=== PATIENT | female | born 1990 | race Caucasian/White ===

== ENCOUNTER → 2016-06-11 | Outpatient (CLI) | payer MEDICAID ==
[~2016-06-11] MED LIST: ALBU8.5H2; ALBU8.5H2 IH; AZIT-21 PO; CEFD300C PO; CEPH500C PO; DCS100C PO; DOCU-143 PO; FERR-74 PO; HC1O30 TP; HYDR-3729 PO; IBUP-1773 PO; NAPR-243 PO; ONDA-43 PO; PRD20T PO; PREN-98 PO; PRM5C60 TOP; RT-ALBUINH IH; SULF1TAB38 PO; TRAM50TA2 PO
--- NOTE | 2016-06-11 13:16 | Diagnostic Imaging Report ---
OB ultrasound. INDICATION: Incomplete survey. FINDINGS: The heart rate is 121 beats per minute. The placenta is anterior. No placenta previa. Study from 05/12/2016 demonstrated poor visualization of the four-chamber view, spine and cord insertion. On this exam, the four-chamber view, the spine and cord insertion are somewhat better seen compared to the previous study with no definite abnormality. Some limitation to this exam due to large body habitus is present. The growth parameters are all around 23 weeks and 1 day which is normal for gestational age of 23 weeks and 6 days based on first trimester ultrasound. The biparietal and head circumference measurements, however, are at the 3rd percentile, at the lower limits of normal. IMPRESSION: survey completed with no definite abnormality. The head circumference and biparietal diameter are at the lower limits of normal for gestational age. Dictated by: Dictated on workstation # [id number]
== END ==
LOC: RAD 10:57
PROVIDERS: ATTEND Family Medicine
DX: Z34.92 Encounter for supervision of normal pregnancy, unspecified, second trimester (principal); Z36 Encounter for antenatal screening of mother; Z3A.23 23 weeks gestation of pregnancy
CPT/HCPCS: 76816

== ENCOUNTER → 2016-07-24 | Outpatient (CLI) | payer MEDICAID ==
--- NOTE | 2016-07-24 16:04 | Diagnostic Imaging Report ---
EXAMINATION: OB ultrasound. INDICATION: Followup exam. FINDINGS: This study was technically difficult due to the patient's body habitus. The previous OB ultrasound exam of 06/11/2016 noted a single live fetus in cephalic presentation. There were no abnormalities identified. However, the BPD and head circumference measurements were in the 3 percentile. On this exam, the fetus is again identified. The fetus is in breech presentation. heart motion was noted with a rate of 121 BPM recorded. There were no abnormalities identified. The growth parameters are now fairly uniform. In particular, the BPD and head circumference measurements are now in the 21st and 25th percentile respectively. The growth parameters average 29 weeks 6 days which would be consistent with the initial exam of 02/25/2016. On the prior study, the amniotic fluid volume appeared to be within normal limits, although the volume was not measured. On this exam, the ADITI is now 7.9 (8-22 cm). The reason for the borderline oligohydramnios is not certain. The placenta is anterior, and there is no previa. IMPRESSION: 1. There is a single live fetus of approximately 30 weeks gestation, +/-1 week. The EDC remains October 02, 2016. 2. There were no abnormalities identified. 3. The growth parameters are now fairly uniform and have progressed as expected since the initial exam. 4. The amniotic fluid index is just below normal. The reason for the borderline oligohydramnios is not certain. A short-term (2-4 week) followup ultrasound exam would be recommended for further study. 5. These results were discussed with Dr. Richie Carlos. Dictated by: Dictated on workstation # [id number]
== END ==
LOC: RAD 13:28
PROVIDERS: ATTEND Family Medicine
DX: Z36 Encounter for antenatal screening of mother (principal)
CPT/HCPCS: 76816

== ENCOUNTER 2016-08-08 18:21 | Outpatient (CLI) | payer MEDICAID ==
[~2016-08-08] VITALS: Ht 167.6 cm; Wt 108.9 kg
[~2016-08-08 18:21] MED LIST changes: -DOCU-143 PO; -FERR-74 PO; -HYDR-3729 PO; -IBUP-1773 PO; -PREN-98 PO; -RT-ALBUINH IH
[2016-08-08] MEDS ORDERED: PREN-98 PO (19:23)
--- NOTE | 2016-08-11 10:24 | Physician Query-Final Dx ---
ARMANDO SHARPE 08/11/16 1024: Clinic Account Progress/Dx Physician Query: Please give diagnosis Date of Service Aug 08, 2016 at 18:21 CARMEN KO MD 08/13/16 0729: Clinic Account Progress/Dx DIAGNOSIS: Diagnosis 1. IUP at 31 weeks gestation 2. Anxiety ARMANDO SHARPE Aug 11, 2016 10:24 CARMEN KO MD Aug 13, 2016 07:29
== END 2016-08-08 19:01 | disposition home or self-care (01) ==
LOC: WSo 18:21 → LDRP 18:25 → WSo 19:01
PROVIDERS: ATTEND Family Medicine
DX: O99.343 Other mental disorders complicating pregnancy, third trimester (principal); F41.9 Anxiety disorder, unspecified; Z3A.31 31 weeks gestation of pregnancy
CPT/HCPCS: 99212

== ENCOUNTER 2016-08-08 18:57 | Emergency (ER) | payer MEDICAID ==
[~2016-08-08] VITALS: Ht 167.6 cm; Wt 117.9 kg
[2016-08-08] MEDS ORDERED: PREN-98 PO (19:23)
--- NOTE | 2016-08-08 19:35 | ED Cardiac General ---
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 Source: patient Exam Limitations: no limitations History of Present Illness Time seen by provider: 19:33 Initial Comments To ER with palpitations, chest pain, and dyspnea that began earlier this evening. She's had a history of these intermittently over the past several years. Today she is 32 weeks gestation. She stopped smoking 2 weeks ago. 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: No ASA po RAMP FLIGHT ATTENDANT: No Associated Systoms: Chest PainNo Cough, No Diaphoresis, No Fever/Chills Allergies and Home Medications Allergies Coded Allergies: Penicillins (Verified Allergy, Unknown, 02/15/12) Home Medications Vit37/Iron/Folic Acid 1 Each Tab.chew 1 EACH PO (Reported) Review of Systems Constitutional: see HPI EENTM: No Symptoms Reported Respiratory: No Symptoms Reported Cardiovascular: See HPI Chest Pain Gastrointestinal: No Symptoms Reported Genitourinary: No Symptoms Reported Musculoskeletal: no symptoms reported Skin: no symptoms reported Psychiatric/Neurological: No Symptoms Reported Emotional Problems Endocrine: No Symptoms Reported Hematologic/Lymphatic: No Symptoms Reported Past Ldekckg-Lggqbz-Capkni Hx Patient Social History Alcohol Use: Denies Use Recreational Drug Use: No Smoking Status: Current Everyday Smoker Recent Foreign Travel: No Contact w/Someone Who Travel: No Recent Infectious Disease Expo: No Surgeries HX Surgeries: No Respiratory Hx Respiratory Disorders: Yes Respiratory Disorders: Asthma Cardiovascular Hx Cardiac Disorders: No Neurological Hx Neurological Disorders: No Reproductive System Hx Reproductive Disorders: No Sexually Transmitted Disease: No HIV/AIDS: No Genitourinary Hx Genitourinary Disorders: No Gastrointestinal Hx Gastrointestinal Disorders: No Musculoskeletal Hx Musculoskeletal Disorders: No Endocrine Hx Endocrine Disorders: No HEENT HX ENT Disorders: No Cancer Hx Cancer: No Psychosocial Hx Psychiatric Problems: No Integumentary HX Skin/Integumentary Disorder: No Blood Transfusions Hx Blood Disorders: No Adverse Reaction to a Blood Tr: No Physical Exam Vital Signs Vital Sign - Last 12Hours 08/08/16 19:20 Temp 98.2 Pulse 119 Resp 18 B/P 122/78 Pulse Ox 97 O2 Delivery Room Air Capillary Refill : Less Than 3 Seconds General Appearance: No Apparent Distress WD/WN HEENT: PERRL/EOMI TMs Normal Neck: Full Range of Motion Normal Inspection Respiratory: Normal Breath Sounds No Accessory Muscle Use No Respiratory Distress Cardiovascular: No Edema Normal Peripheral Pulses Tachycardia Other (sternum is tender to palpation) Gastrointestinal: Non Tender Soft Extremity: Normal Capillary Refill Normal Inspection No Pedal Edema Neurologic/Psychiatric: Alert Oriented x3 No Motor/Sensory Deficits Skin: Normal Color Warm/Dry Progress/Results/Core Measures Results/Orders Lab Results Laboratory Tests Test 08/08/16 19:50 Range/Units Basophils # (Auto) 0.0 0.0-0.1 10^3/uL Basophils (%) (Auto) 0 0-10 % D-Dimer 0.49 0.00-0.49 UG/ML Eosinophils # (Auto) 0.0 0.0-0.3 10^3/uL Eosinophils (%) (Auto) 0 0-10 % Hematocrit 35 35-52 % Hemoglobin 11.9 11.5-16.0 G/DL Lymphocytes # (Auto) 1.8 1.0-4.0 X 10^3 Lymphocytes (%) (Auto) 20 12-44 % Mean Corpuscular Hemoglobin 28 25-34 PG Mean Corpuscular Hemoglobin Concent 34 32-36 G/DL Mean Corpuscular Volume 81 80-99 FL Mean Platelet Volume 9.6 7.4-10.4 FL Monocytes # (Auto) 0.5 0.0-1.0 X 10^3 Monocytes (%) (Auto) 5 0-12 % Neutrophils # (Auto) 7.0 1.8-7.8 X 10^3 Neutrophils (%) (Auto) 75 42-75 % Platelet Count 260 130-400 10^3/uL Red Blood Count 4.31 L 4.35-5.85 10^6/uL Red Cell Distribution Width 12.7 10.0-14.5 % White Blood Count 9.3 4.3-11.0 10^3/uL My Orders Orders-ARLENE SOLITARIO APRN Cbc With Automated Diff (08/08/16 19:23) Fibrin Degradation Products (08/08/16 19:23) Ekg Tracing (08/08/16 19:23) Chest Pa/Lat (2 View) (08/08/16 19:23) BNP (08/08/16 20:00) Vital Signs/I&O Vital Sign - Last 12Hours 08/08/16 19:20 Temp 98.2 Pulse 119 Resp 18 B/P 122/78 Pulse Ox 97 O2 Delivery Room Air Blood Pressure Mean: 93 Departure Communication Progress Notes Patient is less than 50 without active cancer, no history of DVT or PE, no recent surgery or trauma, no hemoptysis, no exogenous estrogen, no unilateral leg swelling, oxygen saturation 97-99 percent on room air, heart rate 110-115 but this is not a new finding and fact she has been tachycardic on 3 of her previous 4 visits. 2023-I discussed the case with Dr. Ko who is her OB doc and primary care doctor. He agrees with plan of care he will see her in the office. Patient states that she was anxious at the onset of the symptoms. At this time she is without chest pain or shortness of breath. She remains tachycardic at about 104 sinus, oxygen 97 and 99 percent on room air. Impression Impression: Primary Impression: Chest pain Qualified Code: R07.1 - Chest pain on breathing Disposition: HOME, SELF-CARE Condition: Stable Departure-Patient Inst. Decision time for Depature: 20:25 Referrals: CARMEN KO MD (PCP/Family) Primary Care Physician Patient Instructions: Chest Pain That Is Not Caused by the Heart (DC) Add. Discharge Instructions: 1. Return to the emergency room for any worsening shortness of breath, passing out, chest pain or other concerns 2. Follow-up with Dr. Ko next week 3. All discharge instructions reviewed with patient and/or family. Voiced understanding. Copy Copies To 1: CARMEN KO MD, PETER J APRN Aug 08, 2016 19:34
[2016-08-08 19:58] LABS: BASOPHILS % (AUTO) 0 % (0-10); EOSINOPHILS % (AUTO) 0 % (0-10); LYMPHOCYTES # (AUTO) 1.8 X 10^3 (1.0-4.0); LYMPHOCYTES % (AUTO) 20 % (12-44); MEAN CORPUSCULAR HEMOGLOBIN 28 PG (25-34); MEAN CORPUSCULAR HGB CONC 34 G/DL (32-36); MEAN CORPUSCULAR VOLUME 81 FL (80-99); MEAN PLATELET VOLUME 9.6 FL (7.4-10.4); MONOCYTES # (AUTO) 0.5 X 10^3 (0.0-1.0); MONOCYTES % (AUTO) 5 % (0-12); NEUTROPHILS % (AUTO) 75 % (42-75); PLATELET COUNT 260 10^3/uL (130-400); RED BLOOD COUNT 4.31 10^6/uL (4.35-5.85); RED CELL DISTRIBUTION WIDTH 12.7 % (10.0-14.5); WHITE BLOOD COUNT 9.3 10^3/uL (4.3-11.0)
--- NOTE | 2016-08-08 20:32 | Diagnostic Imaging Report ---
EXAM: Chest PA/LAT (2 view). INDICATION: Chest pain. Shortness of air. COMPARISON: Chest radiograph from 07/13/2013. FINDINGS: Normal heart size and pulmonary vascularity. Stable nodule in the left midlung should be benign as it has been stable for two years. No new focal pulmonary opacity, pleural effusion or pneumothorax. No acute osseous findings. IMPRESSION: No acute cardiopulmonary findings. Dictated by: Dictated on workstation # [id number]
[2016-08-08 20:33] VITALS: BP 122/78
== END 2016-08-08 20:33 | disposition home or self-care (01) ==
LOC: EDUNIT# 18:57 → ER 18:59
DX: R07.9 Chest pain, unspecified (principal); O99.333 Smoking (tobacco) complicating pregnancy, third trimester; R06.02 Shortness of breath; R00.2 Palpitations; F17.210 Nicotine dependence, cigarettes, uncomplicated; Z3A.32 32 weeks gestation of pregnancy
CPT/HCPCS: 36415; 71020; 83880; 85025; 85379; 93005

== ENCOUNTER → 2016-08-08 | Outpatient (CLI) | payer MEDICAID ==
--- NOTE | 2016-08-08 19:48 | Diagnostic Imaging Report ---
INDICATION: Oligohydramnios. EXAMINATION: OB ultrasound. FINDINGS: The previous OB ultrasound exam performed on 07/24/16 note a single live fetus approximately 30 weeks gestation +/-1 week. There are no abnormalities identified. However, the amniotic fluid index was only 7.9 (normal 8-22 cm). On this study, the fetus is again identified. The fetus is cephalic in presentation. heart motion was noted and a rate of 130 bpm was recorded. In the interval since the previous exam, the amniotic fluid volume has decreased and is now estimated to be 6.7. The placenta is anterior and there is no previa. There is no obvious abnormality identified. The growth parameters were not obtained for this exam. IMPRESSION: 1. There is a single live fetus in cephalic presentation. 2. The amniotic fluid index has decreased since the prior exam and is now estimated to be 6.7 cm. 3. These results were called to Dr. Carlos. Dictated by: Dictated on workstation # [id number]
== END ==
LOC: RAD 09:50
PROVIDERS: ATTEND Family Medicine
DX: O41.03X0 Oligohydramnios, third trimester, not applicable or unspecified (principal); Z3A.30 30 weeks gestation of pregnancy
CPT/HCPCS: 76816

== ENCOUNTER 2016-08-21 15:11 | Outpatient (RCR) | payer MEDICAID ==
[~2016-08-21 15:11] MED LIST changes: +PREN-98 PO
[2016-08-21 15:22] VITALS: BP 117/70
[2016-08-28 14:44] VITALS: BP 122/58
[2016-09-04 14:26] VITALS: BP 109/66
[2016-09-11 14:06] VITALS: BP 133/60
[2016-09-16] MEDS ORDERED: RT-ALBUINH IH (23:35)
[2016-09-17] MEDS ORDERED: HYDR-3729 PO (19:09)
[2016-09-17] MEDS ORDERED: DOCU-143 PO (19:09)
[2016-09-17] MEDS ORDERED: IBUP-1773 PO (19:09)
[2016-09-19] MEDS ORDERED: FERR-74 PO (08:46)
[2016-10-20] MEDS ORDERED: CETI10CA PO (20:20)
[2016-10-20] MEDS ORDERED: LORA0.5T PO (21:12)
== END 2016-11-19 | disposition home or self-care (01) ==
LOC: WSo 15:11
PROVIDERS: ATTEND Family Medicine
DX: O41.03X0 Oligohydramnios, third trimester, not applicable or unspecified (principal); Z3A.34 34 weeks gestation of pregnancy
CPT/HCPCS: 59025

== ENCOUNTER 2016-09-16 19:45 | Inpatient (IN) | payer MEDICAID ==
[~2016-09-16] VITALS: Ht 167.6 cm; Wt 124.3 kg
[2016-09-16 20:00] VITALS: BP 121/77
[2016-09-16] MEDS ORDERED: DINOPROSTONE 10 MG (CERVIDIL) INSERT PV ONE (20:20)
[2016-09-16] MEDS ORDERED: MINERAL OIL CONCENTRATE 99.9% 15 ML UDC TOP PRN (20:30)
[2016-09-16] MEDS ORDERED: ZOLPIDEM 5 MG (AMBIEN) TAB PO PRN (20:30)
[2016-09-16] MEDS: D5 LR IV SOLUTION 1,000 ML IV SCH (21:10)
[2016-09-16 21:30] VITALS: BP 127/63
[2016-09-16 21:57] LABS: BASOPHILS % (AUTO) 0 % (0-10); EOSINOPHILS % (AUTO) 0 % (0-10); LYMPHOCYTES % (AUTO) 17 % (12-44); MEAN CORPUSCULAR HEMOGLOBIN 27 PG (25-34); MEAN CORPUSCULAR HGB CONC 34 G/DL (32-36); MEAN CORPUSCULAR VOLUME 79 FL (80-99); MEAN PLATELET VOLUME 9.9 FL (7.4-10.4); MONOCYTES # (AUTO) 0.4 X 10^3 (0.0-1.0); MONOCYTES % (AUTO) 3 % (0-12); NEUTROPHILS # (AUTO) 9.1 X 10^3 (1.8-7.8); NEUTROPHILS % (AUTO) 79 % (42-75); PLATELET COUNT 277 10^3/uL (130-400); RED BLOOD COUNT 4.53 10^6/uL (4.35-5.85); WHITE BLOOD COUNT 11.5 10^3/uL (4.3-11.0)
[2016-09-16 22:00] VITALS: BP 123/60
[2016-09-16] MEDS ORDERED: CATHETER FLUSH 10 ML SYR IV SCH (22:00)
[2016-09-16 22:30] VITALS: BP 139/87
[2016-09-16 23:00] VITALS: BP 133/71
[2016-09-16 23:30] VITALS: BP 136/90
[2016-09-16] MEDS ORDERED: RT-ALBUINH IH (23:35)
[2016-09-17] VITALS (41 sets, daily range): BP systolic 103–147; BP diastolic 56–85
[2016-09-17] MEDS: D5 LR IV SOLUTION 1,000 ML IV SCH ×2 (04:52→13:10)
--- NOTE | 2016-09-17 07:08 | History & Physical-OB ---
OB - Chief Complaint & HPI Date Date of Admission: Date of Admission: Sep 16, 2016 at 19:45 Chief Complaint/History OB-Reason for Admission/Chief: Induction of Labor Hx : 1 Hx Para: 0 Expected Date of Delivery: October 02, 2016 Gestational Age in Weeks: 38 Indication for induction: other (Oligo) Admission Nurse Assessment Rev: Yes History of Labs GBS negative Allergies and Home Medications Allergies Coded Allergies: Penicillins (Verified Allergy, Unknown, 02/15/12) Home Medications Albuterol Sulfate 1 Puff Puff, 2 PUFF IH Q4H PRN for AIR HUNGER, (Reported) 1 PUFF = 90 MCG Vit37/Iron/Folic Acid 1 Each Tab.chew, 1 EACH PO, (Reported) OB - History Hx of Present Care: Yes Ultrasounds: Abnormal US findings (of oligo) Obstetrical Complications: None Medical Complications: None Other Concerns: Twice weekly NST's and weekly BPP since 6 weeks ago when oligo noted. BPP noted to be 8/8 on previous testing as well as this 09/15/2016. ADITI this last Thursday was [address] Brandon's office. Recommendations were for delivery this week. Delivery History Hx Blood Disorders: No Adverse Rxn to Tranfusion: No Patient Past Medical History No chronic medical problems Social History/Family History HIV/AIDS: No Recent Infectious Disease Expo: No Sexually Transmitted Disease: Yes (HPV 2014) OB - Admission Exam Physical Exam Vitals: Vital Signs 09/17/16 06:22 Temp 97.6 Pulse 81 Resp 20 B/P (MAP) 122/61 O2 Delivery Room Air HEENT: Moist Membranes Heart: Rhythm Normal Lungs: Clear Abdomen: Gravid Cervical Dilatation: Fingertip (/closed) Effacement: 75% Station: Ballotable Membranes: Intact Heart Rate: 140's Accelerations: Accelerations Present Short Term Variability: Present Intensity: Mild Tang Scoring Tool (Modified) Dilation (cm): 0/Closed (0) Effacement (%): 51-79% (2) Descent/Station: -3 (0) Cervix Consistency: Soft (2) Cervix Position: Posterior (0) Subtract 1 point for: Nulliparity (-1) Tang Score: 3 Labs Laboratory Tests Test 09/16/16 21:52 Range/Units White Blood Count 11.5 H 4.3-11.0 10^3/uL Red Blood Count 4.53 4.35-5.85 10^6/uL Hemoglobin 12.0 11.5-16.0 G/DL Hematocrit 36 35-52 % Mean Corpuscular Volume 79 L 80-99 FL Mean Corpuscular Hemoglobin 27 25-34 PG Mean Corpuscular Hemoglobin Concent 34 32-36 G/DL Red Cell Distribution Width 13.0 10.0-14.5 % Platelet Count 277 130-400 10^3/uL Mean Platelet Volume 9.9 7.4-10.4 FL Neutrophils (%) (Auto) 79 H 42-75 % Lymphocytes (%) (Auto) 17 12-44 % Monocytes (%) (Auto) 3 0-12 % Eosinophils (%) (Auto) 0 0-10 % Basophils (%) (Auto) 0 0-10 % Neutrophils # (Auto) 9.1 H 1.8-7.8 X 10^3 Lymphocytes # (Auto) 2.0 1.0-4.0 X 10^3 Monocytes # (Auto) 0.4 0.0-1.0 X 10^3 Eosinophils # (Auto) 0.0 0.0-0.3 10^3/uL Basophils # (Auto) 0.0 0.0-0.1 10^3/uL OB - Assessment/Plan/Diagnosis Assessment Assessment: induction of labor (at 38 weeks due to oligohydraminos) Plan Plan: Induction (with cervidil and pitocin ) Induction Method: per Pitocin Protocol CARMEN KO MD Sep 17, 2016 07:08
[2016-09-17] MEDS ORDERED: OXYTOCIN/NORMAL SALINE 500 ML IV SCH ×2 (07:19→23:18)
[2016-09-17] MEDS ORDERED: BUTORPHANOL INJ 2 MG/ML (STADOL) VIAL IV PRN (07:30)
[2016-09-17] MEDS ORDERED: MISOPROSTOL 100 MCG (CYTOTEC) TAB PV SCH (16:00)
[2016-09-17] MEDS ORDERED: CITRIC ACID/SOB CIT (BICITRA) 30 ML UDC PO ONE (18:00)
[2016-09-17] MEDS ORDERED: FAMOTIDINE 20MG/2ML IV (PEPCID) IV ONE (18:00)
[2016-09-17] MEDS ORDERED: METOCLOPRAMIDE INJ 10 MG/2 ML (REGLAN) IV ONE (18:00)
[2016-09-17] MEDS: LACTATED RINGERS 1,000 ML IV PRN ×2 (18:49→19:30)
[2016-09-17] MEDS ORDERED: ceFAZolin 2 GM/50 ML NS 50 ML IV ONE (19:00)
--- NOTE | 2016-09-17 19:01 | History & Physical-OB ---
OB - Chief Complaint & HPI Date Date of Admission: Date of Admission: Sep 16, 2016 at 19:45 Chief Complaint/History OB-Reason for Admission/Chief: Induction of Labor Hx : 1 Hx Para: 0 Expected Date of Delivery: October 02, 2016 Gestational Age in Weeks: 38 Indication for induction: other (Oligo) Other reason for admission: Pauly is a 26 y/o G1 @ 38w0d here for IOL for persistent oligohydramnios. Has been managed by Dr. Carlos and seen in consultation by Dr. Brandon for persistent oligohydramnios since early third trimester. IOL undertaken since 24 hours ago with cervidil, then 6 hours of pitocin and a dose of cytotec. Cervix remains closed, thick and high. No LOF VB. Patient understands Dr. Carlos has recommended section and consulted me for this, and is ready to proceed. Admission Nurse Assessment Rev: Yes Allergies and Home Medications Allergies Coded Allergies: Penicillins (Verified Allergy, Unknown, 02/15/12) Home Medications Albuterol Sulfate 1 Puff Puff, 2 PUFF IH Q4H PRN for AIR HUNGER, (Reported) 1 PUFF = 90 MCG Vit37/Iron/Folic Acid 1 Each Tab.chew, 1 EACH PO, (Reported) OB - History Hx of Present Care: Yes Ultrasounds: Abnormal US findings (of oligo) Obstetrical Complications: None Medical Complications: None Obstetrical History Hx : 1 Hx Para: 0 Delivery History Hx Blood Disorders: No Adverse Rxn to Tranfusion: No Patient Past Medical History Class III obesity (BMI 44) Social History/Family History HIV/AIDS: No Recent Infectious Disease Expo: No Sexually Transmitted Disease: Yes (HPV 2014) Immunizations GBS Status: Negative OB - Admission Exam Physical Exam Vitals: Vital Signs 09/17/16 09/17/16 16:45 17:15 Temp 97.2 Pulse 61 Resp 18 B/P (MAP) 110/58 Pulse Ox 99 O2 Delivery Room Air HEENT: Moist Membranes Heart: Rhythm Normal Abdomen: Gravid Cervical Dilatation: Fingertip (/closed) Effacement: 75% Station: Ballotable Membranes: Intact Heart Rate: 140's Accelerations: Accelerations Present Decelerations: No Decelerations Short Term Variability: Present Jail Variability: Average (6-25) Contractions on Admission: None Intensity: Mild Tang Scoring Tool (Modified) Tang Score: 3 Labs Laboratory Tests Test 09/16/16 21:52 Range/Units White Blood Count 11.5 H 4.3-11.0 10^3/uL Red Blood Count 4.53 4.35-5.85 10^6/uL Hemoglobin 12.0 11.5-16.0 G/DL Hematocrit 36 35-52 % Mean Corpuscular Volume 79 L 80-99 FL Mean Corpuscular Hemoglobin 27 25-34 PG Mean Corpuscular Hemoglobin Concent 34 32-36 G/DL Red Cell Distribution Width 13.0 10.0-14.5 % Platelet Count 277 130-400 10^3/uL Mean Platelet Volume 9.9 7.4-10.4 FL Neutrophils (%) (Auto) 79 H 42-75 % Lymphocytes (%) (Auto) 17 12-44 % Monocytes (%) (Auto) 3 0-12 % Eosinophils (%) (Auto) 0 0-10 % Basophils (%) (Auto) 0 0-10 % Neutrophils # (Auto) 9.1 H 1.8-7.8 X 10^3 Lymphocytes # (Auto) 2.0 1.0-4.0 X 10^3 Monocytes # (Auto) 0.4 0.0-1.0 X 10^3 Eosinophils # (Auto) 0.0 0.0-0.3 10^3/uL Basophils # (Auto) 0.0 0.0-0.1 10^3/uL OB - Assessment/Plan/Diagnosis Assessment Assessment: induction of labor (at 38 weeks due to oligohydraminos) Plan Other Plan 26 y/o G1 @ 38w0d with IOL for persistent oligohydramnios - now failed, GBS neg. Class III obesity (BMI 44) I discussed with the patient that given > 24 hours of cervical ripening/IOL attempts with no change in the cervical exam, it is reasonable to proceed with CD. We discussed risks, benefits and alternatives. Specific risks include bleeding , infection, damage to surrounding structures, mother or infant. Will plan spinal anesthesia, ancef rupesh-op for ppx (PCN allergy but not anaphylaxis) Lovenox post-op for significant VTE risk along with SCDs To OR when crew is available ANKIT CALLES MD Sep 17, 2016 19:01
[2016-09-17] MEDS ORDERED: IBUP-1773 PO (19:09)
[2016-09-17] MEDS ORDERED: HYDR-3729 PO (19:09)
[2016-09-17] MEDS ORDERED: DOCU-143 PO (19:09)
--- NOTE | 2016-09-17 19:11 | Discharge Inst-Women's Service ---
Discharge Inst-Women's Serv Depart Medication/Instructions New, Converted or Re-Newed RX: RX on Chart Final Diagnosis Failed IOL, TIUP, oligohydramnios, primary CD Consults/Follow Up Additional Follow Up: Yes Orders/Referrals 7-[address] Serna [address] Carlos Activity Driving Instructions: No Driving for 1 Week (or while taking narcotic pain medications) NO SMOKING: NO SMOKING Nothing Inside Vagina: No Douching, No [place], No Tampons Other Activity No lifting > 10lb No strenuous activity Until cleared by Dr. Serna/Dr. Carlos Diet Discharge Diet: No Restrictions Symptoms to Report to DrJd: Bleeding Excessive, Pain Increased, Fever Over 101 Degrees F, Pain/Pressure in Chest, Vaginal Bleeding Increase, Dizziness/Fainting , Nausea/Vomiting, Shortness of Breath For Any Problems or Questions: Contact Your Physician, Go to Emergency Room Skin/Wound Care Infection Signs and Symptoms: Increased Redness, Foul Odor of Wound, Increased Drainage Operative Area Clean and Dry: Keep Incision Clean/Dry Stitches/[place]/Dermabond: Dermabond, Care of Stitches Bathing Instructions: ANKIT Chaidez MD Sep 17, 2016 19:11
--- NOTE | 2016-09-17 19:15 | Cesarean Section Operative ---
Procedure Procedure Note Date of Procedure: 09/17/16 Pre-operative Diagnosis: Pauly Boateng is a 26 y/o G1 @ 38w0d with failed IOL for oligohydramnios, class III obesity Post-operative Diagnosis: same plus malpresentation (transverse, back down) Procedure: Primary low transverse section Physician: Leann Serna MD Carpet Binder: Richie Carlos MD Second Bog Cutter: Mercedes Montana APRN who was medically necessary for retraction of vital structures given the patient's morbid obesity and difficulty with delivery with malpresentation of the fetus Estimated blood loss: 900 mL Disposition: Recovery room stable Specimens: Cord blood and cord blood gas to lab, placenta to pathology Findings: Viable female , Apgars 5/8, weight 2455g, intact placenta, 3vc, normal appearing uterus, tubes, and ovaries. Indications:Pauly Boateng is a 26 y/o G1 @ 38w0d who was admitted last evening for IOL by Dr. Carlos. Various methods of cervical ripening/induction were undertaken including misoprostol, cervidil, and pitocin. Her cervix remained closed per various exams by Dr. Carlos. I was consulted for delivery. Procedure Details: The patient was seen and the procedure was discussed with the patient in full, including the risks, benefits, and alternatives. All questions were answered. The patient was taken to the operating room and a time out was performed, verifying patient and procedure. Brianna-operative ancef was administered ( penicillin allergy was noted but no anaphylaxis). After spinal anesthesia was placed by our anesthesia colleagues, the patient was placed in the dorsal supine with leftward tilt for uterine displacement. Her abdomen was then prepped and draped in the typical sterile fashion. A Pfannenstiel skin incision was made using a scalpel and carried down through the underlying fascia. The fascia was incised in the midline and tented up using Ena clamps. On both the inferior and superior fascia side the rectus muscle was dissected off bluntly and sharply using Tran scissors. The peritoneum was identified and entered bluntly in the midline. This was then stretched laterally using manual strength. After entering the abdominal cavity and confirming lack of intraperitoneal adhesions, an extra-large Guero retractor was placed and the lower uterine segment was visualized. A bladder flap was created with the use of Metzenbaum scissors. A scalpel was utilized to make a low transverse uterine incision. Amniotomy was performed with return of clear fluid. The infant's arm was noted to delivery through the incision at this point. It was determined that the infant was in transverse presentation, back down. I did attempt to manually rotate the infant to deliver vertex, however this was not possible and I then brought the feet to the incision and performed a breech extraction from the hysterotomy. Bilateral legs were delivered, and the was gently delivered to the level of the shoulder blades. The right arm was flexed and delivered through the hysterotomy, followed by the left arm. The infant's head was then delivered. Mouth and nares were suctioned with bulb suction. After the umbilical cord was clamped and cut, the was brought to the warmer and resuscitation was performed by Dr. Carlos. A sample of cord blood and cord blood gas (pH 7.37) was then obtained. The placenta was delivered intact via uterine massage. The uterus was cleared of all clots and debris. The uterine incision was closed using 0 Vicryl in a running locked fashion. A second imbricated layer was placed using 0 Vicryl in a running fashion as well. The hysterotomy site was examined and hemostasis was observed. The bilateral tubes and ovaries appeared normal. The abdominal gutters were cleared of all clots and debris. A final check of the uterine incision showed it to be hemostatic. Intercede was placed on the hysterotomy. The peritoneum was closed using 3-0 Vicryl in a running fashion. The fascia was closed with 0 Vicryl in a running fashion. The subcutaneous space was hemostatic , and irrigated. The subcutaneous space was closed in two layers due to its depth with 3-0 Vicryl in several single interrupted stitches. The skin was then closed using 4-0 Monocryl in a running subcuticular fashion. The skin edges were reapproximated together and were hemostatic. A pressure dressing was applied. All sponge, lap and needle counts were correct at the end of the procedure per nursing. Vitals - Labs Vital Signs - I&O Vital Signs Date Time Temp Pulse Resp B/P (MAP) Pulse Ox O2 Delivery O2 Flow Rate FiO2 09/17/16 17:15 61 18 110/58 99 Room Air 09/17/16 16:45 97.2 70 18 116/58 99 Room Air 09/17/16 16:15 65 18 112/67 98 Room Air 09/17/16 15:45 79 18 125/67 99 Room Air 09/17/16 15:15 80 18 111/75 98 Room Air 09/17/16 14:45 70 18 110/66 99 Room Air 09/17/16 14:15 77 18 116/56 98 Room Air 09/17/16 14:00 67 18 132/85 99 Room Air 09/17/16 13:45 80 18 141/77 98 Room Air 09/17/16 13:30 83 18 110/65 98 Room Air 09/17/16 13:15 18 Room Air 09/17/16 13:00 18 Room Air 09/17/16 12:45 79 18 111/72 Room Air 09/17/16 12:30 81 18 119/73 Room Air 09/17/16 12:15 70 18 115/65 Room Air 09/17/16 12:00 86 20 124/60 Room Air 09/17/16 11:45 86 20 130/72 Room Air 09/17/16 11:30 81 20 121/60 Room Air 09/17/16 11:15 81 20 121/60 Room Air 09/17/16 11:00 98.4 86 20 122/64 Room Air 09/17/16 10:45 20 Room Air 09/17/16 10:30 78 20 129/58 Room Air 09/17/16 10:15 90 20 120/77 Room Air 09/17/16 10:00 79 20 121/62 Room Air 09/17/16 09:45 72 20 126/59 Room Air 09/17/16 09:30 83 20 118/66 Room Air 09/17/16 09:15 83 20 118/66 Room Air 09/17/16 09:00 83 20 118/66 Room Air 09/17/16 08:45 74 20 118/66 Room Air 09/17/16 08:30 83 20 118/66 Room Air 09/17/16 08:15 83 20 126/59 Room Air 09/17/16 08:00 98.3 93 18 103/65 Room Air 09/17/16 07:45 92 20 106/62 Room Air 09/17/16 07:08 81 20 122/66 Room Air 09/17/16 06:22 97.6 81 20 122/61 Room Air 09/17/16 05:00 91 20 119/76 Room Air 09/17/16 04:30 Room Air 09/17/16 04:00 82 18 112/72 Room Air 09/17/16 03:00 101 20 119/70 Room Air 09/17/16 02:30 Room Air 09/17/16 02:00 98.7 93 20 107/70 Room Air 09/17/16 01:30 Room Air 09/17/16 01:00 147/74 09/17/16 00:30 98.7 90 20 120/73 Room Air 09/16/16 23:30 111 18 136/90 Room Air 09/16/16 23:00 96 20 133/71 Room Air 09/16/16 23:00 97.3 96 18 133/71 Room Air 09/16/16 22:30 139/87 09/16/16 22:00 105 20 123/60 09/16/16 21:30 96 20 127/63 Room Air 09/16/16 21:00 Room Air 09/16/16 20:30 99.1 115 22 Room Air 09/16/16 20:00 99.1 115 22 121/77 Room Air I & O 09/17/16 07:00 Intake Total 1800 ml Balance 1800 ml Labs Laboratory Tests 09/16/16 21:52: White Blood Count 11.5H, Red Blood Count 4.53, Hemoglobin 12.0, Hematocrit 36, Mean Corpuscular Volume 79L, Mean Corpuscular Hemoglobin 27, Mean Corpuscular Hemoglobin Concent 34, Red Cell Distribution Width 13.0, Platelet Count 277, Mean Platelet Volume 9.9, Neutrophils (%) (Auto) 79H, Lymphocytes (%) (Auto) 17 , Monocytes (%) (Auto) 3, Eosinophils (%) (Auto) 0, Basophils (%) (Auto) 0, Neutrophils # (Auto) 9.1H, Lymphocytes # (Auto) 2.0, Monocytes # (Auto) 0.4, Eosinophils # (Auto) 0.0, Basophils # (Auto) 0.0 LEANN SERNA MD Sep 17, 2016 19:15
[2016-09-17] MEDS ORDERED: diphenhydrAMINE 50 MG/ML INJ (BENADRYL) IV PRN ×2 (21:00)
[2016-09-17] MEDS ORDERED: ONDANSETRON 4 MG/2 ML (SDV) Z0FRAN IV PRN ×2 (21:00)
[2016-09-17] MEDS ORDERED: NALOXONE 0.4 MG/ML 1 ML (NARCAN) VIAL IV PRN ×2 (21:00)
[2016-09-17] MEDS ORDERED: morphine INJ 4 MG/ML 1 ML (VIAL/SYRINGE) IVP PRN (23:30)
[2016-09-17] MEDS ORDERED: HYDROcodone/APAP 5 MG/325 MG (LORTAB) TAB PO PRN (23:30)
[2016-09-17] MEDS ORDERED: TETANUS,DIPTH,PERTUSS P/F (BOOSTRIX) 0.5 ML VIAL IM SCH (23:30)
[2016-09-17] MEDS ORDERED: MEASLES,MUMPS,RUBELLA 1 EA INJ SC SCH (23:30)
[2016-09-17] MEDS: KETOROLAC 30 MG/ML VIAL IVP SCH (23:30)
[2016-09-18] VITALS: BP 105/68
[2016-09-18] MEDS ORDERED: oxyCODONE/APAP 5/325MG (PERCOCET 5) TABLET ONE (03:07)
[2016-09-18 04:00] VITALS: BP 108/77
[2016-09-18] MEDS: hydrOXYzine (VISTARIL) 25 MG CAP PO PRN ×2 (04:16→18:48)
[2016-09-18 06:26] LABS: BASOPHILS % (AUTO) 0 % (0-10); EOSINOPHILS % (AUTO) 0 % (0-10); LYMPHOCYTES # (AUTO) 1.6 X 10^3 (1.0-4.0); LYMPHOCYTES % (AUTO) 16 % (12-44); MEAN CORPUSCULAR HEMOGLOBIN 26 PG (25-34); MEAN CORPUSCULAR HGB CONC 32 G/DL (32-36); MEAN CORPUSCULAR VOLUME 81 FL (80-99); MEAN PLATELET VOLUME 10.7 FL (7.4-10.4); MONOCYTES # (AUTO) 0.7 X 10^3 (0.0-1.0); MONOCYTES % (AUTO) 7 % (0-12); NEUTROPHILS # (AUTO) 7.4 X 10^3 (1.8-7.8); NEUTROPHILS % (AUTO) 77 % (42-75); PLATELET COUNT 235 10^3/uL (130-400); RED BLOOD COUNT 3.82 10^6/uL (4.35-5.85); WHITE BLOOD COUNT 9.7 10^3/uL (4.3-11.0)
[2016-09-18] MEDS: ENOXAPARIN 40 MG/0.4 ML (LOVENOX) SYR SC SCH (06:45)
[2016-09-18] MEDS: CATHETER FLUSH 10 ML SYR IV SCH ×3 (06:46→22:00)
[2016-09-18] MEDS: KETOROLAC 30 MG/ML VIAL IVP SCH ×3 (06:46→20:53)
[2016-09-18] MEDS: FERROUS SULF 325 MG (IRON) TAB PO SCH (06:47)
[2016-09-18 08:00] VITALS: BP 100/70
[2016-09-18] MEDS: DOCUSATE SODIUM 100 MG (COLACE) CAP PO SCH ×2 (08:22→20:54)
--- NOTE | 2016-09-18 09:37 | Anesthesia-Regional Post-Op ---
Regional Patient Condition Mental Status: Alert, Oriented x3 Circulation: Same as Pre-Op Headache: Absent Sensation: Full Recovery Motor Block: Absent Post Op Complications Complications None Follow Up Care/Instructions Patient Instructions None needed. Anesthesia/Patient Condition Patient is doing well, no complaints, stable vital signs, no apparent adverse anesthesia problems. No complications reported per nursing. TIM DOE CRNA Sep 18, 2016 09:37
--- NOTE | 2016-09-18 10:02 | Progress Note-Standard ---
Standard Progress Note Progress Notes/Assess & Plan Progress/Assessment & Plan Patient doing well POD 1 from PLTCS for malpresentation. Reports no concerns this morning. Pain well controlled. Ambulating and voiding free. Vital Sign - Last 24 Hours 09/17/16 09/17/16 09/17/16 09/17/16 10:15 10:30 10:45 11:00 Temp 98.4 Pulse 90 78 86 Resp 20 20 20 20 B/P (MAP) 120/77 129/58 122/64 O2 Delivery Room Air Room Air Room Air Room Air 09/17/16 09/17/16 09/17/16 09/17/16 11:15 11:30 11:45 12:00 Pulse 81 81 86 86 Resp 20 20 20 20 B/P (MAP) 121/60 121/60 130/72 124/60 O2 Delivery Room Air Room Air Room Air Room Air 09/17/16 09/17/16 09/17/16 09/17/16 12:15 12:30 12:45 13:00 Pulse 70 81 79 Resp 18 18 18 18 B/P (MAP) 115/65 119/73 111/72 O2 Delivery Room Air Room Air Room Air Room Air 09/17/16 09/17/16 09/17/16 09/17/16 13:15 13:30 13:45 14:00 Pulse 83 80 67 Resp 18 18 18 18 B/P (MAP) 110/65 141/77 132/85 Pulse Ox 98 98 99 O2 Delivery Room Air Room Air Room Air Room Air 09/17/16 09/17/16 09/17/16 09/17/16 14:15 14:45 15:15 15:45 Pulse 77 70 80 79 Resp 18 18 18 18 B/P (MAP) 116/56 110/66 111/75 125/67 Pulse Ox 98 99 98 99 O2 Delivery Room Air Room Air Room Air Room Air 09/17/16 09/17/16 09/17/16 09/17/16 16:15 16:45 17:15 17:45 Temp 97.2 Pulse 65 70 61 86 Resp 18 18 18 18 B/P (MAP) 112/67 116/58 110/58 124/72 Pulse Ox 98 99 99 98 O2 Delivery Room Air Room Air Room Air Room Air 09/17/16 09/17/16 09/17/16 09/17/16 18:15 18:45 19:15 20:00 Temp 97.2 Pulse 83 100 121 Resp 18 18 18 22 B/P (MAP) 112/79 121/69 Pulse Ox 98 O2 Delivery Room Air Room Air Room Air Room Air 09/18/16 09/18/16 09/18/16 09/18/16 00:00 00:51 04:00 08:00 Temp 98.5 97.9 97.8 Pulse 85 89 85 Resp 16 18 16 B/P (MAP) 105/68 108/77 100/70 Pulse Ox 98 98 98 99 O2 Delivery Room Air Room Air Room Air Intake and Output 09/17/16 09/17/16 09/18/16 15:00 23:00 07:00 Intake Total 1000 ml 1050 ml 3000 ml Output Total 1300 ml 4300 ml Balance 1000 ml -250 ml -1300 ml Laboratory Tests Test 09/18/16 05:35 Range/Units White Blood Count 9.7 4.3-11.0 10^3/uL Red Blood Count 3.82 L 4.35-5.85 10^6/uL Hemoglobin 9.9 L 11.5-16.0 G/DL Hematocrit 31 L 35-52 % Mean Corpuscular Volume 81 80-99 FL Mean Corpuscular Hemoglobin 26 25-34 PG Mean Corpuscular Hemoglobin Concent 32 32-36 G/DL Red Cell Distribution Width 13.0 10.0-14.5 % Platelet Count 235 130-400 10^3/uL Mean Platelet Volume 10.7 H 7.4-10.4 FL Neutrophils (%) (Auto) 77 H 42-75 % Lymphocytes (%) (Auto) 16 12-44 % Monocytes (%) (Auto) 7 0-12 % Eosinophils (%) (Auto) 0 0-10 % Basophils (%) (Auto) 0 0-10 % Neutrophils # (Auto) 7.4 1.8-7.8 X 10^3 Lymphocytes # (Auto) 1.6 1.0-4.0 X 10^3 Monocytes # (Auto) 0.7 0.0-1.0 X 10^3 Eosinophils # (Auto) 0.0 0.0-0.3 10^3/uL Basophils # (Auto) 0.0 0.0-0.1 10^3/uL Incision: c/d/i Diagnosis: POD 1 PLTCS Acute blood loss anemia Malpresentation BMI 44.2 P: Continue PO care Replace iron Encourage ambulation, Plan for dc tomorrow. BOBO BRASHER DO Sep 18, 2016 10:02 am
[2016-09-18 12:00] VITALS: BP 124/81
[2016-09-18 16:00] VITALS: BP 107/72
[2016-09-18 20:00] VITALS: BP 139/78
[2016-09-18] MEDS ORDERED: KETOROLAC 30 MG/ML VIAL ONE (20:45)
[2016-09-19 00:08] VITALS: BP 127/82
[2016-09-19] MEDS: IBUPROFEN 800 MG (MOTRIN) TAB PO SCH ×3 (04:21→12:15)
[2016-09-19 06:00] VITALS: BP 101/66
[2016-09-19] MEDS: FERROUS SULF 325 MG (IRON) TAB PO SCH (08:16)
[2016-09-19] MEDS: ENOXAPARIN 40 MG/0.4 ML (LOVENOX) SYR SC SCH (08:16)
[2016-09-19] MEDS: CATHETER FLUSH 10 ML SYR IV SCH ×2 (08:17→12:15)
[2016-09-19] MEDS: DOCUSATE SODIUM 100 MG (COLACE) CAP PO SCH (08:17)
--- NOTE | 2016-09-19 08:43 | Postpartum Progress Note ---
Post Op Post-operative Day #2 Subjective: Patient is without complaints. Anxiety much better this AM. Was on atarax prn during but didn't take much. Ambulating, voiding after ruby removed. Tolerating a regular diet without nausea or vomiting. Normal lochia. Pain is well controlled with oral pain medications. Passing flatus. Objective: VS - Last 72 Hours, by Label 09/16/16 09/16/16 09/16/16 09/16/16 20:00 20:30 21:00 21:30 Temp 99.1 99.1 Pulse 115 115 96 Resp 22 22 20 B/P (MAP) 121/77 127/63 O2 Delivery Room Air Room Air Room Air Room Air 09/16/16 09/16/16 09/16/16 09/16/16 22:00 22:30 23:00 23:00 Temp 97.3 Pulse 105 96 96 Resp 20 18 20 B/P (MAP) 123/60 139/87 133/71 133/71 O2 Delivery Room Air Room Air 09/16/16 09/17/16 09/17/16 09/17/16 23:30 00:30 01:00 01:30 Temp 98.7 Pulse 111 90 Resp 18 20 B/P (MAP) 136/90 120/73 147/74 O2 Delivery Room Air Room Air Room Air 09/17/16 09/17/16 09/17/16 09/17/16 02:00 02:30 03:00 04:00 Temp 98.7 Pulse 93 101 82 Resp 20 20 18 B/P (MAP) 107/70 119/70 112/72 O2 Delivery Room Air Room Air Room Air Room Air 09/17/16 09/17/16 09/17/16 09/17/16 04:30 05:00 06:22 07:08 Temp 97.6 Pulse 91 81 81 Resp 20 20 20 B/P (MAP) 119/76 122/61 122/66 O2 Delivery Room Air Room Air Room Air Room Air 09/17/16 09/17/16 09/17/16 09/17/16 07:45 08:00 08:15 08:30 Temp 98.3 Pulse 92 93 83 83 Resp 20 18 20 20 B/P (MAP) 106/62 103/65 126/59 118/66 O2 Delivery Room Air Room Air Room Air Room Air 09/17/16 09/17/16 09/17/16 09/17/16 08:45 09:00 09:15 09:30 Pulse 74 83 83 83 Resp 20 20 20 20 B/P (MAP) 118/66 118/66 118/66 118/66 O2 Delivery Room Air Room Air Room Air Room Air 09/17/16 09/17/16 09/17/16 09/17/16 09:45 10:00 10:15 10:30 Pulse 72 79 90 78 Resp 20 20 20 20 B/P (MAP) 126/59 121/62 120/77 129/58 O2 Delivery Room Air Room Air Room Air Room Air 09/17/16 09/17/16 09/17/16 09/17/16 10:45 11:00 11:15 11:30 Temp 98.4 Pulse 86 81 81 Resp 20 20 20 20 B/P (MAP) 122/64 121/60 121/60 O2 Delivery Room Air Room Air Room Air Room Air 09/17/16 09/17/16 09/17/16 09/17/16 11:45 12:00 12:15 12:30 Pulse 86 86 70 81 Resp 20 20 18 18 B/P (MAP) 130/72 124/60 115/65 119/73 O2 Delivery Room Air Room Air Room Air Room Air 09/17/16 09/17/16 09/17/16 09/17/16 12:45 13:00 13:15 13:30 Pulse 79 83 Resp 18 18 18 18 B/P (MAP) 111/72 110/65 Pulse Ox 98 O2 Delivery Room Air Room Air Room Air Room Air 09/17/16 09/17/16 09/17/16 09/17/16 13:45 14:00 14:15 14:45 Pulse 80 67 77 70 Resp 18 18 18 18 B/P (MAP) 141/77 132/85 116/56 110/66 Pulse Ox 98 99 98 99 O2 Delivery Room Air Room Air Room Air Room Air 09/17/16 09/17/16 09/17/16 09/17/16 15:15 15:45 16:15 16:45 Temp 97.2 Pulse 80 79 65 70 Resp 18 18 18 18 B/P (MAP) 111/75 125/67 112/67 116/58 Pulse Ox 98 99 98 99 O2 Delivery Room Air Room Air Room Air Room Air 09/17/16 09/17/16 09/17/16 09/17/16 17:15 17:45 18:15 18:45 Pulse 61 86 83 Resp 18 18 18 18 B/P (MAP) 110/58 124/72 112/79 Pulse Ox 99 98 O2 Delivery Room Air Room Air Room Air Room Air 09/17/16 09/17/16 09/18/16 09/18/16 19:15 20:00 00:00 00:51 Temp 97.2 98.5 Pulse 100 121 85 Resp 16 B/P (MAP) 121/69 105/68 Pulse Ox 98 98 98 O2 Delivery Room Air Room Air Room Air 09/18/16 09/18/16 09/18/16 09/18/16 04:00 08:00 12:00 16:00 Temp 97.9 97.8 98.2 98.6 Pulse 89 85 88 88 Resp 16 18 20 B/P (MAP) 108/77 100/70 124/81 107/72 Pulse Ox 98 99 99 98 O2 Delivery Room Air Room Air Room Air Room Air 09/18/16 09/19/16 09/19/16 20:00 00:08 06:00 Temp 97.1 98.0 97.8 Pulse 114 110 78 Resp 18 B/P (MAP) 139/78 127/82 101/66 Pulse Ox 98 98 98 O2 Delivery Room Air Room Air Room Air Physical Exam: General - Alert and oriented, no apparent distress Abdomen - Soft, appropriately tender to palpation, non-distended, fundus firm at umbilicus Incision - clean, dry and intact; no erythema or induration, no drainage Extremities - no edema, negative Emiliano's bilaterally no new labs Assessment: 26 y/o post-operative day # 1, status post primary CD for failed IOL/ malpresentation. Recovering well, hemodynamically stable Acute blood loss anemia Rh+ Class III obesity BMI 44 Anxiety Plan: Routine post-operative care. Encourage breast feeding. Encourage ambulation. VTE prophylaxis: SCDs. Continue lovenox while inpt. Discussed importance of ambulation Discussed wound care Ferrous sulfate supplementation. Plan for discharge today, f/u with me in 7-10 days and [address] Carlos Vitals - Labs Vital Signs - I&O Vital Signs Date Time Temp Pulse Resp B/P (MAP) Pulse Ox O2 Delivery O2 Flow Rate FiO2 09/19/16 06:00 97.8 78 18 101/66 98 Room Air 09/19/16 00:08 98.0 110 22 127/82 98 Room Air 09/18/16 20:00 97.1 114 18 139/78 98 Room Air 09/18/16 16:00 98.6 88 20 107/72 98 Room Air 09/18/16 12:00 98.2 88 18 124/81 99 Room Air I & O 09/19/16 07:00 Intake Total 2600 ml Output Total 950 ml Balance 1650 ml Labs Microbiology 09/17/16 MRSA Screen - Final, Complete MRSA not isolated ANKIT CALLES MD Sep 19, 2016 08:43
[2016-09-19] MEDS ORDERED: FERR-74 PO (08:46)
--- NOTE | 2016-09-30 17:09 | Discharge Summary ---
Diagnosis/Chief Complaint Date of Admission Sep 16, 2016 at 19:45 Date of Discharge Sep 19, 2016 at 14:30 Discharge Date: Sep 19, 2016 Discharge Diagnosis malpresentation, primary CD Reason Hospital Visit Pauly is a 26 y/o G1 @ 38w0d here for IOL for persistent oligohydramnios. Has been managed by Dr. Carlos and seen in consultation by Dr. Brandon for persistent oligohydramnios since early third trimester. IOL undertaken since 24 hours ago with cervidil, then 6 hours of pitocin and a dose of cytotec. Cervix remains closed, thick and high. No LOF VB. Patient understands Dr. Carlos has recommended section and consulted me for this, and is ready to proceed. Discharge Summary Procedures: Primary delivery Discharge Physical Examination Allergies: Coded Allergies: Penicillins (Verified Allergy, Unknown, 02/15/12) General Appearance: Alert, Oriented X3 Abdominal: Soft, No Tenderness Hospital Course Pauly is a 26 y/o G1 @ 38w0d who was induced for oligohydramnios by Dr. Carlos Induction was unsuccessful despite multiple attempts at cervical ripening and the cervix never changed from closed/thick/high after 24 hours She was counseled on abdominal delivery. I was consulted at that point. At time of delivery, the fetus was noted to be in transverse, spine down presentation. Post-op course was unremarkable She was discharged home in stable condition on POD#2 Discharge Instructions to patient/family Please see electonic discharge instructions given to patient. Discharge Medications Reviewed and agree with Discharge Medication list on patient's Discharge Instruction sheet Clinical Quality Measures DVT/VTE Risk/Contraindication: Risk Factor Score Per Nursin RFS Level Per Nursing on Admit: 2=Moderate ANKIT CALELS MD September 30, 2016 17:09
== END 2016-09-19 14:30 | disposition home or self-care (01) | DRG 765 ==
LOC: LDRP 19:45
PROVIDERS: ADMIT Family Medicine; ATTEND Family Medicine
PROC: 3E0P7GC Introduction of Other Therapeutic Substance into Female Reproductive, Via Natural or Artificial Opening (ICD-10-PCS; 2016-09-16)
PROC: 10D00Z1 Extraction of Products of Conception, Low, Open Approach (ICD-10-PCS; principal; 2016-09-17 19:30)
DX: O41.03X0 Oligohydramnios, third trimester, not applicable or unspecified (principal); O64.0XX0 Obstructed labor due to incomplete rotation of fetal head, not applicable or unspecified; O99.214 Obesity complicating childbirth; E66.9 Obesity, unspecified; Z68.41 Body mass index [BMI] 40.0-44.9, adult; O90.81 Anemia of the puerperium; D62 Acute posthemorrhagic anemia; O66.40 Failed trial of labor, unspecified; Z37.0 Single live birth; Z3A.38 38 weeks gestation of pregnancy
CPT/HCPCS: 36415; 85025; 86850; 86900; 86901; 87081; 93005; 94664; 94760

== ENCOUNTER 2016-10-20 19:57 | Emergency (ER) | payer MEDICAID ==
[~2016-10-20] VITALS: Ht 167.6 cm; Wt 113.4 kg
[~2016-10-20 19:57] MED LIST changes: +DOCU-143 PO; +FERR-74 PO; +HYDR-3729 PO; +IBUP-1773 PO; +RT-ALBUINH IH
[2016-10-20] MEDS ORDERED: CETI10CA PO (20:20)
--- NOTE | 2016-10-20 20:20 | ED Chest Pain ---
General Chief Complaint: Chest Pain Stated Complaint: TIGHTNESS AND HEAVINESS IN CHEST Nursing Triage Note: pt states she is having constant medial chest pain. pt is having anxiety from having this pain. no n/v stated. pt is also having diarrhea. Nursing Sepsis Screen: No Definite Risk Source: patient Exam Limitations: no limitations History of Present Illness Time seen by provider: 20:19 Initial Comments To ER with reports of constant chest pain in the center of her chest for about the past week to week and a half. This is causing her to have some anxiety that she does have some pre-existing anxiety and panic disorder. She just had a baby a month ago. She states that as soon as she wakes up she feels the tightness in her chest. Drinking sips of cold water help. She saw the [facility] last week for this and they suggested anxiety as well but wanted her to be worked up for asthma. She denies any shortness of breath or cough. She also states she is having diarrhea. She is not breast-feeding. She denies any unilateral leg swelling or palpitations. She becomes tearful when describing her symptoms. Timing/Duration: 1 week Severity/Quality: moderate Location: central Radiation: no radiation Activities at Onset: none ASA po CASE HARDENER: No NTG SL CASE HARDENER: No Allergies and Home Medications Allergies Coded Allergies: Penicillins (Verified Allergy, Unknown, 02/15/12) Home Medications Albuterol Sulfate 1 Puff Puff, 2 PUFF IH Q4H PRN for AIR HUNGER, (Reported) 1 PUFF = 90 MCG Cetirizine HCl 10 Mg Capsule, 10 MG PO, (Reported) Ferrous Sulfate 325 Mg Tablet, 325 MG PO DAILY@0800, #30 Prescribed by: ANKIT CALLES on 09/19/16 0846 Ibuprofen 600 Mg Tablet, 600 MG PO Q6H, #30 Ref 0 Prescribed by: ANKIT CALLES on 09/17/16 1909 Review of Systems Constitutional: see HPI EENTM: No Symptoms Reported Respiratory: No Symptoms Reported, Denies Cough, Denies Orthopnea, Denies Shortness of Air, Denies SOA With Exertion, Denies SOA at Rest Cardiovascular: See HPI, Chest Pain, Denies Edema, Denies Irregular Heart Rate , Denies Lightheadedness, Denies Palpitations, Denies Syncope Gastrointestinal: No Symptoms Reported Genitourinary: No Symptoms Reported Musculoskeletal: no symptoms reported Skin: no symptoms reported Psychiatric/Neurological: No Symptoms Reported Endocrine: No Symptoms Reported Past Jimwrgb-Xdavvy-Syfrku Hx Patient Social History Type Used: Cigarettes Recent Foreign Travel: No Contact w/Someone Who Travel: No Recent Infectious Disease Expo: No Recent Hopitalizations: Yes (NST) Seasonal Allergies Seasonal Allergies: No Surgeries HX Surgeries: No Respiratory Hx Respiratory Disorders: Yes Respiratory Disorders: Asthma Cardiovascular Hx Cardiac Disorders: No Neurological Hx Neurological Disorders: No Reproductive System Hx Reproductive Disorders: No Sexually Transmitted Disease: Yes (HPV 2014) HIV/AIDS: No Genitourinary Hx Genitourinary Disorders: No Gastrointestinal Hx Gastrointestinal Disorders: No Musculoskeletal Hx Musculoskeletal Disorders: No Endocrine Hx Endocrine Disorders: No HEENT HX ENT Disorders: No Loss of Vision: Denies Hearing Impairment: Denies Cancer Hx Cancer: No Psychosocial Hx Psychiatric Problems: No Behavioral Health Disorders: Anxiety Integumentary HX Skin/Integumentary Disorder: No Blood Transfusions Hx Blood Disorders: No Adverse Reaction to a Blood Tr: No Family Medical History Family Medial History: Arthritis Maternal grandmother Colon cancer Diabetes mellitus G8 SISTER Maternal grandmother Hypertension Physical Exam Vital Signs Vital Sign - Last 12Hours 10/20/16 20:12 Temp 98.0 Pulse 107 Resp 20 B/P (MAP) 154/93 Pulse Ox 99 O2 Delivery Room Air Capillary Refill : Less Than 3 Seconds General Appearance: No Apparent Distress, WD/WN HEENT: PERRL/EOMI, TMs Normal, Normal ENT Inspection Neck: Full Range of Motion, Normal Inspection Respiratory: Normal Breath Sounds, No Accessory Muscle Use, No Respiratory Distress Cardiovascular: Regular Rate, Rhythm, Normal Peripheral Pulses Gastrointestinal: Non Tender, Soft Extremity: Normal Capillary Refill, Normal Inspection Neurologic/Psychiatric: Alert, Oriented x3 Skin: Normal Color, Warm/Dry Progress/Results/Core Measures Results/Orders Lab Results Laboratory Tests Test 10/20/16 20:28 10/20/16 20:43 Range/Units White Blood Count 9.9 4.3-11.0 10^3/uL Red Blood Count 4.91 4.35-5.85 10^6/uL Hemoglobin 12.2 11.5-16.0 G/DL Hematocrit 39 35-52 % Mean Corpuscular Volume 79 L 80-99 FL Mean Corpuscular Hemoglobin 25 25-34 PG Mean Corpuscular Hemoglobin Concent 31 L 32-36 G/DL Red Cell Distribution Width 13.1 10.0-14.5 % Platelet Count 290 130-400 10^3/uL Mean Platelet Volume 10.1 7.4-10.4 FL Neutrophils (%) (Auto) 67 42-75 % Lymphocytes (%) (Auto) 26 12-44 % Monocytes (%) (Auto) 6 0-12 % Eosinophils (%) (Auto) 1 0-10 % Basophils (%) (Auto) 0 0-10 % Neutrophils # (Auto) 6.6 1.8-7.8 X 10^3 Lymphocytes # (Auto) 2.6 1.0-4.0 X 10^3 Monocytes # (Auto) 0.6 0.0-1.0 X 10^3 Eosinophils # (Auto) 0.1 0.0-0.3 10^3/uL Basophils # (Auto) 0.0 0.0-0.1 10^3/uL D-Dimer 0.30 0.00-0.49 UG/ML Sodium Level 139 135-145 MMOL/L Potassium Level 3.6 3.6-5.0 MMOL/L Chloride Level 105 98-107 MMOL/L Carbon Dioxide Level 23 21-32 MMOL/L Anion Gap 11 5-14 MMOL/L Blood Urea Nitrogen 11 7-18 MG/DL Creatinine 0.80 0.60-1.30 MG/DL Estimat Glomerular Filtration Rate > 60 BUN/Creatinine Ratio 14 Glucose Level 79 70-105 MG/DL Calcium Level 9.1 8.5-10.1 MG/DL Total Bilirubin 0.4 0.1-1.0 MG/DL Aspartate Amino Transf (AST/SGOT) 12 5-34 U/L Alanine Aminotransferase (ALT/SGPT) 10 0-55 U/L Alkaline Phosphatase 89 40-136 U/L Total Protein 6.8 6.4-8.2 G/DL Albumin 3.9 3.2-4.5 G/DL Urine Color YELLOW Urine Clarity CLEAR Urine pH 6.5 5-9 Urine Specific [place] 1.010 L 1.016-1.022 Urine Protein NEGATIVE NEGATIVE Urine Glucose (UA) NEGATIVE NEGATIVE Urine Ketones NEGATIVE NEGATIVE Urine Nitrite NEGATIVE NEGATIVE Urine Bilirubin NEGATIVE NEGATIVE Urine Urobilinogen NORMAL NORMAL MG/DL Urine Leukocyte Esterase NEGATIVE NEGATIVE Urine RBC (Auto) NEGATIVE NEGATIVE Urine RBC NONE /HPF Urine WBC RARE /HPF Urine Squamous Epithelial Cells 0-2 /HPF Urine Crystals NONE /LPF Urine Bacteria FEW H /HPF Urine Casts NONE /LPF Urine Mucus NEGATIVE /LPF Urine Culture Indicated NO My Orders Orders - ARLENE SOLITARIO APRN Cbc With Automated Diff (10/20/16 20:16) Comprehensive Metabolic Panel (10/20/16 20:16) Fibrin Degradation Products (10/20/16 20:16) Ua Culture If Indicated (10/20/16 20:16) Saline Lock/Iv-Start (10/20/16 20:16) Lidocaine 2% Viscous 15 Ml (Xylocaine Vi (10/20/16 20:30) Alprazolam Tablet (Xanax Tablet) (10/20/16 20:30) Ekg Tracing (10/20/16 20:18) Antacid Suspension (Mylanta Suspension (10/20/16 20:24) Medications Given in ED Current Medications Medications Dose Ordered Sig/Jodie Route Start Time Stop Time Status Last Admin Dose Admin Al Hydrox/Mg Hydrox/Simethicone 30 ml STK-MED ONCE .ROUTE 10/20/16 20:24 10/20/16 20:29 DC 10/20/16 20:33 30 ML Lidocaine HCl 15 ml ONCE ONCE PO 10/20/16 20:30 10/20/16 20:32 DC 10/20/16 20:32 15 ML Vital Signs/I&O Vital Sign - Last 12Hours 10/20/16 20:12 Temp 98.0 Pulse 107 Resp 20 B/P (MAP) 154/93 Pulse Ox 99 O2 Delivery Room Air Blood Pressure Mean: 113 Departure Impression Impression: Primary Impression: Anxiety Disposition: 01 HOME, SELF-CARE Condition: Stable Departure-Patient Inst. Decision time for Depature: 21:11 Referrals: CARMEN KO MD (PCP/Family) Primary Care Physician Patient Instructions: Chest Pain (DC), Chest Pain That Is Not Caused by the Heart (DC) Add. Discharge Instructions: All discharge instructions reviewed with patient and/or family. Voiced understanding. Scripts Lorazepam (Lorazepam) 0.5 Mg Tablet 0.5 MG PO BID Y for ANXIETY, #10 TAB Prov: ARLENE SOLITARIO APRN 10/20/16 ARLENE SOLITARIO APRN October 20, 2016 20:20
[2016-10-20] MEDS ORDERED: ANTACID SUSP 30 ML UDC (MYLANTA) ONE (20:24)
[2016-10-20] MEDS ORDERED: ALPRAZolam 0.5 MG (XANAX) TAB PO SCH (20:30)
[2016-10-20] MEDS ORDERED: LIDOCAINE 2% VISCOUS 15 ML UDC PO ONE (20:30)
[2016-10-20 20:34] LABS: BASOPHILS % (AUTO) 0 % (0-10); EOSINOPHILS # (AUTO) 0.1 10^3/uL (0.0-0.3); EOSINOPHILS % (AUTO) 1 % (0-10); LYMPHOCYTES # (AUTO) 2.6 X 10^3 (1.0-4.0); LYMPHOCYTES % (AUTO) 26 % (12-44); MEAN CORPUSCULAR HEMOGLOBIN 25 PG (25-34); MEAN CORPUSCULAR HGB CONC 31 G/DL (32-36); MEAN CORPUSCULAR VOLUME 79 FL (80-99); MEAN PLATELET VOLUME 10.1 FL (7.4-10.4); MONOCYTES # (AUTO) 0.6 X 10^3 (0.0-1.0); MONOCYTES % (AUTO) 6 % (0-12); NEUTROPHILS # (AUTO) 6.6 X 10^3 (1.8-7.8); NEUTROPHILS % (AUTO) 67 % (42-75); PLATELET COUNT 290 10^3/uL (130-400); RED BLOOD COUNT 4.91 10^6/uL (4.35-5.85); RED CELL DISTRIBUTION WIDTH 13.1 % (10.0-14.5); WHITE BLOOD COUNT 9.9 10^3/uL (4.3-11.0)
[2016-10-20 20:52] LABS: BILIRUBIN,URINE NEGATIVE (NEGATIVE); KETONES,URINE NEGATIVE (NEGATIVE); LEUKOCYTE ESTERASE ,URINE NEGATIVE (NEGATIVE); NITRITE,URINE NEGATIVE (NEGATIVE); PH,URINE 6.5 (5-9); PROTEIN,URINE NEGATIVE (NEGATIVE); UROBILINOGEN,URINE NORMAL (NORMAL)
[2016-10-20 20:59] LABS: ALANINE AMINOTRANSFERASE 10 U/L (0-55); ALBUMIN 3.9 G/DL (3.2-4.5); ANION GAP 11 MMOL/L (5-14); ASPARTATE AMINO TRANSFERASE 12 U/L (5-34); BILIRUBIN,TOTAL 0.4 MG/DL (0.1-1.0); BLOOD UREA NITROGEN 11 MG/DL (7-18); BUN/CREATININE RATIO 14; CALCIUM 9.1 MG/DL (8.5-10.1); CARBON DIOXIDE 23 MMOL/L (21-32); CHLORIDE 105 MMOL/L (98-107); GFR ESTIMATED > 60; GLUCOSE 79 MG/DL (70-105); POTASSIUM 3.6 MMOL/L (3.6-5.0); SODIUM 139 MMOL/L (135-145); TOTAL PROTEIN 6.8 G/DL (6.4-8.2)
[2016-10-20 21:07] LABS: WBC,URINE RARE /HPF
[2016-10-20 21:08] LABS: SQUAMOUS EPITHELIAL CELL,UR 0-2 /HPF
[2016-10-20] MEDS ORDERED: LORA0.5T PO (21:12)
[2016-10-20 21:22] VITALS: BP 126/75
== END 2016-10-20 21:22 | disposition home or self-care (01) ==
LOC: EDUNIT# 19:57 → ER 19:59
DX: F41.9 Anxiety disorder, unspecified (principal)
CPT/HCPCS: 36415; 80053; 81000; 85025; 85379; 93005

== ENCOUNTER 2017-06-08 19:45 | Emergency (ER) | payer SELFPAY ==
[~2017-06-08] VITALS: Ht 167.6 cm; Wt 127.0 kg
[~2017-06-08 19:45] MED LIST changes: +CETI10CA PO; -FERR-74 PO; +FERR325T18 PO; +LORA0.5T PO
--- NOTE | 2017-06-08 20:19 | ED Headache ---
General Chief Complaint: Head/Cervical Problems Stated Complaint: HEAD INJ Source: patient Exam Limitations: no limitations History of Present Illness Time seen by provider: 20:18 Initial Comments She slipped and fell in the shower striking the left side of her head on the floor. No loss of consciousness. She now has a right-sided headache and has been vomiting. Timing/Duration: 1 hour Severity/Quality: mild Location: temporal Associated Symptoms: No confusion, nausea/vomiting Allergies and Home Medications Allergies Coded Allergies: Penicillins (Verified Allergy, Unknown, 02/15/12) Home Medications Albuterol Sulfate 1 Puff Puff, 2 PUFF IH Q4H PRN for AIR HUNGER, (Reported) 1 PUFF = 90 MCG Cetirizine HCl 10 Mg Capsule, 10 MG PO, (Reported) Ferrous Sulfate 325 Mg Tablet, 325 MG PO DAILY@0800, #30 Prescribed by: ANKIT CALLES on 09/19/16 0846 Ibuprofen 600 Mg Tablet, 600 MG PO Q6H, #30 Ref 0 Prescribed by: ANKIT CLALES on 09/17/16 1909 Lorazepam 0.5 Mg Tablet, 0.5 MG PO BID PRN for ANXIETY, #10 Prescribed by: ARLENE SOLITARIO on 10/20/16 2112 Constitutional: see HPI Eyes: No Symptoms Reported Ears, Nose, Mouth, Throat: no symptoms reported Respiratory: no symptoms reported Cardiovascular: no symptoms reported Genitourinary: no symptoms reported Musculoskeletal: no symptoms reported Skin: no symptoms reported Psychiatric/Neurological: See HPI, Headache Past Wmwzooi-Dvlktj-Izzonk Hx Patient Social History Type Used: Cigarettes Former Smoker, Quit: Jul 30, 2016 2nd Hand Smoke Exposure: No Recent Foreign Travel: No Contact w/Someone Who Travel: No Recent Hopitalizations: No Immunizations Up To Date Tetanus Booster (TDap): Unknown Seasonal Allergies Seasonal Allergies: No Surgeries History of Surgeries: Yes Surgeries: Section Respiratory History of Respiratory Disorde: Yes Respiratory Disorders: Asthma Currently Using CPAP: No Currently Using BIPAP: No Cardiovascular History of Cardiac Disorders: No (States she feels "skipped beats" occasionally ) Neurological History of Neurological Disord: No Reproductive System Hx Reproductive Disorders: No Sexually Transmitted Disease: Yes (HPV 2014) HIV/AIDS: No Genitourinary History of Genitourinary Disor: No Gastrointestinal History of Gastrointestinal Di: No Musculoskeletal History of Musculoskeletal Dis: No Endocrine History of Endocrine Disorders: No HEENT History of HEENT Disorders: No Loss of Vision: Denies Hearing Impairment: Denies Cancer History of Cancer: No Psychosocial History of Psychiatric Problem: Yes Behavioral Health Disorders: Anxiety Integumentary History of Skin or Integumenta: Yes (hx dermatitis) Blood Transfusions History of Blood Disorders: No Adverse Reaction to a Blood Tr: No Family Medical History Family Medial History: Arthritis Maternal grandmother Colon cancer Diabetes mellitus G8 SISTER Maternal grandmother Hypertension Physical Exam Vital Signs Vital Sign - Last 12Hours 06/08/17 20:16 Temp 98.3 Pulse 112 Resp 20 B/P (MAP) 125/95 (105) Pulse Ox 100 Capillary Refill : General Appearance: WD/WN, no apparent distress HEENT: PERRL/EOMI, normal ENT inspection Neck: non-tender, full range of motion Respiratory: normal breath sounds, no respiratory distress, no accessory muscle use Gastrointestinal: normal bowel sounds, non tender Psychiatric: alert, oriented x 3 Crainal Nerves: normal hearing, normal speech, PERRL Skin: normal color, warm/dry Progress/Results/Core Measures Results/Orders My Orders Orders - ARLENE SOLITARIO APRN Ct Head Wo (06/08/17 20:17) Acetaminophen Tablet (Tylenol Tablet) (06/08/17 21:00) Ondansetron Oral Dissolve Tab (Zofran (06/08/17 21:00) Vital Signs/I&O Vital Sign - Last 12Hours 06/08/17 20:16 Temp 98.3 Pulse 112 Resp 20 B/P (MAP) 125/95 (105) Pulse Ox 100 Departure Impression Impression: Primary Impression: Concussion without loss of consciousness Disposition: 01 HOME, SELF-CARE Condition: Stable Departure-Patient Inst. Decision time for Depature: 20:51 Referrals: [facility] (PCP/Family) Primary Care Physician Patient Instructions: Concussion, Adult (DC) Add. Discharge Instructions: 1. Tylenol and Motrin for headaches. Take the nausea medication as directed. All discharge instructions reviewed with patient and/or family. Voiced understanding. Work/School Note: Work Release Form Date Seen in the Emergency Department: Jun 08, 2017 Return to Work: Jun 10, 2017 ARLENE SOLITARIO APRN Jun 08, 2017 20:19
--- NOTE | 2017-06-08 20:49 | Diagnostic Imaging Report ---
PROCEDURE: CT head without contrast. TECHNIQUE: Multiple contiguous axial images were obtained through the brain without the use of intravenous contrast. INDICATION: Fall. Head injury. Comparison is made to prior study from 07/26/2009. FINDINGS: There is no CT demonstration of intracranial hemorrhage. There is no abnormal extra-axial fluid collection. There is no mass effect or shift. There is no hydrocephalus. Monreal-white differentiations are preserved. The basilar cisterns patent. Posterior fossa unremarkable. The mastoids appear clear. There is no fluid within the paranasal sinuses. Orbital contents unremarkable where visualized. There is no calvarial fracture. IMPRESSION: 1. No CT evidence of an acute intracranial abnormality. Dictated by: Dictated on workstation # [id number]
[2017-06-08] MEDS ORDERED: RX-ONDANSETRON 4 MG ODT (ZOFRAN) PPK #4 PO STA (20:52)
[2017-06-08] MEDS ORDERED: ONDANSETRON 4 MG (ZOFRAN) ORAL DISSOLVE TAB PO ONE (21:00)
[2017-06-08] MEDS ORDERED: ACETAMINOPHEN 500 MG TAB (TYLENOL) PO ONE (21:00)
[2017-06-08] MEDS ORDERED: PROMETHAZINE INJ 25 MG/ML (PHENERGAN) AMP IM ONE (21:15)
[2017-06-08 21:20] VITALS: BP 123/89
== END 2017-06-08 21:20 | disposition home or self-care (01) ==
LOC: EDUNIT# 19:45 → ER 19:47
DX: S06.0X0A Concussion without loss of consciousness, initial encounter (principal); F41.9 Anxiety disorder, unspecified; Z87.891 Personal history of nicotine dependence; Z80.0 Family history of malignant neoplasm of digestive organs; Z87.59 Personal history of other complications of pregnancy, childbirth and the puerperium; Z86.19 Personal history of other infectious and parasitic diseases; W01.10XA Fall on same level from slipping, tripping and stumbling with subsequent striking against unspecified object, initial encounter; Y92.002 Bathroom of unspecified non-institutional (private) residence as the place of occurrence of the external cause
CPT/HCPCS: 70450; 99283

== ENCOUNTER 2017-06-28 08:23 | Emergency (ER) | payer SELFPAY ==
[~2017-06-28] VITALS: Ht 167.6 cm; Wt 127.0 kg
--- NOTE | 2017-06-28 08:57 | ED Cough/URI ---
General Chief Complaint: Cough/Cold/Flu Symptoms Stated Complaint: FLU Nursing Triage Note: pt presents to ed with complaints of soa, cough, congestion x 2 days. pt reports she has not takne her temperature or taken tylenol/motrin but has felt like the has had a fever on and off. Source: patient Exam Limitations: no limitations History of Present Illness Date Seen by Provider: Jun 28, 2017 Time Seen by Provider: 08:54 Initial Comments The patient reports that she developed a cough 2 days ago. She has felt flushed , chills, and is not if she might be running a fever. She does not have a thermometer so has not checked this. There is some scratchiness to the throat. She has been coughing up mucus. Her chest feels tight. Severity/Quality: productive cough, sputum Allergies and Home Medications Allergies Coded Allergies: Penicillins (Verified Allergy, Unknown, 02/15/12) Home Medications Albuterol Sulfate 1 Puff Puff, 2 PUFF IH Q4H PRN for AIR HUNGER, (Reported) 1 PUFF = 90 MCG Cetirizine HCl 10 Mg Capsule, 10 MG PO, (Reported) Ferrous Sulfate 325 Mg Tablet, 325 MG PO DAILY@0800, #30 Prescribed by: ANKIT CALLES on 09/19/16 0846 Ibuprofen 600 Mg Tablet, 600 MG PO Q6H, #30 Ref 0 Prescribed by: ANKIT CALLES on 09/17/16 1909 Lorazepam 0.5 Mg Tablet, 0.5 MG PO BID PRN for ANXIETY, #10 Prescribed by: ARLENE SOLITARIO on 10/20/162 Constitutional: see HPI EENTM: no symptoms reported Respiratory: no symptoms reported Cardiovascular: no symptoms reported Gastrointestinal: no symptoms reported Genitourinary: no symptoms reported Musculoskeletal: no symptoms reported Skin: no symptoms reported Psychiatric/Neurological: No Symptoms Reported Hematologic/Lymphatic: No Symptoms Reported Immunological/Allergic: no symptoms reported Past Jgfbwoo-Dpgqox-Tvmwei Hx Patient Social History Alcohol Use: Denies Use Recreational Drug Use: No Type Used: Cigarettes Former Smoker, Quit: Jul 30, 2016 2nd Hand Smoke Exposure: No Recent Foreign Travel: No Contact w/Someone Who Travel: No Recent Infectious Disease Expo: No Recent Hopitalizations: No Physical Abuse: No Sexual Abuse: No Mistreated: No Fear: No Immunizations Up To Date Tetanus Booster (TDap): Unknown Seasonal Allergies Seasonal Allergies: No Surgeries History of Surgeries: Yes Surgeries: Section Respiratory History of Respiratory Disorde: Yes Respiratory Disorders: Asthma Currently Using CPAP: No Currently Using BIPAP: No Cardiovascular History of Cardiac Disorders: No (States she feels "skipped beats" occasionally ) Neurological History of Neurological Disord: No Reproductive System Hx Reproductive Disorders: No Sexually Transmitted Disease: Yes (HPV 2015) HIV/AIDS: No Genitourinary History of Genitourinary Disor: No Gastrointestinal History of Gastrointestinal Di: No Musculoskeletal History of Musculoskeletal Dis: No Endocrine History of Endocrine Disorders: No HEENT History of HEENT Disorders: No Loss of Vision: Denies Hearing Impairment: Denies Cancer History of Cancer: No Psychosocial History of Psychiatric Problem: Yes Behavioral Health Disorders: Anxiety Suicide Risk Score: 0 Integumentary History of Skin or Integumenta: Yes (hx dermatitis) Blood Transfusions History of Blood Disorders: No Adverse Reaction to a Blood Tr: No Family Medical History Family Medial History: Arthritis Maternal grandmother Colon cancer Diabetes mellitus G8 SISTER Maternal grandmother Hypertension Physical Exam Vital Signs Vital Sign - Last 12Hours 06/28/17 08:31 Temp 97.8 Pulse 107 Resp 18 B/P (MAP) 129/82 (98) Pulse Ox 98 O2 Delivery Room Air Capillary Refill : Less Than 3 Seconds General Appearance: mild distress Eyes: Bilateral Eye Normal Inspection HEENT: pharyngeal erythema Neck: full range of motion Respiratory: chest non-tender, lungs clear, normal breath sounds, no respiratory distress, no accessory muscle use, respiratory distress Cardiovascular: normal peripheral pulses, regular rate, rhythm, no edema, no gallop, no JVD, no murmur Gastrointestinal: normal bowel sounds, non tender, soft, no organomegaly, no pulsatile mass Extremities: normal range of motion, non-tender, normal inspection, no pedal edema, no calf tenderness, normal capillary refill, pelvis stable Neurologic/Psychiatric: slag expander II-XII nml as tested, no motor/sensory deficits, alert, normal mood/affect, oriented x 3 Skin: normal color, warm/dry, cyanosis, cool, diaphoresis, damp Progress/Results/Core Measures Suspected Sepsis Recent Fever Within 48 Hours: No Infection Criteria Present: None New/Unexplained Altered Menta: No Sepsis Screen: No Definite Risk Sepsis Diagnosis: SIRS Temperature:97.8 Pulse: 107 Respiratory Rate: 18 Blood Pressure 129 /82 Mean: 98 Results/Orders Vital Signs/I&O Vital Sign - Last 12Hours 06/28/17 06/28/17 08:31 08:31 Temp 97.8 Pulse 107 Resp 18 B/P (MAP) 129/82 (98) Pulse Ox 98 O2 Delivery Room Air Capillary Refill : Less Than 3 Seconds Blood Pressure Mean: 98 Departure Impression Impression: Primary Impression: flulike illness Disposition: HOME, SELF-CARE Condition: Stable/Unchanged Departure-Patient Inst. Decision time for Depature: 08:56 Referrals: [facility] (PCP/Family) Primary Care Physician Patient Instructions: Flu, Adult (DC) Add. Discharge Instructions: All discharge instructions reviewed with patient and/or family. Voiced understanding. Lots of liquids. Tylenol 1 g or ibuprofen 600 mg every 6 hours for fever and body aches. May use Robitussin-DM if helpful KIRT JUAN MD Jun 28, 2017 08:57
[2017-06-28 09:10] VITALS: BP 124/86
--- OUTSIDE RECORDS SUMMARY | 2017-06-28 11:46 | XMS REPORT ---
Author Author SEAN GUZMÁN [facility] Address [address] [place] [address] Care Team Providers Care C D Still Operator Name Role Phone SEAN GUZMÁN Unavailable PROBLEMS Type Condition ICD9-CM Code GHZ32-OR Code Onset Dates Condition Status SNOMED Code Problem Family history of diabetes mellitus Z83.3 Active 570984973 Problem Abdominal pain, left upper quadrant R10.12 Active 171387336 Problem Abnormal weight gain R63.5 Active 734363360 Problem Anxiety, generalized F41.1 Active 12566005 Problem Mild intermittent asthma without complication J45.20 Active 524406037 Problem Atopic dermatitis L20.9 Active 05114953 Problem Absence of menstruation N91.2 Active 74151585 Problem Globus sensation F45.8 Active 63740186 Problem Pruritic disorder L29.9 Active 652643102 ALLERGIES No Information SOCIAL HISTORY Never Assessed PLAN OF CARE VITAL SIGNS MEDICATIONS No Known Medications RESULTS No Results PROCEDURES No Known procedures IMMUNIZATIONS No Known Immunizations MEDICAL (GENERAL) HISTORY Type Description Date Medical History asthma Medical History HPV 2012 Surgical History 09/17/16 Hospitalization History RSV/ pneumonia as infant Hospitalization History child
--- OUTSIDE RECORDS SUMMARY | 2017-06-28 11:46 | XMS REPORT ---
Author Author SEAN GUZMÁN Organization [facility] Address [address] [place] [address] Care Team Providers Care Automobile Service Station Manager Name Role Phone RAMIREZZULEYKASEAN Unavailable PROBLEMS Type Condition ICD9-CM Code [id number] Code Onset Dates Condition Status SNOMED Code Problem Family history of diabetes mellitus Z83.3 Active 277997291 Problem Abdominal pain, left upper quadrant R10.12 Active 182564804 Problem Abnormal weight gain R63.5 Active 480959657 Problem Anxiety, generalized F41.1 Active 74995707 Problem Mild intermittent asthma without complication J45.20 Active 112826990 Problem Atopic dermatitis L20.9 Active 46947753 Problem Absence of menstruation N91.2 Active 11893742 Problem Globus sensation F45.8 Active 60856895 Problem Pruritic disorder L29.9 Active 626850549 ALLERGIES No Information SOCIAL HISTORY Never Assessed PLAN OF CARE VITAL SIGNS MEDICATIONS No Known Medications RESULTS No Results PROCEDURES Procedure Date Ordered Result Body Site PULMONARY FUNCTION TEST (IN-HOUSE) 2016-10-21 Normal PULMONARY EDUCATION (IN-HOUSE) 2016-10-21 N/A NEB/MDI DEMO October 21, 2016 RESPIRATORY FLOW VOLUME LOOP October 21, 2016 SPIROMETRY October 21, 2016 IMMUNIZATIONS No Known Immunizations MEDICAL (GENERAL) HISTORY Type Description Date Medical History asthma Medical History HPV 2013 Surgical History 09/17/16 Hospitalization History RSV/ pneumonia as infant Hospitalization History child
--- OUTSIDE RECORDS SUMMARY | 2017-06-28 11:46 | XMS REPORT ---
Author Author JUDY GUEVARA [facility] Address [address] [place] [address] Care Team Providers Care Sheet Metal Erector Name Role Phone JUDY GUEVARA Unavailable PROBLEMS Type Condition ICD9-CM Code MXN52-WH Code Onset Dates Condition Status SNOMED Code Problem Family history of diabetes mellitus Z83.3 Active 028292634 Problem Abdominal pain, left upper quadrant R10.12 Active 536865251 Problem Abnormal weight gain R63.5 Active 098606585 Problem Anxiety, generalized F41.1 Active 81126677 Problem Mild intermittent asthma without complication J45.20 Active 174856492 Problem Atopic dermatitis L20.9 Active 59209789 Problem Absence of menstruation N91.2 Active 80924757 Problem Globus sensation F45.8 Active 24083778 Problem Pruritic disorder L29.9 Active 013458292 ALLERGIES No Information SOCIAL HISTORY Never Assessed PLAN OF CARE Activity Details Follow Up Next Available Reason: Follow-up VITAL SIGNS MEDICATIONS No Known Medications RESULTS No Results PROCEDURES Procedure Date Ordered Result Body Site Psychotherapy, patient &/family, 30 minutes, established patient October 23, 2016 IMMUNIZATIONS No Known Immunizations MEDICAL (GENERAL) HISTORY Type Description Date Medical History asthma Medical History HPV 2012 Surgical History 09/17/16 Hospitalization History RSV/ pneumonia as Hospitalization History child
--- OUTSIDE RECORDS SUMMARY | 2017-06-28 11:47 | XMS REPORT | Continuity of Care Document ---
Author Author [facility] Organization [facility] Address Unknown Phone Unavailable Allergies Active Description Code Type Severity Reaction Onset Reported/Identified Relationship to Patient Clinical Status Yes Augmentin Drug Allergy 10/07/2011 Yes Augmentin Drug Allergy N/A N/A 10/07/2011 Yes Penicillins [id number] Drug Allergy Unknown N/A 02/15/2012 Medications There is no data. Problems Date Dx Coded Attending Type Code Diagnosis Diagnosed By 06/13/2008 RICH ARRIAGA APRN 461.9 SINUSITIS ACUTE 06/13/2008 RICH ARRIAGA APRN 493.90 ASTHMA UNSPECIFIED 06/13/2008 461.9 SINUSITIS ACUTE 06/13/2008 493.90 ASTHMA UNSPECIFIED 06/13/2008 NIKKO BELLA APRN 461.9 SINUSITIS ACUTE 06/13/2008 NIKKO BELLA APRN 493.90 ASTHMA UNSPECIFIED 06/22/2008 RICH ARRIAGA APRN 381.81 EUSTACHIAN TUBE DYSFUNCTION 06/22/2008 RICH ARRIAGA APRN 462 PHARYNGITIS 06/22/2008 381.81 EUSTACHIAN TUBE DYSFUNCTION 06/22/2008 462 PHARYNGITIS 06/22/2008 NIKKO BELLA APRN 381.81 EUSTACHIAN TUBE DYSFUNCTION 06/22/2008 NIKKO BELLA APRN 462 PHARYNGITIS 01/23/2011 Ot 565.0 ANAL FISSURE 01/23/2011 Ot 569.3 RECTAL ANAL HEMORRHAGE 03/11/2011 RICH ARRIAGA APRN 692.9 CONTACT DERMATITIS AND OTHER ECZEMA UNSPECIFIED CAUSE 03/11/2011 692.9 CONTACT DERMATITIS AND OTHER ECZEMA UNSPECIFIED CAUSE 03/11/2011 NIKKO BELLA APRN 692.9 CONTACT DERMATITIS AND OTHER ECZEMA UNSPECIFIED CAUSE 03/11/2011 Ot 782.1 NONSPECIF SKIN ERUPT NEC 04/10/2011 RICH ARRIAGA APRN S 133.0 SCABIES 04/10/2011 133.0 SCABIES 04/10/2011 NIKKO BELLA APRN R 133.0 SCABIES 05/15/2011 RICH ARRIAGA APRN S 682.9 CELLULITIS AND ABSCESS OF UNSPECIFIED SITES 05/15/2011 682.9 CELLULITIS AND ABSCESS OF UNSPECIFIED SITES 05/15/2011 NIKKO BELLA APRN R 682.9 CELLULITIS AND ABSCESS OF UNSPECIFIED SITES 05/15/2011 Ot 133.0 SCABIES 05/15/2011 Ot 682.4 CELLULITIS OF HAND 05/15/2011 Ot 782.1 NONSPECIF SKIN ERUPT NEC 05/15/2011 Ot V15.81 HX OF PAST NONCOMPLIANCE 05/15/2011 Ot 133.0 SCABIES 05/15/2011 Ot 300.00 ANXIETY STATE NOS 05/15/2011 Ot 682.4 CELLULITIS OF HAND 07/09/2011 RICH ARRIAGA APRN S V72.41 TEST NEGATIVE RESULT 07/09/2011 V72.41 TEST NEGATIVE RESULT 07/09/2011 NIKKO BELLA APRN R V72.41 TEST NEGATIVE RESULT 07/15/2011 RICH ARRIAGA APRN S 626.0 ABSENCE OF MENSTRUATION 07/15/2011 RICH ARRIAGA APRN S 709.9 UNSPECIFIED DISORDER OF SKIN AND SUBCUTANEOUS TISSUE 07/15/2011 RICH ARRIAGA APRN S 789.02 ABDOMINAL PAIN LEFT UPPER QUADRANT 07/15/2011 626.0 ABSENCE OF MENSTRUATION 07/15/2011 709.9 UNSPECIFIED DISORDER OF SKIN AND SUBCUTANEOUS TISSUE 07/15/2011 789.02 ABDOMINAL PAIN LEFT UPPER QUADRANT 07/15/2011 NIKKO BELLA APRN R 626.0 ABSENCE OF MENSTRUATION 07/15/2011 NIKKO BELLA APRN R 709.9 UNSPECIFIED DISORDER OF SKIN AND SUBCUTANEOUS TISSUE 07/15/2011 NIKKO BELLA APRN R 789.02 ABDOMINAL PAIN LEFT UPPER QUADRANT 07/17/2011 Ot 682.4 CELLULITIS OF HAND 07/17/2011 Ot 705.81 DYSHIDROSIS 07/17/2011 Ot 782.1 NONSPECIF SKIN ERUPT NEC 08/04/2011 RICH ARRIAGA APRN S 691.8 ECZEMA 08/04/2011 RICH ARRIAGA APRN S 704.8 FOLLICULITIS 08/04/2011 691.8 ECZEMA 08/04/2011 704.8 FOLLICULITIS 08/04/2011 NIKKO BELLA APRN R 691.8 ECZEMA 08/04/2011 NIKKO BELLA APRN R 704.8 FOLLICULITIS 09/02/2011 RICH ARRIAGA APRN 911.0 ABRASION OR FRICTION BURN OF TRUNK WITHOUT INFECTION 09/02/2011 911.0 ABRASION OR FRICTION BURN OF TRUNK WITHOUT INFECTION 09/02/2011 NIKKO BELLA APRN R 911.0 ABRASION OR FRICTION BURN OF TRUNK WITHOUT INFECTION 10/25/2011 RICH ARRIAGA APRN 698.9 UNSPECIFIED PRURITIC DISORDER 10/25/2011 RICH ARRIAGA APRN 782.1 RASH AND OTHER NONSPECIFIC SKIN ERUPTION 10/25/2011 698.9 UNSPECIFIED PRURITIC DISORDER 10/25/2011 782.1 RASH AND OTHER NONSPECIFIC SKIN ERUPTION 10/25/2011 NIKKO BELLA APRN 698.9 UNSPECIFIED PRURITIC DISORDER 10/25/2011 NIKKO BELLA APRN R 782.1 RASH AND OTHER NONSPECIFIC SKIN ERUPTION 02/16/2012 Ot 708.9 URTICARIA NOS 02/16/2012 Ot 782.1 NONSPECIF SKIN ERUPT NEC 09/06/2012 RICH ARRIAGA APRN 783.1 WEIGHT GAIN ABNORMAL 09/06/2012 RICH ARRIAGA APRN V18.0 FAMILY HISTORY OF DIABETES MELLITUS 09/06/2012 RICH ARRIAGA APRN V70.0 EXAM - ROUTINE H&P 09/06/2012 783.1 WEIGHT GAIN ABNORMAL 09/06/2012 V18.0 FAMILY HISTORY OF DIABETES MELLITUS 09/06/2012 V70.0 EXAM - ROUTINE H&P 09/06/2012 NIKKO BELLA APRN 783.1 WEIGHT GAIN ABNORMAL 09/06/2012 NIKKO BELLA APRN R V18.0 FAMILY HISTORY OF DIABETES MELLITUS 09/06/2012 NIKKO BELLA APRN V70.0 EXAM - ROUTINE H&P 01/21/2013 V74.5 STD SCREEN 01/21/2013 V76.10 BREAST CANCER SCREENING 01/21/2013 V76.2 CERVICAL CANCER SCREENING (PAP SMEAR) 01/21/2013 NIKKO BELLA APRN R V74.5 STD SCREEN 01/21/2013 NIKKO BELLA APRN R V76.10 BREAST CANCER SCREENING 01/21/2013 JENA REYNOSO, NIKKO R V76.2 CERVICAL CANCER SCREENING (PAP SMEAR) 04/14/2013 NIKKO BELLA APRN R 789.05 ABDOMINAL PAIN PERIUMBILIC 07/13/2013 SUDHA LORENZO MD Ot 465.9 ACUTE URI NOS 07/13/2013 SUDHA LORENZO MD Ot 786.59 CHEST PAIN NEC 08/07/2013 SELENE MILLER Ot 034.0 STREP SORE THROAT 08/07/2013 SELENE MILLER Ot 462 ACUTE PHARYNGITIS 02/26/2016 CARMEN KO MD, Ot Z34.91 ENCNTR FOR SUPRVSN OF NORMAL PREG, UNSP, 03/07/2016 CARMEN KO MD, Ot Z34.91 ENCNTR FOR SUPRVSN OF NORMAL PREG, UNSP, 05/12/2016 CARMEN KO MD, Ot Z34.91 ENCNTR FOR SUPRVSN OF NORMAL PREG, UNSP, 05/13/2016 CARMEN KO MD, Ot Z34.92 ENCNTR FOR SUPRVSN OF NORMAL PREG, UNSP, 05/13/2016 CARMEN KO MD Ot Z36 ENCOUNTER FOR SCREENING OF MOT 05/13/2016 CARMEN KO MD, Ot Z3A.19 19 WEEKS GESTATION OF 05/29/2016 CARMEN KO MD, Ot Z34.92 ENCNTR FOR SUPRVSN OF NORMAL PREG, UNSP, 05/29/2016 CARMEN KO MD Ot Z36 ENCOUNTER FOR SCREENING OF MOT 05/29/2016 CARMEN KO MD, Ot Z3A.19 19 WEEKS GESTATION OF 06/12/2016 CARMEN KO MD, Ot Z34.92 ENCNTR FOR SUPRVSN OF NORMAL PREG, UNSP, 06/12/2016 CARMEN KO MD Ot Z36 ENCOUNTER FOR SCREENING OF MOT 06/12/2016 CARMEN KO MD, Ot Z3A.23 23 WEEKS GESTATION OF 06/12/2016 CARMEN KO MD, Ot Z34.92 ENCNTR FOR SUPRVSN OF NORMAL PREG, UNSP, 06/12/2016 CARMEN KO MD, Ot Z36 ENCOUNTER FOR SCREENING OF MOT 06/12/2016 CARMEN KO MD, Ot Z3A.23 23 WEEKS GESTATION OF 06/12/2016 CARMEN KO MD, Ot Z34.92 ENCNTR FOR SUPRVSN OF NORMAL PREG, UNSP, 06/12/2016 CARMEN KO MD, Ot Z36 ENCOUNTER FOR SCREENING OF MOT 06/12/2016 CARMEN KO MD, Ot Z3A.23 23 WEEKS GESTATION OF 06/23/2016 CARMEN KO MD, Ot Z34.92 ENCNTR FOR SUPRVSN OF NORMAL PREG, UNSP, 06/23/2016 CARMEN KO MD, Ot Z36 ENCOUNTER FOR SCREENING OF MOT 06/23/2016 CARMEN KO MD, Ot Z3A.23 23 WEEKS GESTATION OF 07/24/2016 CARMEN KO MD, Ot Z36 ENCOUNTER FOR SCREENING OF MOT 07/29/2016 CARMEN KO MD, Ot Z36 ENCOUNTER FOR SCREENING OF MOT 08/06/2016 CARMEN KO MD, Ot Z36 ENCOUNTER FOR SCREENING OF MOT 08/08/2016 CARMEN KO MD, Ot F41.9 ANXIETY DISORDER, UNSPECIFIED 08/08/2016 CARMEN KO MD, Ot O99.343 OTH MENTAL DISORDERS COMPLICATING PREGNA 08/08/2016 CARMEN KO MD, Ot Z3A.31 31 WEEKS GESTATION OF 08/08/2016 ARLENE SOLITARIO APRN Ot F17.210 NICOTINE DEPENDENCE, CIGARETTES, UNCOMPL 08/08/2016 ARLENE SOLITARIO APRN Ot O99.333 SMOKING (TOBACCO) COMPLICATING 08/08/2016 ARLENE SOLITARIO APRN Ot R00.2 PALPITATIONS 08/08/2016 ARLENE SOLITARIO APRN Ot R06.02 SHORTNESS OF BREATH 08/08/2016 ARLENE SOLITARIO APRN Ot R07.9 CHEST PAIN, UNSPECIFIED 08/08/2016 ARLENE SOLITARIO APRN Ot Z3A.32 32 WEEKS GESTATION OF 08/10/2016 ARLENE SOLITARIO APRN Ot F17.210 NICOTINE DEPENDENCE, CIGARETTES, UNCOMPL 08/10/2016 ARLENE SOLITARIO OTHER SALES SUPPORT WORKER Ot O99.333 SMOKING (TOBACCO) COMPLICATING 08/10/2016 ARLENE SOLITARIO OTHER SALES SUPPORT WORKER Ot R00.2 PALPITATIONS 08/10/2016 ARLENE SOLITARIO OTHER SALES SUPPORT WORKER Ot R06.02 SHORTNESS OF BREATH 08/10/2016 ARLENE SOLITARIO OTHER SALES SUPPORT WORKER Ot R07.9 CHEST PAIN, UNSPECIFIED 08/10/2016 ARLENE SOLITARIO OTHER SALES SUPPORT WORKER Ot Z3A.32 32 WEEKS GESTATION OF 08/10/2016 ARLENE SOLITARIO APRN Ot F17.210 NICOTINE DEPENDENCE, CIGARETTES, UNCOMPL 08/10/2016 ARLENE SOLITARIO OTHER SALES SUPPORT WORKER Ot O99.333 SMOKING (TOBACCO) COMPLICATING 08/10/2016 ARLENE SOLITARIO OTHER SALES SUPPORT WORKER Ot R00.2 PALPITATIONS 08/10/2016 ARLENE SOLITARIO APRN Ot R06.02 SHORTNESS OF BREATH 08/10/2016 ARLENE SOLITARIO APRN Ot R07.9 CHEST PAIN, UNSPECIFIED 08/10/2016 ARLENE SOLITARIO APRN Ot Z3A.32 32 WEEKS GESTATION OF 08/12/2016 CARMEN KO MD, Ot O41.03X0 OLIGOHYDRAMNIOS, THIRD TRIMESTER, NOT AP 08/12/2016 CARMEN KO MD, Ot Z3A.30 30 WEEKS GESTATION OF 08/16/2016 CARMEN KO MD, Ot F41.9 ANXIETY DISORDER, UNSPECIFIED 08/16/2016 CARMEN KO MD Ot O99.343 OTH MENTAL DISORDERS COMPLICATING PREGNA 08/16/2016 CARMEN KO MD, Ot Z3A.31 31 WEEKS GESTATION OF 08/19/2016 CARMEN KO MD, Ot O41.03X0 OLIGOHYDRAMNIOS, THIRD TRIMESTER, NOT AP 08/19/2016 CARMEN KO MD, Ot Z3A.30 30 WEEKS GESTATION OF 08/22/2016 CARMEN KO MD, Ot O41.03X0 OLIGOHYDRAMNIOS, THIRD TRIMESTER, NOT AP 08/22/2016 CARMEN KO MD, Ot Z3A.34 34 WEEKS GESTATION OF 09/11/2016 CARMEN KO MD, Ot O41.03X0 OLIGOHYDRAMNIOS, THIRD TRIMESTER, NOT AP 09/11/2016 CARMEN KO MD, Ot Z3A.34 34 WEEKS GESTATION OF 09/19/2016 CARMEN KO MD, Ot D62 ACUTE POSTHEMORRHAGIC ANEMIA 09/19/2016 CARMEN KO MD, Ot E66.9 OBESITY, UNSPECIFIED 09/19/2016 CARMEN KO MD, Ot O41.03X0 OLIGOHYDRAMNIOS, THIRD TRIMESTER, NOT AP 09/19/2016 CARMEN KO MD, Ot O64.0XX0 OBSTRUCTED LABOR DUE TO INCMPL ROTATION 09/19/2016 CARMEN KO MD, Ot O66.40 FAILED TRIAL OF LABOR, UNSPECIFIED 09/19/2016 CARMEN KO MD, Ot O90.81 ANEMIA OF THE PUERPERIUM 09/19/2016 CARMEN KO MD, Ot O99.214 OBESITY COMPLICATING CHILDBIRTH 09/19/2016 CARMEN KO MD, Ot Z37.0 SINGLE LIVE 09/19/2016 CARMEN KO MD, Ot Z3A.38 38 WEEKS GESTATION OF 09/19/2016 CARMEN KO MD, Ot Z68.41 BODY MASS INDEX (BMI) 40.0-44.9, ADULT 10/20/2016 ARLENE SOLITARIO APRN Ot F41.9 ANXIETY DISORDER, UNSPECIFIED 10/20/2016 ARLENE SOLITARIO APRN Ot R07.89 OTHER CHEST PAIN 11/19/2016 CARMEN KO MD, Ot O41.03X0 OLIGOHYDRAMNIOS, THIRD TRIMESTER, NOT AP 11/19/2016 CARMEN KO MD, Ot Z3A.34 34 WEEKS GESTATION OF Procedures Code Description [place] [address] CULTURE THROAT 09/08/2012 10358 GC/CHLAM PROBE (STATE) 01/21/2013 Q0091 PAP SMEAR OBTAIN SMEAR 01/21/2013 82140 TRICHOMONAS (IN-HOUSE) 01/21/2013 77120 PAP SMEAR 01/26/2013 12171 CULTURE WOUND (AEROBIC) 04/17/2013 [id number] INTRODUCE OF OTH THERAP SUBST INTO FEM R 09/16/2016 [id number] EXTRACTION OF POC, LOW CERVICAL, OPEN AP 09/17/2016 Results Test Result Range Complete blood count (CBC) with automated white blood cell (WBC) differential - 08/08/16 19:50 Blood leukocytes automated count (number/volume) 9.3 10*3/uL 4.3-11.0 Blood erythrocytes automated count (number/volume) 4.31 10*6/uL 4.35-5.85 Venous blood hemoglobin measurement (mass/volume) 11.9 g/dL 11.5-16.0 Blood hematocrit (volume fraction) 35 % 35-52 Automated erythrocyte mean corpuscular volume 81 [foz_us] 80-99 Automated erythrocyte mean corpuscular hemoglobin (mass per erythrocyte) 28 pg 25-34 Automated erythrocyte mean corpuscular hemoglobin concentration measurement ( mass/volume) 34 g/dL 32-36 Automated erythrocyte distribution width ratio 12.7 % 10.0-14.5 Automated blood platelet count (count/volume) 260 10*3/uL 130-400 Automated blood platelet mean volume measurement 9.6 [foz_us] 7.4-10.4 Automated blood neutrophils/100 leukocytes 75 % 42-75 Automated blood lymphocytes/100 leukocytes 20 % 12-44 Blood monocytes/100 leukocytes 5 % 0-12 Automated blood eosinophils/100 leukocytes 0 % 0-10 Automated blood basophils/100 leukocytes 0 % 0-10 Blood neutrophils automated count (number/volume) 7.0 10*3 1.8-7.8 Blood lymphocytes automated count (number/volume) 1.8 10*3 1.0-4.0 Blood monocytes automated count (number/volume) 0.5 10*3 0.0-1.0 Automated eosinophil count 0.0 10*3/uL 0.0-0.3 Automated blood basophil count (count/volume) 0.0 10*3/uL 0.0-0.1 Fibrin D-dimer FEU measurement in platelet poor plasma (mass/volume) - 19:50 Fibrin D-dimer FEU measurement in platelet poor plasma (mass/volume) 0.49 ug/mL 0.00-0.49 Serum or plasma lithium measurement (moles/volume) - 08/08/16 19:50 BNP level 10.0 pg/mL <100.0 Complete blood count (CBC) with automated white blood cell (WBC) differential - 09/16/16 21:52 Blood leukocytes automated count (number/volume) 11.5 10*3/uL 4.3-11.0 Blood erythrocytes automated count (number/volume) 4.53 10*6/uL 4.35-5.85 Venous blood hemoglobin measurement (mass/volume) 12.0 g/dL 11.5-16.0 Blood hematocrit (volume fraction) 36 % 35-52 Automated erythrocyte mean corpuscular volume 79 [foz_us] 80-99 Automated erythrocyte mean corpuscular hemoglobin (mass per erythrocyte) 27 pg 25-34 Automated erythrocyte mean corpuscular hemoglobin concentration measurement ( mass/volume) 34 g/dL 32-36 Automated erythrocyte distribution width ratio 13.0 % 10.0-14.5 Automated blood platelet count (count/volume) 277 10*3/uL 130-400 Automated blood platelet mean volume measurement 9.9 [foz_us] 7.4-10.4 Automated blood neutrophils/100 leukocytes 79 % 42-75 Automated blood lymphocytes/100 leukocytes 17 % 12-44 Blood monocytes/100 leukocytes 3 % 0-12 Automated blood eosinophils/100 leukocytes 0 % 0-10 Automated blood basophils/100 leukocytes 0 % 0-10 Blood neutrophils automated count (number/volume) 9.1 10*3 1.8-7.8 Blood lymphocytes automated count (number/volume) 2.0 10*3 1.0-4.0 Blood monocytes automated count (number/volume) 0.4 10*3 0.0-1.0 Automated eosinophil count 0.0 10*3/uL 0.0-0.3 Automated blood basophil count (count/volume) 0.0 10*3/uL 0.0-0.1 Blood type T Indirect antibody screen panel - 09/16/16 21:52 ABO+Rh group BP NRG Transfusion band number [id number] Blood group antibody screen NEGATIVE NR Methicillin resistant Staphylococcus aureus (MRSA) screening culture - 18:31 Methicillin resistant Staphylococcus aureus (MRSA) screening culture NEG NRG Complete blood count (CBC) with automated white blood cell (WBC) differential - 09/18/16 05:35 Blood leukocytes automated count (number/volume) 9.7 10*3/uL 4.3-11.0 Blood erythrocytes automated count (number/volume) 3.82 10*6/uL 4.35-5.85 Venous blood hemoglobin measurement (mass/volume) 9.9 g/dL 11.5-16.0 Blood hematocrit (volume fraction) 31 % 35-52 Automated erythrocyte mean corpuscular volume 81 [foz_us] 80-99 Automated erythrocyte mean corpuscular hemoglobin (mass per erythrocyte) 26 pg 25-34 Automated erythrocyte mean corpuscular hemoglobin concentration measurement ( mass/volume) 32 g/dL 32-36 Automated erythrocyte distribution width ratio 13.0 % 10.0-14.5 Automated blood platelet count (count/volume) 235 10*3/uL 130-400 Automated blood platelet mean volume measurement 10.7 [foz_us] 7.4-10.4 Automated blood neutrophils/100 leukocytes 77 % 42-75 Automated blood lymphocytes/100 leukocytes 16 % 12-44 Blood monocytes/100 leukocytes 7 % 0-12 Automated blood eosinophils/100 leukocytes 0 % 0-10 Automated blood basophils/100 leukocytes 0 % 0-10 Blood neutrophils automated count (number/volume) 7.4 10*3 1.8-7.8 Blood lymphocytes automated count (number/volume) 1.6 10*3 1.0-4.0 Blood monocytes automated count (number/volume) 0.7 10*3 0.0-1.0 Automated eosinophil count 0.0 10*3/uL 0.0-0.3 Automated blood basophil count (count/volume) 0.0 10*3/uL 0.0-0.1 Complete blood count (CBC) with automated white blood cell (WBC) differential - 10/20/16 20:28 Blood leukocytes automated count (number/volume) 9.9 10*3/uL 4.3-11.0 Blood erythrocytes automated count (number/volume) 4.91 10*6/uL 4.35-5.85 Venous blood hemoglobin measurement (mass/volume) 12.2 g/dL 11.5-16.0 Blood hematocrit (volume fraction) 39 % 35-52 Automated erythrocyte mean corpuscular volume 79 [foz_us] 80-99 Automated erythrocyte mean corpuscular hemoglobin (mass per erythrocyte) 25 pg 25-34 Automated erythrocyte mean corpuscular hemoglobin concentration measurement ( mass/volume) 31 g/dL 32-36 Automated erythrocyte distribution width ratio 13.1 % 10.0-14.5 Automated blood platelet count (count/volume) 290 10*3/uL 130-400 Automated blood platelet mean volume measurement 10.1 [foz_us] 7.4-10.4 Automated blood neutrophils/100 leukocytes 67 % 42-75 Automated blood lymphocytes/100 leukocytes 26 % 12-44 Blood monocytes/100 leukocytes 6 % 0-12 Automated blood eosinophils/100 leukocytes 1 % 0-10 Automated blood basophils/100 leukocytes 0 % 0-10 Blood neutrophils automated count (number/volume) 6.6 10*3 1.8-7.8 Blood lymphocytes automated count (number/volume) 2.6 10*3 1.0-4.0 Blood monocytes automated count (number/volume) 0.6 10*3 0.0-1.0 Automated eosinophil count 0.1 10*3/uL 0.0-0.3 Automated blood basophil count (count/volume) 0.0 10*3/uL 0.0-0.1 Fibrin D-dimer FEU measurement in platelet poor plasma (mass/volume) - 20:28 Fibrin D-dimer FEU measurement in platelet poor plasma (mass/volume) 0.30 ug/mL 0.00-0.49 Comprehensive metabolic panel - 10/20/16 20:28 Serum or plasma sodium measurement (moles/volume) 139 mmol/L 135-145 Serum or plasma potassium measurement (moles/volume) 3.6 mmol/L 3.6-5.0 Serum or plasma chloride measurement (moles/volume) 105 mmol/L 98-107 Carbon dioxide 23 mmol/L 21-32 Serum or plasma anion gap determination (moles/volume) 11 mmol/L 5-14 Serum or plasma urea nitrogen measurement (mass/volume) 11 mg/dL 7-18 Serum or plasma creatinine measurement (mass/volume) 0.80 mg/dL 0.60-1.30 Serum or plasma urea nitrogen/creatinine mass ratio 14 NRG Serum or plasma creatinine measurement with calculation of estimated glomerular filtration rate > NRG Serum or plasma glucose measurement (mass/volume) 79 mg/dL 70-105 Serum or plasma calcium measurement (mass/volume) 9.1 mg/dL 8.5-10.1 Serum or plasma total bilirubin measurement (mass/volume) 0.4 mg/dL 0.1-1.0 Serum or plasma alkaline phosphatase measurement (enzymatic activity/volume) 89 U/L 40-136 Serum or plasma aspartate aminotransferase measurement (enzymatic activity/ volume) 12 U/L 5-34 Serum or plasma alanine aminotransferase measurement (enzymatic activity/volume ) 10 U/L 0-55 Serum or plasma protein measurement (mass/volume) 6.8 g/dL 6.4-8.2 Serum or plasma albumin measurement (mass/volume) 3.9 g/dL 3.2-4.5 Complete urinalysis with reflex to culture - 10/20/16 20:43 Urine color determination YELLOW NRG Urine clarity determination CLEAR NRG Urine pH measurement by test strip 6.5 5-9 Specific gravity of urine by test strip 1.010 1.016- 1.022 Urine protein assay by test strip, semi-quantitative NEGATIVE NEGATIVE Urine glucose detection by automated test strip NEGATIVE NEGATIVE Erythrocytes detection in urine sediment by light microscopy NEGATIVE NEGATIVE Urine ketones detection by automated test strip NEGATIVE NEGATIVE Urine nitrite detection by test strip NEGATIVE NEGATIVE Urine total bilirubin detection by test strip NEGATIVE NEGATIVE Urine urobilinogen measurement by automated test strip (mass/volume) NORMAL NORMAL Urine leukocyte esterase detection by dipstick NEGATIVE NEGATIVE Automated urine sediment erythrocyte count by microscopy (number/high power field) NONE NRG Automated urine sediment leukocyte count by microscopy (number/high power field ) RARE NRG Bacteria detection in urine sediment by light microscopy FEW NRG Squamous epithelial cells detection in urine sediment by light microscopy 0-2 NRG Crystals detection in urine sediment by light microscopy NONE NRG Casts detection in urine sediment by light microscopy NONE NRG Mucus detection in urine sediment by light microscopy NEGATIVE NRG Complete urinalysis with reflex to culture NO NRG Encounters ACCT No. Visit Date/Time Discharge Status Pt. Type Provider Facility Loc./Unit Complaint [id number] 06/08/2017 19:47:00 06/08/2017 21:20:00 DIS Emergency ARLENE SOLITARIO OTHER SALES SUPPORT WORKER [facility] ER HEAD INJ [id number] 11/28/2016 09:05:00 11/28/2016 23:59:59 CLS Preadmit ANGELIC MADERA OTHER SALES SUPPORT WORKER [facility] RAD R10.11 RUQ ABD PAIN [id number] 11/20/2016 00:13:00 11/20/2016 23:59:59 CLS Preadmit MAIKEL MD, CARMEN J [facility] WSo OLIGOHYDRAMNIOS [id number] 08/21/2016 15:11:00 11/19/2016 00:01:00 DIS Outpatient CARMEN KO MD [facility] WSo OLIGOHYDRAMNIOS [id number] 10/20/2016 19:59:00 10/20/2016 21:22:00 DIS Emergency ARLENE SOLITARIO OTHER SALES SUPPORT WORKER [facility] ER TIGHTNESS AND HEAVINESS IN CHEST [id number] 09/16/2016 19:45:00 09/19/2016 14:30:00 DIS Inpatient CARMEN KO MD [facility] LDRP INDUCTION [id number] 08/08/2016 09:50:00 08/08/2016 23:59:59 CLS Outpatient CARMEN KO MD [facility] RAD OLIGOHYDRAMNIOS [id number] 08/08/2016 18:59:00 08/08/2016 20:33:00 DIS Emergency ARLENE SOLITARIO OTHER SALES SUPPORT WORKER [facility] ER SOB, CP [id number] 08/08/2016 18:21:00 08/08/2016 19:01:00 DIS Outpatient CARMEN KO MD [facility] WSo SOB, ABD PAIN [id number] 07/24/2016 13:28:00 07/24/2016 23:59:59 CLS Outpatient CARMEN KO MD [facility] RAD CHECK ADITI AND HEAD CIRCUMFRENCE [id number] 06/11/2016 10:57:00 06/11/2016 23:59:59 CLS Outpatient CARMEN KO MD [facility] RAD SURVEY [id number] 05/12/2016 11:05:00 05/12/2016 23:59:59 CLS Outpatient CARMEN KO MD [facility] RAD SURVEY [id number] 02/25/2016 12:43:00 02/25/2016 23:59:59 CLS Outpatient CARMEN KO MD [facility] RAD DATES [id number] 08/07/2013 20:32:00 08/07/2013 22:13:00 DIS Emergency SELENE MILLER [facility] ER SORE THROAT [id number] 07/13/2013 18:23:00 07/13/2013 20:45:00 DIS Emergency SUDHA LORENZO MD [facility] ER CHEST PAIN, SOA, SORE THROAT, HIGH BP [id number] 01/19/2013 17:57:00 01/19/2013 23:59:59 CLS Outpatient [id number] 02/15/2012 23:39:00 Document Registration [id number] 07/17/2011 02:41:00 Document Registration [id number] 05/15/2011 22:51:00 Document Registration [id number] 05/14/2011 23:08:00 Document Registration [id number] 03/11/2011 21:59:00 Document Registration [id number] 01/23/2011 22:55:00 Document Registration [id number] 04/14/2013 13:28:00 04/14/2013 23:59:59 CLS Outpatient NIKKO BELLA APRN [id number] 09/06/2012 11:00:00 09/06/2012 23:59:59 CLS Outpatient RICH ARRIAGA APRN [id number] 01/21/2013 10:26:00 Document Registration
== END 2017-06-28 09:10 | disposition home or self-care (01) ==
LOC: EDUNIT# 08:23 → ER 08:24
DX: J11.1 Influenza due to unidentified influenza virus with other respiratory manifestations (principal); J45.909 Unspecified asthma, uncomplicated; F41.9 Anxiety disorder, unspecified; Z80.0 Family history of malignant neoplasm of digestive organs; Z86.19 Personal history of other infectious and parasitic diseases; Z87.891 Personal history of nicotine dependence; Z87.59 Personal history of other complications of pregnancy, childbirth and the puerperium
CPT/HCPCS: 99282

== ENCOUNTER → 2018-01-11 | Outpatient (CLI) | payer SELFPAY | LOC: CARD 10:47 | PROVIDERS: ATTEND Nurse Practitioner Family | DX: R07.9 Chest pain, unspecified (principal); R00.2 Palpitations; R06.02 Shortness of breath | CPT/HCPCS: 93225; 93226 ==

== ENCOUNTER → 2018-02-16 | Outpatient (CLI) | payer OTHER | LOC: CARD 08:52 | PROVIDERS: ATTEND Nurse Practitioner Family | DX: R00.2 Palpitations (principal); R07.9 Chest pain, unspecified; R06.02 Shortness of breath; I27.20 Pulmonary hypertension, unspecified | CPT/HCPCS: 93306; 93351 ==

== ENCOUNTER 2018-03-17 21:28 | Outpatient (CLI) | payer MEDICAID, OTHER ==
[~2018-03-17 21:28] MED LIST changes: -RT-ALBUTEROL SULF 2.5 MG/3 ML PRE-MIX VIAL INH ONE
== END 2018-03-18 06:13 | disposition home or self-care (01) ==
LOC: SLEEP 21:28
PROVIDERS: ATTEND Nurse Practitioner Family
DX: G47.50 Parasomnia, unspecified (principal); G47.10 Hypersomnia, unspecified; R06.83 Snoring
CPT/HCPCS: 95810

== ENCOUNTER → 2018-03-17 | Outpatient (CLI) | payer MEDICAID, OTHER ==
[~2018-03-17] MED LIST changes: +RT-ALBUTEROL SULF 2.5 MG/3 ML PRE-MIX VIAL INH ONE
== END ==
LOC: RT 08:19
PROVIDERS: ATTEND Nurse Practitioner Family
DX: J45.909 Unspecified asthma, uncomplicated (principal)
CPT/HCPCS: 94060; 94640; 94726; 94729

== ENCOUNTER 2018-04-09 07:02 | Emergency (ER) | payer SELFPAY ==
[~2018-04-09] VITALS: Ht 167.6 cm; Wt 127.0 kg
--- OUTSIDE RECORDS SUMMARY | 2018-04-09 08:01 | XMS REPORT ---
Author Author GLORIA BERNAL [facility] Address [address] [place] [address] Care Team Providers Care Furniture Duster Name Role Phone GLORIA BERNAL Unavailable PROBLEMS Type Condition ICD9-CM Code [id number] Code Onset Dates Condition Status SNOMED Code Problem Abnormal weight gain R63.5 Active 341741411 Problem Family history of diabetes mellitus Z83.3 Active 573924445 Problem Morbid (severe) obesity due to excess calories E66.01 Active 56691958037800 Problem Body mass index (BMI) of 45.0-49.9 in adult Z68.42 Active 856977040 Problem Anxiety, generalized F41.1 Active 04894126 Problem Absence of menstruation N91.2 Active 86620409 Problem Paresthesia R20.2 Active 72812732 Problem Mild intermittent asthma without complication J45.20 Active 443559328 ALLERGIES No Information ENCOUNTERS Encounter Location Date Diagnosis [facility] [address] [address] Mar, [facility] [id number] [place] [address]87 [address]118 08 Jan, 2018 Acute right-sided low back pain without sciatica M54.5 [facility] [address] [address]- [address] 08 Dec, 2017 Palpitations R00.2 ; Chest pain, unspecified type R07.9 ; Shortness of breath R06.02 ; Suspected sleep apnea R29.818 ; Morbid (severe) obesity due to excess calories E66.01 ; Body mass index (BMI) of 45.0-49.9 in adult Z68.42 and BMI 45.0-49.9, adult Z68.42 [facility] [address] [address]- 67[address] Oct, Palpitations R00.2 ; Anxiety, generalized F41.1 and BMI 45.0 -49.9, adult Z68.42 [place] [id number] [place] [address] 99043- 2103 Oct, [facility] [address] [address]14- 3[address] Oct, [place] [address] 77444- 7875 Aug, Cough with hemoptysis R04.2 and BMI 45.0-49.9, adult Z68.42 [facility] [id number] [place] [address] 91920 -6541 Aug, BMI 45.0-49.9, adult Z68.42 and Cough with hemoptysis R04.2 [place] [address] 53850- 0462 Apr, [place] [address] 10015- 4102 Apr, Paresthesia R20.2 and Weight gain R63.5 [place] [id number] [place] [address] 19582- 8102 Oct, Right upper quadrant abdominal pain R10.11 ; Stool bloody K92.1 and BMI 40.0-44.9, adult Z68.41 [place] [id number] [place] [address] 87071- 1257 Oct, [place] [id number] [place] [address] 65789- 4217 September, Anxiety, generalized F41.1 [place] [id number] [place] [address] 60986- 9084 September, Mild intermittent asthma without complication J45.20 [place] [address] 25058- 4256 September, [facility] [address] [place] [address] September, [facility] [address] [address]- 7599 September, Mild intermittent asthma without complication J45.20 ; Globus sensation F45.8 ; Anxiety, generalized F41.1 and depression F53 [facility] [address] 8[address]1160 Jul, Abscess of breast N61 [facility] [address] 41646- 1650 Jul, [place] [address] 14762- 5360 Jun, Encounter for screening for malignant neoplasm of cervix Z12.4 ; Well woman exam Z01.419 ; BMI 40.0-44.9, adult Z68.41 ; Family history of diabetes mellitus Z83.3 ; Tobacco use Z72.0 ; History of abnormal cervical Pap smear Z87.898 ; Weight gain R63.5 ; Routine screening for STI (sexually transmitted infection) Z11.3 and Blood pressure elevated without history of HTN R03.0 [place] [address] 80444- 5528 Aug, [place] [address] 94964- 0015 Aug, [place] [address] 46016- 6453 Jul, [facility] [address] 34921- 4428 Jul, [place] [address] 05096- 6843 Jun, [facility] [address] 70514- 7071 Jun, [facility] [address] 61507- 6127 May, [facility] [place] [facility] [address] [id number] [place] [address] 4857 30 May, 2014 [facility] [place] [facility] [address] [id number] [place] [address] 24 Jan, 2014 [facility] [place] [facility] [address] [facility] [id number] [place] [address]- 2391 24 Jan, 2014 [facility] [place] [facility] [address] [id number] [place] [address]- 7795 Jan, [facility] [place] [facility] [address] [id number] [place] [address]- 2727 Jan, [facility] [place] [facility] [address] [id number] [place] [address]- 5349 17 Jul, 2013 [facility] [place] [facility] [address] [facility] [id number] [place] [address]- 0565 17 Jul, 2013 [facility] [place] [facility] [address] [facility] [id number] [place] [address]- 3401 15 Jul, 2013 [facility] [place] [facility] [address] [facility] [id number] [place] [address] 8371 15 Jul, 2013 [facility] [place] [facility] [address] [facility] [id number] [place] [address]- 2607 13 Jul, 2013 [facility] [place] [facility] [address] [facility] [id number] [place] [address]- 7945 13 Jul, 2013 [facility] [place] [facility] [address] [facility] [id number] [address] 7814 12 Jul, 2013 [facility] [place] [facility] [address] [facility] [id number] [place] 5616 19 Apr, 2013 [facility] [place] [facility] [address] [facility] [id number] [place] [address]- 1496 17 Apr, 2013 [facility] [place] [facility] [address] [facility] [id number] [address] 8651 14 Apr, 2013 [facility] [place] [facility] [address] [id number] [place] [address]- 9359 14 Apr, 2013 [facility] [address] [id number] [place] [address]- 6398 Jan, [facility] [address] [id number] [place] [address]- 5702 Dec, [facility] [address] [id number] [place] [address]- 7760 Dec, [facility] [address] [id number] [place] [address]- 4486 Dec, [facility] [address] [id number] [place] [address]- 2890 Dec, [facility] [address] [id number] [place] [address]- 2467 September, [facility] [address] [id number] [place] [address]- 7731 Aug, [facility] [address] [id number] [place] [address]- 9209 Aug, [facility] [address] [id number] [place] [address]- 1610 Mar, [facility] [address] [id number] [place] [address]- 5199 Mar, [facility] [address] [id number] [place] [address]- 8878 Oct, [facility] [address] [id number] [place] [address]- 3296 September, [facility] [address] [id number] [place] [address]- 0536 September, [facility] [address] [id number] [place] [address]- 2546 September, [facility] [address] [id number] [address] 1535 September, [facility] [address] [id number] [place] [address]- 0976 Aug, [facility] [address] [id number] [place] [address]- 8026 16 Aug, 2011 [facility] [address] [id number] [place] [address]- 7591 Aug, [facility] [place] [facility] [address] [id number] [place] [address]- 5493 Aug, [facility] [address] [id number] [place] [address]- 3253 Aug, [facility] [place] [facility] [address] [id number] [place] [address]- 3355 Jul, [facility] [address] [facility] [id number] [place] [address]- 4955 15 Jul, 2011 [facility] [place] [facility] [address] [id number] [place] [address]- 7224 14 Jul, 2011 [facility] [address] [id number] [place] [address]- 8955 08 Jul, 2011 [facility] [address] [facility] [id number] [place] [address]- 8498 Jun, [facility] [address] [id number] [place] [address]- 9042 May, [facility] [place] [facility] [address] [id number] [place] [address]- 5286 May, [facility] [place] [facility] [address] [id number] [place] [address]- 0950 16 May, 2011 [facility] [place] [facility] [address] [id number] [place] [address]- 7828 15 May, 2011 [facility] [place] [facility] [address] [facility] [id number] [place] [address]- 9252 15 May, 2011 [facility] [place] [facility] [id number] [address] 1409 10 Apr, 2011 [facility] [id number] [address]- 9155 10 Apr, 2011 [facility] [id number] [address]- 7724 Apr, [facility] [id number] [address] 7854 14 Mar, 2011 [facility] [id number] [address] 3364 Mar, [facility] [id number] [place] [address] 46525- 2950 Mar, [facility] [id number] [address]- 0185 Mar, [facility] [id number] [address]- 3262 Oct, IMMUNIZATIONS No Known Immunizations SOCIAL HISTORY Never Assessed REASON FOR VISIT Triage JStrasserRN PLAN OF CARE Activity Details Follow Up prn Reason: VITAL SIGNS Height 66 in 2018-02-06 Weight 287.0 lbs 2018-02-06 Temperature 99.2 degrees Fahrenheit 2018-02-06 Heart Rate 92 bpm 2018-02-06 Respiratory Rate 22 2018-02-06 BMI 46.32 kg/m2 2018-02-06 Blood pressure systolic 126 mmHg 2018-02-06 Blood pressure diastolic 90 mmHg 2018-02-06 MEDICATIONS Medication Instructions Dosage Frequency Start Date End Date Duration Status ProAir HFA 90 mcg/actuation inhale 1 puff by inhalation route every 4 hours Aug, Active Motrin IB 800 Orally every 6 hrs 1 tablet as needed 6h 5 days Active RESULTS Name Result Date Reference Range UA LONG DIP (IN HOUSE) 2018-02-06 Lot # [id number] Exp date 03-31-2018 Clarity clear Color yellow Odor none GLU negative ADOLFO negative KET 1+ SG 1.020 BLO negative pH 7.0 Protein negative URO 1.0 NIT negative JACKSON negative Lot # [id number] Exp date May 2018 PROCEDURES Procedure Date Ordered Result Body Site URINALYSIS, AUTO, W/O SCOPE Feb 06, 2018 INSTRUCTIONS MEDICATIONS ADMINISTERED No Known Medications MEDICAL (GENERAL) HISTORY Type Description Date Medical History asthma Medical History HPV 2012 Surgical History 09/17/16 Hospitalization History RSV/ pneumonia as infant Hospitalization History child
--- OUTSIDE RECORDS SUMMARY | 2018-04-09 08:01 | XMS REPORT ---
Author Author HESHAM PANIAGUA [facility] Address [address] [place] [address] Care Team Providers Care Resident Care Spec Name Role Phone HESHAM PANIAGUA Unavailable PROBLEMS Type Condition ICD9-CM Code AXR68-ZB Code Onset Dates Condition Status SNOMED Code Problem Abnormal weight gain R63.5 Active 548561983 Problem Family history of diabetes mellitus Z83.3 Active 305964451 Problem Morbid (severe) obesity due to excess calories E66.01 Active 02184617865811 Problem Body mass index (BMI) of 45.0-49.9 in adult Z68.42 Active 159602560 Problem Anxiety, generalized F41.1 Active 52680633 Problem Absence of menstruation N91.2 Active 09396975 Problem Paresthesia R20.2 Active 31045113 Problem Mild intermittent asthma without complication J45.20 Active 927396273 ALLERGIES Substance Reaction Event Type Date Status Augmentin Unknown Drug Allergy Dec, Active ENCOUNTERS Encounter Location Date Diagnosis [facility] [id number] [place] [address]473- 0135 Mar, [facility] [id number] [place] [address] 8[address]12 -6441 Jan, Acute right-sided low back pain without sciatica M54.5 [facility] [id number] [place] [address]66- 9509 Dec, Palpitations R00.2 ; Chest pain, unspecified type R07.9 ; Shortness of breath R06.02 ; Suspected sleep apnea R29.818 ; Morbid (severe) obesity due to excess calories E66.01 ; Body mass index (BMI) of 45.0-49.9 in adult Z68.42 and BMI 45.0-49.9, adult Z68.42 [facility] [address] [place] [address]- 7260 Oct, Palpitations R00.2 ; Anxiety, generalized F41.1 and BMI 45.0 -49.9, adult Z68.42 [place] [address] [address]483- 3436 Oct, [place] [address] [address]- 2077 Oct, [place] [address] [address]47- 8069 Aug, Cough with hemoptysis R04.2 and BMI 45.0-49.9, adult Z68.42 [facility] [address] 8[address] -9118 Aug, BMI 45.0-49.9, adult Z68.42 and Cough with hemoptysis R04.2 [place] [address] 28807- 3194 Apr, [place] [address] 23294- 7845 Apr, Paresthesia R20.2 and Weight gain R63.5 [place] [id number] [place] [address] 77085- 0845 Oct, Right upper quadrant abdominal pain R10.11 ; Stool bloody K92.1 and BMI 40.0-44.9, adult Z68.41 [place] [id number] [place] [address] 03085- 1602 Oct, [place] [address] [address]76- 0066 September, Anxiety, generalized F41.1 [place] [id number] [place] [address] 18002- 4980 September, Mild intermittent asthma without complication J45.20 [place] [address] 23828- 2993 September, [facility] [address] [place] [address] September, [facility] [address] [address]- [address]25 September, Mild intermittent asthma without complication J45.20 ; Globus sensation F45.8 ; Anxiety, generalized F41.1 and depression F53 [facility] [address] 57[address] -4062 Jul, Abscess of breast N61 [facility] [address] [address]- 1984 Jul, [place] [address] 64655- 1445 Jun, Encounter for screening for malignant neoplasm of cervix Z12.4 ; Well woman exam Z01.419 ; BMI 40.0-44.9, adult Z68.41 ; Family history of diabetes mellitus Z83.3 ; Tobacco use Z72.0 ; History of abnormal cervical Pap smear Z87.898 ; Weight gain R63.5 ; Routine screening for STI (sexually transmitted infection) Z11.3 and Blood pressure elevated without history of HTN R03.0 [facility] [id number] [place] [address] 70011- 4595 Aug, [place] [id number] [place] [address] 89994- 3676 Aug, [place] [id number] [place] [address] 39889- 5801 Jul, [facility] [id number] [place] [address] 90328- 1381 Jul, [place] [address] 94624- 3822 Jun, [facility] [id number] [place] [address] 65045- 7268 Jun, [place] [address] [place] [address]- 8525 30 May, 2014 [facility] [place] [facility] [address] [id number] [place] [address]- 4186 30 May, 2014 [facility] [place] [facility] [address] [id number] [place] [address]- 5266 24 Jan, 2014 [facility] [place] [facility] [address] [id number] [place] [address]- 0316 24 Jan, 2014 [facility] [place] [facility] [address] [id number] [place] [address] 2548 12 Jan, 2014 [facility] [place] [facility] [address] [id number] [place] [address]- 3308 12 Jan, 2014 [facility] [place] [facility] [address] [id number] [place] [address]- 9189 17 Jul, 2013 [facility] [place] [facility] [address] [facility] [id number] [place] [address]- 3959 17 Jul, 2013 [facility] [place] [facility] [address] [id number] [place] [address]- 5522 15 Jul, 2013 [facility] [place] [facility] [id number] [place] [address]- 4851 15 Jul, 2013 [facility] [place] [facility] [id number] [place] [address]- 3167 13 Jul, 2013 [facility] [place] [facility] [address] [facility] [id number] [place] [address]- 3869 13 Jul, 2013 [facility] [place] [facility] [address] [id number] [place] [address]- 0810 12 Jul, 2013 [facility] [place] [facility] [address] [facility] [id number] [place] [address]- 7472 19 Apr, 2013 [facility] [place] [facility] [address] [facility] [id number] [place] [address]- 6936 17 Apr, 2013 [facility] [place] [facility] [address] [facility] [id number] [place] [address]- 7755 14 Apr, 2013 [facility] [place] [facility] [address] [id number] [place] [address]- 9975 14 Apr, 2013 [facility] [place] [facility] [address] [id number] [place] [address]- 0070 Jan, [facility] [place] [facility] [address] [id number] [place] [address]- 2934 Dec, [facility] [place] [facility] [address] [id number] [place] [address]- 2644 Dec, [facility] [place] [facility] [address] [id number] [place] [address]- 2376 Dec, [facility] [place] [facility] [address] [id number] [place] [address]- 0174 Dec, [facility] [place] [facility] [address] [id number] [place] [address]- 2967 September, [facility] [place] [facility] [address] [id number] [place] [address]- 5271 Aug, [facility] [place] [facility] [address] [id number] [place] [address]- 5515 Aug, [facility] [place] [facility] [address] [id number] [place] [address]- 5440 Mar, [facility] [place] [facility] [address] [id number] [place] [address]- 8163 Mar, [facility] [place] [facility] [address] [id number] [address]- 5920 Oct, [facility] [place] [facility] [address] [id number] [place] [address]- 9185 September, [facility] [place] [facility] [address] [id number] [place] [address]- 0611 September, [facility] [place] [facility] [address] [id number] [place] [address]- 9837 September, [facility] [place] [facility] [address] [id number] [place] [address]- 6148 September, [facility] [address] [id number] [place] [address]- 2450 23 Aug, 2011 [facility] [address] [id number] [place] [address]- 2147 16 Aug, 2011 [facility] [address] [id number] [place] [address]- 3179 Aug, [facility] [address] [id number] [place] [address]- 7769 07 Aug, 2011 [facility] [address] [id number] [place] [address]- 3107 Aug, [facility] [place] [facility] [address] [id number] [place] [address]- 3886 Jul, [facility] [address] [id number] [place] [address]- 9738 15 Jul, 2011 [facility] [address] [id number] [place] [address]- 0654 14 Jul, 2011 [facility] [address] [id number] [place] [address]- 1555 08 Jul, 2011 [facility] [address] [id number] [place] [address]- 9482 Jun, [facility] [address] [id number] [place] [address]- 3995 May, [facility] [address] [id number] [place] [address]- 8076 19 May, 2011 [facility] [place] [facility] [address] [id number] [place] [address]- 7676 16 May, 2011 [facility] [place] [facility] [address] [id number] [place] [address]- 0926 15 May, 2011 [facility] [place] [facility] [address] [id number] [place] [address]- 8563 15 May, 2011 [facility] [address] [id number] [address]- 8166 10 Apr, 2011 [facility] [address] [facility] [id number], [place] [address] 10 Apr, 2011 [facility] [address] [facility] [id number], [place] [address] Apr, [facility] [address] [facility] [id number], [place] [address] 254 14 Mar, 2011 [facility] [address] [id number] [address] Mar, [facility] [id number], [place] [address] Mar, [facility] [id number], [place] [address] Mar, [facility] [address] [id number], [place] [address] Oct, IMMUNIZATIONS No Known Immunizations SOCIAL HISTORY Never Assessed REASON FOR VISIT rapid heart rate, chest pain x 1-2 months (labs and EKG done) PLAN OF CARE Activity Details Follow Up 2 Months Reason: Pending Test 24 Holter Pending Test Stress Echo Pending Test Echo 2D VITAL SIGNS Height 66 in 2018-01-06 Weight 302 lbs 2018-01-06 Heart Rate 104 bpm 2018-01-06 Oximetry 98 % 2018-01-06 BMI 48.74 kg/m2 2018-01-06 Blood pressure systolic 132 mmHg 2018-01-06 Blood pressure diastolic 82 mmHg 2018-01-06 MEDICATIONS Medication Instructions Dosage Frequency Start Date End Date Duration Status ProAir HFA 90 mcg/actuation inhale 1 puff by inhalation route every 4 hours Aug, Active RESULTS No Results PROCEDURES No Known procedures INSTRUCTIONS MEDICATIONS ADMINISTERED No Known Medications MEDICAL (GENERAL) HISTORY Type Description Date Medical History asthma Medical History HPV 2012 Surgical History 09/17/16 Hospitalization History RSV/ pneumonia as Hospitalization History child
--- OUTSIDE RECORDS SUMMARY | 2018-04-09 08:01 | XMS REPORT ---
Author Author GALA DAIGLE [facility] Address [address] [place] [address] Care Team Providers Care Design Engineer Name Role Phone ANNA DAIGLETA Unavailable PROBLEMS Type Condition ICD9-CM Code [id number] Code Onset Dates Condition Status SNOMED Code Problem Abnormal weight gain R63.5 Active 499874129 Problem Family history of diabetes mellitus Z83.3 Active 095348143 Problem Morbid (severe) obesity due to excess calories E66.01 Active 65499407232816 Problem Body mass index (BMI) of 45.0-49.9 in adult Z68.42 Active 217290866 Problem Anxiety, generalized F41.1 Active 12186156 Problem Absence of menstruation N91.2 Active 28515949 Problem Paresthesia R20.2 Active 73864766 Problem Mild intermittent asthma without complication J45.20 Active 324256247 ALLERGIES Substance Reaction Event Type Date Status Augmentin Unknown Drug Allergy Oct, Active ENCOUNTERS Encounter Location Date Diagnosis [facility] [id number] [place] [address] 31835- 5407 Mar, [facility] [address] [place] [address] 46495- 4195 Dec, Palpitations R00.2 ; Chest pain, unspecified type R07.9 ; Shortness of breath R06.02 ; Suspected sleep apnea R29.818 ; Morbid (severe) obesity due to excess calories E66.01 ; Body mass index (BMI) of 45.0-49.9 in adult Z68.42 and BMI 45.0-49.9, adult Z68.42 [facility] [id number] [place] [address] 61762- 6887 Oct, Palpitations R00.2 ; Anxiety, generalized F41.1 and BMI 45.0 -49.9, adult Z68.42 [place] [address] [address] 6[address] Oct, [facility] [id number] [place] [address] 49844- 5506 Oct, [facility] [id number] [place] [address] 60632- 6829 Aug, Cough with hemoptysis R04.2 and BMI 45.0-49.9, adult Z68.42 [facility] [id number] [place] [address] 81898 -8098 08 Aug, 2017 BMI 45.0-49.9, adult Z68.42 and Cough with hemoptysis R04.2 [place] [id number] [place] [address] 00166- 1797 Apr, [place] [id number] [place] [address] 98098- 3397 Apr, Paresthesia R20.2 and Weight gain R63.5 [place] [id number] [place] [address] 82579- 1794 Oct, Right upper quadrant abdominal pain R10.11 ; Stool bloody K92.1 and BMI 40.0-44.9, adult Z68.41 [place] [id number] [place] [address] 53802- 9221 Oct, [place] [id number] [place] [address] 92384- 9918 September, Anxiety, generalized F41.1 [place] [id number] [place] [address] 83499- 7050 September, Mild intermittent asthma without complication J45.20 [place] [id number] [place] [address] 00097- 2327 September, [place] [address] [place] [address] September, [place] [id number] [place] [address] 73493- 3173 September, Mild intermittent asthma without complication J45.20 ; Globus sensation F45.8 ; Anxiety, generalized F41.1 and depression F53 [facility] [id number] [place] [address] 59380 -0550 09 Jul, 2015 Abscess of breast N61 [facility] [address] 05180- 8173 15 Jul, 2015 [facility] [id number] [place] [address] 99977- 5934 Jun, Encounter for screening for malignant neoplasm of cervix Z12.4 ; Well woman exam Z01.419 ; BMI 40.0-44.9, adult Z68.41 ; Family history of diabetes mellitus Z83.3 ; Tobacco use Z72.0 ; History of abnormal cervical Pap smear Z87.898 ; Weight gain R63.5 ; Routine screening for STI (sexually transmitted infection) Z11.3 and Blood pressure elevated without history of HTN R03.0 [facility] [id number] [place] [address] 99045- 1497 Aug, [place] [address] 32260- 1434 Aug, [facility] [id number] [place] [address] 15957- 9637 Jul, [facility] [id number] [place] [address] 22494- 6605 Jul, [facility] [id number] [place] [address] 52708- 4679 Jun, [facility] [address] 86302- 7396 Jun, [facility] [id number] [place] [address] 64038- 6398 May, [facility] [address] 23013- 8388 May, [facility] [place] [facility] [address] [id number] [place] [address] 8743 Jan, [facility] [place] [facility] [address] [id number] [place] [address]- 4076 24 Jan, 2014 [facility] [place] [facility] [address] [id number] [place] [address]- 2978 Jan, [facility] [place] [facility] [address] [id number] [place] [address]- 9648 Jan, [facility] [place] [facility] [address] [id number] [place] [address]- 2198 17 Jul, 2013 [facility] [place] [facility] [address] [id number] [place] [address]- 0201 17 Jul, 2013 [facility] [place] [facility] [address] [id number] [place] [address]- 2186 15 Jul, 2013 [facility] [place] [facility] [address] [id number] [place] [address]- 7249 15 Jul, 2013 [facility] [place] [facility] [address] [id number] [place] [address]- 5529 13 Jul, 2013 [facility] [place] [facility] [address] [id number] [place] [address]- 7704 13 Jul, 2013 [facility] [place] [facility] [address] [id number] [place] [address]- 6233 12 Jul, 2013 [facility] [place] [facility] [address] [id number] [place] [address]- 8565 Apr, [facility] [place] [facility] [address] [id number] [place] [address]- 6128 17 Apr, 2013 [facility] [place] [facility] [address] [id number] [place] [address]- 2901 14 Apr, 2013 [facility] [place] [facility] [address] [id number] [place] [address]- 1208 14 Apr, 2013 [facility] [place] [facility] [address] [id number] [place] [address]- 9231 Jan, [facility] [address] [id number] [place] [address]- 2292 Dec, [facility] [address] [id number] [place] [address]- 3713 Dec, [facility] [address] [id number] [place] [address]- 2723 Dec, [facility] [address] [id number] [place] [address]- 3393 Dec, [facility] [address] [id number] [place] [address]- 5445 September, [facility] [address] [id number] [place] [address]- 4313 Aug, [facility] [address] [id number] [place] [address]- 9597 Aug, [facility] [address] [id number] [place] [address]- 8362 Mar, [facility] [address] [id number] [place] [address]- 6401 Mar, [facility] [address] [id number] [place] [address]- 7235 Oct, [facility] [address] [id number] [place] [address]- 5803 September, [facility] [address] [id number] [place] [address]- 4540 September, [facility] [address] [id number] [place] [address]- 7447 September, [facility] [address] [id number] [place] [address]- 1380 September, [facility] [address] [id number] [place] [address]- 4835 Aug, [facility] [address] [id number] [place] [address]- 6931 16 Aug, 2011 [facility] [place] [facility] [address] [id number] [place] [address]- 9316 09 Aug, 2011 [facility] [place] [facility] [address] [id number] [place] [address]- 4276 07 Aug, 2011 [facility] [place] [facility] [address] [id number] [place] [address]- 9026 Aug, [facility] [address] [id number] [place] [address]- 3648 Jul, [facility] [place] [facility] [address] [id number] [place] [address]- 7926 15 Jul, 2011 [facility] [place] [facility] [address] [id number] [place] [address]- 9116 14 Jul, 2011 [facility] [address] [id number] [place] [address]- 5939 08 Jul, 2011 [facility] [place] [facility] [address] [id number] [place] [address]- 5386 Jun, [facility] [place] [facility] [address] [id number] [place] [address]- 1966 May, [facility] [place] [facility] [address] [id number] [place] [address]- 4656 May, [facility] [place] [facility] [address] [id number] [address]- 6426 16 May, 2011 [facility] [place] [facility] [address] [id number] [place] [address]- 4437 15 May, 2011 [facility] [place] [facility] [address] [id number] [place] [address]- 5586 15 May, 2011 [facility] [place] [facility] [address] [id number] [place] [address]- 2216 10 Apr, 2011 [facility] [place] [facility] [id number] [address]- 1168 10 Apr, 2011 [facility] [id number] [address]- 1736 07 Apr, 2011 [facility] [id number] [address]- 2177 14 Mar, 2011 [facility] [address] [address]- 2300 Mar, [facility] [address] [address]- 5308 Mar, [facility] [address] [address]- 8007 Mar, [facility] [address] [address]- 0984 Oct, IMMUNIZATIONS No Known Immunizations SOCIAL HISTORY Never Assessed REASON FOR VISIT Rapid Heart rate Pt reports rapid heart beat for over a month off and on, also reports recently having chest pain with these episodes SHAD Bowman PLAN OF CARE Activity Details Follow Up 2 Weeks Reason:depression/anxiety VITAL SIGNS Height 66 in 2017-11-24 Weight 303.7 lbs 2017-11-24 Temperature 97.8 degrees Fahrenheit 2017-11-24 Heart Rate 96 bpm 2017-11-24 Respiratory Rate 20 2017-11-24 BMI 49.01 kg/m2 2017-11-24 Blood pressure systolic 128 mmHg 2017-11-24 Blood pressure diastolic 74 mmHg 2017-11-24 MEDICATIONS Medication Instructions Dosage Frequency Start Date End Date Duration Status ProAir HFA 90 mcg/actuation inhale 1 puff by inhalation route every 4 hours Aug, Active RESULTS No Results PROCEDURES Procedure Date Ordered Result Body Site EKG, TRACING (IN-HOUSE) 2017-11-24 sinus tach- rate 108 X-RAY EXAM CHEST 2 VIEWS November 24, 2017 VENIPUNCT, ROUTINE* November 24, 2017 COMPREHEN METABOLIC PANEL November 24, 2017 COMPLETE CBC W/AUTO DIFF WBC November 24, 2017 ELECTROCARDIOGRAM, TRACING November 24, 2017 ASSAY THYROID STIM HORMONE November 24, 2017 INSTRUCTIONS MEDICATIONS ADMINISTERED No Known Medications MEDICAL (GENERAL) HISTORY Type Description Date Medical History asthma Medical History HPV 2012 Surgical History 09/17/16 Hospitalization History RSV/ pneumonia as Hospitalization History child
--- OUTSIDE RECORDS SUMMARY | 2018-04-09 08:02 | XMS REPORT ---
Author Author JESSIKA SHRESTHA Organization [facility] Address [address] [place] [address] Care Team Providers Care Screen Maker Name Role Phone SHRESTHAJOHNNIEAN Unavailable PROBLEMS Type Condition ICD9-CM Code [id number] Code Onset Dates Condition Status SNOMED Code Problem Abnormal weight gain R63.5 Active 811530561 Problem Family history of diabetes mellitus Z83.3 Active 262830670 Problem Morbid (severe) obesity due to excess calories E66.01 Active 96619504458246 Problem Body mass index (BMI) of 45.0-49.9 in adult Z68.42 Active 350374909 Problem Anxiety, generalized F41.1 Active 26441287 Problem Absence of menstruation N91.2 Active 05168624 Problem Paresthesia R20.2 Active 09711320 Problem Mild intermittent asthma without complication J45.20 Active 459703099 ALLERGIES No Information ENCOUNTERS Encounter Location Date Diagnosis [facility] [address] [address]- 8527 Mar, [place] [id number] [place] [address] 12664- 2598 Dec, Palpitations R00.2 ; Chest pain, unspecified type R07.9 ; Shortness of breath R06.02 ; Suspected sleep apnea R29.818 ; Morbid (severe) obesity due to excess calories E66.01 ; Body mass index (BMI) of 45.0-49.9 in adult Z68.42 and BMI 45.0-49.9, adult Z68.42 [facility] [address] 87138- 1130 Oct, Palpitations R00.2 ; Anxiety, generalized F41.1 and BMI 45.0 -49.9, adult Z68.42 [facility] [address] [place] [address]- 9849 Oct, [facility] [address] 38515- 2734 Oct, [place] [address] 69239- 3321 Aug, Cough with hemoptysis R04.2 and BMI 45.0-49.9, adult Z68.42 [facility] [address] 23219 -8558 Aug, BMI 45.0-49.9, adult Z68.42 and Cough with hemoptysis R04.2 [place] [address] 33762- 6598 Apr, [place] [address] 35915- 1530 Apr, Paresthesia R20.2 and Weight gain R63.5 [place] [address] 38787- 3746 Oct, Right upper quadrant abdominal pain R10.11 ; Stool bloody K92.1 and BMI 40.0-44.9, adult Z68.41 [place] [id number] [place] [address] 15130- 5527 Oct, [place] [address] 51933- 5819 September, Anxiety, generalized F41.1 [place] [address] 69523- 4534 September, Mild intermittent asthma without complication J45.20 [place] [address] 06605- 8643 September, [place] [address] [place] [address] September, [place] [address] 72972- 2331 September, Mild intermittent asthma without complication J45.20 ; Globus sensation F45.8 ; Anxiety, generalized F41.1 and depression F53 [facility] [id number] [place] [address] 32343 -5586 09 Jul, 2015 Abscess of breast N61 [facility] [id number] [place] [address] 60180- 3883 15 Jul, 2015 [facility] [address] 09322- 0466 Jun, Encounter for screening for malignant neoplasm of cervix Z12.4 ; Well woman exam Z01.419 ; BMI 40.0-44.9, adult Z68.41 ; Family history of diabetes mellitus Z83.3 ; Tobacco use Z72.0 ; History of abnormal cervical Pap smear Z87.898 ; Weight gain R63.5 ; Routine screening for STI (sexually transmitted infection) Z11.3 and Blood pressure elevated without history of HTN R03.0 [facility] [id number] [place] [address] 08800- 8439 Aug, [facility] [id number] [place] [address] 20022- 2399 Aug, [facility] [id number] [place] [address] 75542- 3492 Jul, [facility] [id number] [place] [address] 35679- 4173 Jul, [facility] [id number] [place] [address] 05495- 3088 Jun, [facility] [id number] [place] [address] 72097- 5135 Jun, [place] [id number] [place] [address] 298924- 7061 May, [facility] [address] [place] [address] 78577- 2999 May, [facility] [id number] [place] [address]- 7941 24 Jan, 2013 [facility] [place] [facility] [address] [id number] [place] [address]- 7116 24 Jan, 2014 [facility] [place] [facility] [address] [id number] [place] [address]- 3856 12 Jan, 2014 [facility] [place] [facility] [address] [id number] [place] [address]- 2355 12 Jan, 2014 [facility] [place] [facility] [address] [id number] [place] [address]- 2067 17 Jul, 2013 [facility] [place] [facility] [address] [id number] [place] [address]- 1866 17 Jul, 2013 [facility] [place] [facility] [address] [id number] [place] [address]- 9292 15 Jul, 2013 [facility] [place] [facility] [address] [id number] [place] [address]- 3962 15 Jul, 2013 [facility] [place] [facility] [address] [id number] [place] [address]- 2329 13 Jul, 2013 [facility] [place] [facility] [address] [id number] [place] [address]- 9654 13 Jul, 2013 [facility] [place] [facility] [address] [id number] [place] [address]- 6210 12 Jul, 2013 [facility] [place] [facility] [address] [id number] [place] [address]- 6442 19 Apr, 2013 [facility] [place] [facility] [address] [id number] [place] [address]- 4023 17 Apr, 2013 [facility] [place] [facility] [address] [id number] [place] [address]- 6485 14 Apr, 2013 [facility] [place] [facility] [address] [id number] [place] [address]- 9229 14 Apr, 2013 [facility] [place] [facility] [address] [id number] [place] [address]- 5990 Jan, [facility] [address] [id number] [place] [address]- 7875 Dec, [facility] [place] [facility] [address] [id number] [place] [address]- 3778 Dec, [facility] [place] [facility] [address] [id number] [place] [address]- 1796 Dec, [facility] [place] [facility] [address] [id number] [place] [address]- 6753 Dec, [facility] [address] [id number] [place] [address]- 6502 September, [facility] [place] [facility] [address] [id number] [place] [address]- 7271 Aug, [facility] [place] [facility] [address] [id number] [place] [address]- 0608 Aug, [facility] [place] [facility] [address] [id number] [place] [address]- 6006 Mar, [facility] [address] [id number] [place] [address]- 5606 Mar, [facility] [place] [facility] [address] [id number] [place] [address]- 1699 Oct, [facility] [place] [facility] [address] [id number] [address]- 6147 September, [facility] [place] [facility] [address] [id number], [place] [address]- 6634 September, [facility] [place] [facility] [address] [id number] [place] [address]- 4080 September, [facility] [place] [facility] [address] [id number] [place] [address]- 6150 September, [facility] [place] [facility] [address] [id number] [place] 3327 Aug, [facility] [place] [facility] [address] [id number] [place] [address]- 4163 16 Aug, 2011 [facility] [address] [id number] [place] [address]- 6496 09 Aug, 2011 [facility] [place] [facility] [address] [id number] [place] [address] 2546 07 Aug, 2011 [facility] [address] [id number] [place] [address]- 9476 03 Aug, 2011 [facility] [place] [facility] [address] [id number] [place] [address] 2543 05 Jul, 2011 [facility] [address] [id number] [place] [address]- 6986 15 Jul, 2011 [facility] [place] [facility] [address] [id number] [place] [address]- 3326 14 Jul, 2011 [facility] [address] [facility] [id number] [place] [address]- 7542 08 Jul, 2011 [facility] [address] [id number] [place] [address]- 3973 Jun, [facility] [address] [id number] [place] [address]- 3170 May, [facility] [address] [id number] [place] [address]- 8818 19 May, 2011 [facility] [place] [facility] [address] [id number] [place] [address] 2546 16 May, 2011 [facility] [place] [facility] [address] [id number] [place] [address] 2546 15 May, 2011 [facility] [place] [facility] [address] [id number] [place] [address]- 9266 15 May, 2011 [facility] [place] [facility] [address] [id number] [place] [address] 2546 10 Apr, 2011 [facility] [place] [facility] [address] [facility] [id number] [place] [address]- 8148 Apr, [facility] [address] [facility] [id number], [place] [address]- 7321 Apr, [facility] [address] [address]- 0435 Mar, [facility] [id number] 4113 Mar, [facility] [address] [address] Mar, [facility] [id number] [address] Mar, [facility] [address] [id number], [place] [address] Oct, 2010 IMMUNIZATIONS No Known Immunizations SOCIAL HISTORY Never Assessed REASON FOR VISIT rapid heart rate--tcuppettRN PLAN OF CARE VITAL SIGNS MEDICATIONS Unknown Medications RESULTS No Results PROCEDURES No Known procedures INSTRUCTIONS MEDICATIONS ADMINISTERED No Known Medications MEDICAL (GENERAL) HISTORY Type Description Date Medical History asthma Medical History HPV 2012 Surgical History 09/17/16 Hospitalization History RSV/ pneumonia as Hospitalization History child
--- OUTSIDE RECORDS SUMMARY | 2018-04-09 08:02 | XMS REPORT ---
Author Author GLORIA BERNAL [facility] IN [facility] Address [address] [place] [address] Care Team Providers Care Nitroglycerin Neutralizer Name Role Phone GLORIA BERNAL Unavailable PROBLEMS Type Condition ICD9-CM Code [id number] Code Onset Dates Condition Status SNOMED Code Problem Paresthesia R20.2 Active 77997369 Problem Mild intermittent asthma without complication J45.20 Active 423046357 Problem Abnormal weight gain R63.5 Active 135825947 Problem Family history of diabetes mellitus Z83.3 Active 019215680 Problem Anxiety, generalized F41.1 Active 48490686 Problem Absence of menstruation N91.2 Active 38515049 ALLERGIES No Information ENCOUNTERS Encounter Location Date Diagnosis [facility] [id number] [place] [address] 96495- 2462 Dec, [facility] [address] 0[address]47- [address]37 Oct, Palpitations R00.2 ; Anxiety, generalized F41.1 and BMI 45.0 -49.9, adult Z68.42 [facility] [id number] [place] [address] 89548- 8696 Oct, [facility] [id number] [place] [address] 39789- 1150 Oct, [facility] [id number] [place] [address] 22539- 1429 Aug, Cough with hemoptysis R04.2 and BMI 45.0-49.9, adult Z68.42 [facility] IN [facility] [id number] [place] [address] 24530 -4824 Aug, BMI 45.0-49.9, adult Z68.42 and Cough with hemoptysis R04.2 [place] [id number] [place] [address] 49567- 6253 Apr, [place] [address] 87033- 3605 Apr, Paresthesia R20.2 and Weight gain R63.5 [place] [address] 07104- 2427 Oct, Right upper quadrant abdominal pain R10.11 ; Stool bloody K92.1 and BMI 40.0-44.9, adult Z68.41 [place] [address] 91627- 2739 Oct, [place] [address] 67895- 5937 September, Anxiety, generalized F41.1 [place] [address] 57549- 9263 September, Mild intermittent asthma without complication J45.20 [place] [id number] [place] [address] 01657- 3005 September, [facility] [address] [place] [address] September, [place] [id number] [place] [address] 59112- 8642 September, Mild intermittent asthma without complication J45.20 ; Globus sensation F45.8 ; Anxiety, generalized F41.1 and depression F53 [facility] [id number] [place] [address] 99284 -2826 Jul, Abscess of breast N61 [place] [address] 69466- 2978 15 Jul, 2015 [place] [id number] [place] [address] 03404- 9206 Jun, Encounter for screening for malignant neoplasm [...] [facility] [address] [address] 3435 14 Aug, 2014 [facility] [id number] [place] [address] 69152- 3459 Aug, [facility] [id number] [place] [address] 45212- 8436 Jul, [facility] [id number] [place] [address] 66851- 3407 Jul, [facility] [id number] [place] [address] 08921- 7652 Jun, [facility] [id number] [place] [address] 02972- 5155 Jun, [facility] [id number] [place] [address] 40073- 5021 May, [facility] [id number] [address] 5255 May, [facility] [address] [address] 6304 Jan, [facility] [address], [place] [address] 2543 Jan, [facility] [id number] [place] [address] 923151- 8208 Jan, [facility] [id number] [place] [address] 26261- 5315 Jan, [facility] [address], [place] [address]- 5352 Jul, [facility] [address] [id number] [place] [address]- 5105 17 Jul, 2013 [facility] [place] [facility] [address] [id number] [place] [address]- 9342 15 Jul, 2013 [facility] [place] [facility] [address] [id number] [place] [address]- 2442 15 Jul, 2013 [facility] [place] [facility] [address] [id number] [place] [address]- 6938 13 Jul, 2013 [facility] [place] [facility] [address] [id number] [place] [address]- 9931 Jul, [facility] [place] [facility] [address] [id number] [place] [address]- 9066 Jul, [facility] [place] [facility] [address] [id number] [place] [address]- 2089 Apr, [facility] [place] [facility] [address] [id number] [place] [address]- 0345 Apr, [facility] [place] [facility] [address] [id number] [place] [address]- 3650 Apr, [facility] [place] [facility] [address] [id number] [place] [address]- 2308 Apr, [facility] [place] [facility] [address] [id number] [place] [address]- 7830 Jan, [facility] [place] [facility] [address] [id number] [address]- 9466 Dec, [facility] [place] [facility] [address] [id number] [place] [address]- 0431 Dec, [facility] [place] [facility] [address] [id number] [place] [address]- 4704 Dec, [facility] [place] [facility] [address] [id number] [address]- 2704 Dec, [facility] [place] [facility] [address] [id number] [place] [address]- 2554 September, [facility] [address] [id number] [place] [address]- 7775 Aug, [facility] [place] [facility] [address] [id number] [place] [address]- 2903 Aug, [facility] [address] [id number] [place] [address]- 0714 15 Mar, 2012 [facility] [place] [facility] [address] [id number] [place] [address]- 8997 Mar, [facility] [address] [id number] [place] [address]- 7719 Oct, [facility] [address] [id number] [place] [address]- 4236 September, [facility] [address] [facility] [id number] [place] [address]- 5018 September, [facility] [address] [id number] [place] [address]- 6224 September, [facility] [address] [id number] [place] [address]- 3364 September, [facility] [address] [facility] [id number] [place] [address]- 3266 Aug, [facility] [address] [id number] [place] [address]- 6062 Aug, [facility] [place] [facility] [address] [id number] [place] [address]- 5190 Aug, [facility] [place] [facility] [address] [id number] [place] [address]- 6666 Aug, [facility] [place] [facility] [address] [id number] [place] [address]- 4354 Aug, [facility] [place] [facility] [address] [facility] [id number] [place] [address]- 8502 Jul, [facility] [place] [facility] [address] [id number] [place] [address]- 4780 15 Jul, 2011 [facility] [place] [facility] [address] [id number] [place] [address]- 7197 14 Jul, 2011 [facility] [place] [facility] [address] [id number] [place] [address]- 7096 08 Jul, 2011 [facility] [place] [facility] [address] [id number] [place] [address]- 9335 02 Jun, 2011 [facility] [place] [facility] [address] [id number] [place] [address]- 4085 22 May, 2011 [facility] [place] [facility] [address] [id number] [place] [address]- 7323 19 May, 2011 [facility] [place] [facility] [address] [id number] [place] [address]- 9790 16 May, 2011 [facility] [place] [facility] [address] [id number] [place] [address]- 1288 15 May, 2011 [facility] [place] [facility] [address] [id number] [place] [address]- 5819 15 May, 2011 [facility] [place] [facility] [address] [id number] [place] [address]- 2919 10 Apr, 2011 [facility] [place] [facility] [address] [id number] [place] [address]- 6418 10 Apr, 2011 [facility] [place] [facility] [address] [id number] [place] [address]- 1886 07 Apr, 2011 [facility] [place] [facility] [address] [id number] [place] [address]- 9597 14 Mar, 2011 [facility] [place] [facility] [address] [id number] [place] [address]- 5526 13 Mar, 2011 [facility] [place] [facility] [address] [id number] [place] [address]- 8058 11 Mar, 2011 [facility] [place] [facility] [address] [id number] [place] [address]- 2741 Mar, [facility] [address] [facility] [id number] [place] [address]- 0346 Oct, IMMUNIZATIONS No Known Immunizations SOCIAL HISTORY Never Assessed REASON FOR VISIT Lab (walk-in) PLAN OF CARE VITAL SIGNS MEDICATIONS Unknown Medications RESULTS Name Result Date Reference Range CBC 2017-09-07 WHITE BLOOD CELL COUNT 8.4 3.8-10.8 RED BLOOD CELL COUNT 5.61 3.80-5.10 HEMOGLOBIN 13.3 11.7-15.5 HEMATOCRIT 43.3 35.0-45.0 MCV 77.2 80.0-100.0 MCH 23.7 27.0-33.0 MCHC 30.7 32.0-36.0 RDW 13.8 11.0-15.0 PLATELET COUNT 312 140-400 MPV 10.1 7.5-12.5 ABSOLUTE NEUTROPHILS 5452 6764-6833 ABSOLUTE LYMPHOCYTES 2411 850-3900 ABSOLUTE MONOCYTES 428 200-950 ABSOLUTE EOSINOPHILS 67 15-500 ABSOLUTE BASOPHILS 42 0-200 NEUTROPHILS 64.9 LYMPHOCYTES 28.7 MONOCYTES 5.1 EOSINOPHILS 0.8 BASOPHILS 0.5 Xray : Chest 2 View (IN HOUSE) 2017-09-07 PROCEDURES Procedure Date Ordered Result Body Site COMPLETE CBC W/AUTO DIFF WBC September 07, 2017 X-RAY EXAM CHEST 2 VIEWS September 07, 2017 INSTRUCTIONS MEDICATIONS ADMINISTERED No Known Medications MEDICAL (GENERAL) HISTORY Type Description Date Medical History asthma Medical History HPV 2012 Surgical History 09/17/16 Hospitalization History RSV/ pneumonia as infant Hospitalization History child
--- OUTSIDE RECORDS SUMMARY | 2018-04-09 08:02 | XMS REPORT ---
Author Author GLORIA BERNAL [facility] WALK IN [facility] Address [address] [place] [address] Care Team Providers Care Register Of Deeds Name Role Phone GLORIA BERNAL Unavailable PROBLEMS Type Condition ICD9-CM Code NCX13-SK Code Onset Dates Condition Status SNOMED Code Problem Paresthesia R20.2 Active 85352980 Problem Mild intermittent asthma without complication J45.20 Active 239903558 Problem Abnormal weight gain R63.5 Active 269112759 Problem Family history of diabetes mellitus Z83.3 Active 573898883 Problem Anxiety, generalized F41.1 Active 37994047 Problem Absence of menstruation N91.2 Active 98142123 ALLERGIES Substance Reaction Event Type Date Status Augmentin Unknown Drug Allergy Aug, Active ENCOUNTERS Encounter Location Date Diagnosis [facility] [id number] [place] [address] 86597- 9588 Dec, [facility] [id number] [place] [address] 95755- 0376 Oct, Palpitations R00.2 ; Anxiety, generalized F41.1 and BMI 45.0 -49.9, adult Z68.42 [facility] [id number] [place] [address] 00966- 3583 Oct, [facility] [id number] [place] [address] 83109- 9922 Oct, [facility] [address] 30845- 8313 Aug, Cough with hemoptysis R04.2 and BMI 45.0-49.9, adult Z68.42 [facility] IN [facility] [id number] [place] [address] 24811 -4593 08 Apr, 2018 BMI 45.0-49.9, adult Z68.42 and Cough with hemoptysis R04.2 [place] [id number] [place] [address] 26166- 4536 Apr, [place] [address] 44072- 1084 Apr, Paresthesia R20.2 and Weight gain R63.5 [place] [address] 15860- 4498 Oct, Right upper quadrant abdominal pain R10.11 ; Stool bloody K92.1 and BMI 40.0-44.9, adult Z68.41 [place] [address] 34093- 4076 Oct, [place] [address] 34351- 1598 September, Anxiety, generalized F41.1 [place] [address] 14722- 8364 September, Mild intermittent asthma without complication J45.20 [place] [address] 89249- 1628 September, [facility] [address] [place] [address] September, [place] [address] 76077- 2224 September, Mild intermittent asthma without complication J45.20 ; Globus sensation F45.8 ; Anxiety, generalized F41.1 and depression F53 [facility] [id number] [place] [address] 02645 -4818 Jul, Abscess of breast N61 [facility] [address] 10361- 6089 15 Jul, 2015 [place] [address] 38334- 0480 Jun, Encounter for screening for malignant neoplasm of cervix Z12.4 ; Well woman exam Z01.419 ; BMI 40.0-44.9, adult Z68.41 ; Family history of diabetes mellitus Z83.3 ; Tobacco use Z72.0 ; History of abnormal cervical Pap smear Z87.898 ; Weight gain R63.5 ; Routine screening for STI (sexually transmitted infection) Z11.3 and Blood pressure elevated without history of HTN R03.0 [facility] [address] [place] [address] 025161- 9797 14 Aug, 2014 [facility] [id number] [place] [address] 67364- 4134 Aug, [facility] [id number] [place] [address] [id number]- 5816 Jul, [facility] [id number] [place] [address] 738815- 1132 Jul, [facility] [id number] [place] [address] 72550- 2185 Jun, [facility] [id number] [address]- 0532 Jun, [facility] [id number] [place] [address] 703142- 6482 May, [facility] [address], [place] [address]- 3055 May, [facility] [address], [place] [address]- 0985 Jan, [facility] [address], [place] [address]- 7485 Jan, [facility] [id number] [place] [address] [id number]- 7353 Jan, [facility] [address] 3653 Jan, [facility] [address] [place] [address] 25837- 2073 17 Jul, 2013 [facility] [place] [facility] [address] [id number] [place] [address]- 3873 17 Jul, 2013 [facility] [place] [facility] [address] [id number] [place] 8534 15 Jul, 2013 [facility] [place] [facility] [address] [id number] [place] [address]- 7218 15 Jul, 2013 [facility] [place] [facility] [address] [id number] [place] [address]- 2721 13 Jul, 2013 [facility] [place] [facility] [address] [id number] [place] [address]- 2680 Jul, [facility] [place] [facility] [address] [id number] [place] [address]- 9533 Jul, [facility] [place] [facility] [address] [id number] [place] [address]- 6236 Apr, [facility] [place] [facility] [address] [id number] [place] [address]- 5861 Apr, [facility] [place] [facility] [address] [id number] [place] [address]- 8018 Apr, [facility] [place] [facility] [address] [facility] [id number] [place] [address]- 9814 Apr, [facility] [place] [facility] [address] [id number] [place] [address]- 0725 Jan, [facility] [place] [facility] [address] [id number] [place] [address]- 7222 Dec, [facility] [place] [facility] [address] [id number] [place] [address]- 9798 Dec, [facility] [place] [facility] [address] [id number] [place] [address]- 2680 Dec, [facility] [place] [facility] [address] [id number] [place] [address]- 0316 Dec, [facility] [place] [facility] [address] [id number] [place] [address]- 0019 September, [facility] [place] [facility] [address] [id number] [place] [address]- 9167 Aug, [facility] [place] [facility] [address] [id number] [place] [address]- 2793 Aug, [facility] [place] [facility] [address] [id number] [place] [address]- 2631 Mar, [facility] [place] [facility] [address] [id number] [place] [address]- 4713 Mar, [facility] [place] [facility] [address] [id number] [place] [address]- 7179 Oct, [facility] [place] [facility] [address] [id number] [place] [address]- 6713 September, [facility] [place] [facility] [address] [id number] [place] [address]- 4189 September, [facility] [address] [id number] [place] [address]- 1156 September, [facility] [place] [facility] [address] [id number] [place] [address]- 9811 September, [facility] [place] [facility] [address] [id number] [place] [address]- 3669 Aug, [facility] [place] [facility] [address] [id number] [place] [address]- 9730 16 Aug, 2011 [facility] [place] [facility] [address] [id number] [place] [address]- 5376 Aug, [facility] [place] [facility] [address] [id number] [place] [address]- 4542 Aug, [facility] [place] [facility] [address] [id number] [place] [address]- 3587 Aug, [facility] [place] [facility] [address] [id number] [place] [address]- 6968 Jul, [facility] [place] [facility] [address] [id number] [place] [address]- 6704 15 Jul, 2011 [facility] [place] [facility] [address] [id number] [place] [address]- 8553 14 Jul, 2011 [facility] [place] [facility] [address] [id number] [place] [address]- 4401 08 Jul, 2011 [facility] [place] [facility] [address] [id number] [place] 7753 Jun, [facility] [place] [facility] [address] [id number] [place] [address]- 9702 May, [facility] [place] [facility] [address] [id number] [place] [address]- 7650 19 May, 2011 [facility] [place] [facility] [address] [id number] [place] [address]- 2770 16 May, 2011 [facility] [place] [facility] [address] [id number] [place] [address]- 0590 15 May, 2011 [facility] [place] [facility] [address] [id number] [place] [address]- 8012 15 May, 2011 [facility] [place] [facility] [address] [id number] [place] [address]- 9952 10 Apr, 2011 [facility] [place] [facility] [address] [id number], [place] [address]- 0239 10 Apr, 2011 [facility] [place] [facility] [address] [id number], [place] [address]- 1827 07 Apr, 2011 [facility] [place] [facility] [address] [id number] [place] [address]- 0752 14 Mar, 2011 [facility] [place] [facility] [address] [id number] [address]- 3222 13 Mar, 2011 [facility] [place] [facility] [address] [id number] [place] [address]- 9476 11 Mar, 2011 [facility] [place] [facility] [address] [facility] [id number] [place] [address]67 Mar[facility] [address] [facility] [id number] 9169 Oct, IMMUNIZATIONS No Known Immunizations SOCIAL HISTORY Never Assessed REASON FOR VISIT Cough/shortness of breath x 11 months.Coughed up blood today. She stopped smoking 11 months ago and gave via and since then this has came and gone. She has gained " alot of weight" since she stopped smoking. JjournotRN , Upper back pain(tight and dull) x 4-5 months, worse the last month., had anxiety in the past, feels like this is not anxiety. PLAN OF CARE Activity Details Follow Up establish care appt scheduled Reason: VITAL SIGNS Height 66 in 2017-09-06 Weight 307.2 lbs 2017-09-06 Temperature 97.9 degrees Fahrenheit 2017-09-06 Heart Rate 80 bpm 2017-09-06 Respiratory Rate 22 2017-09-06 Oximetry on room air:99 % 2017-09-06 BMI 49.58 kg/m2 2017-09-06 Blood pressure systolic 124 mmHg 2017-09-06 Blood pressure diastolic 76 mmHg 2017-09-06 MEDICATIONS Medication Instructions Dosage Frequency Start Date End Date Duration Status Ferrous Sulfate 325 (65 Fe) MG Orally Once a day 1 tablet 24h Not- Taking Bactroban 2 % 1 ayush by Topical route 2 times per day for 7 day(s) in both nares Aug, Not-Taking ProAir HFA 90 mcg/actuation inhale 1 puff by inhalation route every 4 hours Aug, Not-Taking Elimite 5 % 1 ayush by Topical route 1 for 1 dose(s)to skin (head to feet), remove by washing after 8 to 14 hours Jul, Not-Taking Nystatin-Triamcinolone 100,000-0.1 unit/g-% 1 ayush by Topical route 2 times per day for 14 day(s) Aug, Not-Taking RESULTS No Results PROCEDURES No Known procedures INSTRUCTIONS MEDICATIONS ADMINISTERED No Known Medications MEDICAL (GENERAL) HISTORY Type Description Date Medical History asthma Medical History HPV 2013 Surgical History 09/17/16 Hospitalization History RSV/ pneumonia as Hospitalization History child
--- OUTSIDE RECORDS SUMMARY | 2018-04-09 08:02 | XMS REPORT ---
Author Author JONO FUNES [facility] Address [address] [place] [address] Care Team Providers Care Valve Pipe Irrigator Name Role Phone SHANTEL JONO Unavailable PROBLEMS Type Condition ICD9-CM Code RCI77-HO Code Onset Dates Condition Status SNOMED Code Problem Abnormal weight gain R63.5 Active 203699046 Problem Family history of diabetes mellitus Z83.3 Active 825892118 Problem Morbid (severe) obesity due to excess calories E66.01 Active 95773827871302 Problem Body mass index (BMI) of 45.0-49.9 in adult Z68.42 Active 860686063 Problem Anxiety, generalized F41.1 Active 44492399 Problem Absence of menstruation N91.2 Active 87581846 Problem Paresthesia R20.2 Active 98935685 Problem Mild intermittent asthma without complication J45.20 Active 310658972 ALLERGIES No Information ENCOUNTERS Encounter Location Date Diagnosis [place] [address] [address] Mar, [place] [address] [place] [id number] [place] [address] 43227- 3147 Dec, Palpitations R00.2 ; Chest pain, unspecified type R07.9 ; Shortness of breath R06.02 ; Suspected sleep apnea R29.818 ; Morbid (severe) obesity due to excess calories E66.01 ; Body mass index (BMI) of 45.0-49.9 in adult Z68.42 and BMI 45.0-49.9, adult Z68.42 [place] [address] [address]- 2056 Oct, Palpitations R00.2 ; Anxiety, generalized F41.1 and BMI 45.0 -49.9, adult Z68.42 [place] [address] 24447- 0500 Oct, [place] [address] [place] [id number] [place] [address] 34469- 9124 Oct, [place] [address] [place] [id number] [place] [address] 25077- 2309 Aug, Cough with hemoptysis R04.2 and BMI 45.0-49.9, adult Z68.42 [facility] [id number] [place] [address] 15712 -0001 Aug, BMI 45.0-49.9, adult Z68.42 and Cough with hemoptysis R04.2 [place] [address] [place] [id number] [place] [address] 97065- 6737 Apr, [place] [address] 35422- 9043 Apr, Paresthesia R20.2 and Weight gain R63.5 [place] [address] [place] [id number] [place] [address] 19059- 9944 Oct, Right upper quadrant abdominal pain R10.11 ; Stool bloody K92.1 and BMI 40.0-44.9, adult Z68.41 [place] [address] [place] [id number] [place] [address] 09506- 5320 Oct, [place] [address] [place] [address] [id number] [place] [address] 53585- 1385 September, Anxiety, generalized F41.1 [place] [address] [id number] [place] [address] 22218- 9489 September, Mild intermittent asthma without complication J45.20 [place] [address] 08592- 2485 September, [place] [address] [place] [address] September, [place] [address] [place] [id number] [place] [address] 57682- 3037 September, Mild intermittent asthma without complication J45.20 ; Globus sensation F45.8 ; Anxiety, generalized F41.1 and depression F53 [facility] [address] [id number] [place] [address] 47363 -2519 09 Jul, 2015 Abscess of breast N61 [facility] [address] [id number] [place] [address] 08722- 0630 15 Jul, 2015 [facility] [address] 15999- 3483 Jun, Encounter for screening for malignant neoplasm of cervix Z12.4 ; Well woman exam Z01.419 ; BMI 40.0-44.9, adult Z68.41 ; Family history of diabetes mellitus Z83.3 ; Tobacco use Z72.0 ; History of abnormal cervical Pap smear Z87.898 ; Weight gain R63.5 ; Routine screening for STI (sexually transmitted infection) Z11.3 and Blood pressure elevated without history of HTN R03.0 [facility] [address] [id number] [place] [address] 32781- 5719 Aug, [facility] [address] [place] [id number] [place] [address] 53563- 8165 Aug, [place] [address] [place] [id number] [place] [address] 64456- 5880 Jul, [facility] [address] [place] [id number] [place] [address]73- 3444 Jul, [facility] [id number] [place] [address] 38219- 2691 Jun, [facility] [address] [place] [id number] [place] [address] 04532- 4387 Jun, [place] [address] 630746- 0363 May, [facility] [address] [place] [id number] [place] [address] 97104- 7233 May, [facility] [address] [place] [id number] [address] 0118 24 Jan, 2013 [facility] [place] [facility] [address] [id number] [place] [address] 4186 24 Jan, 2013 [facility] [place] [facility] [address] [id number] [place] [address] 2546 12 Jan, 2014 [facility] [place] [facility] [address] [id number] [place] [address]- 3996 12 Jan, 2013 [facility] [place] [facility] [address] [id number] [place] [address]- 3126 17 Jul, 2013 [facility] [place] [facility] [address] [id number] [place] [address]- 4116 17 Jul, 2013 [facility] [place] [facility] [address] [id number] [place] [address]- 7878 15 Jul, 2013 [facility] [place] [facility] [address] [id number] [place] [address]- 3795 15 Jul, 2013 [facility] [place] [facility] [address] [id number] [place] [address]- 6907 13 Jul, 2013 [facility] [place] [facility] [address] [id number] [place] [address]- 7346 13 Jul, 2013 [facility] [place] [facility] [address] [facility] [id number] [place] [address]- 1649 12 Jul, 2013 [facility] [place] [facility] [address] [id number] [place] [address]- 8565 19 Apr, 2013 [facility] [place] [facility] [address] [id number] [place] [address]- 0906 17 Apr, 2013 [facility] [place] [facility] [address] [id number] [place] [address]- 6351 14 Apr, 2013 [facility] [place] [facility] [address] [id number] [place] [address]- 8842 14 Apr, 2013 [facility] [place] [facility] [address] [id number] [place] [address] 1407 Jan, [facility] [address] [id number] [place] [address]- 9784 Dec, [facility] [place] [facility] [address] [id number] [place] [address]- 5143 Dec, [facility] [place] [facility] [address] [id number] [place] [address]- 1094 Dec, [facility] [place] [facility] [address] [id number] [place] [address]- 0272 Dec, [facility] [address] [id number] [place] [address]- 8719 September, [facility] [place] [facility] [address] [id number] [place] [address]- 2031 Aug, [facility] [place] [facility] [address] [id number] [place] [address]- 3597 Aug, [facility] [place] [facility] [address] [id number] [place] [address]- 1141 Mar, [facility] [address] [id number] [place] [address]- 9466 Mar, [facility] [place] [facility] [address] [id number] [place] [address]- 4136 Oct, [facility] [place] [facility] [address] [id number] [place] [address]- 7239 September, [facility] [place] [facility] [address] [id number] [address] 0960 September, [facility] [place] [facility] [address] [id number] [place] [address]- 1880 September, [facility] [place] [facility] [address] [id number] [place] [address]- 4942 September, [facility] [place] [facility] [address] [id number] [place] [address]- 9478 Aug, [facility] [place] [facility] [address] [id number] [place] [address]- 5111 16 Aug, 2011 [facility] [address] [id number] [place] [address]- 3396 09 Aug, 2011 [facility] [place] [facility] [address] [id number] [place] [address] 2546 07 Aug, 2011 [facility] [address] [id number] [place] [address]- 7166 03 Aug, 2011 [facility] [place] [facility] [address] [id number] [place] [address]- 3436 05 Jul, 2011 [facility] [address] [id number] [place] [address]- 4216 15 Jul, 2011 [facility] [place] [facility] [address] [id number] [place] [address]- 1766 14 Jul, 2011 [facility] [address] [facility] [id number] [place] [address]- 3277 08 Jul, 2011 [facility] [address] [facility] [id number] [place] [address]- 4930 Jun, [facility] [address] [facility] [id number] [place] [address]- 4558 May, [facility] [address] [facility] [id number] [place] [address]- 6464 May, [facility] [place] [facility] [address] [id number] [place] [address] 2546 16 May, 2011 [facility] [place] [facility] [address] [id number] [place] [address] 2546 15 May, 2011 [facility] [place] [facility] [address] [id number] [place] [address]- 9716 15 May, 2011 [facility] [place] [facility] [address] [facility] [id number] [place] [address]- 2546 Apr, [facility] [place] [facility] [address] [facility] [id number] [place] [address]- 9528 [address], [address] [facility] [address] [facility] [id number], [place] [address]- 1733 Apr, [facility] [address] [place] [id number] [address] 24[address] 14 Mar, 2011 [facility] [address] [place] [id number] [address] 6111 Mar, [facility] [address] [address]- 1089 Mar, [facility] [address] [place] [id number] [address] 4928 Mar, [facility] [address] [address]- 9382 15 Oct, 2010 IMMUNIZATIONS No Known Immunizations SOCIAL HISTORY Never Assessed REASON FOR VISIT Patient call PLAN OF CARE VITAL SIGNS MEDICATIONS Unknown Medications RESULTS No Results PROCEDURES No Known procedures INSTRUCTIONS MEDICATIONS ADMINISTERED No Known Medications MEDICAL (GENERAL) HISTORY Type Description Date Medical History asthma Medical History HPV 2013 Surgical History 09/17/16 Hospitalization History RSV/ pneumonia as infant Hospitalization History child
--- OUTSIDE RECORDS SUMMARY | 2018-04-09 08:03 | XMS REPORT ---
Author Author ANGELIC MADERA Organization [facility] Address [address] [place] [address] Care Team Providers Care Cook Syrup Maker Name Role Phone ANGELIC MADERA Unavailable PROBLEMS Type Condition ICD9-CM Code OTZ54-NB Code Onset Dates Condition Status SNOMED Code Problem Paresthesia R20.2 Active 82408501 Problem Mild intermittent asthma without complication J45.20 Active 972955902 Problem Abnormal weight gain R63.5 Active 952344369 Problem Family history of diabetes mellitus Z83.3 Active 037463670 Problem Anxiety, generalized F41.1 Active 64221106 Problem Absence of menstruation N91.2 Active 87436750 ALLERGIES Substance Reaction Event Type Date Status Augmentin Unknown Drug Allergy Oct, Active ENCOUNTERS Encounter Location Date Diagnosis [place] [address] [place] [id number] [place] [address] 70434- 7299 Apr, [place] [address] [place] [id number] [place] [address] 13427- 4432 Apr, Paresthesia R20.2 and Weight gain R63.5 [place] [address] [place] [id number] [place] [address] 50581- 1355 Oct, Right upper quadrant abdominal pain R10.11 ; Stool bloody K92.1 and BMI 40.0-44.9, adult Z68.41 [facility] [address] [place] [id number] [place] [address] 27331- 5397 Oct, [place] [address] [place] [id number] [place] [address] 75860- 0796 September, Anxiety, generalized F41.1 [place] [address] [place] [id number] [place] [address] 56380- 2172 September, Mild intermittent asthma without complication J45.20 [place] [address] [address]- 8729 September, [facility] [address] [place] [address] September, [facility] [address] [place] [id number] [place] [address] 64730- 8173 September, Mild intermittent asthma without complication J45.20 ; Globus sensation F45.8 ; Anxiety, generalized F41.1 and depression F53 [facility] [address] [place] [id number] [place] [address] 13545 -1064 Jul, Abscess of breast N61 [place] [address] [address]- 3004 15 Jul, 2015 [place] [address] [place] [id number] [place] [address] 24513- 9935 Jun, Encounter for screening for malignant neoplasm of cervix Z12.4 ; Well woman exam Z01.419 ; BMI 40.0-44.9, adult Z68.41 ; Family history of diabetes mellitus Z83.3 ; Tobacco use Z72.0 ; History of abnormal cervical Pap smear Z87.898 ; Weight gain R63.5 ; Routine screening for STI (sexually transmitted infection) Z11.3 and Blood pressure elevated without history of HTN R03.0 [facility] [id number] [place] [address] 78896- 4702 Aug, [place] [id number] [place] [address] 10360- 5127 Aug, [place] [id number] [place] [address] 10912- 8937 Jul, [facility] [address] [place] [id number] [place] [address] 86606- 2671 Jul, [place] [id number] [place] [address] 66388- 1225 Jun, [facility] [address] [place] [id number] [place] [address] 79096- 9155 Jun, [facility] [place] [facility] [address] [id number] [place] [address]- 8960 May, [facility] [place] [facility] [address] [id number] [place] [address]- 8608 May, [facility] [place] [facility] [address] [facility] [id number] [place]25 Jan, [facility] [place] [facility] [address] [id number] [place] [address]- 1228 Jan, [facility] [place] [facility] [address] [id number] [place] [address]- 6978 Jan, [facility] [place] [facility] [address] [id number] [place] [address]- 9397 Jan, [facility] [place] [facility] [address] [facility] [facility] [id number] [place] [address]- 8930 17 Jul, 2013 [facility] [place] [facility] [address] [id number] [place] [address]- 7860 17 Jul, 2013 [facility] [place] [facility] [address] [facility] [facility] [id number] [place] [address]- 9608 15 Jul, 2013 [facility] [place] [facility] [address] [facility] [facility] [id number] [place] [address]- 6585 15 Jul, 2013 [facility] [place] [facility] [address] [place] [id number] [place] [address]- 4318 Jul, [facility] [place] [facility] [address] [facility] [address] [facility] [id number] [place] [address]- 3863 Jul, [facility] [place] [facility] [address] [facility] [address] [facility] [id number] [place] [address]- 5663 Jul, [facility] [place] [facility] [address] [facility] [address] [facility] [id number] [place] [address]- 5198 Apr, [facility] [place] [facility] [address] [facility] [facility] [id number] [place] [address]- 3646 Apr, [facility] [place] [facility] [address] [id number] [place] [address]- 4636 14 Apr, 2013 [facility] [address] [id number] [place] [address]- 7535 14 Apr, 2013 [facility] [place] [facility] [address] [id number] [place] [address]- 2546 Jan, [facility] [place] [facility] [address] [id number] [place] [address]- 8186 Dec, [facility] [place] [facility] [address] [id number] [place] [address]- 9727 Dec, [facility] [place] [facility] [address] [id number] [place] [address]- 2386 Dec, [facility] [place] [facility] [address] [id number] [place] [address]- 7037 Dec, [facility] [place] [facility] [address] [id number] [place] [address]- 0511 September, [facility] [address] [id number] [place] [address]- 5808 Aug, [facility] [place] [facility] [address] [id number] [place] [address]- 6810 Aug, [facility] [address] [id number] [place] [address]- 6173 Mar, [facility] [place] [facility] [address] [id number] [place] [address]- 2329 Mar, [facility] [place] [facility] [address] [id number] [place] [address]- 6317 Oct, [facility] [place] [facility] [address] [id number] [place] [address]- 0376 September, [facility] [place] [facility] [address] [id number] [place] [address]- 5366 September, [facility] [place] [facility] [address] [id number] [place] [address]- 7950 September, [facility] [address] [id number] [place] [address]- 0529 September, [facility] [place] [facility] [address] [id number] [place] [address]- 6360 Aug, [facility] [place] [facility] [address] [id number] [place] [address]- 4540 Aug, [facility] [place] [facility] [address] [id number] [place] [address]- 2840 Aug, [facility] [place] [facility] [address] [id number] [place] [address]- 4538 Aug, [facility] [place] [facility] [address] [id number] [place] [address]- 5766 Aug, [facility] [place] [facility] [address] [id number] [place] [address]- 5536 Jul, [facility] [place] [facility] [address] [id number] [place] [address]- 9973 15 Jul, 2011 [facility] [place] [facility] [address] [id number] [place] [address]- 5592 Jul, [facility] [place] [facility] [address] [id number] [place] [address]- 4204 Jul, [facility] [place] [facility] [address] [id number] [place] [address]- 2871 Jun, [facility] [place] [facility] [address] [id number] [place] [address]- 2644 May, [facility] [place] [facility] [address] [id number] [place] [address]- 4012 May, [facility] [place] [facility] [address] [id number] [place] [address]- 3386 May, [facility] [place] [facility] [address] [id number] [place] [address]- 7264 May, [facility] [place] [facility] [id number] 6307 15 May, 2011 [facility] [id number] [address]- 6875 Apr, [facility] [address] [address]- 6907 10 Apr, 2011 [facility] [id number] [address]- 0036 07 Apr, 2011 [facility] [address] [address]- 9972 14 Mar, 2011 [facility] [address] 8158 Mar, [facility] [address] [address]- 2121 Mar, [facility] [address] 1424 Mar, [facility] [id number] [address]- 4970 Oct, IMMUNIZATIONS No Known Immunizations SOCIAL HISTORY Never Assessed REASON FOR VISIT Blood in stool this morning / abd pain x 2 days ryley hutchinson PLAN OF CARE Activity Details Follow Up prn Reason:est care VITAL SIGNS Height 66 in 2016-11-27 Weight 269.1 lbs 2016-11-27 Temperature 98.2 degrees Fahrenheit 2016-11-27 Heart Rate 96 bpm 2016-11-27 Respiratory Rate 20 2016-11-27 BMI 43.43 kg/m2 2016-11-27 Blood pressure systolic 110 mmHg 2016-11-27 Blood pressure diastolic 78 mmHg 2016-11-27 MEDICATIONS Medication Instructions Dosage Frequency Start Date [...]
--- OUTSIDE RECORDS SUMMARY | 2018-04-09 08:03 | XMS REPORT ---
Author Author RAMIREZSEAN P[facility] Address [address] [place] [address] Care Team Providers Care Leach Runner Name Role Phone SEAN GUZMÁN Unavailable PROBLEMS Type Condition ICD9-CM Code MOS43-ZU Code Onset Dates Condition Status SNOMED Code Problem Paresthesia R20.2 Active 66471909 Problem Mild intermittent asthma without complication J45.20 Active 784257022 Problem Abnormal weight gain R63.5 Active 328938297 Problem Family history of diabetes mellitus Z83.3 Active 195191953 Problem Anxiety, generalized F41.1 Active 65279910 Problem Absence of menstruation N91.2 Active [id number] ALLERGIES No Information ENCOUNTERS Encounter Location Date Diagnosis [place] [id number] [place] [address] Apr, [place] [id number] [place] [address]- 2874 Apr, Paresthesia R20.2 and Weight gain R63.5 [place] [id number] [place] [address]60[address] Oct, Right upper quadrant abdominal pain R10.11 ; Stool bloody K92.1 and BMI 40.0-44.9, adult Z68.41 [place] [id number] [place] [address]- 269[address] Oct, [place] [address] [address] September, Anxiety, generalized F41.1 [place] [id number] [place] [address]63- 4877 September, Mild intermittent asthma without complication J45.20 [place] [address] [place] [address] September, [facility] [address] [place] [address] September, [facility] [address] [address] September, Mild intermittent asthma without complication J45.20 ; Globus sensation F45.8 ; Anxiety, generalized F41.1 and depression F53 [facility] [address] [address] Jul, Abscess of breast N61 [facility] [address] [address] Jul, [place] [address] [address] Jun, Encounter for screening for malignant neoplasm of cervix Z12.4 ; Well woman exam Z01.419 ; BMI 40.0-44.9, adult Z68.41 ; Family history of diabetes mellitus Z83.3 ; Tobacco use Z72.0 ; History of abnormal cervical Pap smear Z87.898 ; Weight gain R63.5 ; Routine screening for STI (sexually transmitted infection) Z11.3 and Blood pressure elevated without history of HTN R03.0 [facility] [id number] [place] [address] Aug, [place] [id number] [place] [address]- [address] Aug, [place] [id number] [place] [address]- [address]85 Jul, [facility] [address] [address] Jul, [place] [address] [address] Jun, [place] [address] [address] Jun, [facility] [place] [facility] [address] [id number] [place] [address] 30 May, 2014 [facility] [place] [facility] [address] [id number] [place] [address] May, [facility] [place] [facility] [address] [id number] [place] [address] 24 Jan, 2014 [facility] [place] [facility] [address] [id number] [place] [address] 24 Jan, 2014 [facility] [place] [facility] [address] [id number] [place] [address] 8[address] Jan, [facility] [place] [facility] [address] [id number] [place] [address] 7759 Jan, [facility] [place] [facility] [address] [facility] [id number] [place] [address] 17 Jul, 2013 [facility] [place] [facility] [address] [id number] [place] [address] 2677 17 Jul, 2013 [facility] [place] [facility] [address] [id number] [place] [address] 1263 15 Jul, 2013 [facility] [place] [facility] [address] [facility] [id number] [place] [address] 0271 15 Jul, 2013 [facility] [place] [facility] [address] [facility] [id number] [place] [address] 6756 13 Jul, 2013 [facility] [place] [facility] [address] [id number] [address] Jul, [facility] [place] [facility] [address] [id number] [place] [address] Jul, [facility] [place] [facility] [address] [id number] [place] [address] 9439 Apr, [facility] [place] [facility] [address] [facility] [id number] [place] [address] 9602 Apr, [facility] [place] [facility] [address] [id number] [address] Apr, [facility] [address] [id number] [place] [address] 3983 Apr, [facility] [place] [facility] [address] [id number] [place] [address] 97[address] Jan, [facility] [place] [facility] [address] [id number] [place] [address] 2960 Dec, [facility] [place] [facility] [address] [id number] [place] [address] 4840 Dec, [facility] [place] [facility] [address] [id number] [place] [address]- 6424 Dec, [facility] [place] [facility] [address] [id number] [place] [address]- 6240 Dec, [facility] [address] [id number] [place] [address]- 8982 September, [facility] [place] [facility] [address] [id number] [place] [address]- 5596 Aug, [facility] [address] [id number] [place] [address]- 4236 Aug, [facility] [address] [facility] [id number] [place] [address]- 3976 Mar, [facility] [address] [id number] [place] [address]- 5298 Mar, [facility] [place] [facility] [address] [id number] [place] [address]- 2555 Oct, [facility] [place] [facility] [address] [id number] [place] [address] September, [facility] [place] [facility] [address] [id number] [place] [address]- 7595 September, [facility] [place] [facility] [address] [facility] [id number] [place] [address]- 5595 September, [facility] [place] [facility] [address] [id number] [place] [address]- 5077 September, [facility] [address] [id number] [place] [address]- 4823 Aug, [facility] [place] [facility] [address] [id number] [place] [address]- 6956 16 Aug, 2011 [facility] [place] [facility] [address] [id number] [place] [address]- 9720 Aug, [facility] [place] [facility] [address] [id number] [place] [address]- 9050 Aug, [facility] [place] [facility] [address] [id number] [place] [address]- 8055 Aug, [facility] [place] [facility] [address] [id number] [place] [address]- 2309 Jul, [facility] [place] [facility] [address] [id number] [place] [address]- 1081 15 Jul, 2011 [facility] [place] [facility] [address] [id number] [place] [address]- 7770 14 Jul, 2011 [facility] [place] [facility] [address] [id number] [place] [address]- 4900 Jul, [facility] [place] [facility] [address] [id number] [place] [address]- 6944 Jun, [facility] [place] [facility] [address] [id number] [place] [address]- 4146 May, [facility] [place] [facility] [address] [id number] [place] [address]- 1501 May, [facility] [place] [facility] [address] [id number] [place] [address]- 7952 May, [facility] [place] [facility] [address] [id number] [place] [address]- 7558 May, [facility] [place] [facility] [address] [id number] [place] [address]- 7104 15 May, 2011 [facility] [address] [id number] 10 Apr, 2011 [facility] [id number] [address]- [address] 10 Apr, 2011 [facility] [id number] [address]- 88[address] 07 Apr, 2011 [facility] [id number] [address]- 9164 14 Mar, 2011 [facility] [id number] [address]- 2692 13 Mar, 2011 [facility] [id number] [address]- [address] Mar, [facility] [address] [address]- 90[address] Mar, [facility] [address] [id number] [address]- [address] 15 Oct, 2010 IMMUNIZATIONS No Known Immunizations SOCIAL HISTORY Never Assessed REASON FOR VISIT Requests return call PLAN OF CARE VITAL SIGNS MEDICATIONS Unknown Medications RESULTS No Results PROCEDURES No Known procedures INSTRUCTIONS MEDICATIONS ADMINISTERED No Known Medications MEDICAL (GENERAL) HISTORY Type Description Date Medical History asthma Medical History HPV 2012 Surgical History 09/17/16 Hospitalization History RSV/ pneumonia as infant Hospitalization History child
--- OUTSIDE RECORDS SUMMARY | 2018-04-09 08:04 | XMS REPORT | Continuity of Care Document ---
Author Author [facility] of [facility] of [facility] Address Unknown Phone Unavailable Allergies Active Description Code Type Severity Reaction Onset Reported/Identified Relationship to Patient Clinical Status Yes Augmentin Drug Allergy 10/07/2011 Yes Augmentin Drug Allergy N/A N/A 10/07/2011 Yes Penicillins [id number] Drug Allergy Unknown N/A 02/15/2012 Medications There is no data. Problems Date Dx Coded Attending Type Code Diagnosis Diagnosed By 06/13/2008 RICH ARRIAGA APRN 461.9 SINUSITIS ACUTE 06/13/2008 RICH ARRIAGA APRN 493.90 ASTHMA UNSPECIFIED 06/13/2008 461.9 SINUSITIS ACUTE 06/13/2008 493.90 ASTHMA UNSPECIFIED 06/13/2008 NIKKO BELLA APRN 461.9 SINUSITIS ACUTE 06/13/2008 NIKKO BELLA APRN R 493.90 ASTHMA UNSPECIFIED 06/22/2008 RICH ARRIAGA APRN [...] SKIN ERUPT NEC 08/04/2011 RICH ARRIAGA APRN 691.8 ECZEMA 08/04/2011 RICH ARRIAGA APRN 704.8 FOLLICULITIS 08/04/2011 691.8 ECZEMA 08/04/2011 704.8 [...] UNSPECIFIED PRURITIC DISORDER 10/25/2011 NIKKO BELLA APRN 782.1 RASH AND OTHER NONSPECIFIC SKIN [...] V76.2 CERVICAL CANCER SCREENING (PAP SMEAR) 01/21/2013 JENA REYNOSO, NIKKO R V74.5 STD SCREEN 01/21/2013 JENA REYNOSO, NIKKO R V76.10 BREAST CANCER SCREENING 01/21/2013 JENA OPTIONS TRADER, NIKKO R V76.2 CERVICAL CANCER SCREENING (PAP SMEAR) 04/14/2013 JENA REYNOSO, NIKKO R 789.05 ABDOMINAL PAIN PERIUMBILIC 07/13/2013 MAURA KITCHEN, SUDHA Back Ot 465.9 ACUTE URI NOS 07/13/2013 MAURA KITCHEN, SUDHA Back Ot 786.59 CHEST PAIN NEC 08/07/2013 SELENE [...] OF NORMAL PREG, UNSP, 05/29/2016 CARMEN KO MD, Ot Z36 ENCOUNTER FOR [...] R07.9 CHEST PAIN, UNSPECIFIED 08/08/2016 ARLENE SOLITARIO OPTIONS TRADER Ot Z3A.32 32 WEEKS GESTATION OF 08/10/2016 ARLENE SOLITARIO OPTIONS TRADER Ot F17.210 NICOTINE DEPENDENCE, CIGARETTES, UNCOMPL 08/10/2016 ARLENE SOLITARIO OPTIONS TRADER Ot O99.333 SMOKING (TOBACCO) COMPLICATING 08/10/2016 ARLENE SOLITARIO OPTIONS TRADER Ot R00.2 PALPITATIONS 08/10/2016 ARLENE SOLITARIO OPTIONS TRADER Ot R06.02 SHORTNESS OF BREATH 08/10/2016 ARLENE SOLITARIO OPTIONS TRADER Ot R07.9 CHEST PAIN, UNSPECIFIED 08/10/2016 ARLENE SOLITARIO OPTIONS TRADER Ot Z3A.32 32 WEEKS GESTATION OF 08/10/2016 ARLENE SOLITARIO OPTIONS TRADER Ot F17.210 NICOTINE DEPENDENCE, CIGARETTES, UNCOMPL 08/10/2016 ARLENE SOLITARIO OPTIONS TRADER Ot O99.333 SMOKING (TOBACCO) COMPLICATING 08/10/2016 ARLENE SOLITARIO APRN Ot R00.2 PALPITATIONS 08/10/2016 ARLENE SOLITARIO OPTIONS TRADER Ot R06.02 SHORTNESS OF BREATH 08/10/2016 ARLENE SOLITARIO APRN Ot R07.9 CHEST PAIN, UNSPECIFIED 08/10/2016 ARLENE SOLITARIO APRN Ot Z3A.32 32 WEEKS GESTATION OF 08/12/2016 CARMEN KO MD Ot O41.03X0 OLIGOHYDRAMNIOS, THIRD TRIMESTER, NOT AP 08/12/2016 CARMEN KO MD Ot Z3A.30 30 WEEKS GESTATION OF 08/16/2016 CARMEN KO MD Ot F41.9 ANXIETY DISORDER, UNSPECIFIED 08/16/2016 CARMEN KO MD Ot O99.343 OTH MENTAL DISORDERS COMPLICATING PREGNA 08/16/2016 CARMEN KO MD Ot Z3A.31 31 WEEKS GESTATION OF 08/19/2016 CARMEN KO MD Ot O41.03X0 OLIGOHYDRAMNIOS, THIRD TRIMESTER, NOT AP 08/19/2016 CARMEN KO MD Ot Z3A.30 30 WEEKS GESTATION OF 08/22/2016 CARMEN KO MD Ot O41.03X0 OLIGOHYDRAMNIOS, THIRD TRIMESTER, NOT AP 08/22/2016 CARMEN KO MD, Ot Z3A.34 34 WEEKS GESTATION OF 09/11/2016 CARMEN KO MD, Ot O41.03X0 OLIGOHYDRAMNIOS, THIRD TRIMESTER, NOT AP 09/11/2016 CARMEN KO MD, Ot Z3A.34 34 WEEKS GESTATION OF 09/19/2016 CARMEN KO MD Ot D62 ACUTE POSTHEMORRHAGIC ANEMIA 09/19/2016 CARMEN [...] APRN Ot R07.89 OTHER CHEST PAIN 11/19/2016 CAREMN KO MD, Ot O41.03X0 OLIGOHYDRAMNIOS, THIRD TRIMESTER, NOT AP 11/19/2016 CARMEN KO MD, Ot Z3A.34 34 WEEKS GESTATION OF 06/08/2017 ARLENE SOLITARIO APRN Ot F41.9 ANXIETY DISORDER, UNSPECIFIED 06/08/2017 ARLENE SOLITARIO APRN Ot S06.0X0A CONCUSSION WITHOUT LOSS OF CONSCIOUSNESS 06/08/2017 ARLENE SOLITARIO APRN Ot S09.90XA UNSPECIFIED INJURY OF HEAD, INITIAL ENCO 06/08/2017 ARLENE SOLITARIO APRN Ot W01.10XA FALL SAME LEV FROM SLIP/TRIP W STRIKE AG 06/08/2017 ARLENE SOLITARIO APRN Ot Y92.002 BATHRM OF [facility] NON-INSTITUT RESDNCE SNGL 06/08/2017 ARLENE SOLITARIO APRN Ot Z80.0 FAMILY HISTORY OF MALIGNANT NEOPLASM OF 06/08/2017 ARLENE SOLITARIO APRN Ot Z86.19 PERSONAL HISTORY OF OTHER INFECTIOUS AND 06/08/2017 ARLENE SOLITARIO APRN Ot Z87.59 PERSONAL HISTORY OF COMP OF PREG, CHLDBR 06/08/2017 ARLENE SOLITARIO APRN Ot Z87.891 PERSONAL HISTORY OF NICOTINE DEPENDENCE 06/28/2017 CARMEN KO MD, Ot Z34.91 ENCNTR FOR SUPRVSN OF NORMAL PREG, [facility], 06/28/2017 CARMEN KO MD, Ot Z34.92 ENCNTR FOR SUPRVSN OF NORMAL PREG, [facility], 06/28/2017 CARMEN KO MD, Ot Z36 ENCOUNTER FOR SCREENING OF MOT 06/28/2017 CARMEN KO MD, Ot Z3A.19 19 WEEKS GESTATION OF 06/28/2017 CARMEN KO MD, Ot Z34.92 ENCNTR FOR SUPRVSN OF NORMAL PREG, [facility], 06/28/2017 CARMEN KO MD, Ot Z36 ENCOUNTER FOR SCREENING OF MOT 06/28/2017 CARMEN KO MD, Ot Z3A.23 23 WEEKS GESTATION OF 06/28/2017 CARMEN KO MD, Ot Z36 ENCOUNTER FOR SCREENING OF MOT 06/28/2017 CARMEN KO MD, Ot O41.03X0 OLIGOHYDRAMNIOS, THIRD TRIMESTER, NOT AP 06/28/2017 CARMEN KO MD, Ot Z3A.30 30 WEEKS GESTATION OF 06/28/2017 CARMEN KO MD, Ot O41.03X0 OLIGOHYDRAMNIOS, THIRD TRIMESTER, NOT AP 06/28/2017 CARMEN KO MD, Ot Z3A.34 34 WEEKS GESTATION OF 06/28/2017 KIRT JUAN MD Ot F41.9 ANXIETY DISORDER, UNSPECIFIED 06/28/2017 ODGERS MD, KIRT K Ot J11.1 FLU DUE TO UNIDENTIFIED INFLUENZA VIRUS 06/28/2017 KIRT JUAN MD Ot J45.909 UNSPECIFIED ASTHMA, UNCOMPLICATED 06/28/2017 KIRT JUAN MD Ot R05 COUGH 06/28/2017 KIRT JUAN MD Ot Z80.0 FAMILY HISTORY OF MALIGNANT NEOPLASM OF 06/28/2017 KIRT JUAN MD Ot Z86.19 PERSONAL HISTORY OF OTHER INFECTIOUS AND 06/28/2017 KIRT JUAN MD Ot Z87.59 PERSONAL HISTORY OF COMP OF PREG, CHLDBR 06/28/2017 KIRT JUAN MD Ot Z87.891 PERSONAL HISTORY OF NICOTINE DEPENDENCE 06/28/2017 CARMEN KO MD Ot Z34.91 ENCNTR FOR SUPRVSN OF NORMAL PREG, UNSP, 06/28/2017 CARMEN KO MD Ot Z34.92 ENCNTR FOR SUPRVSN OF NORMAL PREG, UNSP, 06/28/2017 CARMEN KO MD Ot Z36 ENCOUNTER FOR SCREENING OF MOT 06/28/2017 CARMEN KO MD Ot Z3A.19 19 WEEKS GESTATION OF 06/28/2017 CARMEN KO MD, Ot Z34.92 ENCNTR FOR SUPRVSN OF NORMAL PREG, UNSP, 06/28/2017 CARMEN KO MD Ot Z36 ENCOUNTER FOR SCREENING OF MOT 06/28/2017 CARMEN KO MD, Ot Z3A.23 23 WEEKS GESTATION OF 06/28/2017 CARMEN KO MD Ot Z36 ENCOUNTER FOR SCREENING OF MOT 06/28/2017 CARMEN KO MD Ot O41.03X0 OLIGOHYDRAMNIOS, THIRD TRIMESTER, NOT AP 06/28/2017 CARMEN KO MD Ot Z3A.30 30 WEEKS GESTATION OF 06/28/2017 CARMEN KO MD, Ot O41.03X0 OLIGOHYDRAMNIOS, THIRD TRIMESTER, NOT AP 06/28/2017 CARMEN KO MD Ot Z3A.34 34 WEEKS GESTATION OF 06/30/2017 KIRT JUAN MD Ot F41.9 ANXIETY DISORDER, UNSPECIFIED 06/30/2017 KIRT JUAN MD Ot J11.1 FLU DUE TO UNIDENTIFIED INFLUENZA VIRUS 06/30/2017 KIRT JUAN MD Ot J45.909 UNSPECIFIED ASTHMA, UNCOMPLICATED 06/30/2017 KIRT JUAN MD Ot R05 COUGH 06/30/2017 KIRT JUAN MD Ot Z80.0 FAMILY HISTORY OF MALIGNANT NEOPLASM OF 06/30/2017 KIRT JUAN MD Ot Z86.19 PERSONAL HISTORY OF OTHER INFECTIOUS AND 06/30/2017 KIRT JUAN MD Ot Z87.59 PERSONAL HISTORY OF COMP OF PREG, CHLDBR 06/30/2017 KIRT JUAN MD Ot Z87.891 PERSONAL HISTORY OF NICOTINE DEPENDENCE 02/16/2018 CARMEN KO MD, Ot Z34.91 ENCNTR FOR SUPRVSN OF NORMAL PREG, UNSP, 02/16/2018 CARMEN KO MD, Ot Z34.92 ENCNTR FOR SUPRVSN OF NORMAL PREG, UNSP, 02/16/2018 CARMEN KO MD Ot Z36 ENCOUNTER FOR SCREENING OF MOT 02/16/2018 CARMEN KO MD, Ot Z3A.19 19 WEEKS GESTATION OF 02/16/2018 CARMEN KO MD, Ot Z34.92 ENCNTR FOR SUPRVSN OF NORMAL PREG, UNSP, 02/16/2018 CARMEN KO MD Ot Z36 ENCOUNTER FOR SCREENING OF MOT 02/16/2018 CARMEN KO MD, Ot Z3A.23 23 WEEKS GESTATION OF 02/16/2018 CARMEN KO MD Ot Z36 ENCOUNTER FOR SCREENING OF MOT 02/16/2018 CARMEN KO MD Ot O41.03X0 OLIGOHYDRAMNIOS, THIRD TRIMESTER, NOT AP 02/16/2018 CARMEN KO MD, Ot Z3A.30 30 WEEKS GESTATION OF 02/16/2018 CARMEN KO MD, Ot O41.03X0 OLIGOHYDRAMNIOS, THIRD TRIMESTER, NOT AP 02/16/2018 CARMEN KO MD, Ot Z3A.34 34 WEEKS GESTATION OF 02/16/2018 Ot R00.2 PALPITATIONS 02/16/2018 Ot R06.02 SHORTNESS OF BREATH 02/16/2018 Ot R07.9 CHEST PAIN, UNSPECIFIED 02/17/2018 BAIMA, HESHAM L TAPER PRINTED CIRCUIT LAYOUT Ot I27.20 PULMONARY HYPERTENSION, UNSPECIFIED 02/17/2018 HESHAM PANIAGUA TAPER PRINTED CIRCUIT LAYOUT Ot R00.2 PALPITATIONS 02/17/2018 HESHAM PANIAGUA TAPER PRINTED CIRCUIT LAYOUT Ot R06.02 SHORTNESS OF BREATH 02/17/2018 HESHAM PANIAGUA TAPER PRINTED CIRCUIT LAYOUT Ot R07.9 CHEST PAIN, UNSPECIFIED 03/18/2018 MEENAKSHI, BRITTANY E OPTIONS TRADER Ot G47.10 HYPERSOMNIA, UNSPECIFIED 03/18/2018 MEENAKSHI, BRITTANY E OPTIONS TRADER Ot G47.50 PARASOMNIA, UNSPECIFIED 03/18/2018 MEENAKSHI, BRITTANY E OPTIONS TRADER Ot R06.83 SNORING 03/21/2018 MEENAKSHI, BRITTANY E OPTIONS TRADER Ot J45.909 UNSPECIFIED ASTHMA, UNCOMPLICATED 03/21/2018 MEENAKSHI, BRITTANY E OPTIONS TRADER Ot G47.10 HYPERSOMNIA, UNSPECIFIED 03/21/2018 MEENAKSHI, BRITTANY E OPTIONS TRADER Ot G47.50 PARASOMNIA, UNSPECIFIED 03/21/2018 MEENAKSHI, BRITTANY E OPTIONS TRADER Ot R06.83 SNORING 03/22/2018 CARMEN KO MD, Ot Z34.91 ENCNTR FOR SUPRVSN OF NORMAL PREG, UNSP, 03/22/2018 CARMEN KO MD, Ot Z34.92 ENCNTR FOR SUPRVSN OF NORMAL PREG, UNSP, 03/22/2018 CARMEN KO MD, Ot Z36 ENCOUNTER FOR SCREENING OF MOT 03/22/2018 CARMEN KO MD, Ot Z3A.19 19 WEEKS GESTATION OF 03/22/2018 CARMEN KO MD Ot Z34.92 ENCNTR FOR SUPRVSN OF NORMAL PREG, UNSP, 03/22/2018 CARMEN KO MD, Ot Z36 ENCOUNTER FOR SCREENING OF MOT 03/22/2018 CARMEN KO MD, Ot Z3A.23 23 WEEKS GESTATION OF 03/22/2018 CARMEN KO MD, Ot Z36 ENCOUNTER FOR SCREENING OF MOT 03/22/2018 CARMEN KO MD, Ot O41.03X0 OLIGOHYDRAMNIOS, THIRD TRIMESTER, NOT AP 03/22/2018 CARMEN KO MD, Ot Z3A.30 30 WEEKS GESTATION OF 03/22/2018 MAIKEL KITCHEN, CARMEN Bautista Ot O41.03X0 OLIGOHYDRAMNIOS, THIRD TRIMESTER, NOT AP 03/22/2018 CARMEN KO MD Ot Z3A.34 34 WEEKS GESTATION OF 03/22/2018 BAIHESHAM KULKARNI L TAPER PRINTED CIRCUIT LAYOUT Ot I27.20 PULMONARY HYPERTENSION, UNSPECIFIED 03/22/2018 BAIMA, HESHAM L TAPER PRINTED CIRCUIT LAYOUT Ot R00.2 PALPITATIONS 03/22/2018 BAIMA, HESHAM L TAPER PRINTED CIRCUIT LAYOUT Ot R06.02 SHORTNESS OF BREATH 03/22/2018 BAIMA, HESHAM L TAPER PRINTED CIRCUIT LAYOUT Ot R07.9 CHEST PAIN, UNSPECIFIED 03/22/2018 Ot R00.2 PALPITATIONS 03/22/2018 Ot R06.02 SHORTNESS OF BREATH 03/22/2018 Ot R07.9 CHEST PAIN, UNSPECIFIED 03/22/2018 BRITTANY ARRIETA APRN Ot J45.909 UNSPECIFIED ASTHMA, UNCOMPLICATED 03/23/2018 KIRT JUAN MD Ot F41.9 ANXIETY DISORDER, UNSPECIFIED 03/23/2018 KIRT JUAN MD Ot J11.1 FLU DUE TO UNIDENTIFIED INFLUENZA VIRUS 03/23/2018 KIRT JUAN MD Ot J45.909 UNSPECIFIED ASTHMA, UNCOMPLICATED 03/23/2018 KIRT JUAN MD Ot R05 COUGH 03/23/2018 KIRT JUAN MD Ot Z80.0 FAMILY HISTORY OF MALIGNANT NEOPLASM OF 03/23/2018 KIRT JUAN MD Ot Z86.19 PERSONAL HISTORY OF OTHER INFECTIOUS AND 03/23/2018 KIRT JUAN MD Ot Z87.59 PERSONAL HISTORY OF COMP OF PREG, CHLDBR 03/23/2018 KIRT JUAN MD Ot Z87.891 PERSONAL HISTORY OF NICOTINE DEPENDENCE 03/23/2018 BRITTANY ARRIETA APRN Ot G47.10 HYPERSOMNIA, UNSPECIFIED 03/23/2018 BRITTANY ARRIETA APRN Ot G47.50 PARASOMNIA, UNSPECIFIED 03/23/2018 BRITTANY ARRIETA APRN Ot R06.83 SNORING Procedures Code Description [place] [address] CULTURE THROAT 09/08/2012 02172 GC/CHLAM PROBE (STATE) 01/21/2013 Q0091 PAP SMEAR OBTAIN SMEAR 01/21/2013 09232 TRICHOMONAS (IN-HOUSE) 01/21/2013 26692 PAP SMEAR 01/26/2013 28985 CULTURE WOUND (AEROBIC) 04/17/2013 [id number] INTRODUCE OF OTH THERAP SUBST INTO FEM R 09/16/2016 14G80W1 EXTRACTION OF POC, LOW CERVICAL, OPEN AP [...] ABO+Rh group BP NRG Transfusion band number [id number] Blood group antibody screen NEGATIVE NRG Methicillin resistant Staphylococcus aureus (MRSA) screening culture [...] blood basophil count (count/volume) 0.0 10*3/uL 0.0-0.1 CBC With Differential/Platelet - 10/15/16 16:34 WBC 6.7 x10E3/uL 3.4-10.8 RBC 4.80 x10E6/uL 3.77-5.28 Hemoglobin 12.1 g/dL 11.1-15.9 Hematocrit 37.4 % 34.0-46.6 MCV 78 fL 79-97 MCH 25.2 pg 26.6-33.0 MCHC 32.4 g/dL 31.5-35.7 RDW 13.5 % 12.3-15.4 Platelets 294 x10E3/uL 150-379 Neutrophils 67 % Lymphs 27 % Monocytes 5 % Eos 1 % Basos 0 % Neutrophils (Absolute) 4.5 x10E3/uL 1.4-7.0 Lymphs (Absolute) 1.8 x10E3/uL 0.7-3.1 Monocytes(Absolute) 0.3 x10E3/uL 0.1-0.9 Eos (Absolute) 0.1 x10E3/uL 0.0-0.4 Baso (Absolute) 0.0 x10E3/uL 0.0-0.2 Immature Granulocytes 0 % Immature Grans (Abs) 0.0 x10E3/uL 0.0-0.1 TSH - 10/15/16 16:34 TSH 1.310 uIU/mL 0.450-4.500 Complete blood count (CBC) with automated white [...] urinalysis with reflex to culture NO NRG TSH - 04/16/17 10:22 TSH 1.96 mIU/L NRG CBC - 09/07/17 15:25 WHITE BLOOD CELL COUNT 8.4 Thousand/uL 3.8-10.8 RED BLOOD CELL COUNT 5.61 Million/uL 3.80-5.10 HEMOGLOBIN 13.3 g/dL 11.7-15.5 HEMATOCRIT 43.3 % 35.0-45.0 MCV 77.2 fL 80.0-100.0 MCH 23.7 pg 27.0-33.0 MCHC 30.7 g/dL 32.0-36.0 RDW 13.8 % 11.0-15.0 PLATELET COUNT 312 Thousand/uL 140-400 MPV 10.1 fL 7.5-12.5 ABSOLUTE NEUTROPHILS 5452 cells/uL 2424-1144 ABSOLUTE LYMPHOCYTES 2411 cells/uL 850-3900 ABSOLUTE MONOCYTES 428 cells/uL 200-950 ABSOLUTE EOSINOPHILS 67 cells/uL 15-500 ABSOLUTE BASOPHILS 42 cells/uL 0-200 NEUTROPHILS 64.9 % NRG LYMPHOCYTES 28.7 % NRG MONOCYTES 5.1 % NRG EOSINOPHILS 0.8 % NRG BASOPHILS 0.5 % NRG CBC - 11/24/17 12:24 WHITE BLOOD CELL COUNT 8.6 Thousand/uL 3.8-10.8 RED BLOOD CELL COUNT 5.46 Million/uL 3.80-5.10 HEMOGLOBIN 13.5 g/dL 11.7-15.5 HEMATOCRIT 42.3 % 35.0-45.0 MCV 77.5 fL 80.0-100.0 MCH 24.7 pg 27.0-33.0 MCHC 31.9 g/dL 32.0-36.0 RDW 13.8 % 11.0-15.0 PLATELET COUNT 321 Thousand/uL 140-400 MPV 9.9 fL 7.5-12.5 ABSOLUTE NEUTROPHILS 6175 cells/uL 5828-4605 ABSOLUTE LYMPHOCYTES 1961 cells/uL 850-3900 ABSOLUTE MONOCYTES 413 cells/uL 200-950 ABSOLUTE EOSINOPHILS 26 cells/uL 15-500 ABSOLUTE BASOPHILS 26 cells/uL 0-200 NEUTROPHILS 71.8 % NRG LYMPHOCYTES 22.8 % NRG MONOCYTES 4.8 % NRG EOSINOPHILS 0.3 % NRG BASOPHILS 0.3 % NRG TSH - 11/24/17 12:24 TSH 1.52 mIU/L NRG Encounters ACCT No. Visit Date/Time Discharge Status Pt. Type Provider Facility Loc./Unit Complaint [id number] 04/14/2013 13:28:00 04/14/2013 23:59:59 CLS Outpatient NIKKO BELLA APRN [id number] 09/06/2012 11:00:00 09/06/2012 23:59:59 CLS Outpatient RICH ARRIAGA APRN [id number] 01/21/2013 10:26:00 Document Registration [id number] 10/16/2016 08:06:00 Document Registration [id number] 01/06/2018 09:45:00 01/06/2018 23:59:59 CLS Outpatient KATELYNN SUNSHINE [facility] [id number] 11/24/2017 11:40:00 Document Registration [id number] 09/07/2017 16:00:00 Document Registration [id number] 04/16/2017 09:20:00 Document Registration [id number] 03/17/2018 21:28:00 03/18/2018 06:13:00 DIS Outpatient BRITTANY ARRIETA APRN [facility] SLEEP PARASOMNIA [id number] 03/17/2018 08:19:00 03/17/2018 23:59:59 CLS Outpatient BRITTANY ARRIETA APRN [facility] RT ASTHMA [id number] 02/16/2018 08:52:00 02/16/2018 23:59:59 CLS Outpatient HESHAM PANIAGUA [facility] CARD PALPITATIONS,CHEST PAIN, SOB [id number] 06/28/2017 08:24:00 06/28/2017 09:10:00 DIS Outpatient KIRT JUAN MD [facility] ER FLU [id number] 06/08/2017 19:47:00 06/08/2017 21:20:00 DIS Emergency ARLENE SOLITARIO APRN [facility] ER HEAD INJ [id number] 11/28/2016 09:05:00 11/28/2016 23:59:59 CLS Preadmit ANGELIC MADERA OPTIONS TRADER [facility] RAD R10.11 RUQ ABD PAIN [id number] 11/20/2016 00:13:00 11/20/2016 23:59:59 CLS Preadmit CARMEN KO MD [facility] WSo OLIGOHYDRAMNIOS [id number] 08/21/2016 15:11:00 11/19/2016 00:01:00 DIS Outpatient CARMEN KO MD [facility] WSo OLIGOHYDRAMNIOS [id number] 10/20/2016 19:59:00 10/20/2016 21:22:00 DIS Emergency ARLENE SOLITARIO APRN [facility] ER TIGHTNESS AND HEAVINESS IN CHEST [id number] 09/16/2016 19:45:00 09/19/2016 14:30:00 DIS Inpatient CARMEN KO MD [facility] LDRP INDUCTION [id number] 08/08/2016 09:50:00 08/08/2016 23:59:59 CLS Outpatient CARMEN KO MD [facility] RAD OLIGOHYDRAMNIOS [id number] 08/08/2016 18:59:00 08/08/2016 20:33:00 DIS Emergency ARLENE SOLITARIO APRN [facility] ER SOB, CP [id number] 08/08/2016 18:21:00 08/08/2016 19:01:00 DIS Outpatient CARMEN KO MD [facility] WSo SOB, ABD PAIN [id number] 07/24/2016 13:28:00 07/24/2016 23:59:59 CLS Outpatient CARMEN KO MD [facility] RAD CHECK ADITI AND HEAD CIRCUMFRENCE [id number] 06/11/2016 10:57:00 06/11/2016 23:59:59 CLS Outpatient CARMEN KO MD [facility] RAD SURVEY [id number] 05/12/2016 11:05:00 05/12/2016 23:59:59 CLS Outpatient CARMEN KO MD [facility] RAD SURVEY [id number] 02/25/2016 12:43:00 02/25/2016 23:59:59 CLS Outpatient CARMEN KO MD [facility] RAD DATES [id number] 08/07/2013 20:32:00 08/07/2013 22:13:00 DIS Emergency SELENE MILLER [facility] ER SORE THROAT [id number] 07/13/2013 18:23:00 07/13/2013 20:45:00 DIS Emergency MAURA KITCHEN, SUDHA Back [facility] ER CHEST PAIN, SOA, SORE THROAT, HIGH BP [id number] 01/19/2013 17:57:00 01/19/2013 23:59:59 CLS Outpatient [id number] 04/09/2018 07:03:00 ACT Emergency DRAKE KITCHEN, KIRT Barron [facility] ER SORE THROAT;EAR PAIN;DIZZINESS [id number] 01/11/2018 10:47:00 Document Registration [id number] 02/15/2012 23:39:00 Document Registration [id number] 07/17/2011 02:41:00 Document Registration [id number] 05/15/2011 22:51:00 Document Registration [id number] 05/14/2011 23:08:00 Document Registration [id number] 03/11/2011 21:59:00 Document Registration [id number] 01/23/2011 22:55:00 Document Registration
[2018-04-09] MEDS ORDERED: NS IV 1000 ML 1,000 ML IV ONE (08:15)
[2018-04-09] MEDS ORDERED: IBUPROFEN 800 MG (MOTRIN) TAB PO ONE (08:15)
[2018-04-09 08:39] LABS: BASOPHILS % (AUTO) 0 % (0-10); EOSINOPHILS % (AUTO) 0 % (0-10); HEMATOCRIT 43 % (35-52); HEMOGLOBIN 13.5 G/DL (11.5-16.0); LYMPHOCYTES % (AUTO) 7 % (12-44); MEAN CORPUSCULAR HEMOGLOBIN 25 PG (25-34); MEAN CORPUSCULAR HGB CONC 32 G/DL (32-36); MEAN CORPUSCULAR VOLUME 80 FL (80-99); MONOCYTES # (AUTO) 0.5 X 10^3 (0.0-1.0); MONOCYTES % (AUTO) 3 % (0-12); NEUTROPHILS # (AUTO) 13.8 X 10^3 (1.8-7.8); NEUTROPHILS % (AUTO) 90 % (42-75); PLATELET COUNT 273 10^3/uL (130-400); RED BLOOD COUNT 5.39 10^6/uL (4.35-5.85); RED CELL DISTRIBUTION WIDTH 14.1 % (10.0-14.5); WHITE BLOOD COUNT 15.4 10^3/uL (4.3-11.0)
[2018-04-09 09:08] LABS: BAND NEUTROPHILS 7 %; BASOPHILS % (MANUAL) 0 %; EOSINOPHILS % (MANUAL) 0 %; LYMPHOCYTES % (MANUAL) 8 %; MONOCYTES % (MANUAL) 2 %; NEUTROPHILS % (MANUAL) 83 %
[2018-04-09 09:09] LABS: RBC MORPH NORMAL
--- NOTE | 2018-04-09 09:41 | ED EENT ---
History of Present Illness General Chief Complaint: Oral/Throat Problems Stated Complaint: SORE THROAT;EAR PAIN;DIZZINESS Nursing Triage Note: pt presents to ed with complaints of bilateral ear pain and sore throat x 2-3 days. Source: patient Exam Limitations: no limitations History of Present Illness Date Seen by Provider: Apr 09, 2018 Time Seen by Provider: 09:36 Initial Comments The patient is a 27-year-old white female who presents with complaints of sore throat and malaise. This has been present and increasing over the past 2-3 days. No one in her household has been ill. She reports that swallowing is difficult. Timing/Duration: gradual Prearrival Treatment: over the counter meds Allergies and Home Medications Allergies Coded Allergies: Penicillins (Verified Allergy, Unknown, 02/15/12) Home Medications Albuterol Sulfate 1 Puff Puff, 2 PUFF IH Q4H PRN for AIR HUNGER, (Reported) 1 PUFF = 90 MCG Ferrous Sulfate 325 Mg Tablet, 325 MG PO DAILY@0800 Prescribed by: ANKIT CALLES on 09/19/16 0846 Ibuprofen 600 Mg Tablet, 600 MG PO Q6H Prescribed by: ANKIT CALLES on 09/17/16 1909 Lorazepam 0.5 Mg Tablet, 0.5 MG PO BID PRN for ANXIETY Prescribed by: ARLENE SOLITARIO on 10/20/162111 Patient Home Medication List Home Medication List Reviewed: Yes Review of Systems Review of Systems Constitutional: see HPI Eyes: No Symptoms Reported Ears: Pain Nose: no symptoms reported Mouth: no symptoms reported Throat: pain, swelling, painful swallowing Respiratory: no symptoms reported Cardiovascular: no symptoms reported Gastrointestinal: no symptoms reported Musculoskeletal: no symptoms reported Skin: no symptoms reported Neurological: No Symptoms Reported Hematologic/Lymphatic: No Symptoms Reported Immunological/Allergic: no symptoms reported Past Ahoxsuv-Hrfkui-Aapgbn Hx Patient Social History Alcohol Use: Denies Use Recreational Drug Use: No Smoking Status: Former Smoker Type Used: Cigarettes Former Smoker, Quit: Jul 30, 2016 2nd Hand Smoke Exposure: No Recent Foreign Travel: No Contact w/Someone Who Travel: No Recent Infectious Disease Expo: No Recent Hopitalizations: No Physical Abuse: No Sexual Abuse: No Mistreated: No Fear: No Immunizations Up To Date Tetanus Booster (TDap): Unknown Seasonal Allergies Seasonal Allergies: No Past Medical History Surgeries: Yes Section Respiratory: Yes (pulmonay hypertension) Asthma Currently Using CPAP: No Currently Using BIPAP: No Cardiac: No (States she feels "skipped beats" occasionally) Neurological: No Reproductive Disorders: No Sexually Transmitted Disease: Yes (HPV 2015) HIV/AIDS: No Genitourinary: No Gastrointestinal: No Musculoskeletal: No Endocrine: No HEENT: No Loss of Vision: Denies Hearing Impairment: Denies Cancer: No Psychosocial: Yes Anxiety Integumentary: Yes (hx dermatitis) Blood Disorders: No Adverse Reaction/Blood Tranf: No Family Medical History Arthritis Maternal grandmother Colon cancer Diabetes mellitus G8 SISTER Maternal grandmother Hypertension Physical Exam Vital Signs Vital Signs - First Documented 04/09/18 08:28 Temp 102.2 Pulse 142 Resp 20 B/P (MAP) 140/73 (95) Pulse Ox 97 Height, Weight, BMI Height: 5'6.00" Weight: 280lbs. 0.0oz. 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 II-XII nml as tested, no motor/sensory deficits, alert, normal mood/affect, oriented x 3 Skin: normal color, warm/dry Progress/Results/Core Measures Results/Orders Lab Results Laboratory Tests Test 04/09/18 07:57 04/09/18 08:26 Range/Units Group A Streptococcus Screen POSITIVE H NEGATIVE White Blood Count 15.4 H 4.3-11.0 10^3/uL Red Blood Count 5.39 4.35-5.85 10^6/uL Hemoglobin 13.5 11.5-16.0 G/DL Hematocrit 43 35-52 % Mean Corpuscular Volume 80 80-99 FL Mean Corpuscular Hemoglobin 25 25-34 PG Mean Corpuscular Hemoglobin Concent 32 32-36 G/DL Red Cell Distribution Width 14.1 10.0-14.5 % Platelet Count 273 130-400 10^3/uL Mean Platelet Volume 10.0 7.4-10.4 FL Neutrophils (%) (Auto) 90 H 42-75 % Lymphocytes (%) (Auto) 7 L 12-44 % Monocytes (%) (Auto) 3 0-12 % Eosinophils (%) (Auto) 0 0-10 % Basophils (%) (Auto) 0 0-10 % Neutrophils # (Auto) 13.8 H 1.8-7.8 X 10^3 Lymphocytes # (Auto) 1.0 1.0-4.0 X 10^3 Monocytes # (Auto) 0.5 0.0-1.0 X 10^3 Eosinophils # (Auto) 0.0 0.0-0.3 10^3/uL Basophils # (Auto) 0.0 0.0-0.1 10^3/uL Neutrophils % (Manual) 83 % Lymphocytes % (Manual) 8 % Monocytes % (Manual) 2 % Eosinophils % (Manual) 0 % Basophils % (Manual) 0 % Band Neutrophils 7 % Blood Morphology Comment NORMAL Micro Results Microbiology 04/09/18 Influenza Types A,B Antigen ([facility]BER) - Final, Complete My Orders Orders - KIRT JUAN MD Cbc With Automated Diff (04/09/18 07:57) Rapid Strep A Screen (04/09/18 07:57) Influenza A And B Antigens (04/09/18 07:57) Ibuprofen Tablet (Motrin Tablet) (04/09/18 08:15) Ns Iv 1000 Ml (Sodium Chloride 0.9%) (04/09/18 08:15) Manual Differential (04/09/18 08:26) Rocephin 1 Gm Iv (1 X Dose) (04/09/18 09:45) Medications Given in ED Current Medications Medications Dose Ordered Sig/Jodie Route Start Time Stop Time Status Last Admin Dose Admin Ibuprofen 800 mg ONCE ONCE PO 04/09/18 08:15 04/09/18 08:16 DC 04/09/18 08:18 800 MG Sodium Chloride 1,000 ml @ 999 mls/hr Q1H ONCE IV 04/09/18 08:15 04/09/18 09:15 DC 04/09/18 08:25 999 MLS/HR Vital Signs/I&O 04/09/18 08:28 Temp 102.2 Pulse 142 Resp 20 B/P (MAP) 140/73 (95) Pulse Ox 97 Blood Pressure Mean: 95 Departure Impression Primary Impression: strep throat Disposition: 01 HOME, SELF-CARE Condition: Stable/Unchanged Departure-Patient Inst. Decision time for Depature: 09:42 Referrals: [facility] ([place]P/Family) Primary Care Physician Patient Instructions: Strep Throat (DC) Add. Discharge Instructions: All discharge instructions reviewed with patient and/or family. Voiced understanding. Use [id number] decongestants. Chloraseptic or Cepastat spray for sore throat. Ibuprofen 600 mg 4 times daily as needed for temperature greater than 101 KIRT JUAN MD Apr 09, 2018 09:41
[2018-04-09] MEDS ORDERED: cefTRIAXone FOR IV USE 1,000 MG in NS (IVPB) 50 ML IV ONE (09:45)
[2018-04-09 10:18] VITALS: BP 106/56
== END 2018-04-09 10:18 | disposition home or self-care (01) ==
LOC: EDUNIT# 07:02 → ER 07:03
DX: J02.0 Streptococcal pharyngitis (principal); I27.0 Primary pulmonary hypertension; J45.909 Unspecified asthma, uncomplicated; F41.9 Anxiety disorder, unspecified; Z86.19 Personal history of other infectious and parasitic diseases; Z80.0 Family history of malignant neoplasm of digestive organs; Z88.0 Allergy status to penicillin; Z79.51 Long term (current) use of inhaled steroids; Z87.891 Personal history of nicotine dependence; Z98.890 Other specified postprocedural states
CPT/HCPCS: 36415; 85007; 85027; 87430; 87804

== ENCOUNTER 2018-06-06 12:22 | Emergency (ER) | payer SELFPAY ==
[~2018-06-06] VITALS: Ht 167.6 cm; Wt 127.0 kg
--- OUTSIDE RECORDS SUMMARY | 2018-06-06 12:27 | XMS REPORT ---
Author Author CHATA ARROYO [facility] IN [facility] Address [address] [place] [address] Care Team Providers Care Jewelry Mechanic Name Role Phone [place] SEE Unavailable PROBLEMS Type Condition ICD9-CM Code RIN10-UE Code Onset Dates Condition Status SNOMED Code Problem Abnormal weight gain R63.5 Active 211990988 Problem Family history of diabetes mellitus Z83.3 Active 332195332 Problem Morbid (severe) obesity due to excess calories E66.01 Active 26370248982063 Problem Body mass index (BMI) of 45.0-49.9 in adult Z68.42 Active 831009249 Problem Anxiety, generalized F41.1 Active 85221175 Problem Absence of menstruation N91.2 Active 20581626 Problem Paresthesia R20.2 Active 13979168 Problem Mild intermittent asthma without complication J45.20 Active 828024341 ALLERGIES Substance Reaction Event Type Date Status Augmentin Unknown Drug Allergy Apr, Active ENCOUNTERS Encounter Location Date Diagnosis [facility] WALK IN [facility] [id number] [place] [address]54 -0085 Apr, Pharyngitis due to Streptococcus species J02.0 ; BMI 45.0- 49.9, adult Z68.42 and Sore throat J02.9 [facility] WALK IN [facility] [id number] [place] [address] 15390 -9855 08 Jan, 2018 Acute right-sided low back pain without sciatica M54.5 [facility] [id number] [place] [address] 80784- 1158 Dec, Palpitations R00.2 ; Chest pain, unspecified type R07.9 ; Shortness of breath R06.02 ; Suspected sleep apnea R29.818 ; Morbid (severe) obesity due to excess calories E66.01 ; Body mass index (BMI) of 45.0-49.9 in adult Z68.42 and BMI 45.0-49.9, adult Z68.42 [facility] [id number] [place] [address] 76707- 8845 Oct, Palpitations R00.2 ; Anxiety, generalized F41.1 and BMI 45.0 -49.9, adult Z68.42 [place] [address] [address]55- 8586 Oct, [facility] [address] 89651- 9046 Oct, [place] [address] 59182- 3077 Aug, Cough with hemoptysis R04.2 and BMI 45.0-49.9, adult Z68.42 [facility] IN [facility] [id number] [place] [address] 39154 -4806 Aug, BMI 45.0-49.9, adult Z68.42 and Cough with hemoptysis R04.2 [place] [id number] [place] [address] 19913- 2841 Apr, [place] [address] 87463- 0819 Apr, Paresthesia R20.2 and Weight gain R63.5 [place] [id number] [place] [address] 03526- 9209 Oct, Right upper quadrant abdominal pain R10.11 ; Stool bloody K92.1 and BMI 40.0-44.9, adult Z68.41 [place] [address] 34488- 7488 Oct, [place] [address] 20284- 9157 September, Anxiety, generalized F41.1 [place] [address] 23385- 0672 September, Mild intermittent asthma without complication J45.20 [facility] [id number] [place] [address] 87512- 0299 September, [facility] [address] [place] [address] September, [facility] [id number] [place] [address] 86420- 2945 September, Mild intermittent asthma without complication J45.20 ; Globus sensation F45.8 ; Anxiety, generalized F41.1 and depression F53 [facility] [id number] [place] [address] 83770 -3002 Jul, Abscess of breast N61 [place] [id number] [place] [address] 58592- 5259 15 Jul, 2015 [place] [address] 25082- 4484 Jun, Encounter for screening for malignant neoplasm of cervix Z12.4 ; Well woman exam Z01.419 ; BMI 40.0-44.9, adult Z68.41 ; Family history of diabetes mellitus Z83.3 ; Tobacco use Z72.0 ; History of abnormal cervical Pap smear Z87.898 ; Weight gain R63.5 ; Routine screening for STI (sexually transmitted infection) Z11.3 and Blood pressure elevated without history of HTN R03.0 [place] [id number] [place] [address] 77544- 5206 Aug, [place] [id number] [place] [address] 08482- 9459 Aug, [place] [id number] [place] [address] 17174- 6383 Jul, [place] [id number] [place] [address] 96344- 0324 Jul, [place] [id number] [place] [address] 65026- 8231 Jun, [facility] [place] [facility] [address] [id number] [place] [address] 8544 Jun, [facility] [place] [facility] [address] [id number] [place] [address]- 8349 May, [facility] [place] [facility] [address] [id number] [place] [address]- 4821 May, [facility] [place] [facility] [address] [id number] [place] [address]- 3959 Jan, [facility] [place] [facility] [address] [id number] [place] [address]- 8121 Jan, [facility] [place] [facility] [address] [id number] [place] [address]- 9700 Jan, [facility] [place] [facility] [address] [facility] [id number] [place] [address]- 0118 Jan, [facility] [place] [facility] [address] [id number] [place] [address]- 1893 17 Jul, 2013 [facility] [place] [facility] [address] [id number] [place] [address]- 5659 17 Jul, 2013 [facility] [place] [facility] [address] [facility] [id number] [place] [address]- 5681 15 Jul, 2013 [facility] [place] [facility] [address] [facility] [id number] [place] [address]- 6675 15 Jul, 2013 [facility] [place] [facility] [address] [id number], [place] [address] 7437 Jul, [facility] [place] [facility] [address] [facility] [id number] [place] [address]- 4482 Jul, [facility] [place] [facility] [address] [id number] [place] [address]- 0854 Jul, [facility] [place] [facility] [address] [facility] [id number], [place] [address] 4804 Apr, [facility] [place] [facility] [address] [facility] [id number], [place] [address]- 9168 Apr, [facility] [address] [id number] [place] [address]- 1344 Apr, [facility] [place] [facility] [address] [id number] [place] [address]- 7195 Apr, [facility] [place] [facility] [address] [id number] [place] [address]- 5245 Jan, [facility] [place] [facility] [address] [id number] [place] [address]- 3106 Dec, [facility] [place] [facility] [address] [id number] [place] [address]- 5328 Dec, [facility] [place] [facility] [address] [id number] [place] [address]- 9688 Dec, [facility] [address] [id number] [place] [address]- 8499 Dec, [facility] [place] [facility] [address] [id number] [place] [address]- 2670 September, [facility] [address] [id number] [place] [address]- 2024 Aug, [facility] [place] [facility] [address] [facility] [id number] [place] [address]- 2400 Aug, [facility] [place] [facility] [address] [id number] [place] [address]- 3336 Mar, [facility] [place] [facility] [address] [id number] [place] [address]- 0112 Mar, [facility] [place] [facility] [address] [id number] [place] [address]- 3703 Oct, [facility] [place] [facility] [address] [id number] [place] [address]- 6660 September, [facility] [place] [facility] [address] [facility] [id number] [place] [address]- 1558 September, [facility] [place] [facility] [address] [id number] [place] [address]- 9522 September, [facility] [address] [id number] [place] [address]- 3778 September, [facility] [place] [facility] [address] [id number] [place] [address]- 1731 Aug, [facility] [address] [id number] [place] [address]- 2874 Aug, [facility] [place] [facility] [address] [id number] [place] [address]- 2839 Aug, [facility] [place] [facility] [address] [id number] [place] [address]- 1631 Aug, [facility] [place] [facility] [address] [id number] [place] [address]- 7216 Aug, [facility] [place] [facility] [address] [id number] [place] [address]- 1532 Jul, [facility] [address] [id number] [place] [address]- 0907 Jul, [facility] [place] [facility] [address] [id number] [place] [address]- 5565 Jul, [facility] [place] [facility] [address] [id number] [place] [address]- 2015 Jul, [facility] [place] [facility] [address] [id number] [place] [address]- 9906 Jun, [facility] [place] [facility] [address] [id number] [place] [address]- 8266 May, [facility] [place] [facility] [address] [id number] [place] [address]- 1664 May, [facility] [place] [facility] [address] [id number] [place] [address]- 6935 May, [facility] [place] [facility] [address] [id number] [place] [address]- 7316 15 May, 2011 [facility] [address] [id number] [address]- 8660 15 May, 2011 [facility] [address], [place] [address]- 9581 Apr, [facility] [address], [place] [address]- 8945 Apr, [facility] [address] [address]- 3043 Apr, [facility] [address], [place] [address]- 4543 14 Mar, 2011 [facility] [id number] [place] [address] 01236- 4594 Mar, [facility] [address], [place] [address]- 4869 Mar, [facility] [address], [place] [address]- 9061 Mar, [facility] [id number] [address]- 0112 Oct, IMMUNIZATIONS No Known Immunizations SOCIAL HISTORY Never Assessed REASON FOR VISIT Sore throat- treated for strep 8 days ago JStrasserRN PLAN OF CARE Activity Details Follow Up prn Reason: VITAL SIGNS Height 66 in 2018-04-17 Weight 282.4 lbs 2018-04-17 Temperature 97.4 degrees Fahrenheit 2018-04-17 Heart Rate 108 bpm 2018-04-17 Respiratory Rate 22 2018-04-17 BMI 45.58 kg/m2 2018-04-17 Blood pressure systolic 122 mmHg 2018-04-17 Blood pressure diastolic 80 mmHg 2018-04-17 MEDICATIONS Medication Instructions Dosage Frequency Start Date End Date Duration Status Moira Active Azithromycin 250 MG Orally Once a day 2 tablets on the first day, then 1 tablet daily for 4 days 24h Apr, 5 day(s) Active Motrin IB 800 Orally every 6 hrs 1 tablet as needed 6h 5 days Active ProAir HFA 90 mcg/actuation inhale 1 puff by inhalation route every 4 hours Aug, Active RESULTS Name Result Date Reference Range STREP A (IN HOUSE) 2018-04-17 STREP A positive Control + Lot # [id number] Exp date 2018-10-29 PROCEDURES Procedure Date Ordered Result Body Site STREP A ASSAY W/OPTIC Apr 17, 2018 INSTRUCTIONS MEDICATIONS ADMINISTERED No Known Medications MEDICAL (GENERAL) HISTORY Type Description Date Medical History asthma Medical History HPV 2012 Surgical History 09/17/16 Hospitalization History RSV/ pneumonia as infant Hospitalization History child
--- OUTSIDE RECORDS SUMMARY | 2018-06-06 12:27 | XMS REPORT ---
Author Author [facility] Address [address] [place] [address] Care Team Providers Care Phthalic Acid Purifier Name Role Phone [facility] Unavailable PROBLEMS Type Condition ICD9-CM Code IHY09-BQ Code Onset Dates Condition Status SNOMED Code Problem Abnormal weight gain R63.5 Active 410929254 Problem Family history of diabetes mellitus Z83.3 Active 066604337 Problem Morbid (severe) obesity due to excess calories E66.01 Active 77619477086829 Problem Body mass index (BMI) of 45.0-49.9 in adult Z68.42 Active 064872356 Problem Anxiety, generalized F41.1 Active 50212297 Problem Absence of menstruation N91.2 Active 72263667 Problem Paresthesia R20.2 Active 70303242 Problem Mild intermittent asthma without complication J45.20 Active 806833802 ALLERGIES No Information ENCOUNTERS Encounter Location Date Diagnosis [facility] [id number] [place] [address] 02933 -7455 Apr, Pharyngitis due to Streptococcus species J02.0 ; BMI 45.0- 49.9, adult Z68.42 and Sore throat J02.9 [facility] [id number] [address] 08 Jan, 2018 Acute right-sided low back pain without sciatica M54.5 [facility] [id number], [place] [address]- 5653 Dec, Palpitations R00.2 ; Chest pain, unspecified type R07.9 ; Shortness of breath R06.02 ; Suspected sleep apnea R29.818 ; Morbid (severe) obesity due to excess calories E66.01 ; Body mass index (BMI) of 45.0-49.9 in adult Z68.42 and BMI 45.0-49.9, adult Z68.42 [facility] [id number] [place] [address] 45976- 2335 26 Oct, 2017 Palpitations R00.2 ; Anxiety, generalized F41.1 and BMI 45.0 -49.9, adult Z68.42 [facility] [id number] [place] [address] 11208- 2237 Oct, [facility] [address] [address]33- 0402 Oct, [facility] [id number] [place] [address] 63180- 9002 Aug, Cough with hemoptysis R04.2 and BMI 45.0-49.9, adult Z68.42 [facility] [id number] [place] [address] 96387 -5700 Aug, BMI 45.0-49.9, adult Z68.42 and Cough with hemoptysis R04.2 [place] [id number] [place] [address] 05055- 4556 Apr, [place] [id number] [place] [address] 13594- 0772 Apr, Paresthesia R20.2 and Weight gain R63.5 [place] [id number] [place] [address] 20292- 8764 Oct, Right upper quadrant abdominal pain R10.11 ; Stool bloody K92.1 and BMI 40.0-44.9, adult Z68.41 [facility] [id number] [place] [address] 17489- 3094 Oct, [place] [id number] [place] [address] 56972- 7478 September, Anxiety, generalized F41.1 [facility] [id number] [place] [address] 01830- 1890 September, Mild intermittent asthma without complication J45.20 [facility] [address] [address]- 0307 September, [facility] [address] [place] [address] September, [facility] [id number] [place] [address] 17242- 9225 September, Mild intermittent asthma without complication J45.20 ; Globus sensation F45.8 ; Anxiety, generalized F41.1 and depression F53 [facility] [id number] [place] [address] 25001 -0446 Jul, Abscess of breast N61 [place] [address] 71939- 6229 15 Jul, 2015 [place] [id number] [place] [address] 40810- 7140 Jun, Encounter for screening for malignant neoplasm of cervix Z12.4 ; Well woman exam Z01.419 ; BMI 40.0-44.9, adult Z68.41 ; Family history of diabetes mellitus Z83.3 ; Tobacco use Z72.0 ; History of abnormal cervical Pap smear Z87.898 ; Weight gain R63.5 ; Routine screening for STI (sexually transmitted infection) Z11.3 and Blood pressure elevated without history of HTN R03.0 [place] [address] [place] [address] 18318- 1070 Aug, [place] [address] [place] [address] 11736- 1529 Aug, [place] [id number] [place] [address] 97251- 7724 Jul, [facility] [id number] [place] [address] 85486- 1933 Jul, [place] [id number] [place] [address] 82988- 9491 Jun, [facility] [id number] [place] [address] 25425- 9518 Jun, [facility] [place] [facility] [address] [id number] [place] [address]- 1201 May, [facility] [place] [facility] [address] [id number] [place] [address]- 5342 May, [facility] [place] [facility] [address] [facility] [id number] [place] [address]- 0556 Jan, [facility] [place] [facility] [address] [id number] [place] [address]- 8446 24 Jan, 2014 [facility] [place] [facility] [address] [id number] [place] [address]- 4602 Jan, [facility] [place] [facility] [address] [facility] [id number] [place] [address]- 7515 Jan, [facility] [place] [facility] [id number] [place] [address]- 5911 17 Jul, 2013 [facility] [place] [facility] [address] [facility] [id number] [place] [address]- 4663 17 Jul, 2013 [facility] [place] [facility] [id number] [place] [address]- 5942 15 Jul, 2013 [facility] [place] [facility] [address] [facility] [id number] [place] [address]- 4616 15 Jul, 2013 [facility] [place] [facility] [address] [facility] [id number] [place] [address]- 0292 13 Jul, 2013 [facility] [place] [facility] [address] [facility] [id number], [place] [address]- 9151 13 Jul, 2013 [facility] [place] [facility] [address] [facility] [id number] [place] [address]- 7159 Jul, [facility] [place] [facility] [address] [facility] [id number], [place] [address]- 7048 Apr, [facility] [place] [facility] [address] [facility] [id number] 4766 Apr, [facility] [place] [facility] [address] [id number] [place] [address]- 3624 Apr, [facility] [address] [id number] [place] [address]- 9266 Apr, [facility] [address] [id number] [place] [address]- 6446 Jan, [facility] [address] [id number] [place] [address]- 2132 Dec, [facility] [address] [id number] [place] [address]- 1148 Dec, [facility] [address] [id number] [place] [address]- 1690 Dec, [facility] [address] [id number] [place] [address]- 0618 Dec, [facility] [address] [id number] [place] [address]- 0832 September, [facility] [address] [id number] [place] [address]- 5805 Aug, [facility] [address] [id number] [place] [address]- 3141 Aug, [facility] [address] [id number] [place] [address]- 6151 Mar, [facility] [address] [id number] [place] [address]- 1804 Mar, [facility] [address] [id number] [place] [address]- 6028 Oct, [facility] [place] [facility] [address] [id number] [place] [address]- 5158 September, [facility] [address] [id number] [place] [address]- 4402 September, [facility] [address] [id number] [place] [address]- 2359 September, [facility] [address] [id number] [place] [address]- 7447 September, [facility] [place] [facility] [address] [id number] [place] [address]- 8466 Aug, [facility] [place] [facility] [address] [id number] [place] [address]- 5141 Aug, [facility] [place] [facility] [address] [id number] [place] [address]- 3669 Aug, [facility] [place] [facility] [address] [id number] [place] [address]- 4793 Aug, [facility] [place] [facility] [address] [id number] [place] [address]- 7935 Aug, [facility] [address] [id number] [place] [address]- 1033 Jul, [facility] [place] [facility] [address] [id number] [place] [address]- 3577 15 Jul, 2011 [facility] [address] [id number] [place] [address]- 6849 14 Jul, 2011 [facility] [place] [facility] [address] [id number] [place] [address] Jul, [facility] [place] [facility] [address] [id number] [place] [address] Jun, [facility] [place] [facility] [address] [id number] [place] [address] May, [facility] [place] [facility] [address] [id number] [place] [address] May, [facility] [place] [facility] [address] [id number] [place] [address] 16 May, 2011 [facility] [place] [facility] [address] [id number] [place] [address] May, [facility] [place] [facility] [id number] [address] 15 May, 2011 [facility] [id number] [place] [address] 10 Apr, 2011 [facility] [id number] [address] 10 Apr, 2011 [facility] [id number], [place] [address] 07 Apr, 2011 [facility] [id number] [address] 14 Mar, 2011 [facility] [id number], [place] [address] Mar, [facility] [id number], [place] [address] Mar, [facility] [id number], [place] [address] Mar, [facility] [id number], [place] [address] 15 Oct, 2010 IMMUNIZATIONS No Known Immunizations SOCIAL HISTORY Never Assessed REASON FOR VISIT [facility] Contact PLAN OF CARE Activity Details Follow Up prn or as already arranged follow up Reason: VITAL SIGNS MEDICATIONS No Known Medications RESULTS No Results PROCEDURES Procedure Date Ordered Result Body Site No Charge October 15, 2016 INSTRUCTIONS MEDICATIONS ADMINISTERED No Known Medications MEDICAL (GENERAL) HISTORY Type Description Date Medical History asthma Medical History HPV 2013 Surgical History 09/17/16 Hospitalization History RSV/ pneumonia as infant Hospitalization History child
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
[2018-06-06] MEDS ORDERED: ALLEGRA (12:39)
--- NOTE | 2018-06-06 12:52 | ED Integumentary General ---
General Chief Complaint: Allergic Reaction Stated Complaint: RASH Nursing Triage Note: AMB TO TRIAGE WITHOUT DIFFICULTY. COMPLANIS OF RASH FOR OVER A WEEK. HAS SEEN THE DR AND GIVEN CORTIZONE CREAM THAT IS NOT HELPING. TOOK X1 BENADRYL THIS AM. Source: patient Exam Limitations: no limitations History of Present Illness Date Seen by Provider: Jun 06, 2018 Time Seen by Provider: 12:47 Initial Comments Patient is a 27-year-old female who presents to the emergency room with complaints of a generalized rash over her back and torso right cheek that she is had for one week. She was seen at the [facility] and given a topical cortisone cream that is not helping. She has been taking Benadryl her last dose taking this morning. Timing/Duration: week Location: face, torso Possible Cause: no cause identified Associated Symptoms: hives Allergies and Home Medications Allergies Coded Allergies: Penicillins (Verified Allergy, Unknown, 02/15/12) Home Medications Ibuprofen 600 Mg Tablet, 600 MG PO Q6H Prescribed by: ANKIT CALLES on 09/17/16 0126 Patient Home Medication List Home Medication List Reviewed: Yes Review of Systems Review of Systems Constitutional: no symptoms reported, see HPI Skin: see HPI, pruritus, rash Past Vshxdnj-Zacnrt-Fgthug Hx Past Med/Social Hx: Reviewed Nursing Past Med/Soc Hx Patient Social History Alcohol Use: Denies Use Recreational Drug Use: No Smoking Status: Never a Smoker Type Used: Cigarettes Former Smoker, Quit: Jul 30, 2016 2nd Hand Smoke Exposure: No Recent Foreign Travel: No Contact w/Someone Who Travel: No Recent Infectious Disease Expo: No Recent Hopitalizations: No Immunizations Up To Date Tetanus Booster (TDap): Unknown Seasonal Allergies Seasonal Allergies: No Past Medical History Surgeries: Yes Section Respiratory: Yes (pulmonay hypertension) Asthma Currently Using CPAP: No Currently Using BIPAP: No Cardiac: No (States she feels "skipped beats" occasionally) Neurological: No : No Last Menstrual Period: May 24, 2018 Reproductive Disorders: No Sexually Transmitted Disease: Yes (HPV 2014) HIV/AIDS: No Genitourinary: No Gastrointestinal: No Musculoskeletal: No Endocrine: No HEENT: No Loss of Vision: Denies Hearing Impairment: Denies Cancer: No Psychosocial: Yes Anxiety Integumentary: Yes (hx dermatitis) Blood Disorders: No Adverse Reaction/Blood Tranf: No Family Medical History Reviewed Nursing Family Hx Arthritis Maternal grandmother Colon cancer Diabetes mellitus G8 SISTER Maternal grandmother Hypertension Physical Exam Vital Signs Vital Signs - First Documented 06/06/18 12:35 Temp 97.2 Pulse 99 Resp 16 B/P (MAP) 144/92 (109) Pulse Ox 99 O2 Delivery Room Air Capillary Refill : Less Than 3 Seconds General Appearance: WD/WN, no apparent distress HEENT: PERRL/EOMI, normal ENT inspection, TMs normal, pharynx normal Cardiovascular: normal peripheral pulses, regular rate, rhythm, no edema, no gallop, no JVD, no murmur Respiratory: chest non-tender, lungs clear, normal breath sounds, no respiratory distress, no accessory muscle use Skin: normal color, warm/dry Skin Problem Location: face, torso (abdomen back) Skin Problem Character: erythema, rash, thickening, urticarial Progress/Results/Core Measures Results/Orders My Orders Orders - MOOSE BARRY Triamcinolone Acetonide Im (Kenalog-40) (06/06/18 13:00) Vital Signs/I&O 06/06/18 12:35 Temp 97.2 Pulse 99 Resp 16 B/P (MAP) 144/92 (109) Pulse Ox 99 O2 Delivery Room Air Blood Pressure Mean: 109 Departure Impression Primary Impression: Rash Disposition: 01 HOME, SELF-CARE Condition: Stable/Unchanged Departure-Patient Inst. Decision time for Depature: 12:51 Referrals: [facility] (PCP/Family) Primary Care Physician Patient Instructions: Skin Rash (DC) Add. Discharge Instructions: You may continue to use the cortisone cream sparing the face as this could cause thinning of the skin. You may continue to use Benadryl 25-50 mg every 4-6 hours. Do not exceed 12 tablets in 24 hours. Follow-up with your primary care provider within 1 week if no improvement. Return back to the emergency room for any worsening of symptoms, shortness of breath, or any other concerns as needed. All discharge instructions reviewed with patient and/or family. Voiced understanding. MOOSE BARRY Jun 06, 2018 12:52
[2018-06-06] MEDS ORDERED: TRIAMCINOLONE ACET (KENALOG-40) 40 MG/ML 1 ML VIAL IM ONE (13:00)
[2018-06-06 13:20] VITALS: BP 144/92
== END 2018-06-06 13:20 | disposition home or self-care (01) ==
LOC: EDUNIT# 12:22 → ER 12:23
DX: R21 Rash and other nonspecific skin eruption (principal); J45.909 Unspecified asthma, uncomplicated; F41.9 Anxiety disorder, unspecified; Z80.0 Family history of malignant neoplasm of digestive organs; Z86.19 Personal history of other infectious and parasitic diseases; Z88.0 Allergy status to penicillin; Z87.891 Personal history of nicotine dependence; Z98.890 Other specified postprocedural states
CPT/HCPCS: 96372; 99284

== ENCOUNTER 2019-07-03 14:58 | Emergency (ER) | payer SELFPAY ==
[~2019-07-03] VITALS: Ht 168 cm; Wt 106.0 kg
[~2019-07-03 14:58] MED LIST changes: +ALLEGRA
--- NOTE | 2019-07-03 16:36 | Diagnostic Imaging Report ---
CLINICAL INDICATION: Patient with tightness in chest and wheezing and shortness of breath and a little cough for a month. EXAM: Chest x-ray, PA and lateral views. COMPARISONS: Chest x-ray dated 08/08/2016. FINDINGS: Lungs/pleura: Stable calcified granuloma overlying the left mid lung field. Lungs are otherwise clear. There is no pneumothorax. There is no pleural effusion. Mediastinum: Unremarkable. Pulmonary vasculature: Unremarkable. Heart: Unremarkable. Bones/extrathoracic soft tissue: Unremarkable. IMPRESSION: Stable chest x-ray exam with no interval radiographic evidence of acute cardiopulmonary process. Dictated by: Dictated on workstation # [id number]
--- NOTE | 2019-07-03 17:16 | ED Cough/URI ---
General Chief Complaint: Cough/Cold/Flu Symptoms Stated Complaint: COUGH/SOB/CHEST TIGHTNESS Nursing Triage Note: States that she became ill about a month ago- exposed to the flu. Was treated with doxycicline to prevent pneumonia. States that she has never gotten well. Intermittent cough- yellow tinged. Chest tightness- like she cant get a breath and lower rt chest wall and back pain intermittent- sometimes increases with inspiration. no fevers. HX of PPHN Sepsis Screen: No Definite Risk Source: patient Exam Limitations: no limitations History of Present Illness Date Seen by Provider: Jul 03, 2019 Time Seen by Provider: 17:16 Initial Comments 21-year-old female patient presents with complaints of cough, yellow sputum, nasal congestion, postnasal drainage, and sore throat beginning 7-10 days ago. Patient reports being exposed to the flu approximately one month ago and was treated prophylactically with doxycycline to prevent pneumonia. Patient initially reported never getting well, but now states she did improve but states she developed recurrent symptoms of the last 10 days. Initially reported chest tightness, but denies chest tightness, shortness of air, or wheezing at this time. She does complain of right rib pain with coughing and movement. Timing/Duration: constant, week (7-10 days) Severity/Quality: productive cough Modifying Factors: Worse With Coughing Allergies and Home Medications Allergies Coded Allergies: Penicillins (Verified Allergy, Unknown, 02/15/12) Home Medications Albuterol Sulfate 1 Puff Puff, 2 PUFF IH Q6H PRN for SHORTNESS OF BREATH 1 PUFF = 90 MCG Prescribed by: SELENE TELLEZ on 07/03/19 172 Cefdinir 300 Mg Capsule, 300 MG PO BID Prescribed by: SELENE TELLEZ on 07/03/19 1728 Ibuprofen 600 Mg Tablet, 600 MG PO Q6H Prescribed by: ANKIT CALLES on 09/17/16 190 Prednisone 20 Mg Tab, 40 MG PO DAILY Prescribed by: SELENE TELLEZ on 07/03/19 1728 Patient Home Medication List Home Medication List Reviewed: Yes Review of Systems Review of Systems Constitutional: see HPI; No chills, No diaphoresis, No fever; malaise EENTM: see HPI, nose congestion, throat pain; No ear pain, No hoarseness, No nose pain, No throat swelling Respiratory: see HPI, cough; No dyspnea on exertion, No orthopnea; phlegm; No short of breath, No stridor, No wheezing Cardiovascular: No chest pain, No edema, No palpitations, No syncope Gastrointestinal: No abdominal pain, No constipation, No diarrhea, No nausea, No vomiting Genitourinary: no symptoms reported Musculoskeletal: no symptoms reported Skin: no symptoms reported Psychiatric/Neurological: No Symptoms Reported All Other Systems Reviewed Negative Unless Noted: Yes (Negative excepted noted.) Past Ohuadmc-Udljch-Dcvglt Hx Past Med/Social Hx: Reviewed Nursing Past Med/Soc Hx Patient Social History Alcohol Use: Denies Use Recreational Drug Use: No Type Used: Cigarettes Former Smoker, Quit: Jul 30, 2016 2nd Hand Smoke Exposure: No Recent Foreign Travel: No Contact w/Someone Who Travel: No Recent Infectious Disease Expo: No Recent Hopitalizations: No Physical Abuse: No Sexual Abuse: No Mistreated: No Fear: No Immunizations Up To Date Tetanus Booster (TDap): Unknown Seasonal Allergies Seasonal Allergies: No Past Medical History Surgeries: Yes Section Respiratory: Yes (pulmonay hypertension) Asthma Currently Using CPAP: No Currently Using BIPAP: No Cardiac: No (States she feels "skipped beats" occasionally) Palpitations Neurological: No Reproductive Disorders: No Sexually Transmitted Disease: Yes (HPV 2014) HIV/AIDS: No Genitourinary: No Gastrointestinal: No Musculoskeletal: No Endocrine: No HEENT: No Loss of Vision: Denies Hearing Impairment: Denies Cancer: No Psychosocial: Yes Anxiety Integumentary: Yes (hx dermatitis) Blood Disorders: No Adverse Reaction/Blood Tranf: No Family Medical History Reviewed Nursing Family Hx Arthritis Maternal grandmother Colon cancer Diabetes mellitus G8 SISTER Maternal grandmother Hypertension No Pertinent Family Hx Physical Exam Vital Signs - First Documented 07/03/19 07/03/19 15:12 17:38 Temp 36.8 Pulse 125 Resp 16 B/P (MAP) 133/76 (95) Pulse Ox 100 O2 Delivery Room Air Capillary Refill : Less Than 3 Seconds Height: 5'6.00" Weight: 280lbs. 0.0oz. 127.282809ld; 37.00 BMI Method:Stated General Appearance: WD/WN, no apparent distress Eyes: Bilateral Eye Normal Inspection, Bilateral Eye PERRL, Bilateral Eye EOMI HEENT: PERRL/EOMI, TMs normal, pharyngeal erythema, other (positive nasal congestion without sinus tenderness.) Neck: non-tender, full range of motion, supple, normal inspection Respiratory: lungs clear, normal breath sounds, no respiratory distress, no accessory muscle use, other (right anterior and lateral lower ribs tender to palpation without deformity or swelling.) Cardiovascular: normal peripheral pulses, regular rate, rhythm, no edema, no gallop, no JVD, no murmur Gastrointestinal: normal bowel sounds, non tender, soft, no organomegaly, no pulsatile mass; No distended Extremities: no pedal edema, no calf tenderness, normal capillary refill Neurologic/Psychiatric: alert, normal mood/affect, oriented x 3 Skin: normal color, warm/dry Progress/Results/Core Measures Suspected Sepsis Recent Fever Within 48 Hours: No Infection Criteria Present: None New/Unexplained Altered Menta: No Sepsis Screen: No Definite Risk SIRS Temperature: Pulse: 125 Respiratory Rate: 16 Blood Pressure 133 /76 Mean: 95 Results/Orders Micro Results Microbiology 07/03/19 Influenza Types A,B Antigen (AMBER) - Final, Complete My Orders Orders - SELENE TELLEZ PA Chest Pa/Lat (2 View) (07/03/19 16:01) Influenza A And B Antigens (07/03/19 16:01) Vital Signs/I&O 07/03/19 07/03/19 15:12 17:38 Temp 36.8 36.7 Pulse 125 95 Resp 16 16 B/P (MAP) 133/76 (95) 116/83 Pulse Ox 100 100 O2 Delivery Room Air Capillary Refill : Less Than 3 Seconds Blood Pressure Mean: 95 Diagnostic Imaging Diagonstic Imaging: Xray Plain Films/CT/US/NM/MRI: chest Comments Date of Exam:07/03/19 CHEST PA/LAT (2 VIEW) CLINICAL INDICATION: Patient with tightness in chest and wheezing and shortness of breath and a little cough for a month. EXAM: Chest x-ray, PA and lateral views. COMPARISONS: Chest x-ray dated 08/08/2016. FINDINGS: Lungs/pleura: Stable calcified granuloma overlying the left mid lung field. Lungs are otherwise clear. There is no pneumothorax. There is no pleural effusion. Mediastinum: Unremarkable. Pulmonary vasculature: Unremarkable. Heart: Unremarkable. Bones/extrathoracic soft tissue: Unremarkable. IMPRESSION: Stable chest x-ray exam with no interval radiographic evidence of acute cardiopulmonary process. Dictated by: Dictated on workstation # [id number] Reviewed: Reviewed by Me (radiology report reviewed by me) Departure Communication (Admissions) Patient seen and evaluated. Influenza swab and CXR obtained and results reviewed with the patient. Plan for discharge to home with follow-up as an outpatient with her primary care provider. Impression Primary Impression: Bronchitis Disposition: 01 HOME, SELF-CARE Condition: Improved Departure-Patient Inst. Decision time for Depature: 17:26 Referrals: [facility] (PCP/Family) Primary Care Physician Patient Instructions: Acute Bronchitis, Adult (DC) Add. Discharge Instructions: All discharge instructions reviewed with patient and/or family. Voiced understanding. Medications as instructed. Tylenol extra strength [id number] as directed for pain or fever. Ibuprofen 800 mg by mouth every 8 hours as needed for pain or fever. Stable hydrated. Pknm-mif-mhdngem decongestants and antihistamines as needed for symptomatic relief. Follow-up with your family practitioner for recheck as an outpatient within the next 7-10 days. Call tomorrow morning for appointment time. Return to the emergency department for worsened symptoms or any other concerns. Scripts Albuterol Sulfate (PROAIR HFA) 1 Puff Puff 2 PUFF IH Q6H PRN for SHORTNESS OF BREATH, #1 INHALER 0 Refills 1 PUFF = 90 MCG Prov: SELENE TELLEZ 07/03/19 Prednisone (Prednisone) 20 Mg Tab 40 MG PO DAILY, #10 TAB 0 Refills Prov: SELENE TELLEZ 07/03/19 Cefdinir (Cefdinir) 300 Mg Capsule 300 MG PO BID, #14 CAP 0 Refills Prov: SELENE TELLEZ 07/03/19 SELENE TELLEZ Jul 03, 2019 17:16
[2019-07-03] MEDS ORDERED: PRD20T PO (17:28)
[2019-07-03] MEDS ORDERED: RT-ALBUINH IH (17:28)
[2019-07-03] MEDS ORDERED: CEFD300C3 PO (17:28)
[2019-07-03 17:38] VITALS: BP 116/83
== END 2019-07-03 17:39 | disposition home or self-care (01) ==
LOC: EDUNIT# 14:58 → ER 14:59
DX: J45.909 Unspecified asthma, uncomplicated (principal); Z88.0 Allergy status to penicillin; Z87.891 Personal history of nicotine dependence; Z80.0 Family history of malignant neoplasm of digestive organs; Z82.49 Family history of ischemic heart disease and other diseases of the circulatory system
CPT/HCPCS: 71046; 87804

== ENCOUNTER 2019-10-02 12:21 | Emergency (ER) | payer OTHER ==
[~2019-10-02] VITALS: Ht 167 cm; Wt 106.0 kg
[~2019-10-02 12:21] MED LIST changes: +CEFD300C3 PO
--- NOTE | 2019-10-02 12:41 | NUR ---
PT WENT TO THE BATHROOM BUT "FORGOT" TO COLLECT THE SAMPLE.
[2019-10-02 12:58] LABS: BASOPHILS % (AUTO) 0 % (0-10); EOSINOPHILS % (AUTO) 1 % (0-10); HEMATOCRIT 45 % (35-52); HEMOGLOBIN 14.8 G/DL (11.5-16.0); LYMPHOCYTES # (AUTO) 1.7 X 10^3 (1.0-4.0); LYMPHOCYTES % (AUTO) 22 % (12-44); MEAN CORPUSCULAR HEMOGLOBIN 27 PG (25-34); MEAN CORPUSCULAR HGB CONC 33 G/DL (32-36); MEAN CORPUSCULAR VOLUME 83 FL (80-99); MEAN PLATELET VOLUME 10.1 FL (7.4-10.4); MONOCYTES # (AUTO) 0.4 X 10^3 (0.0-1.0); MONOCYTES % (AUTO) 6 % (0-12); NEUTROPHILS # (AUTO) 5.6 X 10^3 (1.8-7.8); NEUTROPHILS % (AUTO) 72 % (42-75); PLATELET COUNT 292 10^3/uL (130-400); RED CELL DISTRIBUTION WIDTH 14.2 % (10.0-14.5); WHITE BLOOD COUNT 7.8 10^3/uL (4.3-11.0)
[2019-10-02] MEDS ORDERED: NS IV 1000 ML 1,000 ML IV SCH (12:58)
[2019-10-02 13:06] LABS: ALBUMIN 4.4 GM/DL (3.2-4.5); CHLORIDE 105 MMOL/L (98-107); POTASSIUM 3.8 MMOL/L (3.6-5.0); SODIUM 138 MMOL/L (135-145)
[2019-10-02 13:07] LABS: CALCIUM 9.2 MG/DL (8.5-10.1)
[2019-10-02 13:08] LABS: GLUCOSE 149 MG/DL (70-105); TOTAL PROTEIN 7.9 GM/DL (6.4-8.2)
[2019-10-02 13:10] LABS: BILIRUBIN,TOTAL 0.7 MG/DL (0.1-1.0); CARBON DIOXIDE 21 MMOL/L (21-32)
[2019-10-02 13:12] LABS: ALKALINE PHOSPHATASE 82 U/L (40-136); CREATININE SERUM 0.87 MG/DL (0.60-1.30); GFR ESTIMATED > 60
[2019-10-02 13:13] VITALS: BP 138/81
[2019-10-02 13:13] LABS: BUN/CREATININE RATIO 11
[2019-10-02 13:15] LABS: ALANINE AMINOTRANSFERASE 14 U/L (0-55)
--- NOTE | 2019-10-02 13:26 | ED Respiratory ---
General Chief Complaint: General Problems/Pain Stated Complaint: SOB/COUGH/COVID EXPOSURE Nursing Triage Note: AMBULATED TO [facility] WITH MULTIPLE COMPLAINTS. PT TEARFUL AND STATES FOR A FEW DAYS SHE HAS HAD TIGHTNESS IN HER CHEST, COUGHING, NUMBESS IN LEGS BUT MORE SO IN HER RIGHT, PAIN ON THE LEFT SIDE OF HER NECK, AND WAS CHILLING AND THINKS SHE HAD A FEVER X2 DAYS AGO. STATES 2 WEEKS AGO TODAY SHE WAS EXPOSED TO THE 8 YEAR OLD WHO TESTED POSITIVE FOR COVID. PT ANXIOUS. History of Present Illness Date Seen by Provider: October 02, 2019 Time Seen by Provider: 12:30 Initial Comments 29-year-old female presents with chest tightness, nonproductive cough, post nasal drainage, possible fevers and chills, NO SOA or Resp distress. Symptoms have been present for 2 days. She has been exposed to a 8-year-old patient who had diagnosis of COVID-19 approximately two weeks ago, she has not been isolating and was not tested for COVID 19. She states that she was not told to isolate. Patient is extremely anxious about this, she has history of anxiety but has never been treated for it. No appetite for 2 days but reports normal smell and taste, but went to [employer] and ate eggs and hashbrowns this morning, then vomited. Has albuterol inhaler, used it yesterday, hasn't needed it today. She reports fatigue, she moved 2 weeks ago and hasn't been able to unpack. Timing/Duration: getting worse Prior Episodes/Possible Cause: no prior episodes Associated Symptoms: fever/chills; No shortness of breath Allergies and Home Medications Allergies Coded Allergies: Penicillins (Verified Allergy, Unknown, 02/15/12) Home Medications Albuterol Sulfate 1 Puff Puff, 2 PUFF IH Q6H PRN for SHORTNESS OF BREATH 1 PUFF = 90 MCG Prescribed by: SELENE TELLEZ on 07/03/191727 Cefdinir 300 Mg Capsule, 300 MG PO BID Prescribed by: SELENE TELLEZ on 07/03/191727 Ibuprofen 600 Mg Tablet, 600 MG PO Q6H Prescribed by: ANKIT CALLES on 09/17/16 190 Prednisone 20 Mg Tab, 40 MG PO DAILY Prescribed by: SELENE TELLEZ on 2/2/20 1728 Patient Home Medication List Home Medication List Reviewed: Yes Review of Systems Review of Systems Constitutional: see HPI, chills EENTM: see HPI, no symptoms reported Respiratory: see HPI, cough Cardiovascular: no symptoms reported, see HPI Gastrointestinal: no symptoms reported, see HPI Genitourinary: no symptoms reported, see HPI Skin: no symptoms reported Psychiatric/Neurological: See HPI, Anxiety All Other Systems Reviewed Negative Unless Noted: Yes Past Ocmeybn-Axtgwy-Rerlwk Hx Past Med/Social Hx: Reviewed Nursing Past Med/Soc Hx Patient Social History Alcohol Use: Occasionally Uses Recreational Drug Use: No Smoking Status: Current Everyday Smoker Type Used: Cigarettes Former Smoker, Quit: Jul 30, 2016 2nd Hand Smoke Exposure: No Recent Foreign Travel: No Contact w/Someone Who Travel: No Recent Infectious Disease Expo: No Recent Hopitalizations: No Immunizations Up To Date Tetanus Booster (TDap): Unknown Seasonal Allergies Seasonal Allergies: No Past Medical History Surgeries: Yes Section Respiratory: Yes (pulmonay hypertension) Asthma Currently Using CPAP: No Currently Using BIPAP: No Cardiac: No (States she feels "skipped beats" occasionally) Palpitations Neurological: No Reproductive Disorders: No Sexually Transmitted Disease: Yes (HPV 2014) HIV/AIDS: No Genitourinary: No Gastrointestinal: No Musculoskeletal: No Endocrine: No HEENT: No Loss of Vision: Denies Hearing Impairment: Denies Cancer: No Psychosocial: Yes Anxiety Integumentary: Yes (hx dermatitis) Blood Disorders: No Adverse Reaction/Blood Tranf: No Family Medical History Arthritis Maternal grandmother Colon cancer Diabetes mellitus G8 SISTER Maternal grandmother Hypertension No Pertinent Family Hx Physical Exam Vital Signs - First Documented 10/02/19 10/02/19 12:25 13:13 Temp 36.9 Pulse 145 Resp 16 B/P (MAP) 151/79 (103) Pulse Ox 97 O2 Delivery Room Air Capillary Refill : Less Than 3 Seconds Height: 5'6.00" Weight: 280lbs. 0.0oz. 127.172779xo; 38.00 BMI Method:Stated General Appearance: WD/WN, no apparent distress Eyes: Bilateral Eye Normal Inspection, Bilateral Eye PERRL, Bilateral Eye EOMI HEENT: PERRL/EOMI, normal ENT inspection, TMs normal, pharynx normal Neck: non-tender, full range of motion, supple, normal inspection Respiratory: chest non-tender, lungs clear, normal breath sounds, no respiratory distress Cardiovascular: normal peripheral pulses, regular rate, rhythm, no edema, tachycardia (90-110) Gastrointestinal: normal bowel sounds, non tender, soft Extremities: normal range of motion, non-tender, normal inspection, normal capillary refill Neurologic/Psychiatric: no motor/sensory deficits, alert, normal mood/affect, oriented x 3 Skin: normal color, warm/dry; No rash Progress/Results/Core Measures Suspected Sepsis Recent Fever Within 48 Hours: No Infection Criteria Present: None New/Unexplained Altered Menta: No Sepsis Screen: No Definite Risk SIRS Temperature: Pulse: 99 Respiratory Rate: 16 Laboratory Tests 10/02/19 12:45: White Blood Count 7.8 Blood Pressure 138 /81 Mean: 100 Laboratory Tests 10/02/19 12:45: Creatinine 0.87, Platelet Count 292, Total Bilirubin 0.7 Results/Orders Lab Results Laboratory Tests Test 10/02/19 12:22 10/02/19 12:45 10/02/19 13:05 Range/Units Urine Color STRAW Urine Clarity CLEAR Urine pH 6.0 5-9 Urine Specific [place] 1.005 L 1.016-1.022 Urine Protein NEGATIVE NEGATIVE Urine Glucose (UA) NEGATIVE NEGATIVE Urine Ketones NEGATIVE NEGATIVE Urine Nitrite NEGATIVE NEGATIVE Urine Bilirubin NEGATIVE NEGATIVE Urine Urobilinogen 1.0 < = 1.0 MG/DL Urine Leukocyte Esterase NEGATIVE NEGATIVE Urine RBC (Auto) 3+ H NEGATIVE Urine RBC 0 /HPF Urine WBC 0 /HPF Urine Crystals NONE /LPF Urine Bacteria TRACE /HPF Urine Casts NONE /LPF Urine Mucus NEGATIVE /LPF Urine Culture Indicated NO White Blood Count 7.8 4.3-11.0 10^3/uL Red Blood Count 5.49 4.35-5.85 10^6/uL Hemoglobin 14.8 11.5-16.0 G/DL Hematocrit 45 35-52 % Mean Corpuscular Volume 83 80-99 FL Mean Corpuscular Hemoglobin 27 25-34 PG Mean Corpuscular Hemoglobin Concent 33 32-36 G/DL Red Cell Distribution Width 14.2 10.0-14.5 % Platelet Count 292 130-400 10^3/uL Mean Platelet Volume 10.1 7.4-10.4 FL Neutrophils (%) (Auto) 72 42-75 % Lymphocytes (%) (Auto) 22 12-44 % Monocytes (%) (Auto) 6 0-12 % Eosinophils (%) (Auto) 1 0-10 % Basophils (%) (Auto) 0 0-10 % Neutrophils # (Auto) 5.6 1.8-7.8 X 10^3 Lymphocytes # (Auto) 1.7 1.0-4.0 X 10^3 Monocytes # (Auto) 0.4 0.0-1.0 X 10^3 Eosinophils # (Auto) 0.0 0.0-0.3 10^3/uL Basophils # (Auto) 0.0 0.0-0.1 10^3/uL Sodium Level 138 135-145 MMOL/L Potassium Level 3.8 3.6-5.0 MMOL/L Chloride Level 105 98-107 MMOL/L Carbon Dioxide Level 21 21-32 MMOL/L Anion Gap 12 5-14 MMOL/L Blood Urea Nitrogen 10 7-18 MG/DL Creatinine 0.87 0.60-1.30 MG/DL Estimat Glomerular Filtration Rate > 60 BUN/Creatinine Ratio 11 Glucose Level 149 H 70-105 MG/DL Calcium Level 9.2 8.5-10.1 MG/DL Corrected Calcium 8.9 8.5-10.1 MG/DL Ferritin 22.1 20.0-177.0 ng/mL Total Bilirubin 0.7 0.1-1.0 MG/DL Aspartate Amino Transf (AST/SGOT) 28 5-34 U/L Alanine Aminotransferase (ALT/SGPT) 14 0-55 U/L Alkaline Phosphatase 82 40-136 U/L Lactate Dehydrogenase 188 125-220 U/L Troponin I < 0.028 <0.028 NG/ML C-Reactive Protein High Sensitivity 0.23 0.00-0.50 MG/DL Total Protein 7.9 6.4-8.2 GM/DL Albumin 4.4 3.2-4.5 GM/DL Procalcitonin 0.01 <0.10 NG/ML Micro Results Microbiology 10/02/19 Influenza Types A,B Antigen (AMBER) - Final, Complete My Orders Orders - ISI GLOVER Cbc With Automated Diff (10/02/19 12:22) Comprehensive Metabolic Panel (10/02/19 12:22) Procalcitonin (Pct) (10/02/19 12:22) Hs C Reactive Protein (10/02/19 12:22) LDH (10/02/19 12:22) Influenza A And B Antigens (10/02/19 12:22) Chest 1 View, Ap/Pa Only (10/02/19 12:22) Ua Culture If Indicated (10/02/19 12:22) Urine Bedside (10/02/19 12:22) Ed Iv/Invasive Line Start (10/02/19 12:58) Ns Iv 1000 Ml (Sodium Chloride 0.9%) (10/02/19 12:58) Coronavirus Sars-Cov-2 So 2018 (10/02/19 12:58) Troponin I (10/02/19 13:26) Ferritin (10/02/19 13:26) Adenovirus Detection By Pcr (10/02/19 14:06) Parainfluenza Virus 1,2,3 Pcr (10/02/19 14:06) Vital Signs/I&O 10/02/19 10/02/19 10/02/19 12:25 13:13 14:16 Temp 36.9 Pulse 145 99 91 Resp 16 16 16 B/P (MAP) 151/79 (103) 138/81 (100) 128/64 Pulse Ox 97 97 O2 Delivery Room Air Room Air Room Air Capillary Refill : Less Than 3 Seconds Blood Pressure Mean: 100 Progress Note : Time: 12:30 Progress Note Patient seen and evaluated, will obtain labs and Chest xray. NS 1 L IV 1310 pulse 80s-90s. No anxiety at this time. Denies chest pain, tightness or SOA. 1345 Labs all WNL. Discussed elevated glucose, no history of DM. 1400 all lab and x-ray results discussed with the patient. General info about COVID 19 discussed at length. Discharge instructions and return precautions reviewed with her. Stressed importance that she isolate at home, until test results returned and avoid social interactions, anytime she isn't feeling well. Diagnostic Imaging Diagonstic Imaging: CT Plain Films/CT/US/NM/MRI: chest Comments NAME: LEANDRO GOINS [facility] REC#: [id number] PT STATUS: REG ER : 1990 PHYSICIAN: ISI GLOVER SENIOR SERVICE TECHNICIAN ADMIT DATE: 10/02/19/ER Draft Date of Exam:10/02/19 CHEST 1 VIEW, AP/PA ONLY Indication: Cough and dyspnea, exposure to COVID-19. Comparison: 07/03/2019. Discussion: Single portable upright view of the chest was obtained. Calcified granuloma within the left midlung is stable. Stable normal heart size. No new consolidation. No pleural fluid or pneumothorax. No osseous abnormality. Impression: 1. No acute cardiopulmonary process. Dictated on workstation # [id number] Dict: 10/02/19 1326 Trans: 10/02/19 1337 CV [id number] Interpreted by: TSERING SWANN MD Electronically signed by: Departure Impression Primary Impression: Cough Additional Impression: Flu-like symptoms Disposition: HOME, SELF-CARE Condition: Stable Departure-Patient Inst. Decision time for Depature: 14:00 Referrals: [facility] [place]) Primary Care Physician Patient Instructions: Coronavirus Disease 2019 (COVID-19) (DC), Cough, Adult (DC) Add. Discharge Instructions: Self Isolate and have any close contacts for the last 2 weeks, isolate until your results are back. Do NOT leave your home, until your test results are called to you. If any household members begin to have symptoms: call their Primary Care [facility] or [facility] for screening to determine if testing is necessary. Increase water intake, 16 oz every 2-3 hours. Tylenol 650 mg alternating with Ibuprofen 600 mg every 4 hours for pain, fever or body aches. Call your primary care provider, if symptoms are not improving or worsen. Use your inhaler 2 puffs every 4 hours, for chest tightness, cough or difficulty to breath. Return to Emergency Dept for fever greater than 101, not relieved by Tylenol/Ibuprofen, difficulty breathing not relived by inhaler, or new, urgent health care needs. All discharge instructions reviewed with patient and/or family. Voiced under standing. Copy Copies To 1: JONO FUNES AMY ARNP October 02, 2019 13:26
--- NOTE | 2019-10-02 13:37 | Diagnostic Imaging Report ---
Indication: Cough and dyspnea, exposure to COVID-19. Comparison: 07/03/2019. Discussion: Single portable upright view of the chest was obtained. Calcified granuloma within the left midlung is stable. Stable normal heart size. No new consolidation. No pleural fluid or pneumothorax. No osseous abnormality. Impression: 1. No acute cardiopulmonary process. Dictated by: Dictated on workstation # [id number]
--- NOTE | 2019-10-02 13:45 | NUR ---
ISI HERE TO SEE PT AT THIS TIME.
[2019-10-02 14:01] LABS: CLARITY,URINE CLEAR; COLOR,URINE STRAW
[2019-10-02 14:02] LABS: BILIRUBIN,URINE NEGATIVE (NEGATIVE); GLUCOSE, URINE (UA) NEGATIVE (NEGATIVE); KETONES,URINE NEGATIVE (NEGATIVE); LEUKOCYTE ESTERASE ,URINE NEGATIVE (NEGATIVE); NITRITE,URINE NEGATIVE (NEGATIVE); PROTEIN,URINE NEGATIVE (NEGATIVE); RBC,URINE 0 /HPF; WBC,URINE 0 /HPF
[2019-10-02 14:03] LABS: BACTERIA,URINE TRACE /HPF
[2019-10-02 14:16] VITALS: BP 128/64
[2019-10-04 14:47] LABS: PARAINFLU 1 PCR Not Detected (Not Detected); PARAINFLU 2 PCR Not Detected (Not Detected)
== END 2019-10-02 14:16 | disposition home or self-care (01) ==
LOC: EDUNIT# 12:21 → ER 12:22
DX: R05 Cough (principal); R09.89 Other specified symptoms and signs involving the circulatory and respiratory systems; J45.909 Unspecified asthma, uncomplicated; F17.210 Nicotine dependence, cigarettes, uncomplicated; Z88.0 Allergy status to penicillin; Z79.52 Long term (current) use of systemic steroids; Z82.49 Family history of ischemic heart disease and other diseases of the circulatory system; Z80.0 Family history of malignant neoplasm of digestive organs
CPT/HCPCS: 36415; 71045; 80053; 81000; 82728; 83615; 84145; 84484; 84703; 85025; 86141; 87631; 87635; 87798; 87804

== ENCOUNTER 2019-10-28 01:17 | Emergency (ER) | payer SELFPAY ==
[~2019-10-28] VITALS: Ht 167.4 cm; Wt 105.0 kg
--- NOTE | 2019-10-28 01:47 | ED General ---
General Chief Complaint: General Problems/Pain Stated Complaint: NUMB TONGUE,BALANCE OFF,RT SIDE NECK PAIN, EAR ISS Nursing Triage Note: c/o tongue numbness, started tonight when she woke up 30 minutes ago. Nursing Sepsis Screen: No Definite Risk Source of Information: Patient History of Present Illness Date Seen by Provider: October 28, 2019 Time Seen by Provider: 01:30 Initial Comments PT ARRIVES VIA POV FROM HOME PT STATES "I'VE BEEN HAVING ALOT OF SYMPTOMS"--ALL ONGOING OFF AND ON FOR THE LAST MONTH STATES SHE WAS ASLEEP AND WOKE UP AND THE TIP OF HER TONGUE WAS NUMB--IS BETTER NOW STATES SHE HAS BEEN HAVING MULTIPLE, DIFFERENT SYMPTOMS --ALL OFF AND ON, AND NO OTHER SYMPTOMS PRESENT AT THIS TIME STATES SHE HAS BEEN FEELING OFF BALANCE AT TIMES STATES SHE FEELS LIKE SOMETIMES SHE "CAN'T THINK" STATES FOR SEVERAL WEEKS, BOTH OF HER FEET HAVE BEEN NUMB, BUT RIGHT > LEFT, AND COMES AND GOES AND IS NOT PRESENT NOW STATES THE BACK OF HER NECK/BOTTOM OF HER HEAD HAVE BEEN HURTING OFF AND ON, BUT NOT NOW STATES "MY EARS HAVE BEEN BOTHERING ME"-"ECHOES" WHEN I TALK, AND I HEAR A CRACKLING IN MY EARS" -RIGHT > LEFT "MY SINUSES HAVE BEEN BOTHERING ME" --HAS NOT TAKEN ANYTHING FOR SYMPTOMS NO FEVER/SWEATS/CHILLS NO NECK STIFFNESS NO MOTOR DEFICITS NO VISION CHANGES NO COUGH OR SHORTNESS OF BREATH NO CHEST PAIN NO GI SYMPTOMS WAS SEEN HERE 10/02/19 FOR COUGH, AND HAD BEEN EXPOSED TO CORONAVIRUS--ALL TESTING DONE ON HER WAS NEGATIVE. PT STATES SHE WENT TO [facility] A COUPLE OF WEEKS AGO FOR THESE ISSUES AND WAS TOLD IT WAS FROM ANXIETY. PT DOES NOT TAKE ANY MEDICATIONS, BUT HAS A LONG HISTORY OF ANXIETY PCP: [facility] Allergies and Home Medications Allergies Coded Allergies: Penicillins (Verified Allergy, Unknown, 02/15/12) Home Medications Albuterol Sulfate 1 Puff Puff, 2 PUFF IH Q6H PRN for SHORTNESS OF BREATH 1 PUFF = 90 MCG Prescribed by: SELENE TELLEZ on 07/03/198 Cefdinir 300 Mg Capsule, 300 MG PO BID Prescribed by: SELENE TELLEZ on 07/03/19 1728 Cyclobenzaprine HCl 10 Mg Tablet, 10 MG PO Q8H PRN for SPASMS Prescribed by: NOE MADDOX on 10/28/19306 Fluticasone Propionate 9.9 Ml [place].susp, 2 SPRAY NS DAILY 2 SPRAYS PER NOSTRIL DAILY X 2 DAYS THEN 1 SPRAY DAILY Prescribed by: NOE MADDOX on 10/28/19306 Ibuprofen 600 Mg Tablet, 600 MG PO Q6H Prescribed by: ANKIT CALLES on 09/17/16 190 Loratadine/Pseudoephedrine 1 Each Tab.er.12h, 1 EACH PO BID Prescribed by: NOE MADDOX on 10/28/19306 Methylprednisolone 4 Mg Tab.ds.pk, 4 MG PO UD PER DOSE PACK INSTRUCTIONS Prescribed by: NOE MADDOX on 10/28/19306 Prednisone 20 Mg Tab, 40 MG PO DAILY Prescribed by: SELENE TELLEZ on 07/03/19 1728 Patient Home Medication List Home Medication List Reviewed: Yes Review of Systems Review of Systems Constitutional: No chills, No diaphoresis; dizziness; No fever, No malaise, No weakness EENTM: see HPI, nose congestion; No ear discharge Respiratory: no symptoms reported; No cough, No short of breath Cardiovascular: no symptoms reported; No chest pain, No palpitations, No syncope Gastrointestinal: no symptoms reported; No abdominal pain, No diarrhea, No nausea, No vomiting Genitourinary: no symptoms reported LMP: October 26, 2019 Musculoskeletal: see HPI; No back pain; neck pain Skin: no symptoms reported; No rash Psychiatric/Neurological: See HPI, Anxiety, Headache, Paresthesia; Denies Seizure, Denies Weakness Hematologic/Lymphatic: No Symptoms Reported Immunological/Allergic: no symptoms reported Past Tqllmej-Brnzlf-Fjydal Hx Past Med/Social Hx: Reviewed and Corrections made Patient Social History Alcohol Use: Occasionally Uses Recreational Drug Use: No Smoking Status: Current Everyday Smoker (1 PPD) Type Used: Cigarettes 2nd Hand Smoke Exposure: No Recent Foreign Travel: No Contact w/Someone Who Travel: No Recent Infectious Disease Expo: No Recent Hopitalizations: No Physical Abuse: No Sexual Abuse: No Mistreated: No Fear: No Immunizations Up To Date Tetanus Booster (TDap): Unknown PED Vaccines UTD: Yes Seasonal Allergies Seasonal Allergies: Yes Past Medical History Surgeries: Yes ( X 1) Section Respiratory: Yes (pulmonay hypertension) Asthma Currently Using CPAP: No Currently Using BIPAP: No Cardiac: No (States she feels "skipped beats" occasionally) Palpitations Neurological: No : No Last Menstrual Period: October 26, 2019 Hx : 1 Hx Para: 1 Reproductive Disorders: No Sexually Transmitted Disease: Yes (HPV 2014) HIV/AIDS: No Genitourinary: No Gastrointestinal: No Musculoskeletal: No Endocrine: No HEENT: No Loss of Vision: Denies Hearing Impairment: Denies Cancer: No Psychosocial: Yes Anxiety Integumentary: Yes (hx dermatitis) Blood Disorders: No Adverse Reaction/Blood Tranf: No Family Medical History Arthritis Maternal grandmother Colon cancer Diabetes mellitus G8 SISTER Maternal grandmother Hypertension No Pertinent Family Hx Physical Exam Vital Signs Vital Signs - First Documented 10/28/19 01:26 Temp 36.2 Pulse 111 Resp 20 B/P (MAP) 121/87 (98) Pulse Ox 100 Capillary Refill : Less Than 3 Seconds Height, Weight, BMI Height: 5'6.00" Weight: 280lbs. 0.0oz. [id number]; 37.00 BMI Method:Stated General Appearance: No Apparent Distress, WD/WN, Anxious (TEARFUL) HEENT: PERRL/EOMI, Pharynx Normal, Moist Mucous Membranes; No Pharyngeal Erythema, No Photophobia, No Tonsillar Exudate; Other (RIGHT TM WITH EFFUSION; TONGUE AND ORAL CAVITY ARE NORMAL. ) Neck: Full Range of Motion, Supple; No Carotid Bruit, No JVD; Tender Lateral (RIGHT PARACERVICAL VERTEBRAL MUSCLE SPASM AND TENDERNESS-PALPATION REPRODUCES PAIN ) Respiratory: Normal Breath Sounds, No Accessory Muscle Use, No Respiratory Distress Cardiovascular: Regular Rate, Rhythm, No Edema, No Gallop, No JVD, No Murmur, Normal Peripheral Pulses Gastrointestinal: No Organomegaly, No Pulsatile Mass, Non Tender, Soft Back: Normal Inspection, No CVA Tenderness, No Vertebral Tenderness Extremity: Normal Capillary Refill, Normal Inspection, Normal Range of Motion, Non Tender, No Calf Tenderness, No Pedal Edema Neurologic/Psychiatric: Alert, Oriented x3, No Motor/Sensory Deficits, hospitalist physician II- XII Norm as Tested; No Abnormal Cerebellar Tests, No Abnormal Gait, No Aphasia Skin: Normal Color, Warm/Dry; No Rash Progress/Results/Core Measures Suspected Sepsis Recent Fever Within 48 Hours: No Infection Criteria Present: None New/Unexplained Altered Menta: No Sepsis Screen: No Definite Risk SIRS Temperature: Pulse: 111 Respiratory Rate: 20 Laboratory Tests 10/28/19 01:46: White Blood Count 8.3 Blood Pressure 121 /87 Mean: 98 Laboratory Tests 10/28/19 01:46: Creatinine 0.78, Platelet Count 257, Total Bilirubin 0.3 Results/Orders Lab Results Laboratory Tests Test 10/28/19 01:46 10/28/19 01:51 Range/Units White Blood Count 8.3 4.3-11.0 10^3/uL Red Blood Count 5.15 4.35-5.85 10^6/uL Hemoglobin 14.0 11.5-16.0 G/DL Hematocrit 43 35-52 % Mean Corpuscular Volume 83 80-99 FL Mean Corpuscular Hemoglobin 27 25-34 PG Mean Corpuscular Hemoglobin Concent 33 32-36 G/DL Red Cell Distribution Width 13.9 10.0-14.5 % Platelet Count 257 130-400 10^3/uL Mean Platelet Volume 10.5 H 7.4-10.4 FL Neutrophils (%) (Auto) 51 42-75 % Lymphocytes (%) (Auto) 41 12-44 % Monocytes (%) (Auto) 7 0-12 % Eosinophils (%) (Auto) 1 0-10 % Basophils (%) (Auto) 0 0-10 % Neutrophils # (Auto) 4.2 1.8-7.8 X 10^3 Lymphocytes # (Auto) 3.4 1.0-4.0 X 10^3 Monocytes # (Auto) 0.5 0.0-1.0 X 10^3 Eosinophils # (Auto) 0.1 0.0-0.3 10^3/uL Basophils # (Auto) 0.0 0.0-0.1 10^3/uL Sodium Level 135 135-145 MMOL/L Potassium Level 5.4 H 3.6-5.0 MMOL/L Chloride Level 105 98-107 MMOL/L Carbon Dioxide Level 18 L 21-32 MMOL/L Anion Gap 12 5-14 MMOL/L Blood Urea Nitrogen 6 L 7-18 MG/DL Creatinine 0.78 0.60-1.30 MG/DL Estimat Glomerular Filtration Rate > 60 BUN/Creatinine Ratio 8 Glucose Level 100 70-105 MG/DL Calcium Level 8.9 8.5-10.1 MG/DL Corrected Calcium 8.9 8.5-10.1 MG/DL Magnesium Level 2.1 1.6-2.4 MG/DL Total Bilirubin 0.3 0.1-1.0 MG/DL Aspartate Amino Transf (AST/SGOT) 34 5-34 U/L Alanine Aminotransferase (ALT/SGPT) 17 0-55 U/L Alkaline Phosphatase 59 40-136 U/L Total Creatine Kinase 132 29-168 U/L Creatine Kinase MB 0.8 <6.6 NG/ML Myoglobin 20.0 10.0-92.0 NG/ML Total Protein 7.7 6.4-8.2 GM/DL Albumin 4.0 3.2-4.5 GM/DL TSH [place] Testing 3.77 0.35-4.94 UIU/ML Salicylates Level < 5.0 L 5.0-20.0 MG/DL Acetaminophen Level < 10 L 10-30 UG/ML Serum Alcohol < 10 <10 MG/DL Urine Color YELLOW Urine Clarity CLEAR Urine pH 7.0 5-9 Urine Specific [place] <=1.005 1.016-1.022 Urine Protein NEGATIVE NEGATIVE Urine Glucose (UA) NEGATIVE NEGATIVE Urine Ketones NEGATIVE NEGATIVE Urine Nitrite NEGATIVE NEGATIVE Urine Bilirubin NEGATIVE NEGATIVE Urine Urobilinogen 0.2 < = 1.0 MG/DL Urine Leukocyte Esterase TRACE H NEGATIVE Urine RBC (Auto) 3+ H NEGATIVE Urine RBC 2-5 H /HPF Urine WBC NONE /HPF Urine Squamous Epithelial Cells 5-10 /HPF Urine Crystals NONE /LPF Urine Bacteria TRACE /HPF Urine Casts NONE /LPF Urine Mucus SMALL H /LPF Urine Culture Indicated NO Urine Opiates Screen NEGATIVE NEGATIVE Urine Oxycodone Screen NEGATIVE NEGATIVE Urine Methadone Screen NEGATIVE NEGATIVE Urine Propoxyphene Screen NEGATIVE NEGATIVE Urine Barbiturates Screen NEGATIVE NEGATIVE Ur Tricyclic Antidepressants Screen NEGATIVE NEGATIVE Urine Phencyclidine Screen NEGATIVE NEGATIVE Urine Amphetamines Screen NEGATIVE NEGATIVE Urine Methamphetamines Screen NEGATIVE NEGATIVE Urine Benzodiazepines Screen NEGATIVE NEGATIVE Urine Cocaine Screen NEGATIVE NEGATIVE Urine Cannabinoids Screen NEGATIVE NEGATIVE My Orders Orders - NOE MADDOX DO Ed Iv/Invasive Line Start (10/28/19 01:37) Urine Bedside (10/28/19 01:37) Ekg Tracing (10/28/19 01:37) Monitor-Rhythm Ecg Trace Only (10/28/19 01:37) Ct Head/Face/Cervical Wo (10/28/19 01:37) Chest Pa/Lat (2 View) (10/28/19 01:37) Acetaminophen (10/28/19 01:37) Alcohol (10/28/19 01:37) Cbc With Automated Diff (10/28/19 01:37) Comprehensive Metabolic Panel (10/28/19 01:37) Creatine Kinase (10/28/19 01:37) Creatine Kinase Mb (10/28/19 01:37) Drug Screen Stat (Urine) (10/28/19 01:37) Magnesium (10/28/19 01:37) Salicylate (10/28/19 01:37) Thyroid Analyzer (10/28/19 01:37) Ua Culture If Indicated (10/28/19 01:37) Myoglobin Serum (10/28/19 01:37) Vital Signs/I&O 10/28/19 10/28/19 01:26 03:15 Temp 36.2 Pulse 111 94 Resp 20 20 B/P (MAP) 121/87 (98) 124/70 (98) Pulse Ox 100 98 Capillary Refill : Less Than 3 Seconds Blood Pressure Mean: 98 Progress Note : Progress Note UNEVENTFUL ER STAY NO SYMPTOMS DURING STAY ADVISED PT OF IMPORTANCE OF FOLLOW UP APPOINTMENT WITH [facility] FOR FURTHER EVALUATION OF SYMPTOMS, AND POSSIBLE NEED FOR ADDITIONAL TESTING AND/OR REFERRAL TO SPECIALISTS IF HER SYMPTOMS PERSIST. ECG Initial ECG Impression Date: October 28, 2019 Initial ECG Impression Time: 01:41 Initial ECG Rate: 112 Initial ECG Rhythm: S.Tach Diagnostic Imaging Comments CXR--NO ACUTE PROCESS, PENDING RADIOLOGIST REVIEW CT HEAD/MAXILLOFACIALS/CERVICAL SPINE--NO ACUTE PROCESS, PER [facility] VIA FAX AT 0241 Reviewed: Reviewed by Me Departure Impression Primary Impression: Right serous otitis media Additional Impressions: RIGHT CERVICAL PARAVERTEBRAL MUSCLE SPASMS AND TENDERNESS TRANSIENT PARESTHESIAS OF FEET AND TONGUE Disposition: 01 HOME, SELF-CARE Condition: Improved Departure-Patient Inst. Referrals: [facility] (PCP/Family) Primary Care Physician Patient Instructions: Generalized Neck Pain (DC), Paresthesias (DC), Serous Otitis Media (DC) Add. Discharge Instructions: LOTS OF FLUIDS FOLLOW UP WITH [facility] IN 1 WEEK FOR FURTHER CARE All discharge instructions reviewed with patient and/or family. Voiced understanding. Scripts Fluticasone Propionate (Flonase Allergy Relief) 9.9 Ml [place].susp 2 SPRAY NS DAILY, #1 EACH 2 SPRAYS PER NOSTRIL DAILY X 2 DAYS THEN 1 SPRAY DAILY Prov: NOE MADDOX DO 10/28/19 Loratadine/Pseudoephedrine (Claritin-D 12 Hour Tablet) 1 Each Tab.er.12h 1 EACH PO BID, #20 TAB Prov: NEO MADDOX DO 10/28/19 Cyclobenzaprine HCl (Cyclobenzaprine HCl) 10 Mg Tablet 10 MG PO Q8H PRN for SPASMS, #15 TAB 0 Refills Prov: NOE MADDOX DO 10/28/19 Methylprednisolone (Medrol) 4 Mg Tab.ds.pk 4 MG PO UD for 6 Days, #21 PKG PER DOSE PACK INSTRUCTIONS Prov: NOE MADDOX DO 10/28/19 NOE MADDOX DO October 28, 2019 01:47
[2019-10-28 01:56] LABS: BASOPHILS % (AUTO) 0 % (0-10); EOSINOPHILS # (AUTO) 0.1 10^3/uL (0.0-0.3); EOSINOPHILS % (AUTO) 1 % (0-10); HEMATOCRIT 43 % (35-52); LYMPHOCYTES # (AUTO) 3.4 X 10^3 (1.0-4.0); LYMPHOCYTES % (AUTO) 41 % (12-44); MEAN CORPUSCULAR HEMOGLOBIN 27 PG (25-34); MEAN CORPUSCULAR HGB CONC 33 G/DL (32-36); MEAN CORPUSCULAR VOLUME 83 FL (80-99); MEAN PLATELET VOLUME 10.5 FL (7.4-10.4); MONOCYTES # (AUTO) 0.5 X 10^3 (0.0-1.0); MONOCYTES % (AUTO) 7 % (0-12); NEUTROPHILS # (AUTO) 4.2 X 10^3 (1.8-7.8); NEUTROPHILS % (AUTO) 51 % (42-75); PLATELET COUNT 257 10^3/uL (130-400); RED CELL DISTRIBUTION WIDTH 13.9 % (10.0-14.5); WHITE BLOOD COUNT 8.3 10^3/uL (4.3-11.0)
[2019-10-28 02:02] LABS: BILIRUBIN,URINE NEGATIVE (NEGATIVE); CLARITY,URINE CLEAR; COLOR,URINE YELLOW; GLUCOSE, URINE (UA) NEGATIVE (NEGATIVE); KETONES,URINE NEGATIVE (NEGATIVE); LEUKOCYTE ESTERASE ,URINE TRACE (NEGATIVE); NITRITE,URINE NEGATIVE (NEGATIVE); PROTEIN,URINE NEGATIVE (NEGATIVE)
[2019-10-28 02:06] LABS: CHLORIDE 105 MMOL/L (98-107); POTASSIUM 5.4 MMOL/L (3.6-5.0); SODIUM 135 MMOL/L (135-145)
[2019-10-28 02:08] LABS: CALCIUM 8.9 MG/DL (8.5-10.1)
[2019-10-28 02:09] LABS: BACTERIA,URINE TRACE /HPF
[2019-10-28 02:09] LABS: GLUCOSE 100 MG/DL (70-105); TOTAL PROTEIN 7.7 GM/DL (6.4-8.2)
[2019-10-28 02:10] LABS: CARBON DIOXIDE 18 MMOL/L (21-32)
[2019-10-28 02:11] LABS: BILIRUBIN,TOTAL 0.3 MG/DL (0.1-1.0)
[2019-10-28 02:13] LABS: ALKALINE PHOSPHATASE 59 U/L (40-136); CREATININE SERUM 0.78 MG/DL (0.60-1.30); GFR ESTIMATED > 60
[2019-10-28 02:15] LABS: BUN/CREATININE RATIO 8
[2019-10-28 02:16] LABS: ALANINE AMINOTRANSFERASE 17 U/L (0-55); MAGNESIUM 2.1 MG/DL (1.6-2.4); SALICYLATE < 5.0 MG/DL (5.0-20.0)
[2019-10-28 02:17] LABS: CREATINE KINASE 132 U/L (29-168)
[2019-10-28 02:20] LABS: AMPHETAMINE SCREEN, URINE NEGATIVE (NEGATIVE); BARBITURATE SCREEN URINE NEGATIVE (NEGATIVE); BENZODIAZEPINES SCREEN URINE NEGATIVE (NEGATIVE); CANNABINOID SCREEN, URINE NEGATIVE (NEGATIVE); COCAINE SCREEN URINE NEGATIVE (NEGATIVE); METHADONE STAT NEGATIVE (NEGATIVE); METHAMPHETAMINE SCREEN URINE S NEGATIVE (NEGATIVE); OPIATE SCREEN URINE NEGATIVE (NEGATIVE); OXYCODONE STAT NEGATIVE (NEGATIVE); PROPOXYPHENE STAT NEGATIVE (NEGATIVE); TRICYCLIC ANTIDEPRESSANTS SCRE NEGATIVE (NEGATIVE)
[2019-10-28 02:25] LABS: CREATINE KINASE MB 0.8 NG/ML (<6.6)
[2019-10-28 02:28] LABS: ACETAMINOPHEN < 10 UG/ML (10-30)
[2019-10-28 02:37] LABS: TSH (THYROID ANALYZER) 3.77 UIU/ML (0.35-4.94)
[2019-10-28] MEDS ORDERED: LORA1TAB59 PO (03:07)
[2019-10-28] MEDS ORDERED: FLUT9.9S NS (03:07)
[2019-10-28] MEDS ORDERED: CYCL10TA9 PO (03:07)
[2019-10-28] MEDS ORDERED: METH4TAB PO (03:07)
[2019-10-28 03:15] VITALS: BP 124/70
--- NOTE | 2019-10-28 06:20 | Diagnostic Imaging Report ---
PROCEDURE: CT head, face, and cervical spine without contrast. TECHNIQUE: Multiple contiguous axial images were obtained through the head, neck, and facial bones without the use of intravenous contrast. Sagittal and coronal reformations through the cervical spine and facial bones were also performed. Auto Exposure Controls were utilized during the CT exam to meet ALARA standards for radiation dose reduction. INDICATION: Tongue numbness. Balance issues. COMPARISON: CT head without contrast 06/08/2017. FINDINGS: CT head and maxillofacial: No intracranial hemorrhage, mass effect, hydrocephalus or extra-axial fluid collections. No CT evidence for territorial infarction. The skull base and calvarium are intact. No maxillofacial fractures. The paranasal sinuses and mastoids are clear. CT cervical spine: Normal alignment. Vertebral body heights are preserved. No fractures. No substantial spondylotic change or evidence of neural impingement on soft tissue windows. The visualized paravertebral soft tissues are unremarkable. Lung apices are clear. IMPRESSION: No acute intracranial or cervical spine CT findings. No maxillofacial fractures. Dictated by: Dictated on workstation # [id number]
--- NOTE | 2019-10-28 07:43 | Diagnostic Imaging Report ---
EXAM: CHEST PA/LAT (2 VIEW) INDICATION: Tongue numbness. Balance issues. COMPARISON: 10/02/2019. FINDINGS: Normal heart size and central pulmonary vascularity. Calcified granuloma in the left midlung. No new focal pulmonary opacity. No pleural effusion or pneumothorax. No acute osseous findings. No significant change. IMPRESSION: No acute cardiopulmonary findings. Dictated by: Dictated on workstation # [id number]
== END 2019-10-28 03:19 | disposition home or self-care (01) ==
LOC: EDUNIT# 01:17 → ER 01:21
DX: H65.91 Unspecified nonsuppurative otitis media, right ear (principal); M62.838 Other muscle spasm; R20.2 Paresthesia of skin; J45.909 Unspecified asthma, uncomplicated; F17.210 Nicotine dependence, cigarettes, uncomplicated; Z88.0 Allergy status to penicillin; Z79.52 Long term (current) use of systemic steroids; Z80.0 Family history of malignant neoplasm of digestive organs; Z82.49 Family history of ischemic heart disease and other diseases of the circulatory system
CPT/HCPCS: 36415; 70450; 70486; 71046; 72125; 80053; 80306; 80320; 80329; 81000; 82550; 82553; 83735; 83874; 84443; 84703; 85025; 93005; 93041

== ENCOUNTER 2020-03-25 16:23 | Emergency (ER) | payer SELFPAY ==
[~2020-03-25] VITALS: Ht 167.7 cm; Wt 99.8 kg
[~2020-03-25 16:23] MED LIST changes: +CYCL10TA9 PO; +FLUT9.9S NS; +LORA1TAB59 PO; +METH4TAB PO
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
[2020-03-25 18:05] VITALS: BP 135/86
== END 2020-03-25 18:05 | disposition home or self-care (01) ==
LOC: EDUNIT# 16:23 → ER 16:24
DX: F41.9 Anxiety disorder, unspecified (principal); J45.909 Unspecified asthma, uncomplicated; Z82.61 Family history of arthritis; Z82.49 Family history of ischemic heart disease and other diseases of the circulatory system; Z83.3 Family history of diabetes mellitus; Z80.0 Family history of malignant neoplasm of digestive organs; Z87.891 Personal history of nicotine dependence; Z88.0 Allergy status to penicillin; Z79.52 Long term (current) use of systemic steroids
CPT/HCPCS: 99283

== ENCOUNTER 2020-08-18 20:09 | Emergency (ER) | payer SELFPAY ==
[~2020-08-18] VITALS: Ht 167.7 cm; Wt 90.7 kg
--- NOTE | 2020-08-18 20:19 | ED General ---
General Stated Complaint: TACHYCARDIA Source of Information: Patient, EMS History of Present Illness Date Seen by Provider: Aug 18, 2020 Time Seen by Provider: 20:12 Initial Comments PT ARRIVES VIA EMS FROM HOME EMS REPORT THAT PT WALKED OUT TO THE AMBULANCE PT C/O ANXIETY AND RAPID HEART RATE--BEGAN SOMETIME THIS EVENING HAS HISTORY OF SAME, AND HAS BEEN PRESCRIBED HYDROXYZINE FOR IT, BUT NEVER TAKES IT AND DID NOT TAKE ANY TODAY PT DRINKS ON A REGULAR BASIS--SEVERAL DAYS A WEEK, AT LEAST A 6 PACK A DAY. STATES SHE HAS THESE SYMPTOMS EVERY TIME SHE DRINKS. PT DRANK ALOT LAST NIGHT--STATES SHE THINKS HER LAST DRINK WAS AROUND MIDNIGHT. DRANK SO MUCH SHE THREW UP. HAS FELT BAD ALL DAY TODAY--HANGOVER SYMPTOMS. STATES SHE HAS HAD SOME WATER AND ORANGE JUICE TODAY. EMS REPORT THAT INITIAL HEART RATE WAS 150, BP 143/74 AND WAS VERY ANXIOUS. PT CALMED SOME AND HR DOWN TO 120, WITH BP 122/57. HEART RATE BACK UP TO 150 WHEN SHE GOT UP AND TRIED TO WALK AGAIN, FEELS LIGHTHEADED, DIZZY AND WEAK WHENEVER SHE TRIES TO STAND UP OR EXERT HERSELF NO CHEST PAIN NO SHORTNESS OF BREATH NO SWEATS NO NAUSEA AT THIS TIME. LMP --ENDED A FEW DAYS AGO. NORMAL. NO CONTROL. LIVING WITH SISTER AND HER FAMILY, NEPHEW GOT SENT HOME FROM SCHOOL THIS WEEK ON QUARANTINE--EXPOSED TO COVID AT SCHOOL PT HAS HAD NASAL DRAINAGE AND COUGH FOR A COUPLE OF WEEKS NO FEVER/SWEATS/CHILLS NO LOSS OF TASTE OR SMELL NO SHORTNESS OF BREATH NO HEADACHE NO BODY ACHES GI SYMPTOMS ONLY RELATED TO HEAVY ALCOHOL USE. PCP: ESTELA Allergies and Home Medications Allergies Coded Allergies: Penicillins (Verified Allergy, Unknown, 02/15/12) Home Medications Albuterol Sulfate 1 Puff Puff, 2 PUFF IH Q6H PRN for SHORTNESS OF BREATH 1 PUFF = 90 MCG Prescribed by: SELENE TELLEZ on 07/03/191727 Cefdinir 300 Mg Capsule, 300 MG PO BID Prescribed by: SELENE TELLEZ on 07/03/191727 Cyclobenzaprine HCl 10 Mg Tablet, 10 MG PO Q8H PRN for SPASMS Prescribed by: NEO MADDOX on 10/28/19 0307 Fluticasone Propionate 9.9 Ml [place].susp, 2 SPRAY NS DAILY 2 SPRAYS PER NOSTRIL DAILY X 2 DAYS THEN 1 SPRAY DAILY Prescribed by: NOE MADDOX on 10/28/19306 Ibuprofen 600 Mg Tablet, 600 MG PO Q6H Prescribed by: ANKIT CALLES on 09/17/16 190 Loratadine/Pseudoephedrine 1 Each Tab.er.12h, 1 EACH PO BID Prescribed by: NOE MADDOX on 10/28/19306 Methylprednisolone 4 Mg Tab.ds.pk, 4 MG PO UD PER DOSE PACK INSTRUCTIONS Prescribed by: NOE MADDOX on 10/28/19306 Prednisone 20 Mg Tab, 40 MG PO DAILY Prescribed by: SELENE TELLEZ on 07/03/19 1728 Patient Home Medication List Home Medication List Reviewed: Yes Review of Systems Review of Systems Constitutional: see HPI, dizziness, weakness EENTM: no symptoms reported Respiratory: no symptoms reported Cardiovascular: see HPI; No chest pain, No edema; palpitations; No syncope, No vascular heart diseas Gastrointestinal: see HPI; No abdominal pain Genitourinary: no symptoms reported Musculoskeletal: no symptoms reported Skin: no symptoms reported Psychiatric/Neurological: See HPI, Anxiety Hematologic/Lymphatic: No Symptoms Reported Immunological/Allergic: no symptoms reported Past Kzkhbmo-Zofuiw-Guvtzz Hx Past Med/Social Hx: Reviewed and Corrections made Patient Social History Alcohol Use: Regular Use Drug of Choice: DENIES Smoking Status: Current Everyday Smoker (1 PPD) Type Used: Cigarettes 2nd Hand Smoke Exposure: No Recent Hopitalizations: No Immunizations Up To Date Tetanus Booster (TDap): Unknown PED Vaccines UTD: Yes Seasonal Allergies Seasonal Allergies: Yes Past Medical History Surgeries: Yes ( X 1) Section Respiratory: Yes (PULMONARY HTN) Asthma Currently Using CPAP: No Currently Using BIPAP: No Cardiac: No Palpitations Neurological: No Reproductive Disorders: No Sexually Transmitted Disease: Yes (HPV 2014) HIV/AIDS: No Genitourinary: No Gastrointestinal: No Musculoskeletal: No Endocrine: No HEENT: No Loss of Vision: Denies Hearing Impairment: Denies Cancer: No Psychosocial: Yes Anxiety Integumentary: Yes (hx dermatitis) Blood Disorders: No Adverse Reaction/Blood Tranf: No Family Medical History Arthritis Maternal grandmother Colon cancer Diabetes mellitus G8 SISTER Maternal grandmother Hypertension No Pertinent Family Hx SOCIAL HISTORY: -ETOH--HEAVY/ REGULAR USE--AT LEAST A 6 PACK A DAY, SEVERAL DAYS A WEEK -DRUGS--DENIES USE -SMOKES 1 PPD Physical Exam Vital Signs Vital Signs - First Documented 08/18/20 20:11 Temp 36.5 Pulse 131 Resp 16 B/P (MAP) 121/78 (92) Pulse Ox 99 O2 Delivery Room Air Capillary Refill : Height, Weight, BMI Height: 5'6.00" Weight: 280lbs. 0.0oz. 127.573250us; 35.00 BMI Method:Stated General Appearance: No Apparent Distress, WD/WN, Other (CALM, COOPERATIVE, SITTING UP, OUTSTRETCHED, DOES NOT APPEAR TO BE IN ANY DISCOMFORT OR DISTRESS. 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 Norm as Tested Skin: Normal Color, Warm/Dry Progress/Results/Core Measures Suspected Sepsis SIRS Temperature: Pulse: Respiratory Rate: Laboratory Tests 08/18/20 21:10: White Blood Count 9.3 Blood Pressure / Mean: Laboratory Tests 08/18/20 21:10: Creatinine 0.73, INR Comment 0.9, Platelet Count 277, Total Bilirubin 0.5 Results/Orders Lab Results Laboratory Tests Test 08/18/20 20:44 08/18/20 21:10 08/18/20 21:25 Range/Units Coronavirus 2019 ([facility]) Negative Negative White Blood Count 9.3 4.3-11.0 10^3/uL Red Blood Count 4.76 3.80-5.11 10^6/uL Hemoglobin 13.6 11.5-16.0 g/dL Hematocrit 42 35-52 % Mean Corpuscular Volume 88 80-99 fL Mean Corpuscular Hemoglobin 29 25-34 pg Mean Corpuscular Hemoglobin Concent 33 32-36 g/dL Red Cell Distribution Width 11.6 10.0-14.5 % Platelet Count 277 130-400 10^3/uL Mean Platelet Volume 9.8 9.0-12.2 fL Immature Granulocyte % (Auto) 0 % Neutrophils (%) (Auto) 72 42-75 % Lymphocytes (%) (Auto) 22 12-44 % Monocytes (%) (Auto) 5 0-12 % Eosinophils (%) (Auto) 0 0-10 % Basophils (%) (Auto) 1 0-10 % Neutrophils # (Auto) 6.7 1.8-7.8 10^3/uL Lymphocytes # (Auto) 2.0 1.0-4.0 10^3/uL Monocytes # (Auto) 0.5 0.0-1.0 10^3/uL Eosinophils # (Auto) 0.0 0.0-0.3 10^3/uL Basophils # (Auto) 0.1 0.0-0.1 10^3/uL Immature Granulocyte # (Auto) 0.0 0.0-0.1 10^3/uL Erythrocyte Sedimentation Rate 6 0-20 MM/HR Prothrombin Time 12.8 12.2-14.7 SEC INR Comment 0.9 0.8-1.4 Activated Partial Thromboplast Time 27 24-35 SEC D-Dimer < 0.27 0.00-0.49 UG/ML Sodium Level 138 135-145 MMOL/L Potassium Level 3.7 3.6-5.0 MMOL/L Chloride Level 105 98-107 MMOL/L Carbon Dioxide Level 22 21-32 MMOL/L Anion Gap 11 5-14 MMOL/L Blood Urea Nitrogen 8 7-18 MG/DL Creatinine 0.73 0.60-1.30 MG/DL Estimat Glomerular Filtration Rate > 60 BUN/Creatinine Ratio 11 Glucose Level 103 70-105 MG/DL Calcium Level 8.5 8.5-10.1 MG/DL Corrected Calcium 8.7 8.5-10.1 MG/DL Magnesium Level 2.0 1.6-2.4 MG/DL Total Bilirubin 0.5 0.1-1.0 MG/DL Aspartate Amino Transf (AST/SGOT) 12 5-34 U/L Alanine Aminotransferase (ALT/SGPT) 10 0-55 U/L Alkaline Phosphatase 62 40-136 U/L Lactate Dehydrogenase 144 125-220 U/L Total Creatine Kinase 92 29-168 U/L Creatine Kinase MB 0.4 <6.6 NG/ML Myoglobin 21.8 10.0-92.0 NG/ML Troponin I < 0.028 <0.028 NG/ML C-Reactive Protein High Sensitivity 0.10 0.00-0.50 MG/DL B-Type Natriuretic Peptide 16.5 <100.0 PG/ML Total Protein 6.6 6.4-8.2 GM/DL Albumin 3.7 3.2-4.5 GM/DL Amylase Level 48 25-125 U/L Lipase 37 8-78 U/L Procalcitonin 0.00 <0.10 NG/ML TSH [place] Testing 1.24 0.35-4.94 UIU/ML Serum Test, Qualitative NEGATIVE NEGATIVE Acetaminophen Level < 10 L 10-30 UG/ML Serum Alcohol < 10 <10 MG/DL Urine Color YELLOW Urine Clarity CLEAR Urine pH 6.0 5-9 Urine Specific [place] 1.020 1.016-1.022 Urine Protein NEGATIVE NEGATIVE Urine Glucose (UA) NEGATIVE NEGATIVE Urine Ketones TRACE H NEGATIVE Urine Nitrite NEGATIVE NEGATIVE Urine Bilirubin NEGATIVE NEGATIVE Urine Urobilinogen 0.2 < = 1.0 MG/DL Urine Leukocyte Esterase NEGATIVE NEGATIVE Urine RBC (Auto) NEGATIVE NEGATIVE Urine RBC NONE /HPF Urine WBC NONE /HPF Urine Squamous Epithelial Cells 10-25 H /HPF Urine Crystals NONE /LPF Urine Bacteria NEGATIVE /HPF Urine Casts NONE /LPF Urine Mucus SMALL H /LPF Urine Culture Indicated NO Urine Opiates Screen NEGATIVE NEGATIVE Urine Oxycodone Screen NEGATIVE NEGATIVE Urine Methadone Screen NEGATIVE NEGATIVE Urine Propoxyphene Screen NEGATIVE NEGATIVE Urine Barbiturates Screen NEGATIVE NEGATIVE Ur Tricyclic Antidepressants Screen NEGATIVE NEGATIVE Urine Phencyclidine Screen NEGATIVE NEGATIVE Urine Amphetamines Screen NEGATIVE NEGATIVE Urine Methamphetamines Screen NEGATIVE NEGATIVE Urine Benzodiazepines Screen NEGATIVE NEGATIVE Urine Cocaine Screen NEGATIVE NEGATIVE Urine Cannabinoids Screen NEGATIVE NEGATIVE My Orders Orders - NOE MADDOX DO Ed Iv/Invasive Line Start (08/18/20 20:17) Ekg Tracing (08/18/20 20:17) Monitor-Rhythm Ecg Trace Only (08/18/20 20:17) Chest 1 View, Ap/Pa Only (08/18/20 20:17) Acetaminophen (08/18/20 20:17) Alcohol (08/18/20 20:17) Amylase (08/18/20 20:17) BNP (08/18/20 20:17) Cbc With Automated Diff (08/18/20 20:17) Comprehensive Metabolic Panel (08/18/20 20:17) Creatine Kinase (08/18/20 20:17) Creatine Kinase Mb (08/18/20 20:17) Drug Screen Stat (Urine) (08/18/20 20:17) Hcg,Qualitative Serum (08/18/20 20:17) Lipase (08/18/20 20:17) Magnesium (08/18/20 20:17) Protime With Inr (08/18/20 20:) Partial Thromboplastin Time (08/18/20 20:17) Thyroid Analyzer (08/18/20 20:17) Ua Culture If Indicated (08/18/20 20:17) Myoglobin Serum (08/18/20 20:17) Troponin I (08/18/20 20:17) Ed Iv/Invasive Line Start (08/18/20 20:17) Lactated Ringers (Lr 1000 Ml Iv Solution (08/18/20 20:30) Fibrin Degradation Products (08/18/20 20:34) Procalcitonin (Pct) (08/18/20 20:34) Hs C Reactive Protein (08/18/20 20:34) Erythrocyte Sedimentation Rate (08/18/20 20:34) LDH (08/18/20 20:34) Coronavirus Sars-Cov-2 So 2018 (08/18/20 20:34) Covid 19 Inhouse Test (08/18/20 20:34) Medications Given in ED Current Medications Medications Dose Ordered Sig/Jodie Route Start Time Stop Time Status Last Admin Dose Admin Lactated Ringer's 1,000 ml @ 0 mls/hr Q0M ONCE IV 08/18/20 20:30 08/18/20 20:31 DC 08/18/20 20:48 0 MLS/HR Vital Signs/I&O 08/18/20 08/18/20 20:11 22:59 Temp 36.5 36.5 Pulse 131 96 Resp 16 16 B/P (MAP) 121/78 (92) 145/96 (92) Pulse Ox 99 98 O2 Delivery Room Air Room Air Capillary Refill : Progress Note : Progress Note PLACED IN ISOLATION ROOM PPE WORN AT ALL TIMES COVID-19 TESTING PERFORMED PT ADVISED OF NEED FOR QUARANTINE GIVEN IV FLUIDS WITH RESOLUTION OF SYMPTOMS--HR DOWN TO 70'S PT ADVISED TO TAKE HER HYDROXYZINE PRESCRIBED IF SHE BEGINS TO FEEL ANXIOUS ECG Initial ECG Impression Date: Aug 18, 2020 Initial ECG Impression Time: 20:28 Initial ECG Rate: 115 Initial ECG Rhythm: S.Tach Diagnostic Imaging Comments CXR--PER RADIOLOGIST REPORT AT 2154 FINDINGS: The heart size is within normal limits and stable when compared to 10/28/2019. The lungs remain clear. There is still no sign of failure, pneumonia or pleural effusion. The benign-appearing nodular density in the left lung seen previously is again evident and no different. The mediastinum is not widened. The osseous structures are intact. IMPRESSION: There is no evidence for active disease. Reviewed: Reviewed by Me Departure Impression Primary Impression: Anxiety Additional Impressions: Hypovolemia Person under investigation for COVID-19 Disposition: HOME, SELF-CARE Condition: Improved Departure-Patient Inst. Referrals: [facility] (PCP/Family) Primary Care Physician Patient Instructions: Anxiety, Adult (DC), Coronavirus Disease 2019 (COVID-19) (DC), Dehydration, Adult (DC), Preventing the Spread of an Infectious Disease Add. Discharge Instructions: HOME, REST LOTS OF CLEAR LIQUIDS--WATER, BROTH, JELLO, GATORADE AVOID ALCOHOL TAKE YOUR HOME HYDROXYZINE PRESCRIBED QUARANTINE ALL HOUSEHOLD MEMBERS FOR THE NEXT 2 WEEKS, OR UNTIL CLEARED BY OR HEALTH DEPT. YOU MAY NEED TO BE RE-TESTED FOR COVID IF YOU OR FAMILY MEMBERS DEVELOP SYMPTOMS NOE MADDOX DO Aug 18, 2020 20:19
[2020-08-18] MEDS ORDERED: LACTATED RINGERS 1,000 ML IV ONE (20:30)
[2020-08-18 21:19] LABS: BASOPHILS # (AUTO) 0.1 10^3/uL (0.0-0.1); BASOPHILS % (AUTO) 1 % (0-10); EOSINOPHILS % (AUTO) 0 % (0-10); HEMATOCRIT 42 % (35-52); HEMOGLOBIN 13.6 g/dL (11.5-16.0); LYMPHOCYTES % (AUTO) 22 % (12-44); MEAN CORPUSCULAR HEMOGLOBIN 29 pg (25-34); MEAN CORPUSCULAR HGB CONC 33 g/dL (32-36); MEAN CORPUSCULAR VOLUME 88 fL (80-99); MEAN PLATELET VOLUME 9.8 fL (9.0-12.2); MONOCYTES # (AUTO) 0.5 10^3/uL (0.0-1.0); MONOCYTES % (AUTO) 5 % (0-12); NEUTROPHILS # (AUTO) 6.7 10^3/uL (1.8-7.8); NEUTROPHILS % (AUTO) 72 % (42-75); PLATELET COUNT 277 10^3/uL (130-400); WHITE BLOOD COUNT 9.3 10^3/uL (4.3-11.0)
[2020-08-18 21:32] LABS: BILIRUBIN,URINE NEGATIVE (NEGATIVE); CLARITY,URINE CLEAR; COLOR,URINE YELLOW; GLUCOSE, URINE (UA) NEGATIVE (NEGATIVE); KETONES,URINE TRACE (NEGATIVE); LEUKOCYTE ESTERASE ,URINE NEGATIVE (NEGATIVE); NITRITE,URINE NEGATIVE (NEGATIVE); PROTEIN,URINE NEGATIVE (NEGATIVE)
[2020-08-18 21:45] LABS: ERYTHROCYTE SEDIMENTATION RATE 6 MM/HR (0-20)
[2020-08-18 21:47] LABS: BACTERIA,URINE NEGATIVE /HPF
--- NOTE | 2020-08-18 21:51 | Diagnostic Imaging Report ---
EXAMINATION: Portable erect AP chest at 9:23 PM INDICATION: Tachycardia FINDINGS: The heart size is within normal limits and stable when compared to 10/28/2019. The lungs remain clear. There is still no sign of failure, pneumonia or pleural effusion. The benign-appearing nodular density in the left lung seen previously is again evident and no different. The mediastinum is not widened. The osseous structures are intact. IMPRESSION: There is no evidence for active disease. Dictated by: Dictated on workstation # [id number]
[2020-08-18 21:52] LABS: ACETAMINOPHEN < 10 UG/ML (10-30); ALANINE AMINOTRANSFERASE 10 U/L (0-55); ALBUMIN 3.7 GM/DL (3.2-4.5); ALKALINE PHOSPHATASE 62 U/L (40-136); AMYLASE 48 U/L (25-125); BILIRUBIN,TOTAL 0.5 MG/DL (0.1-1.0); BUN/CREATININE RATIO 11; CALCIUM 8.5 MG/DL (8.5-10.1); CARBON DIOXIDE 22 MMOL/L (21-32); CHLORIDE 105 MMOL/L (98-107); CREATINE KINASE 92 U/L (29-168); CREATININE SERUM 0.73 MG/DL (0.60-1.30); GFR ESTIMATED > 60; GLUCOSE 103 MG/DL (70-105); LIPASE 37 U/L (8-78); POTASSIUM 3.7 MMOL/L (3.6-5.0); SODIUM 138 MMOL/L (135-145); TOTAL PROTEIN 6.6 GM/DL (6.4-8.2)
[2020-08-18 21:56] LABS: AMPHETAMINE SCREEN, URINE NEGATIVE (NEGATIVE); BARBITURATE SCREEN URINE NEGATIVE (NEGATIVE); BENZODIAZEPINES SCREEN URINE NEGATIVE (NEGATIVE); CANNABINOID SCREEN, URINE NEGATIVE (NEGATIVE); COCAINE SCREEN URINE NEGATIVE (NEGATIVE); METHADONE STAT NEGATIVE (NEGATIVE); METHAMPHETAMINE SCREEN URINE S NEGATIVE (NEGATIVE); OPIATE SCREEN URINE NEGATIVE (NEGATIVE); OXYCODONE STAT NEGATIVE (NEGATIVE); PROPOXYPHENE STAT NEGATIVE (NEGATIVE); TRICYCLIC ANTIDEPRESSANTS SCRE NEGATIVE (NEGATIVE)
[2020-08-18 22:07] LABS: FIBRIN DEGRADATION PRODUCTS < 0.27 UG/ML (0.00-0.49); INR 0.9 (0.8-1.4); PARTIAL THROMBOPLASTIN TIME 27 SEC (24-35); PROTHROMBIN TIME PATIENT 12.8 SEC (12.2-14.7)
[2020-08-18 22:14] LABS: CREATINE KINASE MB 0.4 NG/ML (<6.6); TSH (THYROID ANALYZER) 1.24 UIU/ML (0.35-4.94)
[2020-08-18 22:59] VITALS: BP 145/96
== END 2020-08-18 23:45 | disposition home or self-care (01) ==
LOC: EDUNIT# 20:09 → ER 20:11
DX: F41.9 Anxiety disorder, unspecified (principal); E86.1 Hypovolemia; T43.596A Underdosing of other antipsychotics and neuroleptics, initial encounter; I27.20 Pulmonary hypertension, unspecified; J45.909 Unspecified asthma, uncomplicated; F17.210 Nicotine dependence, cigarettes, uncomplicated; Z91.14 Patient's other noncompliance with medication regimen; Z20.822 Contact with and (suspected) exposure to COVID-19; Z80.0 Family history of malignant neoplasm of digestive organs; Z79.52 Long term (current) use of systemic steroids; Z79.51 Long term (current) use of inhaled steroids; Z88.0 Allergy status to penicillin; Z32.02 Encounter for pregnancy test, result negative
CPT/HCPCS: 71045; 80053; 80306; 81000; 82150; 82550; 82553; 83615; 83690; 83735; 83874; 83880; 84145; 84443; 84484; 84703; 85025; 85379; 85610; 85652; 85730; 86141; 93041; 99284; G0480 ×2; U0002; 36415; 80320; 80329; 87635

== ENCOUNTER 2021-05-13 10:49 | Emergency (ER) | payer SELFPAY ==
[~2021-05-13] VITALS: Ht 167.7 cm; Wt 100.0 kg
[~2021-05-13 10:49] MED LIST changes: +CYCL10TA25 PO; -CYCL10TA9 PO
[2021-05-13 11:05] VITALS: BP 119/82
[2021-05-13] MEDS ORDERED: METH-732 PO (11:25)
[2021-05-13] MEDS ORDERED: PRD20T PO (11:25)
--- NOTE | 2021-05-13 11:25 | ED Back Pain ---
General Chief Complaint: Back Problems Stated Complaint: MUSCLE PAIN;BACK PAIN;STUFFY NOSE;STOMACH PAIN Nursing Triage Note: PT AMB TO TRIAGE W REPORTS OF LOWER BACK PAIN THAT RADIATES TO HER RIGHT LEG AND RLQ X1 WEEK, WORSE PAIN X3 DAYS. PT REPORTS SHE GOT A COVID SWAB AT [facility] 1 WEEK AGO AND CONCERNED IT MAY BE A FALSE NEGATIVE. PT WAS EXPERIENCING MULLEN AND CONGESTION PRIOR TO TODAY. PT A&OX4. Source of Information: Patient Exam Limitations: No Limitations History of Present Illness Date Seen by Provider: May 13, 2021 Time Seen by Provider: 11:24 Initial Comments With 1 week history of headache or nasal congestion. She was worried because this headache reminded her of when she had Covid in November. She [facility] a [facility]. The headache and nasal congestion are gone but she is worried it may have been a false positive. She is also had some low back pain that radiates down the right leg. No red flags for the back pain. No known injury. She is worried about the back pain because her mother is on disability for chronic back pain. Location: Lumbar Spine Timing/Duration: 1-2 Days Severity: Moderate Associated Symptoms: lower back pain Allergies and Home Medications Allergies Coded Allergies: Penicillins (Verified Allergy, Unknown, 02/15/12) Patient Home Medication List Home Medication List Reviewed: Yes Albuterol Sulfate (Proair Hfa) 1 Puff Puff, 2 PUFF IH Q6H PRN for SHORTNESS OF BREATH Prescribed by: SELENE TELLEZ on 07/03/191727 Cefdinir (Cefdinir) 300 Mg Capsule, 300 MG PO BID Prescribed by: SELENE TELLEZ on 07/03/19 172 Cyclobenzaprine HCl (Cyclobenzaprine HCl) 10 Mg Tablet, 10 MG PO Q8H PRN for SPASMS Prescribed by: NOE MADDOX on 10/28/19306 Fluticasone Propionate (Flonase Allergy Relief) 9.9 Ml [place].susp, 2 SPRAY NS DAILY Prescribed by: NOE MADDOX on 10/28/19306 Ibuprofen (Ibuprofen) 600 Mg Tablet, 600 MG PO Q6H Prescribed by: ANKIT CALLES on 09/17/16 190 Loratadine/Pseudoephedrine (Claritin-D 12 Hour Tablet) 1 Each Tab.er.12h, 1 EACH PO BID Prescribed by: NOE MADDOX on 10/28/19 0307 Methocarbamol (Methocarbamol) 750 Mg Tablet, 750 MG PO Q6-8HR Prescribed by: ARLENE SOLITARIO on 05/13/21 112 Methylprednisolone (Medrol) 4 Mg Tab.ds.pk, 4 MG PO UD Prescribed by: NOE MADDOX on 10/28/19 030 Prednisone (Prednisone) 20 Mg Tab, 40 MG PO DAILY Prescribed by: SELENE TELLEZ on 07/03/19 1728 Prednisone (Prednisone) 20 Mg Tab, 40 MG PO DAILY Prescribed by: ARLENE SOLITARIO on 05/13/21 1125 [[place]] , (Reported) Entered as Reported by: SUE BEDOLLA on 06/06/18 1239 Review of Systems Constitutional: see HPI; No chills, No fever EENTM: see HPI Respiratory: no symptoms reported Cardiovascular: no symptoms reported Genitourinary: no symptoms reported Musculoskeletal: see HPI, back pain Skin: no symptoms reported Psychiatric/Neurological: No Symptoms Reported Past Wcvqusb-Wikwns-Mclomd Hx Patient Social History Tobacco Use?: No Use of E-Cig and/or Vaping dev: No Substance use?: No Alcohol Use?: No Immunizations Up To Date Tetanus Booster (TDap): Unknown PED Vaccines UTD: Yes Influenza Vaccine Up-to-Date: No; Not Current First/Initial COVID19 Vaccinat: NONE Second COVID19 Vaccination Juan: NONE Third COVID19 Vaccination Date: NONE COVID19 Vaccine Feather Mixer: NONE Seasonal Allergies Seasonal Allergies: Yes Past Medical History Surgeries: Yes ( X 1) Section Respiratory: Yes (PULMONARY HTN) Asthma Currently Using CPAP: No Currently Using BIPAP: No Cardiac: No Palpitations Neurological: No Reproductive Disorders: No Sexually Transmitted Disease: Yes (HPV 2014) HIV/AIDS: No Genitourinary: No Gastrointestinal: No Musculoskeletal: No Endocrine: No HEENT: No Loss of Vision: Denies Hearing Impairment: Denies Cancer: No Psychosocial: Yes Anxiety Integumentary: Yes (hx dermatitis) Blood Disorders: No Adverse Reaction/Blood Tranf: No Family Medical History Arthritis Maternal grandmother Colon cancer Diabetes mellitus G8 SISTER Maternal grandmother Hypertension No Pertinent Family Hx SOCIAL HISTORY: -ETOH--HEAVY/ REGULAR USE--AT LEAST A 6 PACK A DAY, SEVERAL DAYS A WEEK -DRUGS--DENIES USE -SMOKES 1 PPD Physical Exam Vital Signs Vital Signs - First Documented 05/13/21 11:05 Temp 36.5 Pulse 90 Resp 20 B/P (MAP) 119/82 (94) Pulse Ox 99 O2 Delivery Room Air Capillary Refill : Less Than 3 Seconds Height, Weight, BMI Height: 5'6.00" Weight: 280lbs. 0.0oz. 127.367444og; 35.00 BMI Method:Stated General Appearance: No Apparent Distress, WD/WN, Other (Alert and oriented very pleasant) Neck: Full Range of Motion, Normal Inspection Respiratory: No Accessory Muscle Use, No Respiratory Distress Gastrointestinal: Normal Bowel Sounds, Non Tender, Soft Back: Normal Inspection Extremity: Normal Capillary Refill, Normal Inspection Neurologic/Psychiatric: Alert, Oriented x3 Skin: Normal Color, Warm/Dry Progress/Results/Core Measures Results/Orders Lab Results Laboratory Tests Test 05/13/21 11:10 05/13/21 11:13 Range/Units SARS-CoV-2 RNA (RT-PCR) Not Detected Not Detecte Urine Color YELLOW Urine Clarity CLEAR Urine pH 7.0 5-9 Urine Specific [place] 1.010 L 1.016-1.022 Urine Protein NEGATIVE NEGATIVE Urine Glucose (UA) NEGATIVE NEGATIVE Urine Ketones NEGATIVE NEGATIVE Urine Nitrite NEGATIVE NEGATIVE Urine Bilirubin NEGATIVE NEGATIVE Urine Urobilinogen 0.2 < = 1.0 MG/DL Urine Leukocyte Esterase NEGATIVE NEGATIVE Urine RBC (Auto) NEGATIVE NEGATIVE Urine RBC NONE /HPF Urine WBC NONE /HPF Urine Squamous Epithelial Cells 0-2 /HPF Urine Crystals NONE /LPF Urine Bacteria NEGATIVE /HPF Urine Casts NONE /LPF Urine Mucus NEGATIVE /LPF Urine Culture Indicated NO Urine Test NEGATIVE NEGATIVE My Orders Orders - ARLENE SOLITARIO APRN Ua Culture If Indicated (05/13/21 11:04) Hcg,Qualitative Urine (05/13/21 11:04) Covid 19 Inhouse Test (05/13/21 11:04) Vital Signs/I&O 05/13/21 11:05 Temp 36.5 Pulse 90 Resp 20 B/P (MAP) 119/82 (94) Pulse Ox 99 O2 Delivery Room Air Blood Pressure Mean: 94 Departure Impression Primary Impression: Lumbar radiculopathy Disposition: 01 HOME, SELF-CARE Condition: Stable Departure-Patient Inst. Decision time for Depature: 11:24 Referrals: [facility] (PCP/Family) Primary Care Physician Patient Instructions: Radiculopathy (DC) Add. Discharge Instructions: 1. Medication as directed 2. Return to ER for any concerns or worsening symptoms 3. Follow-up with psychiatric hospital to discuss an MRI and possible referral to neurosurgery if symptoms are persistent. All discharge instructions reviewed with patient and/or family. Voiced understanding. Scripts Hydrocodone/Acetaminophen (Hydrocodone-Acetamin 5-325 mg) 1 Each Tablet 1 TAB PO Q4H PRN for PAIN-MODERATE (5-7), #14 TAB Prov: ARLENE SOLITARIO APRN 05/13/21 Methocarbamol (Methocarbamol) 750 Mg Tablet 750 MG PO Q6-8HR for Back Pain, #14 TAB Prov: ARLENE SOLITARIO APRN 05/13/21 Prednisone (Prednisone) 20 Mg Tab 40 MG PO DAILY, #6 TAB 0 Refills Prov: ARLENE SOLITARIO APRN 05/13/21 Work/School Note: Work Release Form Date Seen in the Emergency Department: May 13, 2021 Return to Work: May 16, 2021 ARLENE SOLITARIO APRN May 13, 2021 11:25
[2021-05-13 11:38] LABS: BILIRUBIN,URINE NEGATIVE (NEGATIVE); CLARITY,URINE CLEAR; COLOR,URINE YELLOW; GLUCOSE, URINE (UA) NEGATIVE (NEGATIVE); KETONES,URINE NEGATIVE (NEGATIVE); LEUKOCYTE ESTERASE ,URINE NEGATIVE (NEGATIVE); NITRITE,URINE NEGATIVE (NEGATIVE); PROTEIN,URINE NEGATIVE (NEGATIVE)
[2021-05-13 11:39] LABS: BACTERIA,URINE NEGATIVE /HPF; SQUAMOUS EPITHELIAL CELL,UR 0-2 /HPF
[2021-05-13] MEDS ORDERED: ACHD5005 PO (12:01)
== END 2021-05-13 12:06 | disposition home or self-care (01) ==
LOC: EDUNIT# 10:49 → ER 10:50
DX: M54.16 Radiculopathy, lumbar region (principal); J45.909 Unspecified asthma, uncomplicated; Z20.822 Contact with and (suspected) exposure to COVID-19
CPT/HCPCS: 81000; 84703; 87636; 99283

== ENCOUNTER 2022-04-23 09:32 | Emergency (ER) | payer SELFPAY ==
[~2022-04-23] VITALS: Ht 167 cm; Wt 90.7 kg
[~2022-04-23 09:32] MED LIST changes: +ACHD5005 PO; +ALBU8.5H6 IH; +METH-732 PO; -RT-ALBUINH IH
--- NOTE | 2022-04-23 10:24 | ED Abdominal Pain ---
General Chief Complaint: OB < 20 WEEKS Stated Complaint: DEHYDRATED | LIGHT HEADED | 6 WKS PREG Nursing Triage Note: ARRIVED VIA AMB TO ROOM 02 WITH COMPLAINTS OF VOMITING X3-4 DAYS. PT IS 6 WEEKS GESTATION. Source of Information: Patient Exam Limitations: No Limitations History of Present Illness Date Seen by Provider: Apr 23, 2022 Time Seen by Provider: 10:10 Initial Comments Patient is a 31-year-old female who presents to the emergency department today with a chief complaint of lower abdominal cramping, nausea and vomiting over the last 3 to 4 days. Patient states that she is approximately 6 weeks with an estimated due date of December 17, 2022. She is a . She states that she has been trying to eat and drink that everything "comes up". She complains of subjective fever. She had COVID in December. She denies cough, shortness of breath. She has had contact with her daughter who is 5 years old who was recently treated for strep. She completed 5 days of cefdinir 2 days ago. She denies diarrhea. No abnormal vaginal discharge. No dysuria, urgency or frequency. No rashes, joint pain or swelling. She feels like she may be dehydrated because she is not been able to hold down any food or water for the last 3 or 4 days. All other review of systems reviewed and negative except as stated. Timing/Duration: 3-4 Days Severity/Quality: Cramping (mild) Location: Suprapubic Radiation: No Radiation Activities at Onset: None Associated Symptoms: Fever/Chills (subjective), Nausea/Vomiting Allergies and Home Medications Allergies Coded Allergies: Penicillins (Verified Allergy, Unknown, 02/15/12) Patient Home Medication List Home Medication List Reviewed: Yes Review of Systems Review of Systems Constitutional: see HPI, fever (subjective) EENTM: Throat Pain Respiratory: No Symptoms Reported Cardiovascular: No Symptoms Reported Gastrointestinal: Abdominal Pain, Nausea, Poor Appetite, Vomiting Genitourinary: No Symptoms Reported Skin: no symptoms reported Psychiatric/Neurological: No Symptoms Reported All Other Systems Reviewed Negative Unless Noted: Yes Past Spxlgfe-Nhekon-Xgjwbc Hx Patient Social History Substance use?: No Alcohol Use?: No Immunizations Up To Date Tetanus Booster (TDap): Unknown PED Vaccines UTD: Yes First/Initial COVID19 Vaccinat: NONE Second COVID19 Vaccination Juan: NONE Third COVID19 Vaccination Date: NONE Seasonal Allergies Seasonal Allergies: Yes Past Medical History Surgeries: Yes ( X 1) Section Respiratory: Yes (PULMONARY HTN) Asthma Currently Using CPAP: No Currently Using BIPAP: No Cardiac: No Palpitations Neurological: No Reproductive Disorders: No Sexually Transmitted Disease: Yes (HPV 2014) HIV/AIDS: No Genitourinary: No Gastrointestinal: No Musculoskeletal: No Endocrine: No HEENT: No Loss of Vision: Denies Hearing Impairment: Denies Cancer: No Psychosocial: Yes Anxiety Integumentary: Yes (hx dermatitis) Blood Disorders: No Adverse Reaction/Blood Tranf: No Family Medical History Arthritis Maternal grandmother Colon cancer Diabetes mellitus G8 SISTER Maternal grandmother Hypertension No Pertinent Family Hx SOCIAL HISTORY: -ETOH--HEAVY/ REGULAR USE--AT LEAST A 6 PACK A DAY, SEVERAL DAYS A WEEK -DRUGS--DENIES USE -SMOKES 1 PPD Physical Exam Vital Signs Vital Signs - First Documented 04/23/22 09:40 Temp 36.7 Pulse 117 Resp 16 B/P (MAP) 141/79 (99) Pulse Ox 100 O2 Delivery Room Air Capillary Refill : Less Than 3 Seconds Height/Weight/BMI Height: 5'6.00" Weight: 280lbs. 0.0oz. 127.665420mr; 32.00 BMI Method:Stated General Appearance: WD/WN, no apparent distress HEENT: PERRL/EOMI, pharynx normal Neck: full range of motion, supple, normal inspection Respiratory: lungs clear, normal breath sounds, no respiratory distress, no accessory muscle use Cardiovascular: regular rate, rhythm Peripheral Pulses: 1+ Radial Pulses (R), 1+ Radial Pulses (L) Gastrointestinal: normal bowel sounds, non tender, soft Extremities: normal range of motion, non-tender, no pedal edema Neurologic/Psychiatric: alert, normal mood/affect, oriented x 3 Skin: normal color, warm/dry Progress/Results/Core Measures Results/Orders Lab Results Laboratory Tests Test 04/23/22 10:28 Range/Units Urine Color YELLOW Urine Clarity CLEAR Urine pH 6.5 5-9 Urine Specific [place] 1.025 H 1.016-1.022 Urine Protein NEGATIVE NEGATIVE Urine Glucose (UA) NEGATIVE NEGATIVE Urine Ketones 2+ H NEGATIVE Urine Nitrite NEGATIVE NEGATIVE Urine Bilirubin NEGATIVE NEGATIVE Urine Urobilinogen 0.2 < = 1.0 MG/DL Urine Leukocyte Esterase NEGATIVE NEGATIVE Urine RBC (Auto) NEGATIVE NEGATIVE Urine RBC NONE /HPF Urine WBC RARE /HPF Urine Squamous Epithelial Cells RARE /HPF Urine Crystals NONE /LPF Urine Bacteria NEGATIVE /HPF Urine Casts NONE /LPF Urine Mucus NEGATIVE /LPF Urine Culture Indicated NO Sodium Level 137 135-145 MMOL/L Potassium Level 4.0 3.6-5.0 MMOL/L Chloride Level 104 98-107 MMOL/L Carbon Dioxide Level 22 21-32 MMOL/L Anion Gap 11 5-14 MMOL/L Blood Urea Nitrogen 7 7-18 MG/DL Creatinine 0.74 0.60-1.30 MG/DL Estimat Glomerular Filtration Rate 112 BUN/Creatinine Ratio 9 Glucose Level 75 70-105 MG/DL Calcium Level 9.6 8.5-10.1 MG/DL Influenza Type A (RT-PCR) Not Detected Not Detecte Influenza Type B (RT-PCR) Not Detected Not Detecte SARS-CoV-2 RNA (RT-PCR) Not Detected Not Detecte My Orders Orders - GERMAN ALONSO MD Ed Iv/Invasive Line Start (04/23/22 10:20) Basic Metabolic Panel (04/23/22 10:20) Covid 19 Inhouse Test (04/23/22 10:20) Ua Culture If Indicated (04/23/22 10:20) Influenza A And B By Pcr (04/23/22 10:20) Isolation Central Supply Req (04/23/22 10:20) Ns Iv 1000 Ml (Sodium Chloride 0.9%) (04/23/22 10:30) Ondansetron Injection (Zofran Injectio (04/23/22 10:30) Medications Given in ED Current Medications Medications Dose Ordered Sig/Jodie Route Start Time Stop Time Status Last Admin Dose Admin Ondansetron HCl 4 mg ONCE ONCE IVP 04/23/22 10:30 04/23/22 10:31 DC 04/23/22 10:30 4 MG Vital Signs/I&O 04/23/22 09:40 Temp 36.7 Pulse 117 Resp 16 B/P (MAP) 141/79 (99) Pulse Ox 100 O2 Delivery Room Air Blood Pressure Mean: 99 Progress Progress Note : Time: 11:16 Progress Note Patient seen and evaluated, 31-year-old female with nausea vomiting, concern for dehydration. Basic labs completed, chemistry, urinalysis, COVID/flu testing. She does have some ketones in her urine. Chemistry is otherwise negative. COVID and flu are negative. Exam is reassuring. She is not tachycardic, does not report any orthostatic symptoms on standing. Clinically, mildly dehydrated with dry lips -she is treated with 4 mg of Zofran and a liter of IV fluids. She feels better. She has follow-up with her OB doctor for her first appointment next week, Dr. Ko. Return precautions provided. All questions are sought and answered. Departure Impression Primary Impression: Nausea and vomiting in Disposition: HOME, SELF-CARE Condition: Improved Departure-Patient Inst. Decision time for Depature: 11:18 [place]: [facility] [place] [facility] [place] Primary Care Physician CARMEN KO MD Patient Instructions: Morning Sickness ED Add. Discharge Instructions: Sip on clear fluids off and on throughout the day to stay well-hydrated. I have prescribed ZOfran/Ondansetron 4mg to take as needed for nausea. You can have this every 8 hours as needed. Vitamin B6 with over the counter "Unisom" combined, once daily can also help with nausea. Bailey candies can help with the feelings of nausea. If you have any worsening symptoms, especially with fever, vomiting, vaginal bleeding, please come back to the Emergency Department for re-evaluation. Scripts Ondansetron (Ondansetron Odt) 4 Mg Tab.rapdis 4 MG SL Q8H PRN for NAUSEA/VOMITING, #10 TAB Prov: GERMAN ALONSO MD 04/23/22 Copy Copies To 1: CARMEN KO MD, KATHRYN M MD Apr 23, 2022 10:24
[2022-04-23] MEDS ORDERED: ONDANSETRON 4 MG/2 ML (SDV) Z0FRAN IVP ONE (10:30)
[2022-04-23] MEDS ORDERED: NS IV 1000 ML 1,000 ML IV SCH (10:30)
[2022-04-23 10:53] LABS: BILIRUBIN,URINE NEGATIVE (NEGATIVE); CLARITY,URINE CLEAR; COLOR,URINE YELLOW; GLUCOSE, URINE (UA) NEGATIVE (NEGATIVE); KETONES,URINE 2+ (NEGATIVE); LEUKOCYTE ESTERASE ,URINE NEGATIVE (NEGATIVE); NITRITE,URINE NEGATIVE (NEGATIVE); PH,URINE 6.5 (5-9); PROTEIN,URINE NEGATIVE (NEGATIVE)
[2022-04-23 10:59] LABS: CALCIUM 9.6 MG/DL (8.5-10.1)
[2022-04-23 11:02] LABS: BACTERIA,URINE NEGATIVE /HPF; SQUAMOUS EPITHELIAL CELL,UR RARE /HPF; WBC,URINE RARE /HPF
[2022-04-23 11:04] LABS: CREATININE SERUM 0.74 MG/DL (0.60-1.30)
[2022-04-23] MEDS ORDERED: ONDA4TAB11 SL (11:20)
[2022-04-23 11:27] VITALS: BP 127/65
== END 2022-04-23 11:27 | disposition home or self-care (01) ==
LOC: EDUNIT# 09:32 → ER 09:35
DX: O21.9 Vomiting of pregnancy, unspecified (principal); O99.281 Endocrine, nutritional and metabolic diseases complicating pregnancy, first trimester; E86.0 Dehydration; Z3A.01 Less than 8 weeks gestation of pregnancy; Z86.16 Personal history of COVID-19; Z20.822 Contact with and (suspected) exposure to COVID-19; Z28.310 Unvaccinated for COVID-19
CPT/HCPCS: 36415; 80048; 81000; 87636; 99283

== ENCOUNTER → 2022-05-29 | Outpatient (CLI) | payer MEDICAID ==
[~2022-05-29] MED LIST changes: +ONDA4TAB11 SL
--- NOTE | 2022-05-29 15:05 | Diagnostic Imaging Report ---
PROCEDURE: US OB SINGLE FETUS <14 WKS. TECHNIQUE: Multiple real-time grayscale images were obtained over the gravid uterus in various projections. INDICATION: dating. There is an intrauterine gestational sac containing a pole consistent with 11 weeks 6 days gestational age. heart rate was recorded at 165 bpm. No rupesh-gestational sac hemorrhage is identified. Adnexal evaluation is unremarkable. No adnexal mass or free fluid is detected. IMPRESSION: Single live IUP 11 weeks 6 days gestational age. Estimated date of confinement sonographically is 12/12/2022. Dictated by: Dictated on workstation # [id number]
== END ==
LOC: RAD 14:00
PROVIDERS: ATTEND Family Medicine
DX: Z34.91 Encounter for supervision of normal pregnancy, unspecified, first trimester (principal); Z3A.11 11 weeks gestation of pregnancy
CPT/HCPCS: 76801

== ENCOUNTER → 2022-07-28 | Outpatient (CLI) | payer MEDICAID ==
--- NOTE | 2022-07-28 17:03 | Diagnostic Imaging Report ---
INDICATION: ultrasound TECHNIQUE: Multiple real-time grayscale images were obtained over the gravid uterus. COMPARISON: None FINDINGS: Biometrical measurements are as follows: Biparietal 4.66 cm, age 20 weeks 1 days. Head circumference 18.25 cm, age 20 weeks 5 days. Abdominal circumference 15.43 cm, age 20 weeks 5 days. Femur length 3.18 cm, age 20 weeks 0 days. Sonographic estimate age: 20 weeks 3 days. Sonographic estimated date of delivery: 12/12/2022. Estimated Weight: 346 gm (+/- 50 gm). LMP percentile: 39%. heart rate: 144 beats per minute. number: 1 of 1. Amniotic fluid index of 15.7 cm. Single live intrauterine in breech presentation. The placenta is posterior and has a normal appearance. No rupesh-placental hemorrhage. No placenta previa. heart rate is 144 BPM. The cervix is normal measuring 3.7 cm. Suboptimal evaluation of the kidneys, LVOT, RVOT, spine, CSP due to positioning. The 4th ventricles are not well seen, however they appear to be enlarged measuring 1.2 cm. CSP is not well seen. The sex is female. The feet, arms, four-chamber are visualized, three-vessel cord, stomach are visualized and normal. IMPRESSION: Single live intrauterine at 20 weeks and 3 days which is consistent with gestational age. The lateral ventricles are suboptimally seen, however appear enlarged. Recommend short-term interval follow-up. Suboptimal evaluation of the kidneys, diaphragm, LVOT, RVOT, spine, CSP, face, nasal profile, nose/lips due to positioning. Dictated by: Dictated on workstation # [id number]
== END ==
LOC: RAD 15:00
PROVIDERS: ATTEND Family Medicine
DX: Z36.9 Encounter for antenatal screening, unspecified (principal); Z3A.20 20 weeks gestation of pregnancy
CPT/HCPCS: 76805

== ENCOUNTER → 2022-08-28 | Outpatient (CLI) | payer MEDICAID ==
--- NOTE | 2022-08-28 17:47 | Diagnostic Imaging Report ---
INDICATION: Follow-up on lateral ventricles TECHNIQUE: Multiple real-time grayscale images were obtained over the gravid uterus. COMPARISON: Ultrasound on 07/28/2022 FINDINGS: Single live intrauterine in transverse position with the heart rate of 147 bpm. The amniotic fluid is normal with ADITI measuring 13.4 cm. The placenta is posterior. No placenta previa. No rupesh-placental hemorrhage. The cervix is normal measuring 5.9 cm. spine, kidneys, lateral ventricles, nasal profile, LVOT, are visualized and normal. IMPRESSION: Single live intrauterine in transverse position with a heart rate of 147 BPM. Continued slight prominence of the lateral ventricles, now measuring 1.0 cm, previously 1.1 cm. Recommend continued observation. RVOT suboptimally visualized. LVOT is normal. The remainder of the evaluated anatomical structures are normal. Dictated by: Dictated on workstation # [id number]
== END ==
LOC: RAD 13:57
PROVIDERS: ATTEND Family Medicine
DX: Z34.90 Encounter for supervision of normal pregnancy, unspecified, unspecified trimester (principal); Z3A.00 Weeks of gestation of pregnancy not specified
CPT/HCPCS: 76816

== ENCOUNTER → 2022-10-22 | Outpatient (CLI) | payer MEDICAID ==
--- NOTE | 2022-10-22 15:57 | Diagnostic Imaging Report ---
INDICATION: Followup dilated ventricles. TECHNIQUE: Multiple Real-time grayscale images were obtained over the gravid uterus. COMPARISON: 08/28/2022. FINDINGS: A single live intrauterine is in transverse position. The cervix measures 6.9 cm in length. The placenta is posterior and fundal in position without previa. The ADITI is normal at 12.57 cm. The heart rate is 149 BPM. The lateral cerebral ventricle measures 0.9 cm; however, there is no dilation of a 3rd ventricle or suggestion of surrounding cerebral dysplasia. IMPRESSION: Upper limits of normal size of the lateral cerebral ventricles is likely physiologic for this fetus. Dictated by: Dictated on workstation # [id number]
== END ==
LOC: RAD 10:15
PROVIDERS: ATTEND Family Medicine
DX: O35.8XX0 Maternal care for other (suspected) fetal abnormality and damage, not applicable or unspecified (principal); Z3A.00 Weeks of gestation of pregnancy not specified
CPT/HCPCS: 76816

== ENCOUNTER 2022-11-27 12:22 | Outpatient (CLI) | payer MEDICAID ==
[~2022-11-27] VITALS: Ht 167.7 cm; Wt 113.6 kg
[2022-11-27] MEDS ORDERED: PREN-8 PO (16:10)
== END 2022-11-27 16:31 | disposition home or self-care (01) ==
LOC: PREOP 12:22
PROVIDERS: ATTEND Obstetrics & Gynecology
DX: Z01.818 Encounter for other preprocedural examination (principal); O34.219 Maternal care for unspecified type scar from previous cesarean delivery

== ENCOUNTER 2022-11-30 15:30 | Outpatient (CLI) | payer MEDICAID ==
[~2022-11-30] VITALS: Ht 167.7 cm; Wt 118.6 kg
[~2022-11-30 15:30] MED LIST changes: +PREN-8 PO
[2022-11-30 16:05] VITALS: BP 130/70
[2022-11-30 16:08] VITALS: BP 130/70
[2022-11-30 16:12] LABS: BILIRUBIN,URINE NEGATIVE (NEGATIVE); CLARITY,URINE CLEAR; COLOR,URINE YELLOW; GLUCOSE, URINE (UA) NEGATIVE (NEGATIVE); KETONES,URINE NEGATIVE (NEGATIVE); LEUKOCYTE ESTERASE ,URINE NEGATIVE (NEGATIVE); NITRITE,URINE NEGATIVE (NEGATIVE); PROTEIN,URINE NEGATIVE (NEGATIVE)
[2022-11-30 16:20] LABS: BACTERIA,URINE TRACE /HPF; RBC,URINE RARE /HPF
--- NOTE | 2022-12-01 09:02 | Physician Query-Final Dx ---
ESTIVEN,12/01/22 0902: Clinic Account Progress/Dx Physician Query: Please give diagnosis Please include # weeks gestation Date of Service Nov 30, 2022 at 15:30 SEAN GUZMÁN MD 12/01/22 1010: Clinic Account Progress/Dx DIAGNOSIS: Diagnosis Term intrauterine 38 weeks gestation Bleeding in third trimester Reactive NST, no contractions ESTIVEN,JunDec 01, 2022 09:02 SEAN GUZMÁN MD Dec 01, 2022 10:10
== END 2022-11-30 16:38 | disposition home or self-care (01) ==
LOC: WSo 15:30 → LDRP 15:31 → WSo 16:38
PROVIDERS: ATTEND Family Medicine
DX: O46.93 Antepartum hemorrhage, unspecified, third trimester (principal); Z3A.38 38 weeks gestation of pregnancy
CPT/HCPCS: 81000; 99213

== ENCOUNTER 2022-12-05 05:42 | Inpatient (IN) | payer MEDICAID ==
[2022-12-05] VITALS (9 sets, daily range): BP systolic 85–127; BP diastolic 43–80
--- OUTSIDE RECORDS SUMMARY | 2022-12-05 05:46 | XMS REPORT ---
Author Author [facility] Address Unknown Phone Unavailable Care Team Providers Care Business Liaison Officer Name Role Phone JONO FUNES Unavailable PROBLEMS Type Condition ICD9-CM Code [id number] Code Onset Dates Condition S tatus W/U Status Risk SNOMED Code Notes Problem Cough R05.9 confirmed 23880432 Problem Body aches R52 confirmed 95183427 Problem Family history of diabetes mellitus Z83.3 c onfirmed 272457425 Problem Absence of menstruation N91.2 confirmed 67710390 Problem Mild intermittent asthma without complication J45.20 confirmed 662376667 Problem Paresthesia R20.2 confirmed 22215636 Problem Morbid (severe) obesity due to excess calories E66.01 confirmed [id number] Problem Major depression in complete remission F32.5 confirmed 79070152 Problem Anxiety, generalized F41.1 confirmed 66332434 Problem Severe episode of recurrent major depressive disorder, without psychotic features F33.2 confirmed 94704009 Problem Abnormal weight gain R63.5 confirmed 912185650 Problem Body mass index (BMI) of 45.0-49.9 in adult Z68.42 confirmed 577199473 Problem Mild intermittent asthma with acute exacerbation J45.21 confirmed 926585285 Problem Major depressive disorder, recurrent, moderate F33.1 confirmed 03783120 Problem Anxiety F41.9 confirmed 12420788 ALLERGIES Allergen (clinical drug ingredient) Drug/Non Drug Allergy do cumented on EMR Reaction Allergy Type Onset Date Status Augmentin rash/reddened skin Drug Allergy Acti ve ENCOUNTERS from 1991 to 2022-11-21 Encounter Location Date Provider Diagnosis [facility] [address] [place] [id number] [place] [address] Nov, JONO FUNES Cough R05 ; Stuffy a nd runny nose J34.89 ; Malaise R53.81 ; Acute nonintractable headache, unspecified headache type R51 ; Myalgia M79.10 ; Exposure to COVID-19 virus Z20.828 and Encounter for screening laboratory testing for COVID-19 virus Z11.59 IMMUNIZATIONS No Information SOCIAL HISTORY Sex Assigned At : Social History Observation Description Sex Assigned At Unknown Alcohol Screen (Audit-C) Question Answer Notes Did you have a drink containing alcohol in the past year? Ye s Points 10 Interpretation Positive How often did you have 6 or more drinks on one occasio n in the past year? Daily or almost daily (4 points) How many drinks did you have on a typica l day when you were drinking in the past year? 5 or 6 (2 points) How often did you have a drink containing alcohol in t he past year? Four or more times a week (4 points) Cessation Question Answer Notes Date Tobacco Cessation Provided: 07/24/2020 PHQ2 Question Answer Notes In the last 2 weeks, how often have you had little interest or pleasure in doing things? Nearly every day In the last 2 weeks, how often have you been feeling down, depressed, or hopeless? Nearly every day Total PHQ2 Score 6 REASON FOR REFERRAL No Information VITAL SIGNS No information MEDICATIONS Medication SIG (Take, Route, Frequency, Duration) Notes Start Da te End Date Status Vitamins 28-0.8 MG 1 tablet Orally Once a day for 30 da y(s) Apr, Active Cefdinir 300 MG 1 capsule Orally 2 times a day for 10 days Apr, Active PROCEDURES No Information RESULTS No Results REASON FOR VISIT Symptomatic, exposure ([employer]) Pt is unemployed MEDICAL (GENERAL) HISTORY Type Description Date Medical History asthma Medical History HPV 2012 Surgical History 09/17/16 Hospitalization History RSV/ pneumonia as infant Hospitalization History child Goals Section No Information Health Concerns No Information MEDICAL EQUIPMENT No Information MENTAL STATUS No Information FUNCTIONAL STATUS No Information ASSESSMENTS Encounter Date Diagnosis Assessment Notes Treatment Notes Treatm ent Clinical Notes Nov, Cough (ICD-10 - R05) Nov, Stuffy and runny nose (ICD-10 - J34.89) Nov, Malaise (ICD-10 - R53.81) Nov, Acute nonintractable headach e, unspecified headache type (ICD-10 - R51) Nov, Myalgia (ICD-10 - M79.10) Nov, Exposure to COVID-19 virus (ICD-10 - Z20 .828) Nov, Encounter for screening labo ratory testing for COVID-19 virus (ICD- 10 - Z11.59) Nov, Other Patient was ins tructed to self-isolate at home until further instruction from clinic staff PLAN OF TREATMENT Medication Medication Name Sig Start Date Stop Date Vitamins 28-0.8 MG 1 tablet Orally Once a day for 3 0 day(s) Apr, Cefdinir 300 MG 1 capsule Orally 2 times a day for 10 days 14 2021 Insurance Providers Payer Name Payer Address Payer Phone Insured Name Patient Relati onship to Insured Coverage Start Date Coverage End Date Subscriber Number Group Allyson berry ANGELA [employer] [facility] [address] [address] [facility] [phone] Pauly Boateng Self - patient is the insured [id number] COVID19 HRSA Uninsured [employer] Fund [facility] A ttention CARES Act Provider Relief Fund [address] [address] [facility] [address] Pauly Boateng Self - patient is the insured 2019 2019 [id number] MEDICATIONS ADMINISTERED Medication Instructions Date of Administration Dosage SOLUMEDROL (UP TO 125 MG) Mar, 125 mg
--- OUTSIDE RECORDS SUMMARY | 2022-12-05 05:46 | XMS REPORT ---
Author Author [facility] Address Unknown Phone Unavailable Care Team Providers Care Protective Services Officer Name Role Phone HARVEY EDWARD Unavailable PROBLEMS Type Condition ICD9-CM Code [id number] Code Onset Dates Condition S tatus W/U Status Risk SNOMED Code Notes Problem Cough R05.9 confirmed 32301926 Problem Body aches R52 confirmed 13997282 Problem Family history of diabetes mellitus Z83.3 c onfirmed 545027997 Problem Absence of menstruation N91.2 confirmed 11717023 Problem Mild intermittent asthma without complication J45.20 confirmed 651825687 Problem Paresthesia R20.2 confirmed 29910960 Problem Morbid (severe) obesity due to excess calories E66.01 confirmed 50635574801796 Problem Major depression in complete remission F32.5 confirmed 90906735 Problem Anxiety, generalized F41.1 confirmed 49494935 Problem Severe episode of recurrent major depressive disorder, without psychotic features F33.2 confirmed 17153414 Problem Abnormal weight gain R63.5 confirmed 413366184 Problem Body mass index (BMI) of 45.0-49.9 in adult Z68.42 confirmed 348817716 Problem Mild intermittent asthma with acute exacerbation J45.21 confirmed 803864222 Problem Major depressive disorder, recurrent, moderate F33.1 confirmed 88210954 Problem Anxiety F41.9 confirmed 56493909 ALLERGIES Allergen (clinical drug ingredient) Drug/Non Drug Allergy do cumented on EMR Reaction Allergy Type Onset Date Status Augmentin rash/reddened skin Drug Allergy Acti ve ENCOUNTERS from 1991 to 2022-10-31 Encounter Location Date Provider Diagnosis [facility] [address] [facility] [id number] [place] [address] Oct, CRYSTAL WAGNER Mouth pain K13.79 IMMUNIZATIONS No Information SOCIAL HISTORY Sex Assigned [...] REASON FOR REFERRAL No Information VITAL SIGNS Height 66 in Oct, Height-cm 167.64 cm Oct, Weight 207.4 lbs Oct, Weight-kg 94.07 kg Oct, Temperature 97.8 degrees Fahrenheit Oct, Heart Rate 70 bpm Oct, Respiratory Rate 16 bpm Oct, Oximetry 99 % Oct, BMI 33.47 kg/m2 Oct, Blood pressure systolic 111 mmHg Oct, Blood pressure diastolic 72 mmHg Oct, MEDICATIONS Medication SIG (Take, Route, Frequency, Duration) Notes Start Da te End Date Status Vitamins 28-0.8 MG 1 tablet Orally Once a day for 30 da y(s) Apr, Active Cefdinir 300 MG 1 capsule Orally 2 times a day for 10 days Apr, Active PROCEDURES No Information RESULTS No Results REASON FOR VISIT Earache/tooth pain on right side. Pt reports tooth pain has been going on for a while but got worse last night. RT ear pain also started last night.-MARTINEZ esteban , Medication list verbally verified with pt in office.-Martinez esteban MEDICAL (GENERAL) HISTORY Type Description Date Medical History asthma Medical History HPV 2013 Surgical History 4/19/17 Hospitalization History RSV/ pneumonia as infant Hospitalization History child Goals Section No Information Health Concerns No Information MEDICAL EQUIPMENT No Information MENTAL STATUS No Information FUNCTIONAL STATUS No Information ASSESSMENTS Encounter Date Diagnosis Assessment Notes Treatment Notes Treatm ent Clinical Notes Oct, Mouth pain (ICD-10 - K13.79) Oct, Other Abscessed Tooth: Care Instru ctions material was published PLAN OF TREATMENT Medication Medication Name Sig Start Date Stop Date Vitamins 28-0.8 MG 1 tablet Orally Once a day for 3 0 day(s) Apr, Cefdinir 300 MG 1 capsule Orally 2 times a day for 10 days 14 2021 Next Appt Details prn Reason: Insurance Providers Payer Name Payer Address Payer Phone Insured Name Patient Relati onship to Insured Coverage Start Date Coverage End Date Subscriber Number Group Nu lisaer ANGELA [employer]et[employer] [facility] 19 [address] [address] [facility] [address] Pauly Boateng Self - patient is the insured [id number] COVID19 HRSA Uninsured [employer] [facility] A ttention CARES Act Provider Relief Fund [address] [address] [facility] [address] Pauly Boateng Self - patient is the insured 2019 2019 [id number] MEDICATIONS ADMINISTERED Medication Instructions Date of Administration Dosage SOLUMEDROL (UP TO 125 MG) Mar, 125 mg
--- OUTSIDE RECORDS SUMMARY | 2022-12-05 05:46 | XMS REPORT ---
Author Author [facility] Address Unknown Phone Unavailable Care Team Providers Care Foundry Operator Name Role Phone CHELA AARON Unavailable PROBLEMS Type Condition ICD9-CM Code FON22-FH Code Onset Dates Condition S tatus W/U Status Risk SNOMED Code Notes Problem Cough R05.9 confirmed 91528367 Problem Body aches R52 confirmed 00329502 Problem Family history of diabetes mellitus Z83.3 c onfirmed 944834315 Problem Absence of menstruation N91.2 confirmed 95335740 Problem Mild intermittent asthma without complication J45.20 confirmed 479511382 Problem Paresthesia R20.2 confirmed 38175302 Problem Morbid (severe) obesity due to excess calories E66.01 confirmed 11563524078259 Problem Major depression in complete remission F32.5 confirmed 14882384 Problem Anxiety, generalized F41.1 confirmed 92841891 Problem Severe episode of recurrent major depressive disorder, without psychotic features F33.2 confirmed 79778009 Problem Abnormal weight gain R63.5 confirmed 937411699 Problem Body mass index (BMI) of 45.0-49.9 in adult Z68.42 confirmed 837876329 Problem Mild intermittent asthma with acute exacerbation J45.21 confirmed 104913240 Problem Major depressive disorder, recurrent, moderate F33.1 confirmed 90516061 Problem Anxiety F41.9 confirmed 20120088 ALLERGIES Allergen (clinical drug ingredient) Drug/Non Drug Allergy do cumented on EMR Reaction Allergy Type Onset Date Status Augmentin rash/reddened skin Drug Allergy Acti ve ENCOUNTERS from 1991 to 2022-11-04 Encounter Location Date Provider Diagnosis [facility] [id number] [place] [address] Oct, CHELA AARON Dental examination Z 01.20 ; Caries K02.9 ; 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 and Symptomatic periapical periodontitis 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.5 IMMUNIZATIONS No Information SOCIAL HISTORY Sex Assigned [...] 67 in Oct, Height-cm 167.64 cm Oct, Blood pressure systolic 128 mmHg Oct, Blood pressure diastolic 89 mmHg Oct, MEDICATIONS Medication SIG (Take, Route, Frequency, Duration) Notes Start Da te End Date Status Vitamins 28-0.8 MG 1 tablet Orally Once a day for 30 da y(s) Apr, Active Cefdinir 300 MG 1 capsule Orally 2 times a day for 10 days Apr, Active PROCEDURES No Information RESULTS No Results REASON FOR VISIT Pain LR - abx since 11/18/2020, Marychuy Yost MEDICAL (GENERAL) HISTORY Type Description Date Medical History asthma Medical History HPV 2012 Surgical History 09/17/16 Hospitalization History RSV/ pneumonia as infant Hospitalization History child Goals Section No Information Health Concerns No Information MEDICAL EQUIPMENT No Information MENTAL STATUS No Information FUNCTIONAL STATUS No Information ASSESSMENTS Encounter Date Diagnosis Assessment Notes Treatment Notes Treatm ent Clinical Notes Oct, Dental examination (ICD-10 - Z01.20) Oct, Caries (ICD-10 - K02.9) Oct, Irreversible pulpitis (ICD-10 - K04.02) Oct, Symptomatic periapical periodontitis (IC D-10 - K04.5) PLAN OF TREATMENT Medication Medication Name Sig Start Date Stop Date Vitamins 28-0.8 MG 1 tablet Orally Once a day for 3 0 day(s) 14 Apr, 2022 Cefdinir 300 MG 1 capsule Orally 2 times a day for 10 days 14 2021 Next Appt Details prn Reason:TE #30 (consent already roxann d) or Return to clinic PRN Follow Up:prnTE #30 (consent already signed) or Return to clinic PRN Insurance Providers Payer Name Payer Address Payer Phone Insured Name Patient Relati onship to Insured Coverage Start Date Coverage End Date Subscriber Number [facility] ANGELA Aetna [facility] [address] [address] [facility] [address] Pauly Boateng Self - patient is the insured [id number] COVID19 HRSA Uninsured T & T Fund [facility] A ttention CARES Act Provider Relief Fund [address] [address] [facility] [address] Pauly Boateng Self - patient is the insured 2019 2019 [id number] MEDICATIONS ADMINISTERED Medication Instructions Date of Administration Dosage SOLUMEDROL (UP TO 125 MG) Mar, 125 mg
--- OUTSIDE RECORDS SUMMARY | 2022-12-05 05:46 | XMS REPORT ---
Author Author [facility] Address Unknown Phone Unavailable Care Team Providers Care Resident Caregiver Name Role Phone JONO FUNES Unavailable PROBLEMS Type Condition ICD9-CM Code [id number] Code Onset Dates Condition S tatus W/U Status Risk SNOMED Code Notes Problem Cough R05.9 confirmed 11979405 Problem Body aches R52 confirmed 26491351 Problem Family history of diabetes mellitus Z83.3 c onfirmed 766036520 Problem Absence of menstruation N91.2 confirmed 74065776 Problem Mild intermittent asthma without complication J45.20 confirmed 968997929 Problem Paresthesia R20.2 confirmed 50228383 Problem Morbid (severe) obesity due to excess calories E66.01 confirmed 12698495551902 Problem Major depression in complete remission F32.5 confirmed 97997191 Problem Anxiety, generalized F41.1 confirmed 76618160 Problem Severe episode of recurrent major depressive disorder, without psychotic features F33.2 confirmed 15026386 Problem Abnormal weight gain R63.5 confirmed 260330896 Problem Body mass index (BMI) of 45.0-49.9 in adult Z68.42 confirmed 082217704 Problem Mild intermittent asthma with acute exacerbation J45.21 confirmed 439120405 Problem Major depressive disorder, recurrent, moderate F33.1 confirmed 88426391 Problem Anxiety F41.9 confirmed 88893878 ALLERGIES Allergen (clinical drug ingredient) Drug/Non Drug Allergy do cumented on EMR Reaction Allergy Type Onset Date Status Augmentin rash/reddened skin Drug Allergy Acti ve ENCOUNTERS from 1991 to 2022-11-30 Encounter Location Date Provider Diagnosis [facility] [address] [facility] [id number] [place] [address] Nov, JONO FUNES IMMUNIZATIONS No Information SOCIAL HISTORY Sex Assigned [...] Information RESULTS No Results REASON FOR VISIT rash under tongue/covid positive/ jeep compass, pt has a red area on her tounge and was concerned about this, assessed the area and noted no white spots, pt is covid positive and states she is not drinking as much as normal, encouraged deacon ent to drink water since she is positive, encouraged patient to monitor the area and return if she has continued problems- Jim Lopez RN MEDICAL (GENERAL) HISTORY Type Description Date Medical History asthma Medical History HPV 2012 Surgical History 09/17/16 Hospitalization History RSV/ pneumonia as infant Hospitalization History child Goals Section No Information Health Concerns No Information MEDICAL EQUIPMENT No Information MENTAL STATUS No Information FUNCTIONAL STATUS No Information ASSESSMENTS No Information PLAN OF TREATMENT Medication Medication Name Sig Start Date Stop Date Vitamins 28-0.8 MG 1 tablet Orally Once a day for 3 0 day(s) Apr, Cefdinir 300 MG 1 capsule Orally 2 times a day for 10 days 14 No v2021 Insurance Providers Payer Name Payer Address Payer Phone Insured Name Patient Relati onship to Insured Coverage Start Date Coverage End Date Subscriber Number Group Allyson berry ANGELA Aetna [facility] 19 [address] [address] [facility] [address] Pauly Boateng Self - patient is the insured [id number] COVID19 [facility] Un[facility] T & T Fund [facility] CARES Act Provider Relief Fund [address] [address] [facility] [address] Pauly Boateng Self - patient is the insured 2019 2019 [id number] MEDICATIONS ADMINISTERED Medication Instructions Date of Administration Dosage SOLUMEDROL (UP TO 125 MG) Mar, 125 mg
--- OUTSIDE RECORDS SUMMARY | 2022-12-05 05:46 | XMS REPORT ---
Author Author [facility] Address Unknown Phone Unavailable Care Team Providers Care Property Loss Insurance Claim Adjuster Name Role Phone CHELA AARON Unavailable PROBLEMS Type Condition ICD9-CM Code LWF52-RI Code Onset Dates Condition S tatus W/U Status Risk SNOMED Code Notes Problem Cough R05.9 confirmed 39129217 Problem Body aches R52 confirmed 26944674 Problem Family history of diabetes mellitus Z83.3 c onfirmed 752048047 Problem Absence of menstruation N91.2 confirmed 32372351 Problem Mild intermittent asthma without complication J45.20 confirmed 041880364 Problem Paresthesia R20.2 confirmed 69572112 Problem Morbid (severe) obesity due to excess calories E66.01 confirmed 88866522957774 Problem Major depression in complete remission F32.5 confirmed 48502853 Problem Anxiety, generalized F41.1 confirmed 21541830 Problem Severe episode of recurrent major depressive disorder, without psychotic features F33.2 confirmed 91184928 Problem Abnormal weight gain R63.5 confirmed 800152286 Problem Body mass index (BMI) of 45.0-49.9 in adult Z68.42 confirmed 850456521 Problem Mild intermittent asthma with acute exacerbation J45.21 confirmed 613196963 Problem Major depressive disorder, recurrent, moderate F33.1 confirmed 88998237 Problem Anxiety F41.9 confirmed 97040118 ALLERGIES Allergen (clinical drug ingredient) Drug/Non Drug Allergy do cumented on EMR Reaction Allergy Type Onset Date Status Augmentin rash/reddened skin Drug Allergy Acti ve ENCOUNTERS from 1991 to 2022-11-07 Encounter Location Date Provider Diagnosis [facility] [address] [facility] [id number] [place] [address] Oct, CHELA AARON Caries K02.9 IMMUNIZATIONS No Information SOCIAL HISTORY Sex Assigned [...] Height-cm 167.64 cm Oct, Blood pressure systolic 123 mmHg Oct, Blood pressure diastolic 80 mmHg Oct, MEDICATIONS Medication SIG (Take, Route, Frequency, Duration) Notes Start Da te End Date Status Vitamins 28-0.8 MG 1 tablet Orally Once a day for 30 da y(s) Apr, Active Cefdinir 300 MG 1 capsule Orally 2 times a day for 10 days Apr, Active PROCEDURES No Information RESULTS No Results REASON FOR VISIT TE #[address] thomas MEDICAL (GENERAL) HISTORY Type Description Date Medical History asthma Medical History HPV 2012 Surgical History 09/17/16 Hospitalization History RSV/ pneumonia as Hospitalization History child Goals Section No Information Health Concerns No Information MEDICAL EQUIPMENT No Information MENTAL STATUS No Information FUNCTIONAL STATUS No Information ASSESSMENTS Encounter Date Diagnosis Assessment Notes Treatment Notes Treatm ent Clinical Notes Oct, Caries (ICD-10 - K02.9) PLAN OF TREATMENT Medication Medication Name Sig Start Date Stop Date Vitamins 28-0.8 MG 1 tablet Orally Once a day for 3 0 day(s) Apr, Cefdinir 300 MG 1 capsule Orally 2 times a day for 10 days 14 No , 2021 Next Appt Details prn Reason:MARY/ Establish care or Return to clinic PRN Follow Up:prnCOE/ Establish care or Return to clinic PRN Insurance Providers Payer Name Payer Address Payer Phone Insured Name Patient Relati onship to Insured Coverage Start Date Coverage End Date Subscriber Number Group Nu mber COVID19 HRSA Uninsured T & T Fund [facility] A ttention CARES Act Provider Relief Fund [address] [address] [facility] [address] Pauly Boateng Self - patient is the insured 2019 2019 [id number] [facility] 19 [address] [address] [facility] [address] Pauly Boateng Self - patient is the insured [id number] MEDICATIONS ADMINISTERED Medication Instructions Date of Administration Dosage SOLUMEDROL (UP TO 125 MG) Mar, 125 mg
[2022-12-05] MEDS ORDERED: ceFAZolin INJECTION 2,000 MG in NS (IVPB) 50 ML IV ONE (06:00)
[2022-12-05] MEDS ORDERED: LACTATED RINGERS 1,000 ML IV PRN ×2 (06:00)
[2022-12-05] MEDS ORDERED: METOCLOPRAMIDE INJ 10 MG/2 ML (REGLAN) IV ONE (06:00)
[2022-12-05] MEDS ORDERED: CITRIC ACID/SOB CIT (BICITRA) 30 ML UDC PO ONE (06:00)
[2022-12-05] MEDS ORDERED: FAMOTIDINE 20MG/2ML IV (PEPCID) IV ONE (06:00)
[2022-12-05 06:23] LABS: BASOPHILS % (AUTO) 0 % (0-10); EOSINOPHILS # (AUTO) 0.1 10^3/uL (0.0-0.3); EOSINOPHILS % (AUTO) 1 % (0-10); HEMATOCRIT 36 % (35-52); HEMOGLOBIN 12.4 g/dL (11.5-16.0); LYMPHOCYTES # (AUTO) 1.8 10^3/uL (1.0-4.0); LYMPHOCYTES % (AUTO) 26 % (12-44); MEAN CORPUSCULAR HEMOGLOBIN 30 pg (25-34); MEAN CORPUSCULAR HGB CONC 34 g/dL (32-36); MEAN CORPUSCULAR VOLUME 86 fL (80-99); MONOCYTES # (AUTO) 0.4 10^3/uL (0.0-1.0); MONOCYTES % (AUTO) 6 % (0-12); NEUTROPHILS # (AUTO) 4.7 10^3/uL (1.8-7.8); NEUTROPHILS % (AUTO) 67 % (42-75); PLATELET COUNT 201 10^3/uL (130-400); WHITE BLOOD COUNT 7.1 10^3/uL (4.3-11.0)
[2022-12-05] MEDS ORDERED: fentaNYL INJ 100 MCG/2 ML AMP ONE (07:14)
--- NOTE | 2022-12-05 07:17 | History & Physical-OB ---
OB - Chief Complaint & HPI Date/Time Date of Admission: Date of Admission: Dec 05, 2022 at 05:42 Date seen by a Provider: Dec 05, 2022 Time Seen by a Provider: 07:05 Chief Complaint/History OB-Reason for Admission/Chief: Section Hx : 2 Hx Para: 1 Expected Date of Delivery: Dec 12, 2022 Gestational Age in Weeks: 39 Gestational Age in Days: 0 Indication for : desires repeat Admission Nurse Assessment Rev: Yes History of Labs See. Dr. Carlos [facility] Allergies and Home Medications Allergies Coded Allergies: Penicillins (Verified Allergy, Unknown, 11/27/22) Patient Home Medication List Home Medication List Reviewed: Yes Ondansetron (Ondansetron Odt) 4 Mg Tab.rapdis, 4 MG SL Q8H PRN for NAUSEA/VOMITING Prescribed by: GERMAN ALONSO on 04/23/22 1120 Vit W-Ca,Fe,FA(<1 mg) ( Formula) 28 Mg Iron-800 Mcg Tablet, 1 EACH PO DAILY, (Reported) Entered as Reported by: Chanell Stout on 11/27/22 1610 OB - History Hx of Present Care: Yes Ultrasounds: Normal mid trimester US Obstetrical Complications: None Medical Complications: None Delivery History Hx Blood Disorders: No Adverse Rxn to Tranfusion: No Patient Past Medical History Class III obesity (BMI 44) Social History/Family History 2nd Hand Smoke Exposure: No Immunizations First/Initial COVID19 Vaccine: NONE Second COVID19 Vaccination: NONE Third COVID19 Vaccination Date: NONE Hepatitis A: Yes Hepatitis B: Yes Tetanus Booster (TDap): Unknown OB - Admission Exam Physical Exam Vitals: Vital Signs 12/05/22 06:00 Temp 36.4 Pulse 106 Resp 18 Pulse Ox 98 O2 Delivery Room Air HEENT: NCAT Heart: Rhythm Normal Lungs: Clear Abdomen: Gravid Extremities: Normal Reflexes: Normal Heart Rate: 130's Accelerations: Accelerations Present Decelerations: No Decelerations Short Term Variability: Present Salvage Engineer Variability: Average (6-25) Contractions on Admission: 6-10 Minutes Apart Intensity: Mild Labs Laboratory Tests Test 12/05/22 06:05 Range/Units White Blood Count 7.1 4.3-11.0 10^3/uL Red Blood Count 4.20 3.80-5.11 10^6/uL Hemoglobin 12.4 11.5-16.0 g/dL Hematocrit 36 35-52 % Mean Corpuscular Volume 86 80-99 fL Mean Corpuscular Hemoglobin 30 25-34 pg Mean Corpuscular Hemoglobin Concent 34 32-36 g/dL Red Cell Distribution Width 13.4 10.0-14.5 % Platelet Count 201 130-400 10^3/uL Mean Platelet Volume 10.0 9.0-12.2 fL Immature Granulocyte % (Auto) 0 % Neutrophils (%) (Auto) 67 42-75 % Lymphocytes (%) (Auto) 26 12-44 % Monocytes (%) (Auto) 6 0-12 % Eosinophils (%) (Auto) 1 0-10 % Basophils (%) (Auto) 0 0-10 % Neutrophils # (Auto) 4.7 1.8-7.8 10^3/uL Lymphocytes # (Auto) 1.8 1.0-4.0 10^3/uL Monocytes # (Auto) 0.4 0.0-1.0 10^3/uL Eosinophils # (Auto) 0.1 0.0-0.3 10^3/uL Basophils # (Auto) 0.0 0.0-0.1 10^3/uL Immature Granulocyte # (Auto) 0.0 0.0-0.1 10^3/uL OB - Assessment/Plan/Diagnosis Assessment Assessment: section Admission Dx 32 yo @ 39 weeks Previous Admission Status: Inpatient Order (span 2 midnights) Reason for Inpatient Admission: RCS at 39 weeks Plan Plan: Section BOBO BRASHER DO Dec 05, 2022 07:17
[2022-12-05] MEDS ORDERED: OXYTOCIN PRE-MIX DRIP 500 ML IV ONE ×2 (07:20→08:42)
[2022-12-05] MEDS ORDERED: KETOROLAC 30 MG/ML VIAL ONE (07:20)
--- NOTE | 2022-12-05 07:20 | Discharge Inst-Women's Service ---
Discharge Inst-Women's Serv Depart Medication/Instructions New, Converted or Re-Newed RX: Transmitted to Pharmacy Final Diagnosis POD 2 RLTCS Problems Reviewed?: Yes Consults/Follow Up Additional Follow Up: Yes Orders/Referrals Dr. Garcia in 7-[address] Carlos in 6 weeks Activity Activity: Activity as Tolerated Driving Instructions: No Driving for 1 Week NO SMOKING: NO SMOKING Nothing Inside Vagina: No Douching, No [place], No Tampons Diet Discharge Diet: No Restrictions Symptoms to Report to : Bleeding Excessive, Pain Increased, Fever Over 101 Degrees F, Vaginal Bleeding Increase, Questions/Concerns For Any Problems or Questions: Contact Your Physician Skin/Wound Care Infection Signs and Symptoms: Increased Redness, Foul Odor of Wound, Increased Drainage, Skin Itchy or Has a Rash, Increased Swelling, Temperature Above 101 F Operative Area Clean and Dry: Keep Incision Clean/Dry Stitches/Reyes/Dermabond: Dermabond, Care of Stitches Bathing Instructions: BOBO Correa DO Dec 05, 2022 07:20
[2022-12-05] MEDS ORDERED: DOCU100C37 PO (07:21)
[2022-12-05] MEDS ORDERED: IBUP-844 PO (07:21)
[2022-12-05] MEDS ORDERED: ACHD5005 PO (07:21)
[2022-12-05] MEDS ORDERED: ONDANSETRON 4 MG/2 ML (SDV) Z0FRAN IVP PRN (07:30)
[2022-12-05] MEDS ORDERED: MEASLES,MUMPS,RUBELLA 1 EA INJ SC SCH (07:30)
[2022-12-05] MEDS ORDERED: TETANUS,DIPTH,PERTUSS P/F (BOOSTRIX) 0.5 ML VIAL IM SCH (07:30)
[2022-12-05] MEDS ORDERED: NALOXONE 0.4 MG/ML 1 ML (NARCAN) VIAL IV PRN (07:30)
[2022-12-05] MEDS ORDERED: MIDAZOLAM 2 MG/2 ML (VERSED) VIAL ONE (08:14)
[2022-12-05] MEDS ORDERED: BUPIVACAINE 0.5% 30 ML (SENSORCAINE) VIAL ONE (09:15)
[2022-12-05] MEDS ORDERED: BUPIVACAINE 0.25% 10 ML (SENSORCAINE) VIAL ONE (09:15)
[2022-12-05] MEDS ORDERED: PHENYLEPHRINE 100 MCG/ML 10 ML (ANESTHESIA) SYR ONE (09:17)
[2022-12-05] MEDS: OXYTOCIN PRE-MIX DRIP 500 ML IV SCH ×2 (10:07→14:11)
[2022-12-05] MEDS: HYDROcodone/APAP 5 MG/325 MG (LORTAB) TAB PO PRN ×3 (12:11→22:04)
[2022-12-05] MEDS ORDERED: CATHETER FLUSH 10 ML SYR IV SCH (14:00)
[2022-12-05] MEDS: KETOROLAC 30 MG/ML VIAL IV SCH ×2 (14:12→20:16)
--- NOTE | 2022-12-05 14:57 | OPERATIVE REPORT ---
PREOPERATIVE DIAGNOSES: 1. A 32-year-old G2, P1 at 39 weeks' gestation. 2. Previous section. POSTOPERATIVE DIAGNOSES: 1. A 32-year-old G2, P1 at 39 weeks' gestation. 2. Previous section. PROCEDURE: Repeat low transverse section. SURGEON: Rc Brasher DO. COMPONENT ASSEMBLER SUPERVISOR: Dr. Richie Carlos, who was necessary for manipulation and retraction throughout the procedure. ANESTHESIA: Spinal. ESTIMATED BLOOD LOSS: 700 mL. URINE OUTPUT: 300 mL clear at the end of the procedure. FLUIDS: 2000 mL lactated Ringer's solution. FINDINGS: A live female infant weighing 8 pounds, 10 ounces, Apgars of 8 and 9. Grossly normal appearing uterus, bilateral fallopian tubes and ovaries. SPECIMEN SENT: Placenta. INDICATIONS FOR PROCEDURE: This is a 32-year-old female patient who had sought care with Dr. Carlos. Her was uncomplicated with the exception of need for repeat . The patient opted to proceed with this method. Risks of the procedure were discussed with the patient in detail in the preoperative area. After all the questions were answered, consent was obtained, and the patient was taken to the operating room. OPERATIVE REPORT IN DETAIL Once in the operating room, spinal anesthesia was found to be adequate. She was placed in supine position with leftward tilt, prepped and draped in normal sterile fashion. A timeout was performed. Anesthesia was tested. An incision was then made through the previous existing scar using a knife and carried to underlying fascia using Bovie cautery. Fascial incision was extended laterally using Bovie cautery. The superior aspect of fascial incision was then grasped with Ena clamps, tented up and dissected off the underlying rectus muscles. The inferior aspect of the fascial incision was then grasped with Ena clamps, tented upwards and dissected off the underlying rectus muscles. Rectus muscles were dissected down the midline using sharp dissection which exposed the peritoneum, which I entered bluntly and extended using blunt traction. Guero ring retractor was placed in the peritoneal incision, which offered excellent lateral sidewall retraction. I identified lower uterine segment, was found to be thinned out. I made a low transverse incision to the vesicouterine peritoneum and bluntly dissected off the lower uterine segment, creating a bladder flap. I then proceeded my myotomy until membranes were visualized, at which point I thinned uterine incision laterally and superiorly using bandage scissors. Amniotomy was then performed using Allis clamp. Clear fluid was noted. The infant was found in vertex presentation. With gentle fundal pressure, the infant's head was elevated through the incision where it is delivered through the incision. The nares and oropharynx were bulb suctioned. Anterior and posterior shoulders were delivered. The was brought to the operative field where cords were clamped and cut and was taken off the field by Dr. Carlos for further attendance. Cord blood was collected. Three-vessel cord intact placenta was delivered spontaneously thereafter. IV Pitocin is initiated to facilitate uterine contraction. Uterine fundus confirmed by manual massage. The uterus was exteriorized and cleared of all endometrial clots and debris. I then proceeded with closing the uterine incision using 0 Vicryl suture in a running locked fashion. A second layer of imbricating 0 Monocryl was placed. Excellent hemostasis was noted after doing this. I then placed the uterus back and pelvis and copiously irrigated the pelvis using normal saline. Once again, there was no active bleeding noted from any of my dissection planes. I placed Interceed antiadhesive over my low transverse incision. I removed the Guero ring retractor and then proceeded with closing the peritoneum using 3-0 Vicryl suture in a running fashion. The rectus muscles were reapproximated using 3-0 Vicryl suture in interrupted fashion. The fascia was reapproximated using 0 Vicryl suture in a running fashion. The subcutaneous tissue was reapproximated using 3-0 plain in an interrupted subcutaneous stitch and the skin was reapproximated using 4-0 Monocryl running subcuticular. Dermabond was applied to incision and sterile dressing with adhesive white tape. The patient tolerated the procedure well and was taken to recovery area in stable condition. Lap and sponge counts were correct at the end of the procedure. Instrument counts were correct as well. Two grams Ancef were given preoperatively for infection prophylaxis. Job ID: [id number] DocumentID: [id number] Dictated Date: 12/05/2022 08:53:25 Chemical Dependency Professional Date: 12/05/2022 14:45:00 Dictated By: RC BRASHER DO
[2022-12-05] MEDS: DOCUSATE SODIUM 100 MG (COLACE) CAP PO SCH (20:15)
[2022-12-06 00:32] VITALS: BP 102/61
[2022-12-06 03:56] VITALS: BP 100/56
[2022-12-06] MEDS: KETOROLAC 30 MG/ML VIAL IV SCH (03:58)
[2022-12-06] MEDS: HYDROcodone/APAP 5 MG/325 MG (LORTAB) TAB PO PRN ×4 (03:59→21:41)
[2022-12-06 05:43] LABS: BASOPHILS % (AUTO) 0 % (0-10); EOSINOPHILS # (AUTO) 0.1 10^3/uL (0.0-0.3); EOSINOPHILS % (AUTO) 1 % (0-10); HEMATOCRIT 32 % (35-52); HEMOGLOBIN 10.6 g/dL (11.5-16.0); LYMPHOCYTES # (AUTO) 2.1 10^3/uL (1.0-4.0); LYMPHOCYTES % (AUTO) 25 % (12-44); MEAN CORPUSCULAR HEMOGLOBIN 29 pg (25-34); MEAN CORPUSCULAR HGB CONC 33 g/dL (32-36); MEAN CORPUSCULAR VOLUME 89 fL (80-99); MEAN PLATELET VOLUME 9.9 fL (9.0-12.2); MONOCYTES # (AUTO) 0.5 10^3/uL (0.0-1.0); MONOCYTES % (AUTO) 6 % (0-12); NEUTROPHILS # (AUTO) 5.6 10^3/uL (1.8-7.8); NEUTROPHILS % (AUTO) 67 % (42-75); PLATELET COUNT 170 10^3/uL (130-400); WHITE BLOOD COUNT 8.3 10^3/uL (4.3-11.0)
[2022-12-06 10:41] VITALS: BP 110/53
[2022-12-06] MEDS: DOCUSATE SODIUM 100 MG (COLACE) CAP PO SCH ×2 (10:43→21:41)
[2022-12-06] MEDS: IBUPROFEN 600 MG (MOTRIN) TAB PO SCH ×3 (10:43→21:40)
--- NOTE | 2022-12-06 12:03 | Postpartum Progress Note ---
Post Op Post-operative Day #1 Subjective: Patient is without complaints. Ambulating, voiding after ruby removed. Tolerating a regular diet without nausea or vomiting. Normal lochia. Pain is well controlled with oral pain medications. Objective: VSS/AF Physical Exam: General - Alert and oriented, no apparent distress Abdomen - Soft, appropriately tender to palpation, non-distended, fundus firm at umbilicus Incision - clean, dry and intact; no erythema or induration, no drainage Extremities - no edema, negative Emiliano's bilaterally Assessment: Post-operative day # 1, status post repeat . Recovering well, hemodynamically stable Plan: Routine post-operative care. Encourage ambulation. Plan for discharge: probable go home tomorrow as expected. Vitals - Labs Vital Signs - I&O Vital Signs Date Time Temp Pulse Resp B/P (MAP) Pulse Ox O2 Delivery O2 Flow Rate FiO2 12/06/22 10:41 36.6 96 20 110/53 (72) 98 Room Air 12/06/22 03:56 36.5 82 20 100/56 (71) 98 Room Air 12/06/22 00:32 36.6 91 18 102/61 (75) 99 Room Air 12/05/22 20:20 36.7 78 18 115/65 (82) 98 Room Air 12/05/22 18:20 36.5 12/05/22 16:00 36.4 87 18 98/57 (71) 97 Room Air 12/05/22 14:12 36.5 12/05/22 12:15 36.5 97 18 102/57 (72) 97 Room Air 12/05/22 12:11 36.5 I & O 12/06/22 07:00 Intake Total 2850 ml Output Total 5100 ml Balance -2250 ml Labs Laboratory Tests 12/06/22 05:27: White Blood Count 8.3, Red Blood Count 3.64L, Hemoglobin 10.6L, Hematocrit 32L, Mean Corpuscular Volume 89, Mean Corpuscular Hemoglobin 29, Mean Corpuscular Hemoglobin Concent 33, Red Cell Distribution Width 13.6, Platelet Count 170, Mean Platelet Volume 9.9, Immature Granulocyte % (Auto) 0, Neutrophils (%) (Auto) 67, Lymphocytes (%) (Auto) 25, Monocytes (%) (Auto) 6, Eosinophils (%) (Auto) 1, Basophils (%) (Auto) 0, Neutrophils # (Auto) 5.6, Lymphocytes # (Auto) 2.1, Monocytes # (Auto) 0.5, Eosinophils # (Auto) 0.1, Basophils # (Auto) 0.0, Immature Granulocyte # (Auto) 0.0 Microbiology 12/05/22 MRSA Screen - Final, Complete MRSA not isolated NICOL DOWELL DO Dec 06, 2022 12:03
--- NOTE | 2022-12-06 12:50 | Anesthesia-Regional Post-Op ---
Regional Patient Condition Mental Status: Alert, Oriented x3 Circulation: Same as Pre-Op Headache: Absent Sensation: Full Recovery Motor Block: Absent Post Op Complications Complications None Follow Up Care/Instructions Patient Instructions None needed. Anesthesia/Patient Condition Patient is doing well, no complaints, stable vital signs, no apparent adverse anesthesia problems. No complications reported per nursing. LAUREEN TONEY CRNA Dec 06, 2022 12:50
[2022-12-06 16:11] VITALS: BP 120/57
[2022-12-06 21:39] VITALS: BP 116/57
[2022-12-07] MEDS: HYDROcodone/APAP 5 MG/325 MG (LORTAB) TAB PO PRN ×2 (02:09→11:06)
[2022-12-07 04:15] VITALS: BP 105/66
[2022-12-07] MEDS: IBUPROFEN 600 MG (MOTRIN) TAB PO SCH ×2 (04:16→11:06)
[2022-12-07 08:10] VITALS: BP 116/57
--- NOTE | 2022-12-07 08:31 | Short Stay Summary ---
Discharge Summary Hospital Course Final Diagnosis: 39 Weeks, Prior , Repeat Hospital Course Date of Admission: Dec 05, 2022 at 05:42 Admission Diagnosis : 39 Weeks, Prior Family Physician/Provider: [place] Date of Discharge: 12/07/22 Discharge Diagnosis: 39 Weeks, Prior , Status Post Repeat Hospital Course: Patient had uncomplicated scheduled repeat on 12/05/22 productive of viable 8 lbs 10 onz with 8/9. EBL 700 ML. She had an uncomplicated post-op course and is discharged on post-op day #2. Labs and Pending Lab Test: Microbiology 12/05/22 MRSA Screen - Final, Complete MRSA not isolated Home Meds Active Docusate Sodium 100 Mg Capsule 100 Mg PO BID PRN Hydrocodone-Acetamin 5-325 mg (Hydrocodone/Acetaminophen) 5 Mg-325 Mg Tablet 1-2 Ea PO Q6HR PRN Ibu (Ibuprofen) 600 Mg Tablet 600 Mg PO Q6H Ondansetron Odt (Ondansetron) 4 Mg Tab.rapdis 4 Mg SL Q8H PRN Reported Formula ( Vit W-Ca,Fe,FA(<1 mg)) 28 Mg Iron-800 Mcg Tablet 1 Ea ch PO DAILY Assessment/Pt Instructions See Instruction Sheet. Follow up with Dr. Garcia in 1 week. Patient doing well 2 days post-op, ready for discharge. Patient tolerating diet, voiding, ambulating, pain well controlled. no heavy bleeding. HCT stable. Discharge Instructions Discharge Diet: No Restrictions, Regular Diet Discharge Physical Examination General Appearance: Alert, Oriented X3 Abdominal: Soft, No Tenderness, Other (Uterus firm 6 cm below umbilicus. Incision clean and dry without erythema) Extremities: No Tenderness/Swelling Skin: No Rashes Neuro: Normal Gait, Normal Speech, Normal Tone, Sensation Intact Psych/Mental Status: Mental Status NL Allergies: Coded Allergies: Penicillins (Verified Allergy, Unknown, 11/27/22) Discharge Summary Date of Admission Dec 05, 2022 at 05:42 Date of Discharge 12/07/22 Discharge Date: Dec 07, 2022 Discharge Time: 08:30 Admission Diagnosis 39 Weeks Prior Consults/Procedures Consulations None Procedures Repeat Section Discharge Diagnosis 39 Weeks Prior Status Repeat NICOL DOWELL DO Dec 07, 2022 08:29
[2022-12-07] MEDS: DOCUSATE SODIUM 100 MG (COLACE) CAP PO SCH (11:06)
== END 2022-12-07 11:54 | disposition home or self-care (01) | DRG 788 ==
LOC: LDRP 05:42 → WS 10:27
PROVIDERS: ADMIT Obstetrics & Gynecology; ATTEND Obstetrics & Gynecology
PROC: 10D00Z1 Extraction of Products of Conception, Low, Open Approach (ICD-10-PCS; principal; 2022-12-05 08:06)
DX: O34.211 Maternal care for low transverse scar from previous cesarean delivery (principal); Z3A.39 39 weeks gestation of pregnancy; O99.214 Obesity complicating childbirth; E66.01 Morbid (severe) obesity due to excess calories; Z37.0 Single live birth; Z28.310 Unvaccinated for COVID-19
CPT/HCPCS: 36415; 85025; 86850; 86900; 86901; 87081; 94664